=== PATIENT | female | born 1930 | race Caucasian/White ===

== ENCOUNTER 2016-04-27 14:47 | Inpatient (IN) | payer OTHER ==
--- NOTE | 2016-04-27 15:15 | PDOC ---
Rapid Medical Evaluation Time Seen by Provider: 04/27/16 15:07 Medical Evaluation: Allergies Allergy/AdvReac Type Severity Reaction Status Date / Time No Known Drug Allergies Allergy Verified 04/27/16 15:08 04/27/16 15:08 Pt comes with Left foot diabetic foot/open wound, with red cellulitis She has resection of the 1st toe 4 years ago. No fevers and no chills at home; no fever in the ER. She has a systolic heart murmur. We will send off pre-op labs and get an EKG and foot XR and CXR
--- NOTE | 2016-04-27 16:14 | PDOC ---
History of Present Illness - General History Source: Patient Exam Limitations: No Limitations - History of Present Illness Initial Comments: 04/27/16 16:54 The patient is a 85 year old female, with a significant past medical history of dementia, anemia, CVA (left hemiparesis), IDDM, gastritis, GERD, vertigo, and HTN who presents to the emergency department with left foot open wound with red cellulitis for about 2 days. The patient also has chief complaints of foul smelling. She denies recent fevers, chills, headache or dizziness. She denies recent nausea, vomit, diarrhea or constipation. Allergies: NKA Past surgical history: Resection of the 1st toe 4 years ago. Social history: Nonsmoker. Denies EtOH use and drug use. Has a home health aid 24 hours. PCP: <Soren Parra - Last Filed: 04/27/16 16:54> - General History Source: Patient Exam Limitations: No Limitations <June Marcum - Last Filed: 04/27/16 18:45> - General Chief Complaint: Wound Infection Stated Complaint: RT FOOT INFECTION Time Seen by Provider: 04/27/16 15:07 Past History <Soren Parra - Last Filed: 04/27/16 16:54> - Past Medical History Anemia: Yes Asthma: No Cancer: No Cardiac Disorders: No CVA: Yes (lt sided weakness) COPD: No CHF: No Dementia: Yes Diabetes: Yes (IDDM) Dialysis: No GI Disorders: Yes (gastritis, GERD) Disorders: No HTN: Yes Hypercholesterolemia: No Liver Disease: No Psychiatric Problems: Yes Seizures: No Thyroid Disease: Yes - Surgical History Abdominal Surgery: No Appendectomy: No Cardiac Surgery: (CAROTID) Cholecystectomy: No Lung Surgery: No Neurologic Surgery: No Orthopedic Surgery: No - Immunization History Immunization Up to Date: No - Psycho/Social/Smoking Cessation Hx Anxiety: No Suicidal Ideation: No Smoking Status: No Smoking History: Never smoked Have you smoked in the past 12 months: No Number of Cigarettes Smoked Daily: 0 Information on smoking cessation initiated: No Hx Alcohol Use: Yes (occaisional beer) Drug/Substance Use Hx: No Substance Use Type: None Hx Substance Use Treatment: No <June Marcum - Last Filed: 04/27/16 18:45> - Past Medical History Allergies/Adverse Reactions: Allergies Allergy/AdvReac Type Severity Reaction Status Date / Time No Known Drug Allergies Allergy Verified 04/27/16 15:08 Home Medications: Ambulatory Orders Amlodipine Besylate 10 mg PO DAILY 11/20/14 Aspirin [ASA -] 81 mg PO DAILY 11/20/14 Docusate Sodium 100 mg PO DAILY 11/20/14 Donepezil HCl 5 mg PO DAILY 11/20/14 Meclizine HCl 25 mg PO Q8H PRN 11/20/14 Memantine HCl [Namenda Xr] 7 mg PO DAILY 11/20/14 Pantoprazole Sodium [Protonix] 40 mg PO DAILY 11/20/14 Atorvastatin Ca [Lipitor] 10 mg PO HS 02/14/15 Hydralazine HCl [Apresoline -] 10 mg PO BID 02/14/15 Insulin (Levemir) [Levemir Flexpen -] 16 units SQ DAILY 02/14/15 Acetaminophen [Tylenol] 500 mg PO QID PRN 04/27/16 Insulin Lispro [Humalog] 0 unit SQ BID 04/27/16 Multivitamin [Poly-Vitamin] 1 each PO DAILY 04/27/16 Review of Systems - Review of Systems Able to Perform ROS?: Yes Comments:: 04/27/16 16:54 GENERAL/CONSTITUTIONAL: No: fever, chills, weakness, loss of appetite. HEAD, EYES, EARS, NOSE AND THROAT: No: change in vision, ear pain, discharge, sore throat, throat swelling. CARDIOVASCULAR: No: chest pain, lightheadedness, palpitations, syncope RESPIRATORY: No: cough, shortness of breath, wheezing, hemoptysis, stridor. GASTROINTESTINAL: No: nausea, vomiting, diarrhea, abdominal cramping, rectal bleeding, constipation. GENITOURINARY: No: dysuria, hematuria, frequency, urgency, flank pain. MUSCULOSKELETAL: Yes: foot wound. No: back pain, neck pain, joint pain, muscle swelling or pain SKIN : No: lesions, pallor, rash or easy bruising. NEUROLOGIC: No: headache, vertigo, paresthesias, weakness ENDOCRINE: No: unexplained weight gain or loss HEMATOLOGIC/LYMPHATIC: No: anemia, easy bleeding, swelling nodes. <Soren Parra - Last Filed: 04/27/16 16:54> *Physical Exam - Vital Signs Last Vital Signs Temp Pulse Resp BP Pulse Ox 97.3 F L 93 H 18 142/53 100 04/27/16 15:10 04/27/16 15:10 04/27/16 15:10 04/27/16 15:10 04/27/16 15:10 - Physical Exam Comments: 04/27/16 16:55 GENERAL: The patient is in no acute distress. HEAD: Normal with no signs of trauma. EYES: PERRLA, EOMI, sclera anicteric, conjunctiva clear. ENT: Ears normal, nares patent, oropharynx clear without exudates. Moist mucous membranes. NECK: Normal range of motion, supple without lymphadenopathy, JVD, or masses. LUNGS: Breath sounds equal, clear to auscultation bilaterally. No wheezes, and no crackles. HEART: Systolic ejection murmur 3/6 along the precordia. Regular rate and rhythm , normal S1 and S2 without murmur, rub or gallop. ABDOMEN: Soft, nontender, normoactive bowel sounds. No guarding, no rebound. No masses palpable. EXTREMITIES: LEFT foot: Surgical removal of the first toe. Swelling of 2nd and 3rd toes. NEUROLOGICAL: Cranial nerves II through XII grossly intact. Normal speech. No focal neurological deficits. MUSCULOSKELETAL: Back non-tender to palpation, no CVA tenderness SKIN: Warm, Dry, normal turgor, no rashes or lesions noted. <Soren Parra - Last Filed: 04/27/16 16:54> - Vital Signs Last Vital Signs Temp Pulse Resp BP Pulse Ox 97.3 F L 93 H 18 142/53 100 04/27/16 15:10 04/27/16 15:10 04/27/16 15:10 04/27/16 15:10 04/27/16 15:10 <June Marcum - Last Filed: 04/27/16 18:45> Heart Score/ECG Review #1 ECG reviewed & interpreted by me at: 18:44 04/27/16 18:44 Twelve-lead EKG was performed and reviewed by me. There is normal sinus rhythm with a normal rate of 94bpm. Left axis deviation. The intervals are abnormal - pr:216ms, QRS:88ms, QTc:445ms. There are no ST or T wave abnormalities. <June Marcum - Last Filed: 04/27/16 18:45> ED Treatment Course - LABORATORY CBC & Chemistry Diagram: 04/27/16 15:45 04/27/16 15:45 - ADDITIONAL ORDERS Additional order review: Laboratory Results 04/27/16 04/27/16 04/27/16 15:45 15:45 15:45 INR Cancelled PTT (Actin FS) Cancelled Blood Type A POSITIVE Antibody Screen Negative <Soren Parra - Last Filed: 04/27/16 16:54> - LABORATORY CBC & Chemistry Diagram: 04/27/16 15:45 04/27/16 15:45 - ADDITIONAL ORDERS Additional order review: Laboratory Results 04/27/16 04/27/16 15:45 15:45 INR Cancelled PTT (Actin FS) Cancelled <June Marcum - Last Filed: 04/27/16 18:45> Medical Decision Making - Medical Decision Making 04/27/16 16:14 A portion of this note was documented by scribe services under my direction. I have reviewed the details of the note, within reason, and agree with the documentation with the following case summary and management plan written by me. Nursing documentation reviewed and incorporated into medical decision making The patient is an 85 yo F h/o dementia, anemia (baseline Hgb 8-9), CVA (left hemiparesis), IDDM, gastritis, GERD, vertigo, HTN, peripheral vascular disease s /p great toe amputation who was brought to the ER by son due to change in the left toes. Second and third toes are swollen, denuded and have drainage Pt son very concerned because she is a diabetic Pt has no pain in her feet or of her toes He also notes that her urine is malodorous No fevers or chills No vomiting, no diarrhea ON examination: Foot does not feel warm Pulse not palpable Skin denuded 04/27/16 17:16 Laboratory Tests 09/24/15 12/04/15 12/05/15 05:35 13:55 05:35 WBC 8.0 6.5 Hgb 9.4 L 8.3 L D Hct 28.5 L 25.8 L Plt Count 236 162 D Potassium 5.2 H BUN 103 H Creatinine 4.7 H 04/27/16 04/27/16 15:45 15:45 WBC 6.5 Hgb 6.8 L* D Hct 20.8 L D Plt Count 211 D Potassium 4.8 BUN 111 H* Creatinine 6.3 H D Pt is more anemic than her baseline Worsening renal insufficiency Likely UTI 04/27/16 18:[address] Jacobs Will admit to Med surg Clinical impression: Anemia, Renal insufficiency, UTI <June Marcum - Last Filed: 04/27/16 18:45> *DC/Admit/Observation/Transfer - Attestations Scribe Attestion: 04/27/16 16:55 Documentation prepared by Soren Parra, acting as medical clinic manager for June Marcum MD. <Soren Parra - Last Filed: 04/27/16 16:54> - Discharge Dispostion Admit: Yes <June Marcum - Last Filed: 04/27/16 18:45> Diagnosis at time of Disposition: Acute renal failure superimposed on stage 4 chronic kidney disease UTI (urinary tract infection) Qualifiers: Urinary tract infection type: acute cystitis Hematuria presence: without hematuria Qualified Code(s): N30.00 - Acute cystitis without hematuria Anemia Qualifiers: Anemia type: unspecified type Qualified Code(s): D64.9 - Anemia, unspecified - Discharge Dispostion Condition at time of disposition: Stable
[2016-04-27 16:51] LABS: ALBUMIN 3.2 g/dl (3.4-5.0); BILIRUBIN,TOTAL 0.2 mg/dL (0.2-1.0); CALCIUM 8.9 mg/dL (8.5-10.1); CREATININE 6.3 mg/dL (0.55-1.02); TOT PROT 7.5 g/dl (6.4-8.2)
[2016-04-27 16:59] LABS: BASOPHIL 0.4 % (0-2.0); EOSINOPHIL 4.3 % (0-4.5); MCH 28.5 pg (25.7-33.7); MCHC 32.8 g/dl (32.0-36.0); MEAN PLT VOLUME 7.1 fl (7.5-11.1); NEUTROPHILS 61.8 % (42.8-82.8); PLATELET COUNT 211 K/MM3 (134-434); RDW 13.7 % (11.6-15.6); WHITE BLOOD COUNT 6.5 K/mm3 (4.0-10.0)
[2016-04-27 18:12] LABS: INR 1.08 (0.82-1.09); PROTHROMBIN TIME (PATIENT) 11.9 SEC (9.98-11.88)
[2016-04-27 18:14] LABS: ACTIVATED PTT 38.9 SECONDS (26.9-34.4)
[2016-04-27] MEDS ORDERED: MECLIZINE HCL 25 MG TABLET (FP) PO PRN (18:19)
[2016-04-27] MEDS ORDERED: ACETAMINOPHEN 325 MG TABLET (FP) PO PRN (18:23)
[2016-04-27] MEDS ORDERED: CEFTRIAXONE 1 GM in DEXTROSE 5%-WATER - 100 ML IVPB SCH (18:30)
[2016-04-27] MEDS ORDERED: CEFTRIAXONE 50 ML ONE (18:32)
[2016-04-27 22:18] LABS: URINE APPEARANCE TURBID; URINE BILIRUBIN NEGATIVE (NEGATIVE); URINE COLOR YELLOW; URINE GLUCOSE (UA) 2+ (NEGATIVE); URINE KETONE NEGATIVE (NEGATIVE); URINE NITRITE NEGATIVE (NEGATIVE); URINE UROBILINOGEN NEGATIVE E.U./dl (0.2-1.0)
[2016-04-27 22:21] LABS: URINE BLOOD 2+ (NEGATIVE); URINE LEUK ESTERASE 3+ (NEGATIVE); URINE PROTEIN 2+ (NEGATIVE)
[2016-04-27 22:23] LABS: URINE BACTERIA RARE /hpf (NONE SEEN); URINE RBC 5 /hpf (0-3); URINE WBC 228 /hpf (3-5); YEAST MODERATE
[2016-04-27] MEDS: ATORVASTATIN CA 10 MG TABLET (FP) PO SCH (23:58)
[2016-04-27] MEDS: hydrALAZINE HCL 10 MG TABLET PO SCH (23:58)
[2016-04-28] MEDS: INSULIN SLIDING SCALE (NOVOLOG) 1 VIAL SQ SCH ×5 (00:01→21:50)
[2016-04-28] MEDS: D5-1/2NS+20 MEQ KCL - 1,000 ML IV SCH (00:53)
[2016-04-28 01:26] VITALS: BMI 22.1
--- NOTE | 2016-04-28 08:14 | HP ---
Admitting History and Physical - Admission History of Present Illness: 85 yo F h/o dementia, anemia (baseline Hgb 8-9), CVA (left hemiparesis), IDDM, gastritis, GERD, vertigo, HTN, peripheral vascular disease s/p great toe amputation who was brought to the ER by son due to change in the left toes. 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 Cardiovascular: Yes: HTN, Hyperlipdemia Renal/: Yes: Renal Inusuff Heme/Onc: Yes: Anemia - Past Surgical History Past Surgical History: Yes: Amputation, Carotid Endarterectomy - Smoking History Smoking history: Never smoked Have you smoked in the past 12 months: No Aproximately how many cigarettes per day: 0 - Alcohol/Substance Use Hx Alcohol Use: Yes (occaisional beer) History of Substance Use: reports: None - Social History ADL: Family Assistance History of Recent Travel: No Home Medications - Allergies Allergies/Adverse Reactions: Allergies Allergy/AdvReac Type Severity Reaction Status Date / Time No Known Drug Allergies Allergy Verified 04/27/16 15:08 - Home Medications Home Medications: Ambulatory Orders Amlodipine Besylate 10 mg PO DAILY 11/20/14 Aspirin [ASA -] 81 mg PO DAILY 11/20/14 Docusate Sodium 100 mg PO DAILY 11/20/14 Donepezil HCl 5 mg PO DAILY 11/20/14 Meclizine HCl 25 mg PO Q8H PRN 11/20/14 Memantine HCl [Namenda Xr] 7 mg PO DAILY 11/20/14 Pantoprazole Sodium [Protonix] 40 mg PO DAILY 11/20/14 Atorvastatin Ca [Lipitor] 10 mg PO HS 02/14/15 Hydralazine HCl [Apresoline -] 10 mg PO BID 02/14/15 Insulin (Levemir) [Levemir Flexpen -] 16 units SQ DAILY 02/14/15 Acetaminophen [Tylenol] 500 mg PO QID PRN 04/27/16 Insulin Lispro [Humalog] 0 unit SQ BID 04/27/16 Multivitamin [Poly-Vitamin] 1 each PO DAILY 04/27/16 Review of Systems - Review of Systems Cardiovascular: denies: Chest Pain Gastrointestinal: reports: No Symptoms Genitourinary: reports: No Symptoms Neurological: reports: Confusion Physical Examination Vital Signs: Vital Signs Temperature 98.7 F 04/28/16 06:33 Pulse Rate 99 H 04/28/16 06:33 Respiratory Rate 20 04/28/16 06:33 Blood Pressure 158/76 04/28/16 06:33 O2 Sat by Pulse Oximetry (%) 98 04/27/16 21:00 Cardiovascular: Yes: S1, S2 Respiratory: Yes: Regular, CTA Bilaterally Gastrointestinal: Yes: Normal Bowel Sounds, Soft. No: Tenderness Edema: No Wound/Incision: Yes: Other (foot with ulcer) Neurological: Yes: Alert Problem List - Problems (1) Acute renal failure superimposed on stage 4 chronic kidney disease Assessment/Plan: IVF MONITOR RENAL FUNCTION RENAL CONSULT Code(s): N17.9 - ACUTE KIDNEY FAILURE, UNSPECIFIED N18.4 - CHRONIC KIDNEY DISEASE, STAGE 4 (SEVERE) (2) Anemia Assessment/Plan: MAYBE DUE TO CKD R/O GI LOSS S/P PRBC AWAIT CBC GI CONSULT Code(s): D64.9 - ANEMIA, UNSPECIFIED Qualifiers: Anemia type: unspecified type Qualified Code(s): D64.9 - Anemia, unspecified (3) UTI (urinary tract infection) Assessment/Plan: IV ABX AWAIT CULTURE Code(s): N39.0 - URINARY TRACT INFECTION, SITE NOT SPECIFIED Qualifiers: Urinary tract infection type: acute cystitis Hematuria presence: without hematuria Qualified Code(s): N30.00 - Acute cystitis without hematuria (4) Alzheimer's dementia Code(s): G30.9 - ALZHEIMER'S DISEASE, UNSPECIFIED (5) Amputated toe of left foot Code(s): Z89.422 - ACQUIRED ABSENCE OF OTHER LEFT TOE(S) (6) Amputated toe of right foot Code(s): Z89.421 - ACQUIRED ABSENCE OF OTHER RIGHT TOE(S)
[2016-04-28 08:15] LABS: BASOPHIL 0.3 % (0-2.0); EOSINOPHIL 2.9 % (0-4.5); MCH 27.9 pg (25.7-33.7); MCHC 33.6 g/dl (32.0-36.0); MEAN CELL VOLUME 83.1 fl (80-96); MEAN PLT VOLUME 7.2 fl (7.5-11.1); NEUTROPHILS 76.8 % (42.8-82.8); PLATELET COUNT 200 K/MM3 (134-434); RDW 15.8 % (11.6-15.6); WHITE BLOOD COUNT 9.1 K/mm3 (4.0-10.0)
[2016-04-28 09:32] LABS: ALBUMIN 3.2 g/dl (3.4-5.0); BILIRUBIN,TOTAL 0.2 mg/dL (0.2-1.0); CALCIUM 8.9 mg/dL (8.5-10.1); CREATININE 5.9 mg/dL (0.55-1.02); TOT PROT 7.4 g/dl (6.4-8.2)
[2016-04-28] MEDS ORDERED: INFLUENZA VACCINE 45 MCG/0.5 ML (MDV 16-17) IM ONE (10:00)
[2016-04-28] MEDS ORDERED: PNEUMOC 13-VAL CONJ-DIP CRM/PF 0.5 ML DISP.SYRIN IM ONE (10:00)
[2016-04-28] MEDS ORDERED: PANTOPRAZOLE SODIUM 40 MG in SODIUM CHLORIDE 100 ML IVPB SCH (10:00)
[2016-04-28] MEDS ORDERED: PT OWN MED DRAWER 7, Y5N ONE ×3 (10:03→21:25)
[2016-04-28] MEDS: DOCUSATE SODIUM 100 MG CAPSULE (FP) PO SCH (10:13)
[2016-04-28] MEDS: INSULIN DETEMIR 100 UNITS/ML MDV SQ SCH (10:13)
[2016-04-28] MEDS: amLODIPine BESYLATE 10 MG TABLET (FP) PO SCH (10:14)
[2016-04-28] MEDS: cefTRIAXone 1 GM/50 ML BAG (PRE-DOCKED) IVPB SCH (10:14)
[2016-04-28] MEDS: DONEPEZIL HCL 5 MG TABLET (FP) PO SCH (10:14)
[2016-04-28] MEDS: MULTIVITAMINS (DAILY MVI) TABLET (FP) PO SCH (10:14)
[2016-04-28] MEDS: hydrALAZINE HCL 10 MG TABLET PO SCH ×2 (10:14→21:49)
[2016-04-28] MEDS: PANTOPRAZOLE SODIUM 40 MG/100 ML PRE-DOCKED IVPB SCH (11:30)
[2016-04-28] MEDS: MEMANTINE HCL 7 MG PO SCH (11:30)
--- NOTE | 2016-04-28 14:12 | EKG ---
Test Reason : Blood Pressure : / mmHG Vent. Rate : 095 BPM Atrial Rate : 095 BPM P-R Int : 224 ms QRS Dur : 080 ms QT Int : 342 ms P-R-T Axes : 064 -45 069 degrees QTc Int : 429 ms SINUS RHYTHM WITH 1ST DEGREE A-V BLOCK LEFT ANTERIOR FASCICULAR BLOCK MINIMAL VOLTAGE CRITERIA FOR LVH, MAY BE NORMAL VARIANT ANTERIOR INFARCT , AGE UNDETERMINED ABNORMAL ECG WHEN COMPARED WITH ECG OF 04-DEC-2015 13:35, ANTERIOR INFARCT IS NOW PRESENT Confirmed by JORDI SALDIVAR, DANA ([id number]) on 04/28/2016 2:12:33 PM Referred By: Confirmed By:DANA ABCON MD
--- NOTE | 2016-04-28 17:24 | CON.GI ---
Consult Consult Specialty:: gastroenterology Referred by:: Dr Jara - History of Present Illness History of Present Illness: 85 y/o female, with PMH of diabetes, severe PVD , s/p left toe amputation was admitted because of swelling of left foot. On routine examination the patient was noted to be anemic. She denies any gi symptoms including dysphagia, epigastric pain, melena and rectal bleeding. 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 Cardio/Vascular: Yes: HTN, Hyperlipdemia Renal/: Yes: Renal Inusuff - Past Surgical History Past Surgical History: Yes: Amputation, Carotid Endarterectomy - Alcohol/Substance Use Hx Alcohol Use: Yes (occaisional beer) History of Substance Use: reports: None - Smoking History Smoking history: Never smoked Have you smoked in the past 12 months: No Aproximately how many cigarettes per day: 0 - Social History ADL: Family Assistance History of Recent Travel: No Home Medications - Allergies Allergies/Adverse Reactions: Allergies Allergy/AdvReac Type Severity Reaction Status Date / Time No Known Drug Allergies Allergy Verified 04/27/16 15:08 - Home Medications Home Medications: Ambulatory Orders Amlodipine Besylate 10 mg PO DAILY 11/20/14 Aspirin [ASA -] 81 mg PO DAILY 11/20/14 Docusate Sodium 100 mg PO DAILY 11/20/14 Donepezil HCl 5 mg PO DAILY 11/20/14 Meclizine HCl 25 mg PO Q8H PRN 11/20/14 Memantine HCl [Namenda Xr] 7 mg PO DAILY 11/20/14 Pantoprazole Sodium [Protonix] 40 mg PO DAILY 11/20/14 Atorvastatin Ca [Lipitor] 10 mg PO HS 02/14/15 Hydralazine HCl [Apresoline -] 10 mg PO BID 02/14/15 Insulin (Levemir) [Levemir Flexpen -] 16 units SQ DAILY 02/14/15 Acetaminophen [Tylenol] 500 mg PO QID PRN 04/27/16 Insulin Lispro [Humalog] 0 unit SQ BID 04/27/16 Multivitamin [Poly-Vitamin] 1 each PO DAILY 04/27/16 Review of Systems Unable to obtain ROS, reason: dementia Physical Exam-GI Vital Signs: Vital Signs Temperature 99.5 F 04/28/16 17:05 Pulse Rate 96 H 04/28/16 17:05 Respiratory Rate 20 04/28/16 17:05 Blood Pressure 170/79 04/28/16 17:05 O2 Sat by Pulse Oximetry (%) 100 04/28/16 09:00 Constitutional: Yes: Well Nourished Eyes: Yes: Conjunctiva Clear HENT: Yes: Normocephalic Neck: Yes: Trachea Midline Cardiovascular: Yes: Regular Rate and Rhythm Respiratory: Yes: CTA Bilaterally ...Palpate: Yes: Soft. No: Firm/Rigid, Guarding, Hepatomegaly, Mass, Pulsatile Mass, Splenomegaly, Tenderness Labs: CBC, BMP 04/28/16 06:00 04/28/16 06:00 INR, PTT INR 1.08 (0.82-1.09) 04/27/16 16:33 Problem List - Problems (1) Anemia Assessment/Plan: r/o occult GI bleeding R>for EGD in am if negative will need colonoscopy, patients son gave informed consent,case discussed with Dr jara Code(s): D64.9 - ANEMIA, UNSPECIFIED Qualifiers: Anemia type: unspecified type Qualified Code(s): D64.9 - Anemia, unspecified
[2016-04-28] MEDS ORDERED: ALPRAZolam 0.25 MG TABLET PO ONE (19:15)
--- NOTE | 2016-04-28 19:43 | CONSULT ---
Consult Consult Specialty:: Nephrology Reason for Consultation:: CKD - History of Present Illness Chief Complaint: left foot swelling and pain History of Present Illness: Pt is an 85 year old female with pmhx of PVD, CKD, HTN and chol who presents to the ER with left foot pain and swelling. She was found to have elevated creatinine and I was called to evaluate her. She has history of CKD and follows with Dr Toth. She does not want HD and has refused it in the past. She was also found to be anemic. She is not on any epogen as of yet as an outpt. She denies rectal bleeding. She denies shortness of breath. She denies hematuria or dysuria. 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 Cardio/Vascular: Yes: HTN, Hyperlipdemia Renal/: Yes: Renal Inusuff - Past Surgical History Past Surgical History: Yes: Amputation, Carotid Endarterectomy - Alcohol/Substance Use Hx Alcohol Use: Yes (occaisional beer) History of Substance Use: reports: None - Smoking History Smoking history: Never smoked Have you smoked in the past 12 months: No Aproximately how many cigarettes per day: 0 - Social History ADL: Family Assistance History of Recent Travel: No Home Medications - Allergies Allergies/Adverse Reactions: Allergies Allergy/AdvReac Type Severity Reaction Status Date / Time No Known Drug Allergies Allergy Verified 04/27/16 15:08 - Home Medications Home Medications: Ambulatory Orders Amlodipine Besylate 10 mg PO DAILY 11/20/14 Aspirin [ASA -] 81 mg PO DAILY 11/20/14 Docusate Sodium 100 mg PO DAILY 11/20/14 Donepezil HCl 5 mg PO DAILY 11/20/14 Meclizine HCl 25 mg PO Q8H PRN 11/20/14 Memantine HCl [Namenda Xr] 7 mg PO DAILY 11/20/14 Pantoprazole Sodium [Protonix] 40 mg PO DAILY 11/20/14 Atorvastatin Ca [Lipitor] 10 mg PO HS 02/14/15 Hydralazine HCl [Apresoline -] 10 mg PO BID 02/14/15 Insulin (Levemir) [Levemir Flexpen -] 16 units SQ DAILY 02/14/15 Acetaminophen [Tylenol] 500 mg PO QID PRN 04/27/16 Insulin Lispro [Humalog] 0 unit SQ BID 04/27/16 Multivitamin [Poly-Vitamin] 1 each PO DAILY 04/27/16 Family Disease History - Family Disease History Family History: Denies Review of Systems - Review of Systems Constitutional: reports: Weakness Eyes: reports: No Symptoms HENT: reports: No Symptoms Neck: reports: No Symptoms Cardiovascular: reports: No Symptoms Respiratory: reports: No Symptoms Gastrointestinal: reports: No Symptoms Genitourinary: reports: No Symptoms Musculoskeletal: reports: Other (left foot pain) Hematology/Lymphatic: reports: No Symptoms Psychiatric: reports: No Symptoms Physical Exam Vital Signs: Vital Signs Temperature 99.5 F 04/28/16 17:05 Pulse Rate 96 H 04/28/16 17:05 Respiratory Rate 20 04/28/16 17:05 Blood Pressure 170/79 04/28/16 17:05 O2 Sat by Pulse Oximetry (%) 100 04/28/16 09:00 Constitutional: Yes: Calm Eyes: Yes: Conjunctiva Clear HENT: Yes: Atraumatic Cardiovascular: Yes: S1, S2 Respiratory: Yes: CTA Bilaterally Gastrointestinal: Yes: Soft Renal/: Yes: WNL Musculoskeletal: Yes: Muscle Weakness Extremities: Yes: Other (left leg erythema) Integumentary: Yes: WNL Wound/Incision: Yes: Open to air Neurological: Yes: Oriented Labs: CBC, BMP 04/28/16 06:00 04/28/16 06:00 Laboratory Tests 09/25/15 04/27/16 04/27/16 05:35 15:45 15:45 WBC 6.5 RBC 2.39 L Hgb 6.8 L* D Plt Count 211 D INR PTT (Actin FS) Sodium 140 Potassium 4.8 Chloride 110 H Carbon Dioxide Anion Gap BUN 111 H* Creatinine 4.5 H 6.3 H D Creat Clearance w eGFR Random Glucose Urine Color Urine Appearance Urine pH Ur Specific [place] Urine Protein Urine Glucose (UA) Urine Ketones Urine Nitrite Urine Bilirubin Urine Urobilinogen 04/27/16 04/27/16 04/28/16 16:33 18:00 06:00 WBC 9.1 D RBC 3.24 L D Hgb 9.0 L D Plt Count 200 INR 1.08 PTT (Actin FS) 38.9 H Sodium Potassium Chloride Carbon Dioxide Anion Gap BUN Creatinine Creat Clearance w eGFR Random Glucose Urine Color Yellow Urine Appearance Turbid Urine pH 5.0 Ur Specific [place] 1.012 Urine Protein 2+ H Urine Glucose (UA) 2+ H Urine Ketones Negative Urine Nitrite Negative Urine Bilirubin Negative Urine Urobilinogen Negative 04/28/16 06:00 WBC RBC Hgb Plt Count INR PTT (Actin FS) Sodium 140 Potassium 5.0 Chloride 109 H Carbon Dioxide 16 L Anion Gap 15 BUN 107 H* Creatinine 5.9 H Creat Clearance w eGFR 6.83 Random Glucose 201 H Urine Color Urine Appearance Urine pH Ur Specific [place] Urine Protein Urine Glucose (UA) Urine Ketones Urine Nitrite Urine Bilirubin Urine Urobilinogen Imaging - Results Chest X-ray: Report Reviewed Problem List - Problems (1) Anemia Code(s): D64.9 - ANEMIA, UNSPECIFIED Qualifiers: Anemia type: unspecified type Qualified Code(s): D64.9 - Anemia, unspecified (2) Alzheimer's dementia Code(s): G30.9 - ALZHEIMER'S DISEASE, UNSPECIFIED (3) CKD (chronic kidney disease) stage 5, GFR less than 15 ml/min Code(s): N18.5 - CHRONIC KIDNEY DISEASE, STAGE 5 Assessment/Plan Current Medications Generic Name Dose Route Start Last Admin Trade Name Freq PRN Reason Stop Dose Admin Acetaminophen 650 mg 04/27/16 18:23 Tylenol - PO Q4H PRN FEVER OR PAIN Amlodipine Besylate 10 mg 04/28/16 10:00 04/28/16 10:14 Norvasc - PO 10 mg DAILY DIONICIO Administration Atorvastatin Calcium 10 mg 04/27/16 22:00 04/27/16 23:58 Lipitor - PO 10 mg HS DIONICIO Administration Ceftriaxone Sodium 1 gm 04/28/16 10:00 04/28/16 10:14 Rocephin 1gm Ivpb (Pre-Docked) IVPB 1 gm DAILY DIONICIO Administration Docusate Sodium 100 mg 04/28/16 10:00 04/28/16 10:13 Colace - PO 100 mg DAILY DIONICIO Administration Donepezil HCl 5 mg 04/28/16 10:00 04/28/16 10:14 Aricept - PO 5 mg DAILY DIONICIO Administration Hydralazine HCl 10 mg 04/27/16 22:00 04/28/16 10:14 Apresoline - PO 10 mg BID DIONICIO Administration Potassium Chloride/Dextrose/Sod Cl 1,000 mls @ 42 mls/hr 04/27/16 18:30 00:53 D5-1/2ns+20 Meq Kcl - IV 42 mls/hr ASDIR DIONICIO Administration Insulin Aspart 1 vial 04/27/16 22:00 04/28/16 18:17 Novolog Vial Sliding Scale - SQ Not Given ACHS DIONICIO Protocol Insulin Detemir 16 units 04/28/16 08:15 04/28/16 10:13 Levemir Vial SQ 16 units DAILY@0700 DIONICIO Administration Meclizine HCl 25 mg 04/27/16 18:19 Antivert - PO Q8H PRN VERTIGO Multivitamins/Minerals/Vitamin C 1 tab 04/28/16 10:00 04/28/16 10:14 Tab-A-Vit - PO 1 tab DAILY DIONICIO Administration Non-Formulary Medication 7 mg 04/28/16 10:00 04/28/16 11:30 Memantine Hcl [Namenda Xr] PO 7 mg DAILY DIONICIO Administration Pantoprazole Sodium 40 mg 04/28/16 10:00 04/28/16 11:30 Protonix 40mg Ivpb (Pre-Docked) IVPB 40 mg DAILY DIONICIO Administration Impression 1. CKD 2. anemia 3. HTN 4. PVD 5. hyperlipidemia 6. dementia 7. DM Plan - likely renal failure from progression of kidney disease - pt and family are refusing HD therapy - check iron levels - anemia could be from renal disease however will need to rule out GI causes as well - cont current meds - will remove kcl from fluids - will add PO bicarb to meds Dr Fox
[2016-04-28] MEDS ORDERED: DEXTROSE 5%-0.45% SALINE 1,000 ML IV SCH (20:00)
[2016-04-28] MEDS: ATORVASTATIN CA 10 MG TABLET (FP) PO SCH (21:49)
[2016-04-28] MEDS: SODIUM BICARBONATE 650 MG TABLET PO SCH (21:49)
[2016-04-29] MEDS: INSULIN SLIDING SCALE (NOVOLOG) 1 VIAL SQ SCH ×4 (06:25→21:56)
[2016-04-29] MEDS: INSULIN DETEMIR 100 UNITS/ML MDV SQ SCH (06:25)
[2016-04-29 07:57] LABS: BASOPHIL 0.3 % (0-2.0); MCH 27.8 pg (25.7-33.7); MCHC 33.3 g/dl (32.0-36.0); MEAN CELL VOLUME 83.7 fl (80-96); MEAN PLT VOLUME 6.6 fl (7.5-11.1); NEUTROPHILS 63.5 % (42.8-82.8); PLATELET COUNT 190 K/MM3 (134-434); RDW 15.7 % (11.6-15.6); WHITE BLOOD COUNT 7.1 K/mm3 (4.0-10.0)
[2016-04-29 08:36] LABS: ALBUMIN 2.8 g/dl (3.4-5.0); BILIRUBIN,TOTAL 0.2 mg/dL (0.2-1.0); CALCIUM 8.4 mg/dL (8.5-10.1); CREATININE 5.5 mg/dL (0.55-1.02); TOT PROT 6.8 g/dl (6.4-8.2)
[2016-04-29] MEDS ORDERED: PT OWN MED DRAWER 7, Y5N ONE (10:02)
[2016-04-29] MEDS: DONEPEZIL HCL 5 MG TABLET (FP) PO SCH (10:03)
[2016-04-29] MEDS: amLODIPine BESYLATE 10 MG TABLET (FP) PO SCH (10:03)
[2016-04-29] MEDS: PANTOPRAZOLE SODIUM 40 MG/100 ML PRE-DOCKED IVPB SCH (10:03)
[2016-04-29] MEDS: DOCUSATE SODIUM 100 MG CAPSULE (FP) PO SCH (10:03)
[2016-04-29] MEDS: MULTIVITAMINS (DAILY MVI) TABLET (FP) PO SCH (10:03)
[2016-04-29] MEDS: SODIUM BICARBONATE 650 MG TABLET PO SCH ×2 (10:03→21:40)
[2016-04-29] MEDS: hydrALAZINE HCL 10 MG TABLET PO SCH ×2 (10:04→21:39)
[2016-04-29] MEDS: cefTRIAXone 1 GM/50 ML BAG (PRE-DOCKED) IVPB SCH (10:04)
[2016-04-29] MEDS: D5-1/2NS+20 MEQ KCL - 1,000 ML IV SCH (10:05)
[2016-04-29] MEDS: MEMANTINE HCL 7 MG PO SCH (10:05)
--- NOTE | 2016-04-29 14:08 | PN ---
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, Physician Chief Complaint: patient got back EGD in bed nodd her her when i ask her name and how she is then closes her eyes - Current Medication List Current Medications: Active Medications Acetaminophen (Tylenol -) 650 mg PO Q4H PRN PRN Reason: FEVER OR PAIN Amlodipine Besylate (Norvasc -) 10 mg PO DAILY [facility] Last Admin: 04/29/16 10:03 Dose: 10 mg Atorvastatin Calcium (Lipitor -) 10 mg PO HS [facility] Last Admin: 04/28/16 21:49 Dose: 10 mg Ceftriaxone Sodium (Rocephin 1gm Ivpb (Pre-Docked)) 1 gm IVPB DAILY [facility] Last Admin: 04/29/16 10:04 Dose: 1 gm Docusate Sodium (Colace -) 100 mg PO DAILY [facility] Last Admin: 04/29/16 10:03 Dose: 100 mg Donepezil HCl (Aricept -) 5 mg PO DAILY [facility] Last Admin: 04/29/16 10:03 Dose: 5 mg Hydralazine HCl (Apresoline -) 10 mg PO BID [facility] Last Admin: 04/29/16 10:04 Dose: 10 mg Dextrose/Sodium Chloride (D5-1/2ns -) 1,000 mls @ 42 mls/hr IV ASDIR [facility] Last Admin: 04/28/16 21:49 Dose: 42 mls/hr Insulin Aspart (Novolog Vial Sliding Scale -) 1 vial SQ ACHS [facility] PRN Reason: Protocol Last Admin: 04/29/16 11:48 Dose: Not Given Insulin Detemir (Levemir Vial) 16 units SQ DAILY@0700 [facility] Last Admin: 04/29/16 06:25 Dose: Not Given Meclizine HCl (Antivert -) 25 mg PO Q8H PRN PRN Reason: [facility] Multivitamins/Minerals/Vitamin C (Tab-A-Vit -) 1 tab PO DAILY [facility] Last Admin: 04/29/16 10:03 Dose: 1 tab Non-Formulary Medication (Memantine Hcl [Namenda Xr]) 7 mg PO DAILY [facility] Last Admin: 04/29/16 10:05 Dose: 7 mg Pantoprazole Sodium (Protonix 40mg Ivpb (Pre-Docked)) 40 mg IVPB DAILY [facility] Last Admin: 04/29/16 10:03 Dose: 40 mg Sodium Bicarbonate (Sodium Bicarbonate -) 650 mg PO BID [facility] Last Admin: 04/29/16 10:03 Dose: 650 mg - Objective Vital Signs: Vital Signs Temperature 98.4 F 04/29/16 10:00 Pulse Rate 91 H 04/29/16 10:00 Respiratory Rate 18 04/29/16 10:00 Blood Pressure 153/68 04/29/16 10:00 O2 Sat by Pulse Oximetry (%) 100 04/29/16 09:03 Constitutional: Yes: Calm Cardiovascular: Yes: Regular Rate and Rhythm, Murmur, S1, S2 Respiratory: Yes: CTA Bilaterally Gastrointestinal: Yes: Normal Bowel Sounds, Soft Edema: No Labs: CBC, BMP 04/29/16 06:00 04/29/16 06:00 INR, PTT INR 1.08 (0.82-1.09) 04/27/16 16:33 Problem List - Problems (1) Acute renal failure superimposed on stage 4 chronic kidney disease Assessment/Plan: no HD per family palliative care consult to discuss advacne directives Code(s): N17.9 - ACUTE KIDNEY FAILURE, UNSPECIFIED N18.4 - CHRONIC KIDNEY DISEASE, STAGE 4 (SEVERE) (2) Anemia Assessment/Plan: s/p transfusion s/p EGD no further work up per GI back to floor waiting iron studes secondary to CKD Code(s): D64.9 - ANEMIA, UNSPECIFIED Qualifiers: Anemia type: unspecified type Qualified Code(s): D64.9 - Anemia, unspecified (3) CKD (chronic kidney disease) stage 5, GFR less than 15 ml/min Assessment/Plan: family doesn ot want HD will have palliatve care come to discuss advance directives regarding DNR Code(s): N18.5 - CHRONIC KIDNEY DISEASE, STAGE 5 (4) Hypertension Assessment/Plan: hydralazine Code(s): I10 - ESSENTIAL (PRIMARY) HYPERTENSION (5) Dementia Assessment/Plan: same meds Code(s): F03.90 - UNSPECIFIED DEMENTIA WITHOUT BEHAVIORAL DISTURBANCE Qualifiers: Dementia type: unspecified type Dementia behavioral disturbance: without behavioral disturbance Qualified Code(s): F03.90 - Unspecified dementia without behavioral disturbance (6) Wound, open, foot Assessment/Plan: Microbiology 04/28/16 07:55 Toe - Left Second Wound Culture - Preliminary Staphylococcus Coagulase Neg Pending Organism awiaitng final organism Code(s): S91.309A - UNSPECIFIED OPEN WOUND, UNSPECIFIED FOOT, INITIAL ENCOUNTER (7) UTI (urinary tract infection) Assessment/Plan: culture no growth Code(s): N39.0 - URINARY TRACT INFECTION, SITE NOT SPECIFIED Qualifiers: Urinary tract infection type: acute cystitis Hematuria presence: without hematuria Qualified Code(s): N30.00 - Acute cystitis without hematuria
--- NOTE | 2016-04-29 15:17 | PN ---
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, Physician History of Present Illness: Pt seen and examined at bedside. She is awake and appears comfortable. She is asking to go home. - Current Medication List Current Medications: Active Medications Acetaminophen (Tylenol -) 650 mg PO Q4H PRN PRN Reason: FEVER OR PAIN Amlodipine Besylate (Norvasc -) 10 mg PO DAILY [facility] Last Admin: 04/29/16 10:03 Dose: 10 mg Atorvastatin Calcium (Lipitor -) 10 mg PO HS [facility] Last Admin: 04/28/16 21:49 Dose: 10 mg Ceftriaxone Sodium (Rocephin 1gm Ivpb (Pre-Docked)) 1 gm IVPB DAILY [facility] Last Admin: 04/29/16 10:04 Dose: 1 gm Docusate Sodium (Colace -) 100 mg PO DAILY [facility] Last Admin: 04/29/16 10:03 Dose: 100 mg Donepezil HCl (Aricept -) 5 mg PO DAILY [facility] Last Admin: 04/29/16 10:03 Dose: 5 mg Hydralazine HCl (Apresoline -) 10 mg PO BID [facility] Last Admin: 04/29/16 10:04 Dose: 10 mg Dextrose/Sodium Chloride (D5-1/2ns -) 1,000 mls @ 42 mls/hr IV ASDIR [facility] Last Admin: 04/28/16 21:49 Dose: 42 mls/hr Insulin Aspart (Novolog Vial Sliding Scale -) 1 vial SQ ACHS [facility] PRN Reason: Protocol Last Admin: 04/29/16 11:48 Dose: Not Given Insulin Detemir (Levemir Vial) 16 units SQ DAILY@0700 [facility] Last Admin: 04/29/16 06:25 Dose: Not Given Meclizine HCl (Antivert -) 25 mg PO Q8H PRN PRN Reason: [facility] Multivitamins/Minerals/Vitamin C (Tab-A-Vit -) 1 tab PO DAILY [facility] Last Admin: 04/29/16 10:03 Dose: 1 tab Non-Formulary Medication (Memantine Hcl [Namenda Xr]) 7 mg PO DAILY [facility] Last Admin: 04/29/16 10:05 Dose: 7 mg Pantoprazole Sodium (Protonix 40mg Ivpb (Pre-Docked)) 40 mg IVPB DAILY [facility] Last Admin: 04/29/16 10:03 Dose: 40 mg Sodium Bicarbonate (Sodium Bicarbonate -) 650 mg PO BID [facility] Last Admin: 03/09/17 10:03 Dose: 650 mg - Objective Vital Signs: Vital Signs Temperature 98.4 F 04/29/16 10:00 Pulse Rate 91 H 04/29/16 10:00 Respiratory Rate 18 04/29/16 10:00 Blood Pressure 153/68 04/29/16 10:00 O2 Sat by Pulse Oximetry (%) 100 04/29/16 09:03 Constitutional: Yes: Calm Eyes: Yes: Conjunctiva Clear HENT: Yes: Atraumatic Neck: Yes: Supple Cardiovascular: Yes: S1, S2 Respiratory: Yes: CTA Bilaterally Gastrointestinal: Yes: Soft Genitourinary: Yes: WNL Musculoskeletal: Yes: Muscle Weakness Edema: No Neurological: Yes: Oriented Labs: CBC, BMP 04/29/16 06:00 04/29/16 06:00 INR, PTT INR 1.08 (0.82-1.09) 04/27/16 16:33 Problem List - Problems (1) Anemia Code(s): D64.9 - ANEMIA, UNSPECIFIED Qualifiers: Anemia type: unspecified type Qualified Code(s): D64.9 - Anemia, unspecified (2) Alzheimer's dementia Code(s): G30.9 - ALZHEIMER'S DISEASE, UNSPECIFIED (3) CKD (chronic kidney disease) stage 5, GFR less than 15 ml/min Code(s): N18.5 - CHRONIC KIDNEY DISEASE, STAGE 5 Assessment/Plan Current Medications Generic Name Dose Route Start Last Admin Trade Name Freq PRN Reason Stop Dose Admin Acetaminophen 650 mg 04/27/16 18:23 Tylenol - PO Q4H PRN FEVER OR PAIN Amlodipine Besylate 10 mg 04/28/16 10:00 04/29/16 10:03 Norvasc - PO 10 mg DAILY [facility] Administration Atorvastatin Calcium 10 mg 04/27/16 22:00 04/28/16 21:49 Lipitor - PO 10 mg HS [facility] Administration Ceftriaxone Sodium 1 gm 04/28/16 10:00 04/29/16 10:04 Rocephin 1gm Ivpb (Pre-Docked) IVPB 1 gm DAILY [facility] Administration Docusate Sodium 100 mg 04/28/16 10:00 04/29/16 10:03 Colace - PO 100 mg DAILY [facility] Administration Donepezil HCl 5 mg 04/28/16 10:00 04/29/16 10:03 Aricept - PO 5 mg DAILY [facility] Administration Hydralazine HCl 10 mg 04/27/16 22:00 04/29/16 10:04 Apresoline - PO 10 mg BID [facility] Administration Dextrose/Sodium Chloride 1,000 mls @ 42 mls/hr 04/28/16 20:00 04/28/16 21:49 D5-1/2ns - IV 42 mls/hr ASDIR [facility] Administration Insulin Aspart 1 vial 04/27/16 22:00 04/29/16 11:48 Novolog Vial Sliding Scale - SQ Not Given ACHS [facility] Protocol Insulin Detemir 16 units 04/28/16 08:15 04/29/16 06:25 Levemir Vial SQ Not Given DAILY@0700 [facility] Meclizine HCl 25 mg 04/27/16 18:19 Antivert - PO Q8H PRN [facility] Multivitamins/Minerals/Vitamin C 1 tab 04/28/16 10:00 04/29/16 10:03 Tab-A-Vit - PO 1 tab DAILY [facility] Administration Non-Formulary Medication 7 mg 04/28/16 10:00 04/29/16 10:05 Memantine Hcl [Namenda Xr] PO 7 mg DAILY [facility] Administration Pantoprazole Sodium 40 mg 04/28/16 10:00 04/29/16 10:03 Protonix 40mg Ivpb (Pre-Docked) IVPB 40 mg DAILY [facility] Administration Sodium Bicarbonate 650 mg 04/28/16 22:00 04/29/16 10:03 Sodium Bicarbonate - PO 650 mg BID [facility] Administration Laboratory Tests 04/29/16 04/29/16 06:00 06:00 Iron Pending Ferritin [id number] Impression 1. CKD 2. anemia 3. HTN 4. PVD 5. hyperlipidemia 6. dementia 7. DM Plan - renal function is stabilizing - cont renal diet - cont PO bicarb - change fluids to 1/2ns - pt does not want HD - follow up iron levels - cont current meds Dr Fox
[2016-04-29] MEDS ORDERED: SODIUM CHLORIDE 0.45% 1,000 ML IV SCH (15:30)
[2016-04-29] MEDS: ATORVASTATIN CA 10 MG TABLET (FP) PO SCH (21:39)
[2016-04-30] MEDS: INSULIN SLIDING SCALE (NOVOLOG) 1 VIAL SQ SCH ×2 (06:14→12:20)
[2016-04-30] MEDS: INSULIN DETEMIR 100 UNITS/ML MDV SQ SCH (06:31)
[2016-04-30] MEDS ORDERED: PT OWN MED DRAWER 7, Y5N ONE ×2 (06:57→09:55)
[2016-04-30 08:02] LABS: BASOPHIL 0.5 % (0-2.0); EOSINOPHIL 5.4 % (0-4.5); MCHC 33.5 g/dl (32.0-36.0); MEAN CELL VOLUME 83.8 fl (80-96); MEAN PLT VOLUME 7.3 fl (7.5-11.1); NEUTROPHILS 60.2 % (42.8-82.8); PLATELET COUNT 192 K/MM3 (134-434); RDW 15.7 % (11.6-15.6)
[2016-04-30] MEDS: amLODIPine BESYLATE 10 MG TABLET (FP) PO SCH (10:00)
[2016-04-30] MEDS: MEMANTINE HCL 7 MG PO SCH (10:00)
[2016-04-30] MEDS: MULTIVITAMINS (DAILY MVI) TABLET (FP) PO SCH (10:01)
[2016-04-30] MEDS: DOCUSATE SODIUM 100 MG CAPSULE (FP) PO SCH (10:01)
[2016-04-30] MEDS: SODIUM BICARBONATE 650 MG TABLET PO SCH (10:01)
[2016-04-30] MEDS: cefTRIAXone 1 GM/50 ML BAG (PRE-DOCKED) IVPB SCH (10:02)
[2016-04-30] MEDS: PANTOPRAZOLE SODIUM 40 MG/100 ML PRE-DOCKED IVPB SCH (10:02)
[2016-04-30] MEDS: hydrALAZINE HCL 10 MG TABLET PO SCH (10:06)
[2016-04-30] MEDS: DONEPEZIL HCL 5 MG TABLET (FP) PO SCH (10:08)
[2016-04-30 10:42] LABS: CALCIUM 8.5 mg/dL (8.5-10.1); CREATININE 5.4 mg/dL (0.55-1.02)
--- NOTE | 2016-04-30 12:16 | PN ---
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, Physician - Current Medication List Current Medications: Active Medications Acetaminophen (Tylenol -) 650 mg PO Q4H PRN PRN Reason: FEVER OR PAIN Amlodipine Besylate (Norvasc -) 10 mg PO DAILY [facility] Last Admin: 04/30/16 10:00 Dose: 10 mg Atorvastatin Calcium (Lipitor -) 10 mg PO HS [facility] Last Admin: 04/29/16 21:39 Dose: 10 mg Ceftriaxone Sodium (Rocephin 1gm Ivpb (Pre-Docked)) 1 gm IVPB DAILY [facility] Last Admin: 04/30/16 10:02 Dose: 1 gm Docusate Sodium (Colace -) 100 mg PO DAILY [facility] Last Admin: 04/30/16 10:01 Dose: 100 mg Donepezil HCl (Aricept -) 5 mg PO DAILY [facility] Last Admin: 04/30/16 10:08 Dose: 5 mg Hydralazine HCl (Apresoline -) 10 mg PO BID [facility] Last Admin: 04/30/16 10:06 Dose: 10 mg Sodium Chloride (1/2 Normal Saline) 1,000 mls @ 42 mls/hr IV ASDIR [facility] Last Admin: 04/29/16 17:39 Dose: 42 mls/hr Insulin Aspart (Novolog Vial Sliding Scale -) 1 vial SQ ACHS [facility] PRN Reason: Protocol Last Admin: 04/30/16 06:14 Dose: Not Given Insulin Detemir (Levemir Vial) 16 units SQ DAILY@0700 [facility] Last Admin: 04/30/16 06:31 Dose: 16 units Meclizine HCl (Antivert -) 25 mg PO Q8H PRN PRN Reason: [facility] Multivitamins/Minerals/Vitamin C (Tab-A-Vit -) 1 tab PO DAILY [facility] Last Admin: 04/30/16 10:01 Dose: 1 tab Non-Formulary Medication (Memantine Hcl [Namenda Xr]) 7 mg PO DAILY [facility] Last Admin: 04/30/16 10:00 Dose: 7 mg Pantoprazole Sodium (Protonix 40mg Ivpb (Pre-Docked)) 40 mg IVPB DAILY [facility] Last Admin: 04/30/16 10:02 Dose: 40 mg Sodium Bicarbonate (Sodium Bicarbonate -) 650 mg PO BID [facility] Last Admin: 04/30/16 10:01 Dose: 650 mg - Objective Vital Signs: Vital Signs Temperature 98.4 F 04/30/16 08:01 Pulse Rate 96 H 04/30/16 08:01 Respiratory Rate 20 04/30/16 08:01 Blood Pressure 189/76 04/30/16 08:01 O2 Sat by Pulse Oximetry (%) 100 04/29/16 09:03 Labs: CBC, BMP 04/30/16 06:00 04/30/16 10:14 INR, PTT INR 1.08 (0.82-1.09) 04/27/16 16:33 Problem List - Problems (1) Acute renal failure superimposed on stage 4 chronic kidney disease Code(s): N17.9 - ACUTE KIDNEY FAILURE, UNSPECIFIED N18.4 - CHRONIC KIDNEY DISEASE, STAGE 4 (SEVERE) (2) Anemia Code(s): D64.9 - ANEMIA, UNSPECIFIED Qualifiers: Anemia type: unspecified type Qualified Code(s): D64.9 - Anemia, unspecified (3) UTI (urinary tract infection) Code(s): N39.0 - URINARY TRACT INFECTION, SITE NOT SPECIFIED Qualifiers: Urinary tract infection type: acute cystitis Hematuria presence: without hematuria Qualified Code(s): N30.00 - Acute cystitis without hematuria (4) Alzheimer's dementia Code(s): G30.9 - ALZHEIMER'S DISEASE, UNSPECIFIED (5) Amputated toe of left foot Code(s): Z89.422 - ACQUIRED ABSENCE OF OTHER LEFT TOE(S) (6) Amputated toe of right foot Code(s): Z89.421 - ACQUIRED ABSENCE OF OTHER RIGHT TOE(S)
--- NOTE | 2016-04-30 14:01 | DS ---
Physical Examination Vital Signs: Vital Signs Temperature 98.4 F 04/30/16 08:01 Pulse Rate 96 H 04/30/16 08:01 Respiratory Rate 20 04/30/16 08:01 Blood Pressure 189/76 04/30/16 08:01 O2 Sat by Pulse Oximetry (%) 100 04/29/16 09:03 Findings/Remarks: no change awake alert eating Cardiovascular: Yes: S1, S2 Respiratory: Yes: Regular, CTA Bilaterally Gastrointestinal: Yes: Normal Bowel Sounds, Soft Labs: CBC, BMP 04/30/16 06:00 04/30/16 10:14 Discharge Summary Reason For Visit: UTI/ ANEMIA / ACUTE RENAL FAILURE Current Active Problems Acute renal failure superimposed on stage 4 chronic kidney disease (Acute) Amputated toe of left foot (Acute) Amputated toe of right foot (Acute) Anemia (Acute) CKD (chronic kidney disease) stage 5, GFR less than 15 ml/min (Acute) Chronic progressive renal failure (Acute) DVT prophylaxis (Acute) Diabetes mellitus with renal manifestation (Acute) Failure to thrive in adult (Acute) Fall (Acute) Hypertension (Acute) Malnutrition (Acute) Normocytic anemia (Acute) UTI (urinary tract infection) (Acute) Weakness (Acute) Wound, open, foot (Acute) Hospital Course: - 85 yo F h/o dementia, anemia (baseline Hgb 8-9), CVA (left hemiparesis), IDDM, gastritis, GERD, vertigo, HTN, peripheral vascular disease s/p great toe amputation who was brought to the ER by son due to change in the left toes. 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 Cardiovascular: Yes: HTN, Hyperlipdemia Renal/: Yes: Renal Inusuff Heme/Onc: Yes: Anemia - Past Surgical History Past Surgical History: Yes: Amputation, Carotid Endarterectomy Problems (1) Acute renal failure superimposed on stage 4 chronic kidney disease Assessment/Plan: no HD per family palliative care consult to discuss advance directives Code(s): N17.9 - ACUTE KIDNEY FAILURE, UNSPECIFIED N18.4 - CHRONIC KIDNEY DISEASE, STAGE 4 (SEVERE) (2) Anemia Assessment/Plan: s/p transfusion s/p EGD no further work up per GI iron studies secondary to CKD Code(s): D64.9 - ANEMIA, UNSPECIFIED Qualifiers: Anemia type: unspecified type Qualified Code(s): D64.9 - Anemia, unspecified (3) CKD (chronic kidney disease) stage 5, GFR less than 15 ml/min Assessment/Plan: family does not want HD will have palliative care come to discuss advance directives regarding DNR Code(s): N18.5 - CHRONIC KIDNEY DISEASE, STAGE 5 (4) Hypertension Assessment/Plan: hydralazine Code(s): I10 - ESSENTIAL (PRIMARY) HYPERTENSION (5) Dementia Assessment/Plan: same meds Code(s): F03.90 - UNSPECIFIED DEMENTIA WITHOUT BEHAVIORAL DISTURBANCE Qualifiers: Dementia type: unspecified type Dementia behavioral disturbance: without behavioral disturbance Qualified Code(s): F03.90 - Unspecified dementia without behavioral disturbance (6) Wound, open, foot Assessment/Plan: Microbiology 04/28/16 07:55 Toe - Left Second Wound Culture - Preliminary Staphylococcus Coagulase Neg Pending Organism aviating final organism Code(s): S91.309A - UNSPECIFIED OPEN WOUND, UNSPECIFIED FOOT, INITIAL ENCOUNTER (7) UTI (urinary tract infection) Assessment/Plan: culture no growth Code(s): N39.0 - URINARY TRACT INFECTION, SITE NOT SPECIFIED Qualifiers: Urinary tract infection type: acute cystitis Hematuria presence: without hematuria Qualified Code(s): N30.00 - Acute cystitis without hematuria Condition: Stable - Instructions Diet, Activity, Other Instructions: blood test one week Referrals: Jero Faustin MD [Staff Physician] - 1 Week Disposition: VNS/HOME HEALTH CARE - Home Medications Comprehensive Discharge Medication List: Ambulatory Orders Amlodipine Besylate 10 mg PO DAILY 11/20/14 Aspirin [ASA -] 81 mg PO DAILY 11/20/14 Docusate Sodium 100 mg PO DAILY 11/20/14 Donepezil HCl 5 mg PO DAILY 11/20/14 Meclizine HCl 25 mg PO Q8H PRN 11/20/14 Memantine HCl [Namenda Xr] 7 mg PO DAILY 11/20/14 Pantoprazole Sodium [Protonix] 40 mg PO DAILY 11/20/14 Atorvastatin Ca [Lipitor] 10 mg PO HS 02/14/15 Hydralazine HCl [Apresoline -] 10 mg PO BID 02/14/15 Insulin (Levemir) [Levemir Flexpen -] 16 units SQ DAILY 02/14/15 Acetaminophen [Tylenol] 500 mg PO QID PRN 04/27/16 Insulin Lispro [Humalog] 0 unit SQ BID 04/27/16 Multivitamin [Poly-Vitamin] 1 each PO DAILY 04/27/16 Acetaminophen [Tylenol .Regular Strength -] 650 mg PO Q4H PRN #0 tablet Sodium Bicarbonate - 650 mg PO BID #60 tablet 04/30/16
[2016-04-30 15:02] VITALS: BP 146/67
--- NOTE | 2016-04-30 15:25 | PN ---
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, Physician History of Present Illness: Pt seen and examined at bedside. She appears comfortable. - Current Medication List Current Medications: Active Medications Acetaminophen (Tylenol -) 650 mg PO Q4H PRN PRN Reason: FEVER OR PAIN Amlodipine Besylate (Norvasc -) 10 mg PO DAILY [facility] Last Admin: 04/30/16 10:00 Dose: 10 mg Atorvastatin Calcium (Lipitor -) 10 mg PO HS [facility] Last Admin: 04/29/16 21:39 Dose: 10 mg Docusate Sodium (Colace -) 100 mg PO DAILY [facility] Last Admin: 04/30/16 10:01 Dose: 100 mg Donepezil HCl (Aricept -) 5 mg PO DAILY [facility] Last Admin: 04/30/16 10:08 Dose: 5 mg Hydralazine HCl (Apresoline -) 10 mg PO BID [facility] Last Admin: 04/30/16 10:06 Dose: 10 mg Insulin Aspart (Novolog Vial Sliding Scale -) 1 vial SQ ACHS [facility] PRN Reason: Protocol Last Admin: 04/30/16 12:20 Dose: 2 units Insulin Detemir (Levemir Vial) 16 units SQ DAILY@0700 [facility] Last Admin: 04/30/16 06:31 Dose: 16 units Meclizine HCl (Antivert -) 25 mg PO Q8H PRN PRN Reason: [facility] Multivitamins/Minerals/Vitamin C (Tab-A-Vit -) 1 tab PO DAILY [facility] Last Admin: 04/30/16 10:01 Dose: 1 tab Non-Formulary Medication (Memantine Hcl [Namenda Xr]) 7 mg PO DAILY [facility] Last Admin: 04/30/16 10:00 Dose: 7 mg Pantoprazole Sodium (Protonix 40mg Ivpb (Pre-Docked)) 40 mg IVPB DAILY [facility] Last Admin: 04/30/16 10:02 Dose: 40 mg Sodium Bicarbonate (Sodium Bicarbonate -) 650 mg PO BID [facility] Last Admin: 04/30/16 10:01 Dose: 650 mg - Objective Vital Signs: Vital Signs Temperature 97.8 F 04/30/16 09:00 Pulse Rate 92 H 04/30/16 09:00 Respiratory Rate 20 04/30/16 09:00 Blood Pressure 146/67 04/30/16 09:00 O2 Sat by Pulse Oximetry (%) 100 04/29/16 09:03 Constitutional: Yes: Calm Eyes: Yes: Conjunctiva Clear HENT: Yes: Atraumatic Neck: Yes: Supple Cardiovascular: Yes: S1, S2 Respiratory: Yes: CTA Bilaterally Gastrointestinal: Yes: Soft Genitourinary: Yes: WNL Edema: No Neurological: Yes: Oriented Labs: CBC, BMP 04/30/16 06:00 04/30/16 10:14 INR, PTT INR 1.08 (0.82-1.09) 04/27/16 16:33 Problem List - Problems (1) Anemia Code(s): D64.9 - ANEMIA, UNSPECIFIED Qualifiers: Anemia type: unspecified type Qualified Code(s): D64.9 - Anemia, unspecified (2) Alzheimer's dementia Code(s): G30.9 - ALZHEIMER'S DISEASE, UNSPECIFIED (3) CKD (chronic kidney disease) stage 5, GFR less than 15 ml/min Code(s): N18.5 - CHRONIC KIDNEY DISEASE, STAGE 5 Assessment/Plan Current Medications Generic Name Dose Route Start Last Admin Trade Name Freq PRN Reason Stop Dose Admin Acetaminophen 650 mg 04/27/16 18:23 Tylenol - PO Q4H PRN FEVER OR PAIN Amlodipine Besylate 10 mg 04/28/16 10:00 04/30/16 10:00 Norvasc - PO 10 mg DAILY [facility] Administration Atorvastatin Calcium 10 mg 04/27/16 22:00 04/29/16 21:39 Lipitor - PO 10 mg HS [facility] Administration Docusate Sodium 100 mg 04/28/16 10:00 04/30/16 10:01 Colace - PO 100 mg DAILY [facility] Administration Donepezil HCl 5 mg 04/28/16 10:00 04/30/16 10:08 Aricept - PO 5 mg DAILY [facility] Administration Hydralazine HCl 10 mg 04/27/16 22:00 04/30/16 10:06 Apresoline - PO 10 mg BID [facility] Administration Insulin Aspart 1 vial 04/27/16 22:00 04/30/16 12:20 Novolog Vial Sliding Scale - SQ 2 units ACHS [facility] Administration Protocol Insulin Detemir 16 units 04/28/16 08:15 04/30/16 06:31 Levemir Vial SQ 16 units DAILY@0700 [facility] Administration Meclizine HCl 25 mg 04/27/16 18:19 Antivert - PO Q8H PRN [facility] Multivitamins/Minerals/Vitamin C 1 tab 04/28/16 10:00 04/30/16 10:01 Tab-A-Vit - PO 1 tab DAILY [facility] Administration Non-Formulary Medication 7 mg 04/28/16 10:00 04/30/16 10:00 Memantine Hcl [Namenda Xr] PO 7 mg DAILY [facility] Administration Pantoprazole Sodium 40 mg 04/28/16 10:00 04/30/16 10:02 Protonix 40mg Ivpb (Pre-Docked) IVPB 40 mg DAILY [facility] Administration Sodium Bicarbonate 650 mg 04/28/16 22:00 04/30/16 10:01 Sodium Bicarbonate - PO 650 mg BID [facility] Administration Laboratory Tests 04/29/16 04/29/16 06:00 06:00 Iron 31 Ferritin 245.404 Impression 1. CKD 2. anemia 3. HTN 4. PVD 5. hyperlipidemia 6. dementia 7. DM Plan - cont with PO bicarb - renal function is improving - will start iron supplements - pt will follow in office with Dr Toth - cont renal diet - pt and family have refused HD - cont current meds Dr Fox
[2016-04-30 15:36] VITALS: PULSE 100; TEMP 98.1
[2016-04-30] MEDS ORDERED: FERROUS SO4 325 MG TABLET (FP) PO SCH (22:00)
== END 2016-04-30 16:22 | disposition home health service (06) | DRG 638 ==
LOC: JER 14:47 → JERBED 18:17 → J8W 21:23
PROVIDERS: ADMIT Family Medicine; ATTEND Family Medicine
PROC: 30233N1 Transfusion of Nonautologous Red Blood Cells into Peripheral Vein, Percutaneous Approach (ICD-10-PCS; 2016-04-27)
PROC: 0DJ08ZZ Inspection of Upper Intestinal Tract, Via Natural or Artificial Opening Endoscopic (ICD-10-PCS; principal; 2016-04-29 08:00)
DX: E11.628 Type 2 diabetes mellitus with other skin complications (principal); I69.354 Hemiplegia and hemiparesis following cerebral infarction affecting left non-dominant side; I12.0 Hypertensive chronic kidney disease with stage 5 chronic kidney disease or end stage renal disease; N39.0 Urinary tract infection, site not specified; S91.109A Unspecified open wound of unspecified toe(s) without damage to nail, initial encounter; G30.9 Alzheimer's disease, unspecified; I73.89 Other specified peripheral vascular diseases; F02.80 Dementia in other diseases classified elsewhere, unspecified severity, without behavioral disturbance, psychotic disturbance, mood disturbance, and anxiety; E78.5 Hyperlipidemia, unspecified; D64.9 Anemia, unspecified; K21.9 Gastro-esophageal reflux disease without esophagitis; N18.5 Chronic kidney disease, stage 5; N17.9 Acute kidney failure, unspecified; L03.032 Cellulitis of left toe; Z79.4 Long term (current) use of insulin; X58.XXXA Exposure to other specified factors, initial encounter; Z89.422 Acquired absence of other left toe(s); Z89.421 Acquired absence of other right toe(s)
CPT/HCPCS: 36415; 36430; 71010-TC; 73630-TC-LT; 80048; 80053; 81003; 81015; 82728; 83540; 85025; 85610; 85730; 86850; 86900; 86901; 86922; 87040; 87070; 87086; 87186; 87205; 90670; 93005; 93010; 97116-GP; 97161-GP; 99285-25; G0008; G0009; P9038; P9058; Q2037

== ENCOUNTER 2016-07-01 16:17 | Inpatient (IN) | payer OTHER ==
[2016-07-01 16:22] VITALS: BMI 17.2
--- NOTE | 2016-07-01 17:10 | PDOC ---
History of Present Illness - History of Present Illness Initial Comments: 07/01/16 17:46 The patient is a 85 year old female, with a significant past medical history of hypertension, anemia, dementia, CVA (left hemiparesis), IDDM, gastritis, vertigo , and frequent UTIs, who presents to the emergency department BIB family for generalized weakness and foul smelling urine for 2 days. As per the patients son, the patient has been having difficulty waking up from naps throughout her day. The patients son states his mother does not ambulate at baseline. He also reports constipation, which he states is normal for her. The patient's son reports a decrease in her hearing that started about 2 weeks ago. The patient also had a doppler US of her lower extremities with Dr. Sommers and the son reports a plan for amputation of the left 1st toe. The patient's son states his mother did not receive her insulin this morning. The patients son denies his mother complaining of any recent chest pain, shortness of breath, headache and dizziness. He also denies fever, chills, nausea, vomit, diarrhea, dysuria, frequency, urgency and hematuria. Allergies: NKDA Past surgical history: multiple toe amputations Social history: denies toxic habits. Has a home health aid 24 hours. PCP - Dr. Jero Faustin <Milka Joel - Last Filed: 07/01/16 18:52> <Collette Polk - Last Filed: 07/15/16 12:29> - General Chief Complaint: Weakness Stated Complaint: WEAKNESS Time Seen by Provider: 07/01/16 17:09 Past History <Milka Joel - Last Filed: 07/01/16 18:52> - Past Medical History Anemia: Yes Asthma: No Cancer: No Cardiac Disorders: No CVA: Yes (lt sided weakness) COPD: No CHF: No Dementia: Yes Diabetes: Yes (IDDM) Dialysis: No GI Disorders: Yes (gastritis, GERD) Disorders: No HTN: Yes Hypercholesterolemia: No Liver Disease: No Psychiatric Problems: Yes Seizures: No Thyroid Disease: Yes - Surgical History Abdominal Surgery: No Appendectomy: No Cardiac Surgery: (CAROTID) Cholecystectomy: No Lung Surgery: No Neurologic Surgery: No Orthopedic Surgery: No - Immunization History Immunization Up to Date: No - Psycho/Social/Smoking Cessation Hx Anxiety: No Suicidal Ideation: No Smoking Status: No Smoking History: Never smoked Have you smoked in the past 12 months: No Number of Cigarettes Smoked Daily: 0 Hx Alcohol Use: No Drug/Substance Use Hx: No Substance Use Type: None Hx Substance Use Treatment: No <JamCollette - Last Filed: 07/15/16 12:29> - Past Medical History Allergies/Adverse Reactions: Allergies Allergy/AdvReac Type Severity Reaction Status Date / Time No Known Drug Allergies Allergy Verified 07/01/16 16:22 Home Medications: Ambulatory Orders Amlodipine Besylate 10 mg PO DAILY 11/20/14 Aspirin [ASA -] 81 mg PO DAILY 11/20/14 Docusate Sodium 100 mg PO DAILY 11/20/14 Donepezil HCl 5 mg PO DAILY 11/20/14 Meclizine HCl 25 mg PO Q8H PRN 11/20/14 Memantine HCl [Namenda Xr] 7 mg PO DAILY 11/20/14 Pantoprazole Sodium [Protonix] 40 mg PO DAILY 11/20/14 Atorvastatin Ca [Lipitor] 10 mg PO HS 02/14/15 Insulin (Levemir) [Levemir Flexpen -] 16 units SQ DAILY 02/14/15 Insulin Lispro [Humalog] 0 unit SQ BID 04/27/16 Sodium Bicarbonate - 650 mg PO BID #60 tablet 04/30/16 Hydralazine HCl [Apresoline -] 25 mg PO BID #0 tab MDD 2 07/05/16 Acetaminophen [Tylenol .Regular Strength -] 650 mg PO Q4H PRN #0 tablet Amlodipine Besylate [Norvasc -] 10 mg PO DAILY tablet 07/09/16 Aspirin [ASA -] 81 mg PO DAILY tab.chew 07/09/16 Atorvastatin Ca [Lipitor] 10 mg PO HS tablet 07/09/16 Clopidogrel Bisulfate [Plavix -] 75 mg PO DAILY #30 tablet 07/09/16 Donepezil HCl [Aricept -] 5 mg PO DAILY tablet 07/09/16 Insulin Sliding Scale [Novolog Vial Sliding Scale -] 1 vial SQ ACHS units 07/09 Meclizine HCl [Antivert -] 25 mg PO Q8H PRN #0 tablet MDD 3 07/09/16 Multivitamins [Multivit ([facility] Formul[facility])] 1 tab PO DAILY tab 07/09/16 Review of Systems - Review of Systems Able to Perform ROS?: No (confused/dementia) <Milka Joel - Last Filed: 07/01/16 18:52> *Physical Exam - Vital Signs Last Vital Signs Temp Pulse Resp BP Pulse Ox 97.8 F 91 H 16 153/90 100 07/01/16 16:19 07/01/16 16:19 07/01/16 16:19 07/01/16 16:19 07/01/16 16:19 <Milka Joel - Last Filed: 07/01/16 18:52> - Vital Signs Last Vital Signs Temp Pulse Resp BP Pulse Ox 97.8 F 91 H 16 153/90 100 07/01/16 16:19 07/01/16 16:19 07/01/16 16:19 07/01/16 16:19 07/01/16 16:19 - Physical Exam Comments: GENERAL: Awake, alert, in no acute distress HEAD: No signs of trauma EYES: PERRLA, EOMI, sclera anicteric, conjunctiva clear ENT: Auricles normal inspection, hearing grossly normal, nares patent, oropharynx clear without exudates. Moist mucosa NECK: Normal ROM, supple, no lymphadenopathy, JVD, or masses LUNGS: Breath sounds equal, clear to auscultation bilaterally. No wheezes, and no crackles HEART: Regular rate and rhythm, normal S1 and S2, no murmurs, rubs or gallops ABDOMEN: Soft, nontender, normoactive bowel sounds. No guarding, no rebound. No masses EXTREMITIES: Normal range of motion, no edema. No clubbing or cyanosis. No cords, erythema, or tenderness NEUROLOGICAL: Cranial nerves II through XII grossly intact. Normal speech. Moving all extremities. SKIN: Warm, Dry, normal turgor, no rashes or lesions noted. <Collette Polk - Last Filed: 07/15/16 12:29> ED Treatment Course - LABORATORY CBC & Chemistry Diagram: 07/01/16 17:50 07/01/16 17:50 - RADIOLOGY Radiograph Interpretation: 07/01/16 18:48 CXR was read by Dr. Taylor at 18:04 Impression: No acute lung disease. <Milka Joel - Last Filed: 07/01/16 18:52> - LABORATORY CBC & Chemistry Diagram: 07/13/16 09:20 07/13/16 09:20 <Collette Polk - Last Filed: 07/15/16 12:29> *DC/Admit/Observation/Transfer - Attestations Scribe Attestion: 07/01/16 17:47 Documentation prepared by Milka Joel, acting as medical office worker for Collette Polk MD, <Milka Joel - Last Filed: 07/01/16 18:52> <Collette Polk - Last Filed: 07/15/16 12:29> Diagnosis at time of Disposition: Acute renal failure Qualifiers: Acute renal failure type: unspecified Qualified Code(s): N17.9 - Acute kidney failure, unspecified - Discharge Dispostion Disposition: VNS/HOME HEALTH CARE Condition at time of disposition: Guarded - Prescriptions - Referrals
[2016-07-01 17:56] LABS: URINE APPEARANCE CLEAR; URINE BILIRUBIN NEGATIVE (NEGATIVE); URINE COLOR LTYELLOW; URINE GLUCOSE (UA) 2+ (NEGATIVE); URINE KETONE NEGATIVE (NEGATIVE); URINE LEUK ESTERASE NEGATIVE (NEGATIVE); URINE NITRITE NEGATIVE (NEGATIVE); URINE UROBILINOGEN NEGATIVE E.U./dl (0.2-1.0)
[2016-07-01 18:13] LABS: URINE BLOOD 1+ (NEGATIVE); URINE PROTEIN 2+ (NEGATIVE)
[2016-07-01 18:34] LABS: BASOPHIL 0.4 % (0-2.0); EOSINOPHIL 3.9 % (0-4.5); MCH 27.9 pg (25.7-33.7); MCHC 32.5 g/dl (32.0-36.0); MEAN PLT VOLUME 8.9 fl (7.5-11.1); NEUTROPHILS 63.9 % (42.8-82.8); PLATELET COUNT 276 K/MM3 (134-434); WHITE BLOOD COUNT 4.9 K/mm3 (4.0-10.0)
[2016-07-01 18:45] LABS: INR 1.06 (0.82-1.09); PROTHROMBIN TIME (PATIENT) 11.7 SEC (9.98-11.88)
[2016-07-01 20:06] LABS: ALBUMIN 3.7 g/dl (3.4-5.0); ANION GAP 12 (8-16); BILIRUBIN,TOTAL 0.3 mg/dL (0.2-1.0); CALCIUM 9.1 mg/dL (8.5-10.1); CO2 19 mmol/L (21-32); CREATININE 5.6 mg/dL (0.55-1.02); GLUCOSE,RANDOM 167 mg/dL (74-106); SGPT/ALT 24 U/L (12-78)
[2016-07-01 20:14] LABS: ALK PHOS 78 U/L (45-117); THYROID STIMULATING HORMONE 2.74 uIU/ml (0.358-3.74); TROPONIN I < 0.02 ng/ml (0.00-0.05)
[2016-07-01 20:18] LABS: SGOT/AST 23 U/L (15-37)
--- NOTE | 2016-07-01 21:26 | PDOC ---
*Physical Exam - Vital Signs Last Vital Signs Temp Pulse Resp BP Pulse Ox 97.7 F 93 H 18 168/83 99 07/01/16 20:00 07/01/16 20:00 07/01/16 20:00 07/01/16 20:00 07/01/16 20:00 ED Treatment Course - LABORATORY CBC & Chemistry Diagram: 07/01/16 17:50 07/01/16 19:30 - ADDITIONAL ORDERS Additional order review: Laboratory Results 07/01/16 07/01/16 07/01/16 19:30 17:50 17:50 WBC RBC Hgb Hct MCV MCHC RDW Plt Count MPV Neutrophils % Lymphocytes % Monocytes % Eosinophils % Basophils % INR Sodium 141 Cancelled Potassium 5.1 Cancelled Chloride 110 H Cancelled Carbon Dioxide 19 L Cancelled Anion Gap 12 Cancelled BUN 106 H* D Cancelled Creatinine 5.6 H Cancelled Creat Clearance w eGFR 7.25 Cancelled Random Glucose 167 H Cancelled Lactic Acid 0.726 Calcium 9.1 Cancelled Total Bilirubin 0.3 D Cancelled AST 23 Cancelled ALT 24 Cancelled Alkaline Phosphatase 78 Cancelled Creatine Kinase 79 Cancelled Troponin I < 0.02 Cancelled Total Protein 8.0 Cancelled Albumin 3.7 D Cancelled TSH 2.74 D Urine Color Urine Appearance Urine pH Ur Specific [place] Urine Protein Urine Glucose (UA) Urine Ketones Urine Blood Urine Nitrite Urine Bilirubin Urine Urobilinogen Ur Leukocyte Esterase 07/01/16 07/01/16 07/01/16 17:50 17:50 17:37 WBC 4.9 RBC 3.35 L Hgb 9.4 L Hct 28.8 L MCV 86.0 MCHC 32.5 RDW 16.0 H Plt Count 276 D MPV 8.9 D Neutrophils % 63.9 Lymphocytes % 25.1 Monocytes % 6.7 Eosinophils % 3.9 Basophils % 0.4 INR 1.06 Sodium Potassium Chloride Carbon Dioxide Anion Gap BUN Creatinine Creat Clearance w eGFR Random Glucose Lactic Acid Calcium Total Bilirubin AST ALT Alkaline Phosphatase Creatine Kinase Troponin I Total Protein Albumin TSH Urine Color Ltyellow Urine Appearance Clear Urine pH 5.0 Ur Specific [place] 1.010 Urine Protein 2+ H Urine Glucose (UA) 2+ H Urine Ketones Negative Urine Blood 1+ H Urine Nitrite Negative Urine Bilirubin Negative Urine Urobilinogen Negative Ur Leukocyte Esterase Negative 07/01/16 17:50 RBC 3.35 L MCV 86.0 MCHC 32.5 RDW 16.0 H MPV 8.9 D Neutrophils % 63.9 Lymphocytes % 25.1 Monocytes % 6.7 Eosinophils % 3.9 Basophils % 0.4 *DC/Admit/Observation/Transfer Diagnosis at time of Disposition: Acute renal failure Qualifiers: Acute renal failure type: unspecified Qualified Code(s): N17.9 - Acute kidney failure, unspecified - Discharge Dispostion Condition at time of disposition: Stable Admit: Yes - Referrals Referrals: Jero Faustin MD [Primary Care Provider] - - Patient Instructions - Post Discharge Activity
[2016-07-01 22:46] LABS: URINE BACTERIA RARE /hpf (NEGATIVE); URINE MUCUS RARE; URINE RBC 17 /hpf (0-3); URINE WBC 6 (3-5)
[2016-07-02] MEDS ORDERED: MECLIZINE HCL 25 MG TABLET (FP) PO PRN (01:01)
[2016-07-02] MEDS: hydrALAZINE HCL 25 MG TABLET (FP) PO SCH ×3 (01:15→21:48)
[2016-07-02] MEDS: ATORVASTATIN CA 10 MG TABLET (FP) PO SCH ×2 (01:15→21:36)
[2016-07-02] MEDS ORDERED: hydrALAZINE HCL 25 MG TABLET (FP) ONE (02:01)
[2016-07-02] MEDS: INSULIN DETEMIR 100 UNITS/ML MDV SQ SCH (07:05)
[2016-07-02 09:52] LABS: MCH 27.4 pg (25.7-33.7); MCHC 32.1 g/dl (32.0-36.0); MEAN CELL VOLUME 85.4 fl (80-96); MEAN PLT VOLUME 7.3 fl (7.5-11.1); PLATELET COUNT 185 K/MM3 (134-434); RDW 15.6 % (11.6-15.6); WHITE BLOOD COUNT 7.1 K/mm3 (4.0-10.0)
[2016-07-02] MEDS ORDERED: SODIUM BICARBONATE 650 MG TABLET PO SCH (10:00)
[2016-07-02] MEDS: DONEPEZIL HCL 5 MG TABLET (FP) PO SCH (10:06)
[2016-07-02] MEDS: ASPIRIN 81 MG CHEWABLE TABLETS PO SCH (10:06)
[2016-07-02] MEDS: PANTOPRAZOLE 40 MG TABLET (FP) PO SCH (10:07)
[2016-07-02] MEDS: MULTIVITAMINS (DAILY MVI) TABLET (FP) PO SCH (10:07)
[2016-07-02] MEDS: DOCUSATE SODIUM 100 MG CAPSULE (FP) PO SCH (10:07)
[2016-07-02] MEDS: amLODIPine BESYLATE 10 MG TABLET (FP) PO SCH (10:07)
[2016-07-02 10:42] LABS: ALBUMIN 3.6 g/dl (3.4-5.0); BILIRUBIN,TOTAL 0.3 mg/dL (0.2-1.0); CALCIUM 9.3 mg/dL (8.5-10.1); CREATININE 5.4 mg/dL (0.55-1.02); TOT PROT 7.7 g/dl (6.4-8.2)
--- NOTE | 2016-07-02 11:05 | EKG ---
Test Reason : Blood Pressure : / mmHG Vent. Rate : 095 BPM Atrial Rate : 095 BPM P-R Int : 200 ms QRS Dur : 086 ms QT Int : 356 ms P-R-T Axes : 061 -30 260 degrees QTc Int : 447 ms NORMAL SINUS RHYTHM LEFT AXIS DEVIATION MINIMAL VOLTAGE CRITERIA FOR LVH, MAY BE NORMAL VARIANT SEPTAL INFARCT (CITED ON OR BEFORE 27-APR-2016) T WAVE ABNORMALITY, CONSIDER INFEROLATERAL ISCHEMIA ABNORMAL ECG Confirmed by RUBIN CONTRERAS MD ([id number]) on 07/02/2016 11:05:33 AM Referred By: Confirmed By:RUBIN CONTRERAS MD
[2016-07-02] MEDS: SODIUM CHLORIDE 0.45% 1,000 ML IV SCH (12:11)
--- NOTE | 2016-07-02 12:42 | HP ---
Admitting History and Physical - Primary Care Physician PCP: Jero Faustin I - Admission Chief Complaint: sent for weakness and eye infection History of Present Illness: The patient is a 85 year old female, with a significant past medical history of hypertension, anemia, dementia, CVA (left hemiparesis), IDDM, gastritis, vertigo , and frequent UTIs, who presents to the emergency department BIB family for generalized weakness and foul smelling urine for 2 days. As per the patients son, the patient has been having difficulty waking up from naps throughout her day. The patients son states his mother does not ambulate at baseline. He also reports constipation, which he states is normal for her. The patient's son reports a decrease in her hearing that started about 2 weeks ago. The patient also had a doppler US of her lower extremities with Dr. Sommers and the son reports a plan for amputation of the left 1st toe. The patient's son states his mother did not receive her insulin this morning. The patients son denies his mother complaining of any recent chest pain, shortness of breath, headache and dizziness. He also denies fever, chills, nausea, vomit, diarrhea, dysuria, frequency, urgency and hematuria. Allergies: NKDA Past surgical history: multiple toe amputations Social history: denies toxic habits. Has a home health aid 24 hours. PCP - Dr. Jero Faustin per son patient very weak and lethargic for last two days, no drinking much water at home, also not sleepign well at night PMD rstared seroquel 50 and restoril 15mg but no help still awake at night also son noticed that her left eye tearing sticky discharge not able to open it and red so her brought her to ER he says that he needs to follow up with dr bernal regarding amputation of left toe. 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 Cardiovascular: Yes: HTN, Hyperlipdemia Renal/: Yes: Renal Inusuff Heme/Onc: Yes: Anemia - Past Surgical History Past Surgical History: Yes: Amputation, Carotid Endarterectomy - Smoking History Smoking history: Never smoked Have you smoked in the past 12 months: No Aproximately how many cigarettes per day: 0 - Alcohol/Substance Use Hx Alcohol Use: No History of Substance Use: reports: None - Social History ADL: Family Assistance History of Recent Travel: No Home Medications - Allergies Allergies/Adverse Reactions: Allergies Allergy/AdvReac Type Severity Reaction Status Date / Time No Known Drug Allergies Allergy Verified 07/01/16 16:22 - Home Medications Home Medications: Ambulatory Orders Amlodipine Besylate 10 mg PO DAILY 11/20/14 Aspirin [ASA -] 81 mg PO DAILY 11/20/14 Docusate Sodium 100 mg PO DAILY 11/20/14 Donepezil HCl 5 mg PO DAILY 11/20/14 Meclizine HCl 25 mg PO Q8H PRN 11/20/14 Memantine HCl [Namenda Xr] 7 mg PO DAILY 11/20/14 Pantoprazole Sodium [Protonix] 40 mg PO DAILY 11/20/14 Atorvastatin Ca [Lipitor] 10 mg PO HS 02/14/15 Hydralazine HCl [Apresoline -] 10 mg PO BID 02/14/15 Insulin (Levemir) [Levemir Flexpen -] 16 units SQ DAILY 02/14/15 Acetaminophen [Tylenol] 500 mg PO QID PRN 04/27/16 Insulin Lispro [Humalog] 0 unit SQ BID 04/27/16 Multivitamin [Poly-Vitamin] 1 each PO DAILY 04/27/16 Acetaminophen [Tylenol .Regular Strength -] 650 mg PO Q4H PRN #0 tablet Cephalexin Monohydrate [Keflex -] 500 mg PO BID #10 capsule 04/30/16 Sodium Bicarbonate - 650 mg PO BID #60 tablet 04/30/16 Review of Systems - Review of Systems Constitutional: reports: Weakness Eyes: reports: Other (left eye closed) Physical Examination Vital Signs: Vital Signs Temperature 98 F 07/02/16 10:07 Pulse Rate 86 07/02/16 10:07 Respiratory Rate 16 07/02/16 10:07 Blood Pressure 165/81 07/02/16 10:07 O2 Sat by Pulse Oximetry (%) 100 07/02/16 10:07 Constitutional: Yes: Calm, Thin Eyes: Yes: Other (left conjuctival erythema with sticky discharge) Cardiovascular: Yes: Regular Rate and Rhythm, S1, S2 Respiratory: Yes: CTA Bilaterally Gastrointestinal: Yes: Normal Bowel Sounds, Soft Musculoskeletal: Yes: Other (left toe discoloration) Edema: No Neurological: Yes: Pre-Existing Deficit (left kylie) Labs: CBC, BMP 07/02/16 09:35 07/02/16 09:35 Imaging - Results Cat Scan: Report Reviewed Problem List - Problems (1) Chronic progressive renal failure Assessment/Plan: renal eval no HD per patient ivf Code(s): N18.9 - CHRONIC KIDNEY DISEASE, UNSPECIFIED Qualifiers: Chronic kidney disease stage: stage 5 Qualified Code(s): N18.5 - Chronic kidney disease, stage 5 (2) Weakness Assessment/Plan: r/o infectious cause ivf fluids blood and urine culture Code(s): R53.1 - WEAKNESS (3) Amputated toe of left foot Assessment/Plan: dr bernal Code(s): Z89.422 - ACQUIRED ABSENCE OF OTHER LEFT TOE(S) (4) Anemia due to chronic kidney disease Assessment/Plan: 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
[2016-07-02] MEDS ORDERED: SULFACETAMIDE SODIUM 10% OPHTHALMIC DROPS 15 ML BOTTLE OS SCH (13:00)
--- NOTE | 2016-07-02 15:08 | CON.GI ---
Consult Consult Specialty:: GI Referred by:: Dr Jacobs Reason for Consultation:: Anemia - History of Present Illness Chief Complaint: Fatigue and weakness History of Present Illness: 85 year old female, SP/SP known to our practice, with h/o chronic anemia s/p EGD 2 months ago which was normal, HTN, dementia, CVA, IDDM, vertigo, admitted for generalized weakness and fatigue. She has PVD and was to undergo L great toe amputation in the near future. Called for anemia. 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 Cardio/Vascular: Yes: HTN, Hyperlipdemia Renal/: Yes: Renal Inusuff - Past Surgical History Past Surgical History: Yes: Amputation, Carotid Endarterectomy - Alcohol/Substance Use Hx Alcohol Use: No History of Substance Use: reports: None - Smoking History Smoking history: Never smoked Have you smoked in the past 12 months: No Aproximately how many cigarettes per day: 0 - Social History ADL: Family Assistance History of Recent Travel: No Home Medications - Allergies Allergies/Adverse Reactions: Allergies Allergy/AdvReac Type Severity Reaction Status Date / Time No Known Drug Allergies Allergy Verified 07/01/16 16:22 - Home Medications Home Medications: Ambulatory Orders Amlodipine Besylate 10 mg PO DAILY 11/20/14 Aspirin [ASA -] 81 mg PO DAILY 11/20/14 Docusate Sodium 100 mg PO DAILY 11/20/14 Donepezil HCl 5 mg PO DAILY 11/20/14 Meclizine HCl 25 mg PO Q8H PRN 11/20/14 Memantine HCl [Namenda Xr] 7 mg PO DAILY 11/20/14 Pantoprazole Sodium [Protonix] 40 mg PO DAILY 11/20/14 Atorvastatin Ca [Lipitor] 10 mg PO HS 02/14/15 Hydralazine HCl [Apresoline -] 10 mg PO BID 02/14/15 Insulin (Levemir) [Levemir Flexpen -] 16 units SQ DAILY 02/14/15 Acetaminophen [Tylenol] 500 mg PO QID PRN 04/27/16 Insulin Lispro [Humalog] 0 unit SQ BID 04/27/16 Multivitamin [Poly-Vitamin] 1 each PO DAILY 04/27/16 Acetaminophen [Tylenol .Regular Strength -] 650 mg PO Q4H PRN #0 tablet 03/10/ 17 Cephalexin Monohydrate [Keflex -] 500 mg PO BID #10 capsule 04/30/16 Sodium Bicarbonate - 650 mg PO BID #60 tablet 04/30/16 Physical Exam-GI Vital Signs: Vital Signs Temperature 98.3 F 07/02/16 13:35 Pulse Rate 76 07/02/16 13:35 Respiratory Rate 16 07/02/16 13:35 Blood Pressure 149/74 07/02/16 13:35 O2 Sat by Pulse Oximetry (%) 100 07/02/16 13:35 Constitutional: Yes: Well Nourished HENT: Yes: Normocephalic Neck: Yes: Supple Cardiovascular: Yes: Regular Rate and Rhythm Respiratory: Yes: CTA Bilaterally Gastrointestinal Inspection: Yes: WNL ...Auscultate: Yes: Normoactive Bowel Sounds ...Palpate: Yes: Soft Labs: CBC, BMP 07/02/16 09:35 07/02/16 09:35 INR, PTT INR 1.06 (0.82-1.09) 07/01/16 17:50 Assessment/Plan 85 F with above history admitted with weakness and fatigue. Hgb is at baseline and she had EGD 2 months ago which was normal. Age and co-morbids preclude the possibility of colonoscopy. Anemia likely due to underlying renal disease.
--- NOTE | 2016-07-02 15:51 | CONSULT ---
Consult - History of Present Illness History of Present Illness: 85 year old female known to me . She was in my office earlier this week for gangrene of her left 2nd toe. I discussed with patient's son the need for revascularization of leg in order to get toe amputation to heal. She also has end stage renal disease and will need preparation for dialysis after receiving contrast. While the son was against dialysis in the past he is now agreeable. 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 Cardio/Vascular: Yes: HTN, Hyperlipdemia Renal/: Yes: Renal Failure, Renal Inusuff Endocrine: Yes: Diabetes Mellitus - Past Surgical History Past Surgical History: Yes: Amputation, Carotid Endarterectomy - Alcohol/Substance Use Hx Alcohol Use: No History of Substance Use: reports: None - Smoking History Smoking history: Never smoked Have you smoked in the past 12 months: No Aproximately how many cigarettes per day: 0 - Social History ADL: Family Assistance History of Recent Travel: No Home Medications - Allergies Allergies/Adverse Reactions: Allergies Allergy/AdvReac Type Severity Reaction Status Date / Time No Known Drug Allergies Allergy Verified 07/01/16 16:22 - Home Medications Home Medications: Ambulatory Orders Amlodipine Besylate 10 mg PO DAILY 11/20/14 Aspirin [ASA -] 81 mg PO DAILY 11/20/14 Docusate Sodium 100 mg PO DAILY 11/20/14 Donepezil HCl 5 mg PO DAILY 11/20/14 Meclizine HCl 25 mg PO Q8H PRN 11/20/14 Memantine HCl [Namenda Xr] 7 mg PO DAILY 11/20/14 Pantoprazole Sodium [Protonix] 40 mg PO DAILY 11/20/14 Atorvastatin Ca [Lipitor] 10 mg PO HS 02/14/15 Hydralazine HCl [Apresoline -] 10 mg PO BID 02/14/15 Insulin (Levemir) [Levemir Flexpen -] 16 units SQ DAILY 02/14/15 Acetaminophen [Tylenol] 500 mg PO QID PRN 04/27/16 Insulin Lispro [Humalog] 0 unit SQ BID 04/27/16 Multivitamin [Poly-Vitamin] 1 each PO DAILY 04/27/16 Acetaminophen [Tylenol .Regular Strength -] 650 mg PO Q4H PRN #0 tablet Cephalexin Monohydrate [Keflex -] 500 mg PO BID #10 capsule 04/30/16 Sodium Bicarbonate - 650 mg PO BID #60 tablet 04/30/16 Physical Exam Vital Signs: Vital Signs Temperature 98.3 F 07/02/16 13:35 Pulse Rate 76 07/02/16 13:35 Respiratory Rate 16 07/02/16 13:35 Blood Pressure 149/74 07/02/16 13:35 O2 Sat by Pulse Oximetry (%) 100 07/02/16 13:35 Neck: Yes: Supple Cardiovascular: Yes: WNL Respiratory: Yes: Regular Gastrointestinal: Yes: Soft Extremities: Yes: Amputation (Left 1st toe), Other (Gangrene left 2nd toe) Labs: CBC, BMP 07/02/16 09:35 07/02/16 09:35 Problem List - Problems (1) Gangrene of toe of left foot Assessment/Plan: Dry gangrene left 2nd toe. Arterial insufficiency Plan: Angiogram left leg for revascularization and toe amputation. Patient will need Permacath for dialysis. Code(s): I96 - GANGRENE, NOT ELSEWHERE CLASSIFIED
[2016-07-02] MEDS: INSULIN SLIDING SCALE (NOVOLOG) 1 VIAL SQ SCH ×2 (17:45→21:41)
[2016-07-02] MEDS: CIPROFLOXACIN 0.3% EYE DROPS 5 ML BOTTLE OS SCH ×2 (17:46→21:35)
--- NOTE | 2016-07-02 20:29 | CONSULT ---
Consult Consult Specialty:: Nephrology Reason for Consultation:: CKD with acute component - History of Present Illness Chief Complaint: generalized weakness History of Present Illness: Pt is an 85 year old female with pmhx of CKD stage 5, HTN, anemia, dementia, CVA , DM, vertigo, gastritis, and recurrent UTI. She was brought in to the hospital for weakness and foul smelling urine. I was called to evaluate her for CKD. She has CKD stage 5 and has been refusing HD. She is awake but is a poor historian. She is accompanied by her son who helped with the history. She also has PVD and is followed by vascular for PVD. She needs revascularization of her left as she had a left 2nd toe amputation that is not healing. She does have discomfort from her leg. 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: Yes: CVA, Dementia Cardio/Vascular: Yes: HTN, Hyperlipdemia, Other (PVD) Renal/: Yes: Renal Inusuff Endocrine: Yes: Diabetes Mellitus - Past Surgical History Past Surgical History: Yes: Amputation, Carotid Endarterectomy - Alcohol/Substance Use Hx Alcohol Use: No History of Substance Use: reports: None - Smoking History Smoking history: Never smoked Have you smoked in the past 12 months: No Aproximately how many cigarettes per day: 0 - Social History ADL: Family Assistance History of Recent Travel: No Home Medications - Allergies Allergies/Adverse Reactions: Allergies Allergy/AdvReac Type Severity Reaction Status Date / Time No Known Drug Allergies Allergy Verified 07/01/16 16:22 - Home Medications Home Medications: Ambulatory Orders Amlodipine Besylate 10 mg PO DAILY 11/20/14 Aspirin [ASA -] 81 mg PO DAILY 11/20/14 Docusate Sodium 100 mg PO DAILY 11/20/14 Donepezil HCl 5 mg PO DAILY 11/20/14 Meclizine HCl 25 mg PO Q8H PRN 11/20/14 Memantine HCl [Namenda Xr] 7 mg PO DAILY 11/20/14 Pantoprazole Sodium [Protonix] 40 mg PO DAILY 11/20/14 Atorvastatin Ca [Lipitor] 10 mg PO HS 02/14/15 Hydralazine HCl [Apresoline -] 10 mg PO BID 02/14/15 Insulin (Levemir) [Levemir Flexpen -] 16 units SQ DAILY 02/14/15 Acetaminophen [Tylenol] 500 mg PO QID PRN 04/27/16 Insulin Lispro [Humalog] 0 unit SQ BID 04/27/16 Multivitamin [Poly-Vitamin] 1 each PO DAILY 04/27/16 Acetaminophen [Tylenol .Regular Strength -] 650 mg PO Q4H PRN #0 tablet Cephalexin Monohydrate [Keflex -] 500 mg PO BID #10 capsule 04/30/16 Sodium Bicarbonate - 650 mg PO BID #60 tablet 04/30/16 Family Disease History - Family Disease History Family History: Denies Review of Systems - Review of Systems Constitutional: reports: Malaise. denies: Chills, Fever Eyes: reports: No Symptoms HENT: reports: No Symptoms Neck: reports: No Symptoms Cardiovascular: denies: Edema Respiratory: denies: SOB Genitourinary: reports: No Symptoms Musculoskeletal: reports: Extremity Pain, Muscle Weakness Integumentary: reports: Erythema Neurological: reports: Pre-Existing Deficit Endocrine: reports: No Symptoms Hematology/Lymphatic: reports: No Symptoms Physical Exam Vital Signs: Vital Signs Temperature 98.3 F 07/02/16 13:35 Pulse Rate 76 07/02/16 13:35 Respiratory Rate 16 07/02/16 13:35 Blood Pressure 149/74 07/02/16 13:35 O2 Sat by Pulse Oximetry (%) 100 07/02/16 15:53 Constitutional: Yes: Calm Eyes: Yes: Conjunctiva Clear HENT: Yes: Atraumatic Cardiovascular: Yes: S1, S2 Respiratory: Yes: CTA Bilaterally Gastrointestinal: Yes: Soft Renal/: Yes: WNL Musculoskeletal: Yes: Other (left foot erythema) Edema: No Neurological: Yes: Confusion Labs: CBC, BMP 07/02/16 09:35 07/02/16 09:35 Laboratory Tests 07/01/16 07/01/16 07/01/16 17:37 17:50 19:30 Hgb 9.4 L Sodium 141 Potassium 5.1 Chloride Carbon Dioxide 19 L Anion Gap 12 BUN Creatinine Creat Clearance w eGFR Random Glucose Urine Color Ltyellow Urine Appearance Clear Urine pH 5.0 Ur Specific [place] 1.010 Urine Protein 2+ H Urine Glucose (UA) 2+ H Urine Ketones Negative Urine Blood 1+ H Urine Nitrite Negative Urine Bilirubin Negative Urine Urobilinogen Negative Ur Leukocyte Esterase Negative 07/02/16 07/02/16 09:35 09:35 Hgb 8.3 L D Sodium 139 Potassium 5.0 Chloride 107 Carbon Dioxide 18 L Anion Gap 14 BUN 102 H Creatinine 5.4 H Creat Clearance w eGFR 7.56 Random Glucose 198 H Urine Color Urine Appearance Urine pH Ur Specific [place] Urine Protein Urine Glucose (UA) Urine Ketones Urine Blood Urine Nitrite Urine Bilirubin Urine Urobilinogen Ur Leukocyte Esterase Imaging - Results Chest X-ray: Report Reviewed Cat Scan: Report Reviewed Problem List - Problems (1) Acute renal failure Code(s): N17.9 - ACUTE KIDNEY FAILURE, UNSPECIFIED Qualifiers: Acute renal failure type: unspecified Qualified Code(s): N17.9 - Acute kidney failure, unspecified (2) Chronic progressive renal failure Code(s): N18.9 - CHRONIC KIDNEY DISEASE, UNSPECIFIED Qualifiers: Chronic kidney disease stage: stage 5 Qualified Code(s): N18.5 - Chronic kidney disease, stage 5 (3) Diabetes mellitus with renal manifestation Code(s): E11.29 - TYPE 2 DIABETES MELLITUS W OTH DIABETIC KIDNEY COMPLICATION Qualifiers: Diabetes mellitus type: type 2 (4) Gangrene of toe of left foot Code(s): I96 - GANGRENE, NOT ELSEWHERE CLASSIFIED (5) Hypertension Code(s): I10 - ESSENTIAL (PRIMARY) HYPERTENSION (6) Alzheimer's dementia Code(s): G30.9 - ALZHEIMER'S DISEASE, UNSPECIFIED (7) CKD (chronic kidney disease) stage 5, GFR less than 15 ml/min Code(s): N18.5 - CHRONIC KIDNEY DISEASE, STAGE 5 Assessment/Plan Current Medications Generic Name Dose Route Start Last Admin Trade Name Freq PRN Reason Stop Dose Admin Acetaminophen 650 mg 07/02/16 01:03 Tylenol - PO Q4H PRN FEVER OR PAIN Amlodipine Besylate 10 mg 07/02/16 10:00 07/02/16 10:07 Norvasc - PO 10 mg DAILY [facility] Administration Aspirin 81 mg 07/02/16 10:00 07/02/16 10:06 Asa - PO 81 mg DAILY [facility] Administration Atorvastatin Calcium 10 mg 07/02/16 01:15 07/02/16 01:15 Lipitor - PO 10 mg HS [facility] Administration Ciprofloxacin 2 drop 07/02/16 18:00 07/02/16 17:46 Ciloxan 0.3% Eye Drops - OS 2 drop Q4HPO [facility] Administration Docusate Sodium 100 mg 07/02/16 10:00 07/02/16 10:07 Colace - PO 100 mg DAILY [facility] Administration Donepezil HCl 5 mg 07/02/16 10:00 07/02/16 10:06 Aricept - PO 5 mg DAILY [facility] Administration Hydralazine HCl 25 mg 07/02/16 01:15 07/02/16 10:06 Apresoline - PO 25 mg BID [facility] Administration Sodium Chloride 1,000 mls @ 75 mls/hr 07/02/16 09:15 07/02/16 12:11 1/2 Normal Saline IV 75 mls/hr ASDIR [facility] Administration Insulin Aspart 1 vial 07/02/16 16:30 07/02/16 17:45 Novolog Vial Sliding Scale - SQ Not Given ACHS [facility] Protocol Insulin Detemir 16 units 07/02/16 07:00 07/02/16 07:05 Levemir Vial SQ 16 units AM [facility] Administration Meclizine HCl 25 mg 07/02/16 01:01 Antivert - PO Q8H PRN Multivitamins/Minerals/Vitamin C 1 tab 07/02/16 10:00 07/02/16 10:07 Tab-A-Vit - PO 1 tab DAILY [facility] Administration Pantoprazole Sodium 40 mg 07/02/16 10:00 07/02/16 10:07 Protonix - PO 40 mg DAILY [facility] Administration Sodium Bicarbonate 650 mg 07/02/16 10:00 07/02/16 10:07 Sodium Bicarbonate - PO 650 mg BID [facility] Administration Impression 1. CKD stage 5 with ELIER 2. anemia 3. HTN 4. PVD 5. hyperlipidemia 6. dementia 7. DM 8. PVD Plan - discussed HD with family and with vascular surgery. Family are now agreeable - pt will go for angio on Tuesday, she will likely need HD by that time - cont with fluids - follow up blood cultures - increase dose of bicarb to TID - will discuss permacath with family tomorrow - will follow Dr Fox
[2016-07-02] MEDS ORDERED: INSULIN (NOVOLOG) ASPART 100 UNITS/ML 10ML VIAL ONE (21:05)
[2016-07-02] MEDS: SODIUM BICARBONATE 650 MG TABLET PO SCH (21:36)
--- NOTE | 2016-07-03 00:33 | PN ---
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 (short form) - Note 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: Called to see patient who is soundly sleeping in her bed watched by staff. unable to perform MSE. consult called for dementia/ possible Alzheimer type of 85 yo female. Stage 5 renal failure, CVA, vertigo and HTN also. Currently on Donezipil 5 mg and namenda 7mg. Per report may have been taking restaril 15?? at home and seroquel. Recommend contine aricept/namenda Do not restart restaril or seroquel at this time untill further evaluation.
[2016-07-03] MEDS: CIPROFLOXACIN 0.3% EYE DROPS 5 ML BOTTLE OS SCH ×6 (02:10→21:59)
[2016-07-03] MEDS: SODIUM BICARBONATE 650 MG TABLET PO SCH ×3 (06:34→21:58)
[2016-07-03] MEDS: INSULIN DETEMIR 100 UNITS/ML MDV SQ SCH (06:34)
[2016-07-03] MEDS: INSULIN SLIDING SCALE (NOVOLOG) 1 VIAL SQ SCH ×4 (06:35→23:06)
[2016-07-03 07:46] LABS: BASOPHIL 0.4 % (0-2.0); EOSINOPHIL 2.4 % (0-4.5); MCHC 33.4 g/dl (32.0-36.0); MEAN CELL VOLUME 83.8 fl (80-96); MEAN PLT VOLUME 7.6 fl (7.5-11.1); NEUTROPHILS 72.8 % (42.8-82.8); PLATELET COUNT 167 K/MM3 (134-434); RDW 15.9 % (11.6-15.6); WHITE BLOOD COUNT 7.6 K/mm3 (4.0-10.0)
[2016-07-03 08:31] LABS: ALBUMIN 3.3 g/dl (3.4-5.0); BILIRUBIN,TOTAL 0.5 mg/dL (0.2-1.0); COCKROFT - GAULT 6.154; CREATININE 5.3 mg/dL (0.55-1.02); FERRITIN 259.749 ng/ml (6.9-282.5)
[2016-07-03] MEDS: SODIUM CHLORIDE 0.45% 1,000 ML IV SCH ×2 (10:10→23:06)
[2016-07-03] MEDS: DOCUSATE SODIUM 100 MG CAPSULE (FP) PO SCH (10:16)
[2016-07-03] MEDS: amLODIPine BESYLATE 10 MG TABLET (FP) PO SCH (10:16)
[2016-07-03] MEDS: DONEPEZIL HCL 5 MG TABLET (FP) PO SCH (10:16)
[2016-07-03] MEDS: PANTOPRAZOLE 40 MG TABLET (FP) PO SCH (10:16)
[2016-07-03] MEDS: hydrALAZINE HCL 25 MG TABLET (FP) PO SCH ×2 (10:16→21:58)
[2016-07-03] MEDS: ASPIRIN 81 MG CHEWABLE TABLETS PO SCH (10:16)
[2016-07-03] MEDS: MULTIVITAMINS (DAILY MVI) TABLET (FP) PO SCH (10:16)
--- NOTE | 2016-07-03 12:57 | PN ---
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, Physician History of Present Illness: Pt seen and examined at bedside. She is not talkative today. - Current Medication List Current Medications: Active Medications Acetaminophen (Tylenol -) 650 mg PO Q4H PRN PRN Reason: FEVER OR PAIN Amlodipine Besylate (Norvasc -) 10 mg PO DAILY [facility] Last Admin: 07/03/16 10:16 Dose: 10 mg Aspirin (Asa -) 81 mg PO DAILY [facility] Last Admin: 07/03/16 10:16 Dose: 81 mg Atorvastatin Calcium (Lipitor -) 10 mg PO HS [facility] Last Admin: 07/02/16 21:36 Dose: 10 mg Ciprofloxacin (Ciloxan 0.3% Eye Drops -) 2 drop OS Q4HPO [facility] Last Admin: 07/03/16 10:16 Dose: 2 drop Docusate Sodium (Colace -) 100 mg PO DAILY [facility] Last Admin: 07/03/16 10:16 Dose: 100 mg Donepezil HCl (Aricept -) 5 mg PO DAILY [facility] Last Admin: 07/03/16 10:16 Dose: 5 mg Hydralazine HCl (Apresoline -) 25 mg PO BID [facility] Last Admin: 07/03/16 10:16 Dose: 25 mg Sodium Chloride (1/2 Normal Saline) 1,000 mls @ 75 mls/hr IV ASDIR [facility] Last Admin: 07/03/16 10:10 Dose: 75 mls/hr Insulin Aspart (Novolog Vial Sliding Scale -) 1 vial SQ ACHS [facility] PRN Reason: Protocol Last Admin: 07/03/16 12:32 Dose: Not Given Insulin Detemir (Levemir Vial) 16 units SQ AM [facility] Last Admin: 07/03/16 06:34 Dose: 16 units Meclizine HCl (Antivert -) 25 mg PO Q8H PRN Multivitamins/Minerals/Vitamin C (Tab-A-Vit -) 1 tab PO DAILY [facility] Last Admin: 07/03/16 10:16 Dose: 1 tab Pantoprazole Sodium (Protonix -) 40 mg PO DAILY [facility] Last Admin: 07/03/16 10:16 Dose: 40 mg Sodium Bicarbonate (Sodium Bicarbonate -) 650 mg PO TID [facility] Last Admin: 07/03/16 06:34 Dose: 650 mg - Objective Vital Signs: Vital Signs Temperature 99 F 07/03/16 06:00 Pulse Rate 98 H 07/03/16 06:00 Respiratory Rate 18 07/03/16 06:00 Blood Pressure 152/81 07/03/16 06:00 O2 Sat by Pulse Oximetry (%) 98 07/02/16 21:00 Constitutional: Yes: Calm Eyes: Yes: Conjunctiva Clear HENT: Yes: Atraumatic Cardiovascular: Yes: S1, S2 Respiratory: Yes: CTA Bilaterally Gastrointestinal: Yes: Soft Genitourinary: Yes: WNL Musculoskeletal: Yes: Muscle Weakness Edema: No Neurological: Yes: Confusion Labs: CBC, BMP 07/03/16 06:00 07/03/16 06:00 INR, PTT INR 1.06 (0.82-1.09) 07/01/16 17:50 Problem List - Problems (1) Acute renal failure Code(s): N17.9 - ACUTE KIDNEY FAILURE, UNSPECIFIED Qualifiers: Acute renal failure type: unspecified Qualified Code(s): N17.9 - Acute kidney failure, unspecified (2) Chronic progressive renal failure Code(s): N18.9 - CHRONIC KIDNEY DISEASE, UNSPECIFIED Qualifiers: Chronic kidney disease stage: stage 5 Qualified Code(s): N18.5 - Chronic kidney disease, stage 5 (3) Diabetes mellitus with renal manifestation Code(s): E11.29 - TYPE 2 DIABETES MELLITUS W OTH DIABETIC KIDNEY COMPLICATION Qualifiers: Diabetes mellitus type: type 2 (4) Gangrene of toe of left foot Code(s): I96 - GANGRENE, NOT ELSEWHERE CLASSIFIED (5) Hypertension Code(s): I10 - ESSENTIAL (PRIMARY) HYPERTENSION (6) Alzheimer's dementia Code(s): G30.9 - ALZHEIMER'S DISEASE, UNSPECIFIED (7) CKD (chronic kidney disease) stage 5, GFR less than 15 ml/min Code(s): N18.5 - CHRONIC KIDNEY DISEASE, STAGE 5 Assessment/Plan Current Medications Generic Name Dose Route Start Last Admin Trade Name Freq PRN Reason Stop Dose Admin Acetaminophen 650 mg 07/02/16 01:03 Tylenol - PO Q4H PRN FEVER OR PAIN Amlodipine Besylate 10 mg 07/02/16 10:00 07/03/16 10:16 Norvasc - PO 10 mg DAILY [facility] Administration Aspirin 81 mg 07/02/16 10:00 07/03/16 10:16 Asa - PO 81 mg DAILY [facility] Administration Atorvastatin Calcium 10 mg 07/02/16 01:15 07/02/16 21:36 Lipitor - PO 10 mg HS [facility] Administration Ciprofloxacin 2 drop 07/02/16 18:00 07/03/16 10:16 Ciloxan 0.3% Eye Drops - OS 2 drop Q4HPO [facility] Administration Docusate Sodium 100 mg 07/02/16 10:00 07/03/16 10:16 Colace - PO 100 mg DAILY [facility] Administration Donepezil HCl 5 mg 07/02/16 10:00 07/03/16 10:16 Aricept - PO 5 mg DAILY [facility] Administration Hydralazine HCl 25 mg 07/02/16 01:15 07/03/16 10:16 Apresoline - PO 25 mg BID [facility] Administration Sodium Chloride 1,000 mls @ 75 mls/hr 07/02/16 09:15 07/03/16 10:10 1/2 Normal Saline IV 75 mls/hr ASDIR [facility] Administration Insulin Aspart 1 vial 07/02/16 16:30 07/03/16 12:32 Novolog Vial Sliding Scale - SQ Not Given ACHS [facility] Protocol Insulin Detemir 16 units 07/02/16 07:00 07/03/16 06:34 Levemir Vial SQ 16 units AM [facility] Administration Meclizine HCl 25 mg 07/02/16 01:01 Antivert - PO Q8H PRN Multivitamins/Minerals/Vitamin C 1 tab 07/02/16 10:00 07/03/16 10:16 Tab-A-Vit - PO 1 tab DAILY [facility] Administration Pantoprazole Sodium 40 mg 07/02/16 10:00 07/03/16 10:16 Protonix - PO 40 mg DAILY [facility] Administration Sodium Bicarbonate 650 mg 07/02/16 22:00 07/03/16 06:34 Sodium Bicarbonate - PO 650 mg TID [facility] Administration Impression 1. CKD stage 5 with ELIER 2. anemia 3. HTN 4. PVD 5. hyperlipidemia 6. dementia 7. DM 8. PVD Plan - renal function is improving - cont with fluids - angiogram on Tuesday - will katherin need to start HD after angio - cont PO bicarb - daily labs Dr Fox
--- NOTE | 2016-07-03 13:07 | PN ---
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, Physician Chief Complaint: THIS IS MY FIRST ENCOUNTER WITH THIS PATIENT EVENTS AND CHART REVIEWED ASLEEP, COMFORTABLE POOR APPETITE - Current Medication List Current Medications: Active Medications Acetaminophen (Tylenol -) 650 mg PO Q4H PRN PRN Reason: FEVER OR PAIN Amlodipine Besylate (Norvasc -) 10 mg PO DAILY [facility] Last Admin: 07/03/16 10:16 Dose: 10 mg Aspirin (Asa -) 81 mg PO DAILY [facility] Last Admin: 07/03/16 10:16 Dose: 81 mg Atorvastatin Calcium (Lipitor -) 10 mg PO HS [facility] Last Admin: 07/02/16 21:36 Dose: 10 mg Ciprofloxacin (Ciloxan 0.3% Eye Drops -) 2 drop OS Q4HPO [facility] Last Admin: 07/03/16 10:16 Dose: 2 drop Docusate Sodium (Colace -) 100 mg PO DAILY [facility] Last Admin: 07/03/16 10:16 Dose: 100 mg Donepezil HCl (Aricept -) 5 mg PO DAILY [facility] Last Admin: 07/03/16 10:16 Dose: 5 mg Hydralazine HCl (Apresoline -) 25 mg PO BID [facility] Last Admin: 07/03/16 10:16 Dose: 25 mg Sodium Chloride (1/2 Normal Saline) 1,000 mls @ 75 mls/hr IV ASDIR [facility] Last Admin: 07/03/16 10:10 Dose: 75 mls/hr Insulin Aspart (Novolog Vial Sliding Scale -) 1 vial SQ ACHS [facility] PRN Reason: Protocol Last Admin: 07/03/16 12:32 Dose: Not Given Insulin Detemir (Levemir Vial) 16 units SQ AM [facility] Last Admin: 07/03/16 06:34 Dose: 16 units Meclizine HCl (Antivert -) 25 mg PO Q8H PRN Multivitamins/Minerals/Vitamin C (Tab-A-Vit -) 1 tab PO DAILY [facility] Last Admin: 07/03/16 10:16 Dose: 1 tab Pantoprazole Sodium (Protonix -) 40 mg PO DAILY [facility] Last Admin: 07/03/16 10:16 Dose: 40 mg Sodium Bicarbonate (Sodium Bicarbonate -) 650 mg PO TID [facility] Last Admin: 07/03/16 06:34 Dose: 650 mg - Objective Vital Signs: Vital Signs Temperature 99 F 07/03/16 06:00 Pulse Rate 98 H 07/03/16 06:00 Respiratory Rate 18 07/03/16 06:00 Blood Pressure 152/81 07/03/16 06:00 O2 Sat by Pulse Oximetry (%) 98 07/02/16 21:00 Constitutional: Yes: No Distress Eyes: Yes: WNL HENT: Yes: WNL Neck: Yes: WNL Cardiovascular: Yes: WNL Respiratory: Yes: WNL Gastrointestinal: Yes: WNL Genitourinary: Yes: Incontinence Musculoskeletal: Yes: Muscle Weakness Extremities: Yes: WNL Edema: No Peripheral Pulses WNL: Yes Integumentary: Yes: WNL Wound/Incision: Yes: Clean/Dry Neurological: Yes: Pre-Existing Deficit ...Motor Strength: LLE, RLE Psychiatric: Yes: Other Labs: CBC, BMP 07/03/16 06:00 07/03/16 06:00 INR, PTT INR 1.06 (0.82-1.09) 07/01/16 17:50 Problem List - Problems (1) Acute renal failure Code(s): N17.9 - ACUTE KIDNEY FAILURE, UNSPECIFIED Qualifiers: Acute renal failure type: unspecified Qualified Code(s): N17.9 - Acute kidney failure, unspecified (2) Chronic progressive renal failure Code(s): N18.9 - CHRONIC KIDNEY DISEASE, UNSPECIFIED Qualifiers: Chronic kidney disease stage: stage 5 Qualified Code(s): N18.5 - Chronic kidney disease, stage 5 (3) DVT prophylaxis Code(s): [id number] - (4) Diabetes mellitus with renal manifestation Code(s): E11.29 - TYPE 2 DIABETES MELLITUS W H DIABETIC KIDNEY COMPLICATION Qualifiers: Diabetes mellitus type: type 2 (5) Failure to thrive in adult Code(s): R62.7 - ADULT FAILURE TO THRIVE (6) Hypertension Code(s): I10 - ESSENTIAL (PRIMARY) HYPERTENSION (7) Weakness Code(s): R53.1 - WEAKNESS Assessment/Plan ACUTE ON CHRONIC RENAL FAILURE ANGIOGRAM TUESDAY WILL START HD ONCE VASCULAR ESTABLISHES ACCESS DISCUSSED WITH NURSING STAFF TO AID IN FEEDING
[2016-07-03] MEDS: ACETAMINOPHEN 325 MG TABLET (FP) PO PRN (17:14)
[2016-07-03] MEDS: ATORVASTATIN CA 10 MG TABLET (FP) PO SCH (21:58)
[2016-07-04] MEDS: CIPROFLOXACIN 0.3% EYE DROPS 5 ML BOTTLE OS SCH ×6 (03:01→22:44)
[2016-07-04] MEDS: SODIUM BICARBONATE 650 MG TABLET PO SCH ×3 (06:13→22:40)
[2016-07-04] MEDS: INSULIN SLIDING SCALE (NOVOLOG) 1 VIAL SQ SCH ×4 (06:19→22:44)
[2016-07-04] MEDS: INSULIN DETEMIR 100 UNITS/ML MDV SQ SCH (07:41)
[2016-07-04 08:06] LABS: SERUM IRON 122 ug/dL (27-139); TOTAL IRON BINDING CAPACITY 171 ug/dL (250-450); UIBC 49 ug/dL (118-369)
[2016-07-04] MEDS: PANTOPRAZOLE 40 MG TABLET (FP) PO SCH (11:13)
[2016-07-04] MEDS: DONEPEZIL HCL 5 MG TABLET (FP) PO SCH (11:13)
[2016-07-04] MEDS: ASPIRIN 81 MG CHEWABLE TABLETS PO SCH (11:13)
[2016-07-04] MEDS: DOCUSATE SODIUM 100 MG CAPSULE (FP) PO SCH (11:13)
[2016-07-04] MEDS: MULTIVITAMINS (DAILY MVI) TABLET (FP) PO SCH (11:13)
[2016-07-04] MEDS: hydrALAZINE HCL 25 MG TABLET (FP) PO SCH ×2 (11:15→22:41)
[2016-07-04] MEDS: SODIUM CHLORIDE 0.45% 1,000 ML IV SCH (11:16)
[2016-07-04] MEDS: amLODIPine BESYLATE 10 MG TABLET (FP) PO SCH (11:19)
--- NOTE | 2016-07-04 13:03 | PN ---
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, Physician History of Present Illness: Renal f/u Pt in no distress IVF in progress - Current Medication List Current Medications: Active Medications Acetaminophen (Tylenol -) 650 mg PO Q4H PRN PRN Reason: FEVER OR PAIN Last Admin: 07/03/16 17:14 Dose: 650 mg Amlodipine Besylate (Norvasc -) 10 mg PO DAILY [facility] Last Admin: 07/04/16 11:19 Dose: 10 mg Aspirin (Asa -) 81 mg PO DAILY [facility] Last Admin: 07/04/16 11:13 Dose: 81 mg Atorvastatin Calcium (Lipitor -) 10 mg PO HS [facility] Last Admin: 07/03/16 21:58 Dose: 10 mg Ciprofloxacin (Ciloxan 0.3% Eye Drops -) 2 drop OS Q4HPO [facility] Last Admin: 07/04/16 11:17 Dose: 2 drop Cyanocobalamin (Vitamin B12 Injection -) 1,000 mcg IM DAILY [facility] Docusate Sodium (Colace -) 100 mg PO DAILY [facility] Last Admin: 07/04/16 11:13 Dose: 100 mg Donepezil HCl (Aricept -) 5 mg PO DAILY [facility] Last Admin: 07/04/16 11:13 Dose: 5 mg Hydralazine HCl (Apresoline -) 25 mg PO BID [facility] Last Admin: 07/04/16 11:15 Dose: 25 mg Sodium Chloride (1/2 Normal Saline) 1,000 mls @ 75 mls/hr IV ASDIR [facility] Last Admin: 07/04/16 11:16 Dose: 75 mls/hr Insulin Aspart (Novolog Vial Sliding Scale -) 1 vial SQ ACHS [facility] PRN Reason: Protocol Last Admin: 07/04/16 11:19 Dose: Not Given Insulin Detemir (Levemir Vial) 16 units SQ AM [facility] Last Admin: 07/04/16 07:41 Dose: Not Given Meclizine HCl (Antivert -) 25 mg PO Q8H PRN Multivitamins/Minerals/Vitamin C (Tab-A-Vit -) 1 tab PO DAILY [facility] Last Admin: 07/04/16 11:13 Dose: 1 tab Pantoprazole Sodium (Protonix -) 40 mg PO DAILY [facility] Last Admin: 07/04/16 11:13 Dose: 40 mg Sodium Bicarbonate (Sodium Bicarbonate -) 650 mg PO TID [facility] Last Admin: 05/14/17 06:13 Dose: 650 mg - Objective Vital Signs: Vital Signs Temperature 98.0 F 07/04/16 11:21 Pulse Rate 85 07/04/16 11:21 Respiratory Rate 18 07/04/16 11:21 Blood Pressure 156/66 07/04/16 11:21 O2 Sat by Pulse Oximetry (%) 99 07/03/16 21:00 Cardiovascular: Yes: Murmur, S1, S2 Respiratory: Yes: CTA Bilaterally Gastrointestinal: Yes: Soft. No: Tenderness, Rebound Edema: No Labs: CBC, BMP 07/03/16 06:00 07/03/16 06:00 INR, PTT INR 1.06 (0.82-1.09) 07/01/16 17:50 Assessment/Plan Impression 1. CKD stage 5 with ELIER 2. anemia 3. HTN 4. PVD 5. hyperlipidemia 6. dementia 7. DM 8. PVD Plan For angiogram and Perm Cath Rpt labs in am Dr Hutson
[2016-07-04] MEDS: CYANOCOBALAMIN (VITAMIN B-12) 1000 MCG/1 ML VIAL IM SCH (14:19)
--- NOTE | 2016-07-04 21:35 | PN ---
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, Physician Chief Complaint: DISCUSSED WITH SON BEDSIDE PATIENT SEEN AND EXAMINED NO DISTRESS - Current Medication List Current Medications: Active Medications Acetaminophen (Tylenol -) 650 mg PO Q4H PRN PRN Reason: FEVER OR PAIN Last Admin: 07/03/16 17:14 Dose: 650 mg Amlodipine Besylate (Norvasc -) 10 mg PO DAILY [facility] Last Admin: 07/04/16 11:19 Dose: 10 mg Aspirin (Asa -) 81 mg PO DAILY [facility] Last Admin: 07/04/16 11:13 Dose: 81 mg Atorvastatin Calcium (Lipitor -) 10 mg PO HS [facility] Last Admin: 07/03/16 21:58 Dose: 10 mg Ciprofloxacin (Ciloxan 0.3% Eye Drops -) 2 drop OS Q4HPO [facility] Last Admin: 07/04/16 19:11 Dose: 2 drop Cyanocobalamin (Vitamin B12 Injection -) 1,000 mcg IM DAILY [facility] Last Admin: 07/04/16 14:19 Dose: 1,000 mcg Docusate Sodium (Colace -) 100 mg PO DAILY [facility] Last Admin: 07/04/16 11:13 Dose: 100 mg Donepezil HCl (Aricept -) 5 mg PO DAILY [facility] Last Admin: 07/04/16 11:13 Dose: 5 mg Hydralazine HCl (Apresoline -) 25 mg PO BID [facility] Last Admin: 07/04/16 11:15 Dose: 25 mg Sodium Chloride (1/2 Normal Saline) 1,000 mls @ 75 mls/hr IV ASDIR [facility] Last Admin: 07/04/16 11:16 Dose: 75 mls/hr Insulin Aspart (Novolog Vial Sliding Scale -) 1 vial SQ ACHS [facility] PRN Reason: Protocol Last Admin: 07/04/16 19:10 Dose: Not Given Insulin Detemir (Levemir Vial) 16 units SQ AM [facility] Last Admin: 07/04/16 07:41 Dose: Not Given Meclizine HCl (Antivert -) 25 mg PO Q8H PRN Multivitamins/Minerals/Vitamin C (Tab-A-Vit -) 1 tab PO DAILY [facility] Last Admin: 07/04/16 11:13 Dose: 1 tab Pantoprazole Sodium (Protonix -) 40 mg PO DAILY [facility] Last Admin: 07/04/16 11:13 Dose: 40 mg Sodium Bicarbonate (Sodium Bicarbonate -) 650 mg PO TID [facility] Last Admin: 07/04/16 14:19 Dose: 650 mg - Objective Vital Signs: Vital Signs Temperature 98.0 F 07/04/16 11:21 Pulse Rate 85 07/04/16 11:21 Respiratory Rate 18 07/04/16 11:21 Blood Pressure 156/66 07/04/16 11:21 O2 Sat by Pulse Oximetry (%) 99 07/04/16 09:00 Constitutional: Yes: No Distress Eyes: Yes: WNL HENT: Yes: WNL Neck: Yes: WNL Cardiovascular: Yes: WNL Respiratory: Yes: WNL Gastrointestinal: Yes: WNL Genitourinary: Yes: Other Musculoskeletal: Yes: Muscle Weakness Extremities: Yes: WNL Edema: No Peripheral Pulses WNL: Yes Integumentary: Yes: WNL Wound/Incision: Yes: Clean/Dry Neurological: Yes: WNL, Weakness ...Motor Strength: WNL Psychiatric: Yes: WNL Labs: CBC, BMP 07/03/16 06:00 07/03/16 06:00 INR, PTT INR 1.06 (0.82-1.09) 07/01/16 17:50 Problem List - Problems (1) Acute renal failure Code(s): N17.9 - ACUTE KIDNEY FAILURE, UNSPECIFIED Qualifiers: Acute renal failure type: unspecified Qualified Code(s): N17.9 - Acute kidney failure, unspecified (2) Chronic progressive renal failure Code(s): N18.9 - CHRONIC KIDNEY DISEASE, UNSPECIFIED Qualifiers: Chronic kidney disease stage: stage 5 Qualified Code(s): N18.5 - Chronic kidney disease, stage 5 (3) DVT prophylaxis Code(s): [id number] - (4) Diabetes mellitus with renal manifestation Code(s): E11.29 - TYPE 2 DIABETES MELLITUS W OTH DIABETIC KIDNEY COMPLICATION Qualifiers: Diabetes mellitus type: type 2 (5) Failure to thrive in adult Code(s): R62.7 - ADULT FAILURE TO THRIVE (6) Hypertension Code(s): I10 - ESSENTIAL (PRIMARY) HYPERTENSION (7) Weakness Code(s): R53.1 - WEAKNESS Assessment/Plan DISCUSSED WITH PATIENT'S SON, HE DOES NOT WANT HEMODIALYSIS FOR HIS MOM I WILL DISCUSS WITH DR GARCIA TOMORROW WILL NOTIFY NEPHROLOGY
[2016-07-04] MEDS: ATORVASTATIN CA 10 MG TABLET (FP) PO SCH (22:38)
[2016-07-05] MEDS: CIPROFLOXACIN 0.3% EYE DROPS 5 ML BOTTLE OS SCH ×4 (02:20→23:43)
[2016-07-05] MEDS: SODIUM CHLORIDE 0.45% 1,000 ML IV SCH (04:20)
[2016-07-05] MEDS: SODIUM BICARBONATE 650 MG TABLET PO SCH ×3 (06:08→23:45)
[2016-07-05] MEDS: INSULIN DETEMIR 100 UNITS/ML MDV SQ SCH (06:16)
[2016-07-05] MEDS: INSULIN SLIDING SCALE (NOVOLOG) 1 VIAL SQ SCH ×3 (06:17→23:45)
[2016-07-05 07:28] LABS: BASOPHIL 0.4 % (0-2.0); EOSINOPHIL 4.7 % (0-4.5); MCHC 33.3 g/dl (32.0-36.0); MEAN CELL VOLUME 84.1 fl (80-96); MEAN PLT VOLUME 7.7 fl (7.5-11.1); NEUTROPHILS 69.2 % (42.8-82.8); PLATELET COUNT 159 K/MM3 (134-434); RDW 15.5 % (11.6-15.6); WHITE BLOOD COUNT 7.7 K/mm3 (4.0-10.0)
[2016-07-05 07:54] LABS: CALCIUM 8.2 mg/dL (8.5-10.1); COCKROFT - GAULT 6.4005; CREATININE 5.1 mg/dL (0.55-1.02)
[2016-07-05] MEDS ORDERED: PT OWN MED DRAWER 7, Y5N ONE (10:41)
[2016-07-05] MEDS: ASPIRIN 81 MG CHEWABLE TABLETS PO SCH ×2 (10:43→10:46)
[2016-07-05] MEDS: amLODIPine BESYLATE 10 MG TABLET (FP) PO SCH (10:43)
[2016-07-05] MEDS: ACETAMINOPHEN 325 MG TABLET (FP) PO PRN (10:43)
[2016-07-05] MEDS: CYANOCOBALAMIN (VITAMIN B-12) 1000 MCG/1 ML VIAL IM SCH (10:43)
[2016-07-05] MEDS: MULTIVITAMINS (DAILY MVI) TABLET (FP) PO SCH (10:43)
[2016-07-05] MEDS: DOCUSATE SODIUM 100 MG CAPSULE (FP) PO SCH (10:43)
[2016-07-05] MEDS: DONEPEZIL HCL 5 MG TABLET (FP) PO SCH (10:44)
[2016-07-05] MEDS: PANTOPRAZOLE 40 MG TABLET (FP) PO SCH (10:44)
[2016-07-05] MEDS: hydrALAZINE HCL 25 MG TABLET (FP) PO SCH ×2 (10:44→23:44)
--- NOTE | 2016-07-05 11:09 | PN ---
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 (short form) - Note 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: spoke to patient son aida byrd right now and he says he doesnot want Hemodialysis i explaned that if she get angiogram for her leg and toe she will need HD after that he is refusing HD and wants mom to be sent home spoke to psychiatric social worker about discharge and the need for vitamin B12 injection shots which she needs for another 5 days Problem List - Problems (1) Chronic progressive renal failure Code(s): N18.9 - CHRONIC KIDNEY DISEASE, UNSPECIFIED Qualifiers: Chronic kidney disease stage: stage 5 Qualified Code(s): N18.5 - Chronic kidney disease, stage 5 (2) Weakness Code(s): R53.1 - WEAKNESS (3) Amputated toe of left foot Code(s): Z89.422 - ACQUIRED ABSENCE OF OTHER LEFT TOE(S) (4) Anemia due to chronic kidney disease Code(s): N18.9 - CHRONIC KIDNEY DISEASE, UNSPECIFIED D63.1 - ANEMIA IN CHRONIC KIDNEY DISEASE (5) CVA, old, hemiparesis Code(s): I69.359 - HEMIPLGA FOLLOWING CEREBRAL INFARCTION AFFECTING UNSP SIDE (6) Red eye Code(s): H57.8 - OTHER SPECIFIED DISORDERS OF EYE AND ADNEXA (7) Diabetes mellitus with renal manifestation Code(s): E11.29 - TYPE 2 DIABETES MELLITUS [facility] DIABETIC KIDNEY COMPLICATION Qualifiers: Diabetes mellitus type: type 2
--- NOTE | 2016-07-05 11:13 | DS ---
Physical Examination Vital Signs: Vital Signs Temperature 98.5 F 07/05/16 06:02 Pulse Rate 98 H 07/05/16 06:02 Respiratory Rate 120 H 07/05/16 06:02 Blood Pressure 145/73 07/05/16 06:02 O2 Sat by Pulse Oximetry (%) 100 07/04/16 21:00 Constitutional: Yes: Calm Neck: Yes: Trachea Midline Cardiovascular: Yes: Regular Rate and Rhythm, S1, S2 Respiratory: Yes: CTA Bilaterally Gastrointestinal: Yes: Soft Extremities: Yes: Other (left toe discoloration) Edema: No Labs: CBC, BMP 07/05/16 06:00 07/05/16 06:00 Discharge Summary Reason For Visit: ARF Current Active Problems Acute renal failure (Acute) Chronic progressive renal failure (Acute) DVT prophylaxis (Acute) Diabetes mellitus with renal manifestation (Acute) Failure to thrive in adult (Acute) Fall (Acute) Gangrene of toe of left foot (Acute) Hypertension (Acute) Malnutrition (Acute) Normocytic anemia (Acute) Red eye (Acute) Weakness (Acute) Hospital Course: - Primary Care Physician PCP: Jero Faustin I - Admission Chief Complaint: sent for weakness and eye infection History of Present Illness: The patient is a 85 year old female, with a significant past medical history of hypertension, anemia, dementia, CVA (left hemiparesis), IDDM, gastritis, vertigo , and frequent UTIs, who presents to the emergency department BIB family for generalized weakness and foul smelling urine for 2 days. As per the patients son, the patient has been having difficulty waking up from naps throughout her day. The patients son states his mother does not ambulate at baseline. He also reports constipation, which he states is normal for her. The patient's son reports a decrease in her hearing that started about 2 weeks ago. The patient also had a doppler US of her lower extremities with Dr. Sommers and the son reports a plan for amputation of the left 1st toe. The patient's son states his mother did not receive her insulin this morning. The patients son denies his mother complaining of any recent chest pain, shortness of breath, headache and dizziness. He also denies fever, chills, nausea, vomit, diarrhea, dysuria, frequency, urgency and hematuria. Allergies: NKDA Past surgical history: multiple toe amputations Social history: denies toxic habits. Has a home health aid 24 hours. PCP - Dr. Jero Faustin per son patient very weak and lethargic for last two days, no drinking much water at home, also not sleepign well at night PMD rstared seroquel 50 and restoril 15mg but no help still awake at night also son noticed that her left eye tearing sticky discharge not able to open it and red so her brought her to ER he says that he needs to follow up with dr bernal regarding amputation of left toe. he doesnt want HD aware of kidney condition History Source: Family Member Limitations to Obtaining History: Dementia, Language Barrier in hospital got iv hydration seen by -psych stop sreoquel and restoril anemia on b12 injections GI saw patient as well cojuntivitis improved with eye drops left toe_ dr bernal wants angiogram but patient son refusing HD and i explained to him that angiogram will require HD but he is refusing that Condition: Guarded - Instructions Referrals: Jero Faustin MD [Primary Care Provider] - Disposition: HOME - Home Medications Comprehensive Discharge Medication List: Ambulatory Orders Amlodipine Besylate 10 mg PO DAILY 11/20/14 Aspirin [ASA -] 81 mg PO DAILY 11/20/14 Docusate Sodium 100 mg PO DAILY 11/20/14 Donepezil HCl 5 mg PO DAILY 11/20/14 Meclizine HCl 25 mg PO Q8H PRN 11/20/14 Memantine HCl [Namenda Xr] 7 mg PO DAILY 11/20/14 Pantoprazole Sodium [Protonix] 40 mg PO DAILY 11/20/14 Atorvastatin Ca [Lipitor] 10 mg PO HS 02/14/15 Hydralazine HCl [Apresoline -] 10 mg PO BID 02/14/15 Insulin (Levemir) [Levemir Flexpen -] 16 units SQ DAILY 02/14/15 Acetaminophen [Tylenol] 500 mg PO QID PRN 04/27/16 Insulin Lispro [Humalog] 0 unit SQ BID 04/27/16 Multivitamin [Poly-Vitamin] 1 each PO DAILY 04/27/16 Acetaminophen [Tylenol .Regular Strength -] 650 mg PO Q4H PRN #0 tablet Cephalexin Monohydrate [Keflex -] 500 mg PO BID #10 capsule 04/30/16 Sodium Bicarbonate - 650 mg PO BID #60 tablet 04/30/16
--- NOTE | 2016-07-05 12:36 | PN ---
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, Physician History of Present Illness: Pt seen and examined at bedside. She is awake but confused. Spoke to pts son and they do not want dialysis. - Current Medication List Current Medications: Active Medications Acetaminophen (Tylenol -) 650 mg PO Q4H PRN PRN Reason: FEVER OR PAIN Last Admin: 07/05/16 10:43 Dose: 650 mg Amlodipine Besylate (Norvasc -) 10 mg PO DAILY [facility] Last Admin: 07/05/16 10:43 Dose: 10 mg Aspirin (Asa -) 81 mg PO DAILY [facility] Last Admin: 07/05/16 10:46 Dose: Not Given Atorvastatin Calcium (Lipitor -) 10 mg PO HS [facility] Last Admin: 07/04/16 22:38 Dose: 10 mg Ciprofloxacin (Ciloxan 0.3% Eye Drops -) 2 drop OS Q4HPO [facility] Last Admin: 07/05/16 10:44 Dose: 2 drop Cyanocobalamin (Vitamin B12 Injection -) 1,000 mcg IM DAILY [facility] Last Admin: 07/05/16 10:43 Dose: 1,000 mcg Docusate Sodium (Colace -) 100 mg PO DAILY [facility] Last Admin: 07/05/16 10:43 Dose: 100 mg Donepezil HCl (Aricept -) 5 mg PO DAILY [facility] Last Admin: 07/05/16 10:44 Dose: 5 mg Hydralazine HCl (Apresoline -) 25 mg PO BID [facility] Last Admin: 07/05/16 10:44 Dose: 25 mg Sodium Chloride (1/2 Normal Saline) 1,000 mls @ 75 mls/hr IV ASDIR [facility] Last Admin: 07/05/16 04:20 Dose: 75 mls/hr Insulin Aspart (Novolog Vial Sliding Scale -) 1 vial SQ ACHS [facility] PRN Reason: Protocol Last Admin: 07/05/16 06:17 Dose: Not Given Insulin Detemir (Levemir Vial) 16 units SQ AM [facility] Last Admin: 07/05/16 06:16 Dose: Not Given Meclizine HCl (Antivert -) 25 mg PO Q8H PRN Multivitamins/Minerals/Vitamin C (Tab-A-Vit -) 1 tab PO DAILY [facility] Last Admin: 07/05/16 10:43 Dose: 1 tab Pantoprazole Sodium (Protonix -) 40 mg PO DAILY [facility] Last Admin: 07/05/16 10:44 Dose: 40 mg Sodium Bicarbonate (Sodium Bicarbonate -) 650 mg PO TID [facility] Last Admin: 07/05/16 06:08 Dose: 650 mg - Objective Vital Signs: Vital Signs Temperature 98.5 F 07/05/16 06:02 Pulse Rate 98 H 07/05/16 06:02 Respiratory Rate 120 H 07/05/16 06:02 Blood Pressure 145/73 07/05/16 06:02 O2 Sat by Pulse Oximetry (%) 100 07/04/16 21:00 Constitutional: Yes: Calm Eyes: Yes: Conjunctiva Clear HENT: Yes: Atraumatic Neck: Yes: Supple Cardiovascular: Yes: S1, S2 Respiratory: Yes: CTA Bilaterally Gastrointestinal: Yes: Soft Genitourinary: Yes: Incontinence Edema: No Integumentary: Yes: Erythema Wound/Incision: Yes: Dressing Dry and Intact Neurological: Yes: Confusion Labs: CBC, BMP 07/05/16 06:00 07/05/16 06:00 INR, PTT INR 1.06 (0.82-1.09) 07/01/16 17:50 Problem List - Problems (1) Acute renal failure Code(s): N17.9 - ACUTE KIDNEY FAILURE, UNSPECIFIED Qualifiers: Acute renal failure type: unspecified Qualified Code(s): N17.9 - Acute kidney failure, unspecified (2) Chronic progressive renal failure Code(s): N18.9 - CHRONIC KIDNEY DISEASE, UNSPECIFIED Qualifiers: Chronic kidney disease stage: stage 5 Qualified Code(s): N18.5 - Chronic kidney disease, stage 5 (3) Diabetes mellitus with renal manifestation Code(s): E11.29 - TYPE 2 DIABETES [facility] DIABETIC KIDNEY COMPLICATION Qualifiers: Diabetes mellitus type: type 2 (4) Gangrene of toe of left foot Code(s): I96 - GANGRENE, NOT ELSEWHERE CLASSIFIED (5) Hypertension Code(s): I10 - ESSENTIAL (PRIMARY) HYPERTENSION (6) Alzheimer's dementia Code(s): G30.9 - ALZHEIMER'S DISEASE, UNSPECIFIED (7) CKD (chronic kidney disease) stage 5, GFR less than 15 ml/min Code(s): N18.5 - CHRONIC KIDNEY DISEASE, STAGE 5 Assessment/Plan Current Medications Generic Name Dose Route Start Last Admin Trade Name Freq PRN Reason Stop Dose Admin Acetaminophen 650 mg 07/02/16 01:03 07/05/16 10:43 Tylenol - PO 650 mg Q4H PRN Administration FEVER OR PAIN Amlodipine Besylate 10 mg 07/02/16 10:00 07/05/16 10:43 Norvasc - PO 10 mg DAILY [facility] Administration Aspirin 81 mg 07/02/16 10:00 07/05/16 10:46 Asa - PO Not Given DAILY [facility] Atorvastatin Calcium 10 mg 07/02/16 01:15 07/04/16 22:38 Lipitor - PO 10 mg HS [facility] Administration Ciprofloxacin 2 drop 07/02/16 18:00 07/05/16 10:44 Ciloxan 0.3% Eye Drops - OS 2 drop Q4HPO [facility] Administration Cyanocobalamin 1,000 mcg 07/04/16 13:00 07/05/16 10:43 Vitamin B12 Injection - IM 1,000 mcg DAILY [facility] Administration Docusate Sodium 100 mg 07/02/16 10:00 07/05/16 10:43 Colace - PO 100 mg DAILY [facility] Administration Donepezil HCl 5 mg 07/02/16 10:00 07/05/16 10:44 Aricept - PO 5 mg DAILY [facility] Administration Hydralazine HCl 25 mg 07/02/16 01:15 07/05/16 10:44 Apresoline - PO 25 mg BID [facility] Administration Sodium Chloride 1,000 mls @ 75 mls/hr 07/02/16 09:15 07/05/16 04:20 1/2 Normal Saline IV 75 mls/hr ASDIR [facility] Administration Insulin Aspart 1 vial 07/02/16 16:30 07/05/16 06:17 Novolog Vial Sliding Scale - SQ Not Given ACHS [facility] Protocol Insulin Detemir 16 units 07/02/16 07:00 07/05/16 06:16 Levemir Vial SQ Not Given AM [facility] Meclizine HCl 25 mg 07/02/16 01:01 Antivert - PO Q8H PRN Multivitamins/Minerals/Vitamin C 1 tab 07/02/16 10:00 07/05/16 10:43 Tab-A-Vit - PO 1 tab DAILY [facility] Administration Pantoprazole Sodium 40 mg 07/02/16 10:00 07/05/16 10:44 Protonix - PO 40 mg DAILY [facility] Administration Sodium Bicarbonate 650 mg 07/02/16 22:00 07/05/16 06:08 Sodium Bicarbonate - PO 650 mg TID [facility] Administration Impression 1. CKD stage 5 with ELIER 2. anemia 3. HTN 4. PVD 5. hyperlipidemia 6. dementia 7. DM 8. PVD Plan - spoke to pts son Yomi Suarez, who is present at bedside. He does not want HD for his mother - cont with fluids - renal function is improving - pt is at risk for IRAIDA, family understand this - recall vascular - cont PO bicarb - daily labs Dr Fox
--- NOTE | 2016-07-05 13:07 | PN ---
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 (short form) - Note 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: Family discussed plan with vascular surgery. They now changed their mind and agree to angiogram and dialysis. Pt will go for permacath and for angiogram. Problem List - Problems (1) Acute renal failure Code(s): N17.9 - ACUTE KIDNEY FAILURE, UNSPECIFIED Qualifiers: Acute renal failure type: unspecified Qualified Code(s): N17.9 - Acute kidney failure, unspecified (2) Chronic progressive renal failure Code(s): N18.9 - CHRONIC KIDNEY DISEASE, UNSPECIFIED Qualifiers: Chronic kidney disease stage: stage 5 Qualified Code(s): N18.5 - Chronic kidney disease, stage 5 (3) Diabetes mellitus with renal manifestation Code(s): E11.29 - TYPE 2 DIABETES MELLITUS [facility] DIABETIC KIDNEY COMPLICATION Qualifiers: Diabetes mellitus type: type 2 (4) Gangrene of toe of left foot Code(s): I96 - GANGRENE, NOT ELSEWHERE CLASSIFIED (5) Hypertension Code(s): I10 - ESSENTIAL (PRIMARY) HYPERTENSION (6) Alzheimer's dementia Code(s): G30.9 - ALZHEIMER'S DISEASE, UNSPECIFIED (7) CKD (chronic kidney disease) stage 5, GFR less than 15 ml/min Code(s): N18.5 - CHRONIC KIDNEY DISEASE, STAGE 5
--- NOTE | 2016-07-05 14:13 | PN ---
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 (short form) - Note 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: renal note seen so son is now ready for angiogram and permacath luis stop discharge and keep patient NPO Problem List - Problems (1) Chronic progressive renal failure Code(s): N18.9 - CHRONIC KIDNEY DISEASE, UNSPECIFIED Qualifiers: Chronic kidney disease stage: stage 5 Qualified Code(s): N18.5 - Chronic kidney disease, stage 5 (2) Weakness Code(s): R53.1 - WEAKNESS (3) Amputated toe of left foot Code(s): Z89.422 - ACQUIRED ABSENCE OF OTHER LEFT TOE(S) (4) Anemia due to chronic kidney disease Code(s): N18.9 - CHRONIC KIDNEY DISEASE, UNSPECIFIED D63.1 - ANEMIA IN CHRONIC KIDNEY DISEASE (5) CVA, old, hemiparesis Code(s): I69.359 - HEMIPLGA FOLLOWING CEREBRAL INFARCTION AFFECTING UNSP SIDE (6) Red eye Code(s): H57.8 - OTHER SPECIFIED DISORDERS OF EYE AND ADNEXA (7) Diabetes mellitus with renal manifestation Code(s): E11.29 - TYPE 2 DIABETES MELLITUS [facility] DIABETIC KIDNEY COMPLICATION Qualifiers: Diabetes mellitus type: type 2
[2016-07-05] MEDS ORDERED: ONDANSETRON 4 MG/2 ML VIAL ONE (15:09)
[2016-07-05] MEDS ORDERED: ONDANSETRON 4 MG/2 ML VIAL IVPB PRN ×2 (16:01→20:28)
[2016-07-05] MEDS ORDERED: LIDOCAINE HCL 1%, 10 MG/ML (20ML VIAL) ONE (16:27)
[2016-07-05] MEDS ORDERED: LABETALOL HCL 5 MG/1 ML (100MG/20 ML VIAL) IVPUSH ONE ×2 (16:38→20:28)
[2016-07-05] MEDS ORDERED: LIDOCAINE HCL 1%, 10 MG/ML (20ML VIAL) IJ ONE (16:48)
--- NOTE | 2016-07-05 19:47 | OP ---
Operative Note - Note: Operative Date: 07/05/16 Pre-Operative Diagnosis: ESRD. Gangrene left 2nd toe Operation: 1. Placement Permacath. 2. Revascularization left popliteal with angioplasty. 3. 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 Implants: 23 cm Permacath right IJ Post-Operative Diagnosis: Same as Pre-op Surgeon: Sage Sommers Anesthesiologist/BOOTH MANAGER: Winnie Tellez Anesthesia: Fractional Specimens Removed: Left 2nd toe Estimated Blood Loss (mls): 50
[2016-07-05] MEDS ORDERED: MECLIZINE HCL 25 MG TABLET (FP) PO PRN (20:28)
[2016-07-05] MEDS ORDERED: ACETAMINOPHEN 325 MG TABLET (FP) PO PRN (20:28)
[2016-07-05] MEDS: HYDROmorphone HCL CARPU-JECT 1 MG/1 ML DISP.SYRIN IVPB PRN (22:29)
[2016-07-05] MEDS: ATORVASTATIN CA 10 MG TABLET (FP) PO SCH (23:44)
[2016-07-06] MEDS: CIPROFLOXACIN 0.3% EYE DROPS 5 ML BOTTLE OS SCH ×6 (02:00→22:08)
[2016-07-06] MEDS: HYDROmorphone HCL CARPU-JECT 1 MG/1 ML DISP.SYRIN IVPB PRN (06:00)
[2016-07-06] MEDS: SODIUM BICARBONATE 650 MG TABLET PO SCH ×3 (06:00→22:09)
[2016-07-06] MEDS ORDERED: SODIUM CHLORIDE 0.45% 1,000 ML IV SCH ×3 (06:45→14:00)
[2016-07-06] MEDS ORDERED: INSULIN DETEMIR 100 UNITS/ML MDV SQ SCH (07:00)
[2016-07-06] MEDS: INSULIN SLIDING SCALE (NOVOLOG) 1 VIAL SQ SCH ×4 (07:26→22:06)
[2016-07-06 08:15] LABS: CALCIUM 7.9 mg/dL (8.5-10.1); COCKROFT - GAULT 5.933; CREATININE 5.5 mg/dL (0.55-1.02)
--- NOTE | 2016-07-06 08:51 | PN ---
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 (short form) - Note 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: POD #1 Resting comfortably without complaint. AVSS. Afebrile Right chest wall: permacath in place. No hematoma. LLE: warm. dressing c/d/i Problem List - Problems (1) Gangrene of toe of left foot Assessment/Plan: POD #1 s/p 1.) Permacath, 2.) LLE Angio revascularization left popliteal with angioplasty and 3.) Amputation left 2nd toe HD PRN via permacatheter Left foot dressing to be changed in AM Cont medical management Code(s): I96 - GANGRENE, NOT ELSEWHERE CLASSIFIED
--- NOTE | 2016-07-06 10:07 | PN ---
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, Physician Chief Complaint: s/p left toe amputation and RIJ permacath placment and left leg angiogram revascularization in bed no distress - Current Medication List Current Medications: Active Medications Acetaminophen (Tylenol -) 650 mg PO Q4H PRN PRN Reason: FEVER OR PAIN Amlodipine Besylate (Norvasc -) 10 mg PO DAILY [facility] Aspirin (Asa -) 81 mg PO DAILY [facility] Atorvastatin Calcium (Lipitor -) 10 mg PO HS [facility] Last Admin: 07/05/16 23:44 Dose: 10 mg Ciprofloxacin (Ciloxan 0.3% Eye Drops -) 2 drop OS Q4HPO [facility] Last Admin: 07/06/16 07:25 Dose: 2 drop Clopidogrel Bisulfate (Plavix -) 75 mg PO DAILY [facility] Cyanocobalamin (Vitamin B12 Injection -) 1,000 mcg IM DAILY [facility] Docusate Sodium (Colace -) 100 mg PO DAILY [facility] Donepezil HCl (Aricept -) 5 mg PO DAILY [facility] Hydralazine HCl (Apresoline -) 25 mg PO BID [facility] Last Admin: 07/05/16 23:44 Dose: 25 mg Hydromorphone HCl (Dilaudid Injection -) 0.5 mg IVPB Q3H PRN PRN Reason: PAIN LEVEL 1-5 Last Admin: 07/06/16 06:00 Dose: 0.5 mg Sodium Chloride (1/2 Normal Saline) 1,000 mls @ 75 mls/hr IV ASDIR [facility] Stop: 07/06/16 20:04 Last Admin: 07/06/16 07:25 Dose: 75 mls/hr Insulin Aspart (Novolog Vial Sliding Scale -) 1 vial SQ ACHS [facility] PRN Reason: Protocol Last Admin: 07/06/16 07:26 Dose: Not Given Insulin Detemir (Levemir Vial) 16 units SQ AM [facility] Last Admin: 07/06/16 07:26 Dose: 16 units Meclizine HCl (Antivert -) 25 mg PO Q8H PRN Multivitamins/Minerals/Vitamin C (Tab-A-Vit -) 1 tab PO DAILY [facility] Ondansetron HCl (Zofran Injection) 8 mg IVPB Q8H PRN PRN Reason: NAUSEA AND/OR VOMITING Last Admin: 07/06/16 03:39 Dose: 8 mg Pantoprazole Sodium (Protonix -) 40 mg PO DAILY [facility] Sodium Bicarbonate (Sodium Bicarbonate -) 650 mg PO TID [facility] Last Admin: 07/06/16 06:00 Dose: 650 mg - Objective Vital Signs: Vital Signs Temperature 98.1 F 07/06/16 05:56 Pulse Rate 99 H 07/06/16 05:56 Respiratory Rate 20 07/06/16 05:56 Blood Pressure 107/59 07/06/16 05:56 O2 Sat by Pulse Oximetry (%) 98 07/05/16 21:00 Constitutional: Yes: Calm, Thin Neck: Yes: Trachea Midline, Other (right IJ permacath) Cardiovascular: Yes: Regular Rate and Rhythm, S1, S2 Respiratory: Yes: CTA Bilaterally Gastrointestinal: Yes: Soft Extremities: Yes: Other (left foot wrapped) Edema: No Labs: CBC, BMP 07/05/16 06:00 07/06/16 06:00 INR, PTT INR 1.06 (0.82-1.09) 07/01/16 17:50 Problem List - Problems (1) Chronic progressive renal failure Assessment/Plan: s/p permacath placement HD per renal Code(s): N18.9 - CHRONIC KIDNEY DISEASE, UNSPECIFIED Qualifiers: Chronic kidney disease stage: stage 5 Qualified Code(s): N18.5 - Chronic kidney disease, stage 5 (2) Weakness Assessment/Plan: ivf fluids blood and urine culture negative Code(s): R53.1 - WEAKNESS (3) Amputated toe of left foot Assessment/Plan: s/p left leg angio and left toe amputation Code(s): Z89.422 - ACQUIRED ABSENCE OF OTHER LEFT TOE(S) (4) Anemia due to chronic kidney disease Assessment/Plan: ?? epogen Code(s): N18.9 - CHRONIC KIDNEY DISEASE, UNSPECIFIED D63.1 - ANEMIA IN CHRONIC KIDNEY DISEASE (5) CVA, old, hemiparesis Assessment/Plan: dvt ppx Code(s): I69.359 - HEMIPLGA FOLLOWING CEREBRAL INFARCTION AFFECTING UNSP SIDE (6) Red eye Assessment/Plan: eye drops- improved Code(s): H57.8 - OTHER SPECIFIED DISORDERS OF EYE AND ADNEXA (7) Diabetes mellitus with renal manifestation Assessment/Plan: insulin dose adjusted bgm sldidng scale hga1c 6.1 Code(s): E11.29 - TYPE 2 DIABETES MELLITUS W [facility] DIABETIC KIDNEY COMPLICATION Qualifiers: Diabetes mellitus type: type 2
[2016-07-06] MEDS: MULTIVITAMINS (DAILY MVI) TABLET (FP) PO SCH (12:15)
[2016-07-06] MEDS: ASPIRIN 81 MG CHEWABLE TABLETS PO SCH (12:16)
[2016-07-06] MEDS: PANTOPRAZOLE 40 MG TABLET (FP) PO SCH (12:16)
[2016-07-06] MEDS: CLOPIDOGREL BISULFATE 75 MG TABLET (FP) PO SCH (12:16)
[2016-07-06] MEDS: DONEPEZIL HCL 5 MG TABLET (FP) PO SCH (12:17)
[2016-07-06] MEDS: CYANOCOBALAMIN (VITAMIN B-12) 1000 MCG/1 ML VIAL IM SCH (12:17)
--- NOTE | 2016-07-06 13:26 | PN ---
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, Physician History of Present Illness: Pt seen and examined at bedside. She is awake and appears comfortable. She had the angiogram yesterday. - Current Medication List Current Medications: Active Medications Acetaminophen (Tylenol -) 650 mg PO Q4H PRN PRN Reason: FEVER OR PAIN Amlodipine Besylate (Norvasc -) 10 mg PO DAILY [facility] Aspirin (Asa -) 81 mg PO DAILY [facility] Last Admin: 07/06/16 12:16 Dose: 81 mg Atorvastatin Calcium (Lipitor -) 10 mg PO HS [facility] Last Admin: 07/05/16 23:44 Dose: 10 mg Ciprofloxacin (Ciloxan 0.3% Eye Drops -) 2 drop OS Q4HPO [facility] Last Admin: 07/06/16 07:25 Dose: 2 drop Clopidogrel Bisulfate (Plavix -) 75 mg PO DAILY [facility] Last Admin: 07/06/16 12:16 Dose: 75 mg Cyanocobalamin (Vitamin B12 Injection -) 1,000 mcg IM DAILY [facility] Last Admin: 07/06/16 12:17 Dose: 1,000 mcg Docusate Sodium (Colace -) 100 mg PO DAILY [facility] Donepezil HCl (Aricept -) 5 mg PO DAILY [facility] Last Admin: 07/06/16 12:17 Dose: 5 mg Hydralazine HCl (Apresoline -) 25 mg PO BID [facility] Last Admin: 07/05/16 23:44 Dose: 25 mg Hydromorphone HCl (Dilaudid Injection -) 0.5 mg IVPB Q3H PRN PRN Reason: PAIN LEVEL 1-5 Last Admin: 07/06/16 06:00 Dose: 0.5 mg Sodium Chloride (1/2 Normal Saline) 1,000 mls @ 35 mls/hr IV ASDIR [facility] Stop: 07/07/16 06:44 Insulin Aspart (Novolog Vial Sliding Scale -) 1 vial SQ ACHS [facility] PRN Reason: Protocol Last Admin: 07/06/16 07:26 Dose: Not Given Insulin Detemir (Levemir Vial) 10 units SQ AM [facility] Meclizine HCl (Antivert -) 25 mg PO Q8H PRN Multivitamins/Minerals/Vitamin C (Tab-A-Vit -) 1 tab PO DAILY [facility] Last Admin: 07/06/16 12:15 Dose: 1 tab Ondansetron HCl (Zofran Injection) 8 mg IVPB Q8H PRN PRN Reason: NAUSEA AND/OR VOMITING Last Admin: 07/06/16 03:39 Dose: 8 mg Pantoprazole Sodium (Protonix -) 40 mg PO DAILY [facility] Last Admin: 07/06/16 12:16 Dose: 40 mg Sodium Bicarbonate (Sodium Bicarbonate -) 650 mg PO TID [facility] Last Admin: 07/06/16 06:00 Dose: 650 mg - Objective Vital Signs: Vital Signs Temperature 98.1 F 07/06/16 05:56 Pulse Rate 99 H 07/06/16 05:56 Respiratory Rate 20 07/06/16 05:56 Blood Pressure 107/59 07/06/16 05:56 O2 Sat by Pulse Oximetry (%) 98 07/05/16 21:00 Eyes: Yes: Conjunctiva Clear HENT: Yes: Atraumatic Neck: Yes: Supple Cardiovascular: Yes: S1, S2 Respiratory: Yes: CTA Bilaterally Gastrointestinal: Yes: Soft Genitourinary: Yes: Incontinence Musculoskeletal: Yes: Muscle Weakness Edema: No Wound/Incision: Yes: Dressing Dry and Intact Neurological: Yes: Confusion Labs: CBC, BMP 07/05/16 06:00 07/06/16 06:00 INR, PTT INR 1.06 (0.82-1.09) 07/01/16 17:50 Problem List - Problems (1) Acute renal failure Code(s): N17.9 - ACUTE KIDNEY FAILURE, UNSPECIFIED Qualifiers: Acute renal failure type: unspecified Qualified Code(s): N17.9 - Acute kidney failure, unspecified (2) Chronic progressive renal failure Code(s): N18.9 - CHRONIC KIDNEY DISEASE, UNSPECIFIED Qualifiers: Chronic kidney disease stage: stage 5 Qualified Code(s): N18.5 - Chronic kidney disease, stage 5 (3) Diabetes mellitus with renal manifestation Code(s): E11.29 - TYPE 2 DIABETES MELLITUS W OTH DIABETIC KIDNEY COMPLICATION Qualifiers: Diabetes mellitus type: type 2 (4) Gangrene of toe of left foot Code(s): I96 - GANGRENE, NOT ELSEWHERE CLASSIFIED (5) Hypertension Code(s): I10 - ESSENTIAL (PRIMARY) HYPERTENSION (6) Alzheimer's dementia Code(s): G30.9 - ALZHEIMER'S DISEASE, UNSPECIFIED (7) CKD (chronic kidney disease) stage 5, GFR less than 15 ml/min Code(s): N18.5 - CHRONIC KIDNEY DISEASE, STAGE 5 Assessment/Plan Current Medications Generic Name Dose Route Start Last Admin Trade Name Freq PRN Reason Stop Dose Admin Acetaminophen 650 mg 07/05/16 20:28 Tylenol - PO Q4H PRN FEVER OR PAIN Amlodipine Besylate 10 mg 07/06/16 10:00 Norvasc - PO DAILY [facility] Aspirin 81 mg 07/06/16 10:00 07/06/16 12:16 Asa - PO 81 mg DAILY [facility] Administration Atorvastatin Calcium 10 mg 07/05/16 22:00 07/05/16 23:44 Lipitor - PO 10 mg HS [facility] Administration Ciprofloxacin 2 drop 07/05/16 22:00 07/06/16 07:25 Ciloxan 0.3% Eye Drops - OS 2 drop Q4HPO [facility] Administration Clopidogrel Bisulfate 75 mg 07/06/16 10:00 07/06/16 12:16 Plavix - PO 75 mg DAILY [facility] Administration Cyanocobalamin 1,000 mcg 07/06/16 10:00 07/06/16 12:17 Vitamin B12 Injection - IM 1,000 mcg DAILY [facility] Administration Docusate Sodium 100 mg 07/06/16 10:00 Colace - PO DAILY [facility] Donepezil HCl 5 mg 07/06/16 10:00 07/06/16 12:17 Aricept - PO 5 mg DAILY [facility] Administration Hydralazine HCl 25 mg 07/05/16 22:00 07/05/16 23:44 Apresoline - PO 25 mg BID [facility] Administration Hydromorphone HCl 0.5 mg 07/05/16 19:50 07/06/16 06:00 Dilaudid Injection - IVPB 0.5 mg Q3H PRN Administration PAIN LEVEL 1-5 Sodium Chloride 1,000 mls @ 35 mls/hr 07/06/16 13:22 1/2 Normal Saline IV 07/07/16 06:44 ASDIR [facility] Insulin Aspart 1 vial 07/05/16 22:00 07/06/16 07:26 Novolog Vial Sliding Scale - SQ Not Given ACHS [facility] Protocol Insulin Detemir 10 units 07/06/16 11:00 Levemir Vial SQ AM [facility] Meclizine HCl 25 mg 07/05/16 20:28 Antivert - PO Q8H PRN Multivitamins/Minerals/Vitamin C 1 tab 07/06/16 10:00 07/06/16 12:15 Tab-A-Vit - PO 1 tab DAILY [facility] Administration Ondansetron HCl 8 mg 07/05/16 20:28 07/06/16 03:39 Zofran Injection IVPB 8 mg Q8H PRN Administration NAUSEA AND/OR VOMITING Pantoprazole Sodium 40 mg 07/06/16 10:00 07/06/16 12:16 Protonix - PO 40 mg DAILY [facility] Administration Sodium Bicarbonate 650 mg 07/05/16 22:00 07/06/16 06:00 Sodium Bicarbonate - PO 650 mg TID [facility] Administration Impression 1. CKD stage 5 with ELIER 2. anemia 3. HTN 4. PVD 5. hyperlipidemia 6. dementia 7. DM 8. PVD Plan - pt had permacath placed yesterday - will arrange for HD tomorrow, will be on MW schedule - encourage PO intake - will stop PO bicarb once she starts HD - repeat labs in am - will follow Dr Fox
[2016-07-06] MEDS: amLODIPine BESYLATE 10 MG TABLET (FP) PO SCH (14:10)
[2016-07-06] MEDS: hydrALAZINE HCL 25 MG TABLET (FP) PO SCH ×2 (14:10→22:17)
[2016-07-06] MEDS: DOCUSATE SODIUM 100 MG CAPSULE (FP) PO SCH (14:10)
[2016-07-06] MEDS ORDERED: INSULIN DETEMIR 100 UNITS/ML MDV SQ ONE (17:51)
[2016-07-06] MEDS: INSULIN DETEMIR 100 UNITS/ML MDV SQ SCH (18:32)
[2016-07-06] MEDS: ATORVASTATIN CA 10 MG TABLET (FP) PO SCH (22:09)
[2016-07-07 00:11] LABS: HEP B SURFACE AB Non Reactive (.)
[2016-07-07] MEDS: CIPROFLOXACIN 0.3% EYE DROPS 5 ML BOTTLE OS SCH ×5 (02:40→21:25)
[2016-07-07] MEDS: SODIUM BICARBONATE 650 MG TABLET PO SCH (06:43)
[2016-07-07] MEDS: INSULIN DETEMIR 100 UNITS/ML MDV SQ SCH (06:46)
[2016-07-07] MEDS: INSULIN SLIDING SCALE (NOVOLOG) 1 VIAL SQ SCH ×4 (06:47→21:27)
[2016-07-07] MEDS ORDERED: INSULIN DETEMIR 100 UNITS/ML MDV SQ ONE (07:06)
[2016-07-07] MEDS ORDERED: INSULIN (NOVOLOG) ASPART 100 UNITS/ML 10ML VIAL ONE (07:07)
--- NOTE | 2016-07-07 08:05 | PN ---
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 (short form) - Note 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: POD #2 Currently in HD (via permacath). Resting comfortably without complaint. Afebrile. Avss. Left Chest wall: PC functioning. No hematoma around tunneled cath. LLE: warm. Dressing taken down and surgical site examined --> clean. Wound edges approximated well via interrupted sutures. Flaps are viable. Problem List - Problems (1) Gangrene of toe of left foot Assessment/Plan: POD #2 s/p 1.) Permacath, 2.) LLE Angio revascularization left popliteal with angioplasty and 3.) Amputation left 2nd toe HD PRN Left foot dressing on rounds and daily dressings ordered Cont medical management Code(s): I96 - GANGRENE, NOT ELSEWHERE CLASSIFIED
--- NOTE | 2016-07-07 08:21 | PN ---
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, Physician History of Present Illness: in bed - Current Medication List Current Medications: Active Medications Acetaminophen (Tylenol -) 650 mg PO Q4H PRN PRN Reason: FEVER OR PAIN Amlodipine Besylate (Norvasc -) 10 mg PO DAILY [facility] Last Admin: 07/06/16 14:10 Dose: Not Given Aspirin (Asa -) 81 mg PO DAILY [facility] Last Admin: 07/06/16 12:16 Dose: 81 mg Atorvastatin Calcium (Lipitor -) 10 mg PO HS [facility] Last Admin: 07/06/16 22:09 Dose: 10 mg Ciprofloxacin (Ciloxan 0.3% Eye Drops -) 2 drop OS Q4HPO [facility] Last Admin: 07/07/16 06:43 Dose: 2 drop Clopidogrel Bisulfate (Plavix -) 75 mg PO DAILY [facility] Last Admin: 07/06/16 12:16 Dose: 75 mg Cyanocobalamin (Vitamin B12 Injection -) 1,000 mcg IM DAILY [facility] Last Admin: 07/06/16 12:17 Dose: 1,000 mcg Docusate Sodium (Colace -) 100 mg PO DAILY [facility] Last Admin: 07/06/16 14:10 Dose: Not Given Donepezil HCl (Aricept -) 5 mg PO DAILY [facility] Last Admin: 07/06/16 12:17 Dose: 5 mg Hydralazine HCl (Apresoline -) 25 mg PO BID [facility] Last Admin: 07/06/16 22:17 Dose: 25 mg Hydromorphone HCl (Dilaudid Injection -) 0.5 mg IVPB Q3H PRN PRN Reason: PAIN LEVEL 1-5 Last Admin: 07/06/16 06:00 Dose: 0.5 mg Insulin Aspart (Novolog Vial Sliding Scale -) 1 vial SQ ACHS [facility] PRN Reason: Protocol Last Admin: 07/07/16 06:47 Dose: Not Given Insulin Detemir (Levemir Vial) 10 units SQ AM [facility] Last Admin: 07/07/16 06:46 Dose: 10 units Meclizine HCl (Antivert -) 25 mg PO Q8H PRN Multivitamins/Minerals/Vitamin C (Tab-A-Vit -) 1 tab PO DAILY [facility] Last Admin: 07/06/16 12:15 Dose: 1 tab Ondansetron HCl (Zofran Injection) 8 mg IVPB Q8H PRN PRN Reason: NAUSEA AND/OR VOMITING Last Admin: 07/06/16 03:39 Dose: 8 mg Pantoprazole Sodium (Protonix -) 40 mg PO DAILY [facility] Last Admin: 07/06/16 12:16 Dose: 40 mg Sodium Bicarbonate (Sodium Bicarbonate -) 650 mg PO TID [facility] Last Admin: 07/07/16 06:43 Dose: 650 mg - Objective Vital Signs: Vital Signs Temperature 98.4 F 07/07/16 05:42 Pulse Rate 97 H 07/07/16 05:42 Respiratory Rate 20 07/07/16 05:42 Blood Pressure 105/56 07/07/16 05:42 O2 Sat by Pulse Oximetry (%) 98 07/06/16 21:00 Cardiovascular: Yes: S1, S2 Respiratory: Yes: Regular, CTA Bilaterally Gastrointestinal: Yes: Normal Bowel Sounds, Soft Labs: CBC, BMP 07/05/16 06:00 07/06/16 06:00 INR, PTT INR 1.06 (0.82-1.09) 07/01/16 17:50 Assessment/Plan - Problems (1) Chronic progressive renal failure Assessment/Plan: s/p permacath placement HD per renal Code(s): N18.9 - CHRONIC KIDNEY DISEASE, UNSPECIFIED Qualifiers: Chronic kidney disease stage: stage 5 Qualified Code(s): N18.5 - Chronic kidney disease, stage 5 (2) Weakness Assessment/Plan: blood and urine culture negative Code(s): R53.1 - WEAKNESS (3) Amputated toe of left foot Assessment/Plan: s/p left leg angio and left toe amputation Code(s): Z89.422 - ACQUIRED ABSENCE OF OTHER LEFT TOE(S) (4) Anemia due to chronic kidney disease Assessment/Plan: ?? epogen per renal Code(s): N18.9 - CHRONIC KIDNEY DISEASE, UNSPECIFIED D63.1 - ANEMIA IN CHRONIC KIDNEY DISEASE (5) CVA, old, hemiparesis Assessment/Plan: dvt ppx Code(s): I69.359 - HEMIPLGA FOLLOWING CEREBRAL INFARCTION AFFECTING UNSP SIDE (6) Red eye Assessment/Plan: eye drops- improved Code(s): H57.8 - OTHER SPECIFIED DISORDERS OF EYE AND ADNEXA (7) Diabetes mellitus with renal manifestation Assessment/Plan: insulin dose adjusted bgm sldidng scale hga1c 6.1 Code(s): E11.29 - TYPE 2 DIABETES MELLITUS W OTH DIABETIC KIDNEY COMPLICATION Qualifiers: Diabetes mellitus type: type 2
[2016-07-07 10:27] LABS: BASOPHIL 0.3 % (0-2.0); MCH 28.1 pg (25.7-33.7); MCHC 32.9 g/dl (32.0-36.0); MEAN CELL VOLUME 85.3 fl (80-96); NEUTROPHILS 80.3 % (42.8-82.8); PLATELET COUNT 118 K/MM3 (134-434); RDW 15.8 % (11.6-15.6); WHITE BLOOD COUNT 9.4 K/mm3 (4.0-10.0)
[2016-07-07 10:48] LABS: CALCIUM 8.9 mg/dL (8.5-10.1); COCKROFT - GAULT 5.3465; CREATININE 6.1 mg/dL (0.55-1.02)
--- NOTE | 2016-07-07 12:05 | PN ---
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, Physician History of Present Illness: Pt seen and examined at bedside. She is currently getting HD and tolerating. - Current Medication List Current Medications: Active Medications Acetaminophen (Tylenol -) 650 mg PO Q4H PRN PRN Reason: FEVER OR PAIN Amlodipine Besylate (Norvasc -) 10 mg PO DAILY [facility] Last Admin: 07/06/16 14:10 Dose: Not Given Aspirin (Asa -) 81 mg PO DAILY [facility] Last Admin: 07/06/16 12:16 Dose: 81 mg Atorvastatin Calcium (Lipitor -) 10 mg PO HS [facility] Last Admin: 07/06/16 22:09 Dose: 10 mg Ciprofloxacin (Ciloxan 0.3% Eye Drops -) 2 drop OS Q4HPO [facility] Last Admin: 07/07/16 06:43 Dose: 2 drop Clopidogrel Bisulfate (Plavix -) 75 mg PO DAILY [facility] Last Admin: 07/06/16 12:16 Dose: 75 mg Cyanocobalamin (Vitamin B12 Injection -) 1,000 mcg IM DAILY [facility] Last Admin: 07/06/16 12:17 Dose: 1,000 mcg Docusate Sodium (Colace -) 100 mg PO DAILY [facility] Last Admin: 07/06/16 14:10 Dose: Not Given Donepezil HCl (Aricept -) 5 mg PO DAILY [facility] Last Admin: 07/06/16 12:17 Dose: 5 mg Hydralazine HCl (Apresoline -) 25 mg PO BID [facility] Last Admin: 07/06/16 22:17 Dose: 25 mg Hydromorphone HCl (Dilaudid Injection -) 0.5 mg IVPB Q3H PRN PRN Reason: PAIN LEVEL 1-5 Last Admin: 07/06/16 06:00 Dose: 0.5 mg Insulin Aspart (Novolog Vial Sliding Scale -) 1 vial SQ ACHS [facility] PRN Reason: Protocol Last Admin: 07/07/16 06:47 Dose: Not Given Insulin Detemir (Levemir Vial) 10 units SQ AM [facility] Last Admin: 07/07/16 06:46 Dose: 10 units Meclizine HCl (Antivert -) 25 mg PO Q8H PRN Multivitamins/Minerals/Vitamin C (Tab-A-Vit -) 1 tab PO DAILY [facility] Last Admin: 07/06/16 12:15 Dose: 1 tab Ondansetron HCl (Zofran Injection) 8 mg IVPB Q8H PRN PRN Reason: NAUSEA AND/OR VOMITING Last Admin: 07/06/16 03:39 Dose: 8 mg Pantoprazole Sodium (Protonix -) 40 mg PO DAILY [facility] Last Admin: 07/06/16 12:16 Dose: 40 mg Sodium Bicarbonate (Sodium Bicarbonate -) 650 mg PO TID [facility] Last Admin: 07/07/16 06:43 Dose: 650 mg - Objective Vital Signs: Vital Signs Temperature 98.8 F 07/07/16 09:55 Pulse Rate 62 07/07/16 11:28 Respiratory Rate 18 07/07/16 11:28 Blood Pressure 141/87 07/07/16 11:28 O2 Sat by Pulse Oximetry (%) 98 07/06/16 21:00 Constitutional: Yes: Calm Eyes: Yes: Conjunctiva Clear HENT: Yes: Atraumatic Neck: Yes: Supple Cardiovascular: Yes: S1, S2 Respiratory: Yes: CTA Bilaterally Gastrointestinal: Yes: Soft Musculoskeletal: Yes: Muscle Weakness Edema: No Neurological: Yes: Confusion Labs: CBC, BMP 07/07/16 10:00 07/07/16 10:00 INR, PTT INR 1.06 (0.82-1.09) 07/01/16 17:50 Problem List - Problems (1) Acute renal failure Code(s): N17.9 - ACUTE KIDNEY FAILURE, UNSPECIFIED Qualifiers: Acute renal failure type: unspecified Qualified Code(s): N17.9 - Acute kidney failure, unspecified (2) Chronic progressive renal failure Code(s): N18.9 - CHRONIC KIDNEY DISEASE, UNSPECIFIED Qualifiers: Chronic kidney disease stage: stage 5 Qualified Code(s): N18.5 - Chronic kidney disease, stage 5 (3) Diabetes mellitus with renal manifestation Code(s): E11.29 - TYPE 2 DIABETES MELLITUS W OTH DIABETIC KIDNEY COMPLICATION Qualifiers: Diabetes mellitus type: type 2 (4) Gangrene of toe of left foot Code(s): I96 - GANGRENE, NOT ELSEWHERE CLASSIFIED (5) Hypertension Code(s): I10 - ESSENTIAL (PRIMARY) HYPERTENSION (6) Alzheimer's dementia Code(s): G30.9 - ALZHEIMER'S DISEASE, UNSPECIFIED (7) CKD (chronic kidney disease) stage 5, GFR less than 15 ml/min Code(s): N18.5 - CHRONIC KIDNEY DISEASE, STAGE 5 Assessment/Plan Current Medications Generic Name Dose Route Start Last Admin Trade Name Freq PRN Reason Stop Dose Admin Acetaminophen 650 mg 07/05/16 20:28 Tylenol - PO Q4H PRN FEVER OR PAIN Amlodipine Besylate 10 mg 07/06/16 10:00 07/06/16 14:10 Norvasc - PO Not Given DAILY [facility] Aspirin 81 mg 07/06/16 10:00 07/06/16 12:16 Asa - PO 81 mg DAILY [facility] Administration Atorvastatin Calcium 10 mg 07/05/16 22:00 07/06/16 22:09 Lipitor - PO 10 mg HS [facility] Administration Ciprofloxacin 2 drop 07/05/16 22:00 07/07/16 06:43 Ciloxan 0.3% Eye Drops - OS 2 drop Q4HPO [facility] Administration Clopidogrel Bisulfate 75 mg 07/06/16 10:00 07/06/16 12:16 Plavix - PO 75 mg DAILY [facility] Administration Cyanocobalamin 1,000 mcg 07/06/16 10:00 07/06/16 12:17 Vitamin B12 Injection - IM 1,000 mcg DAILY [facility] Administration Docusate Sodium 100 mg 07/06/16 10:00 07/06/16 14:10 Colace - PO Not Given DAILY [facility] Donepezil HCl 5 mg 07/06/16 10:00 07/06/16 12:17 Aricept - PO 5 mg DAILY [facility] Administration Hydralazine HCl 25 mg 07/05/16 22:00 07/06/16 22:17 Apresoline - PO 25 mg BID [facility] Administration Hydromorphone HCl 0.5 mg 07/05/16 19:50 07/06/16 06:00 Dilaudid Injection - IVPB 0.5 mg Q3H PRN Administration PAIN LEVEL 1-5 Insulin Aspart 1 vial 07/05/16 22:00 07/07/16 06:47 Novolog Vial Sliding Scale - SQ Not Given ACHS [facility] Protocol Insulin Detemir 10 units 07/06/16 11:00 07/07/16 06:46 Levemir Vial SQ 10 units AM [facility] Administration Meclizine HCl 25 mg 07/05/16 20:28 Antivert - PO Q8H PRN Multivitamins/Minerals/Vitamin C 1 tab 07/06/16 10:00 07/06/16 12:15 Tab-A-Vit - PO 1 tab DAILY [facility] Administration Ondansetron HCl 8 mg 07/05/16 20:28 07/06/16 03:39 Zofran Injection IVPB 8 mg Q8H PRN Administration NAUSEA AND/OR VOMITING Pantoprazole Sodium 40 mg 07/06/16 10:00 07/06/16 12:16 Protonix - PO 40 mg DAILY [facility] Administration Sodium Bicarbonate 650 mg 07/05/16 22:00 07/07/16 06:43 Sodium Bicarbonate - PO 650 mg TID [facility] Administration Impression 1. CKD stage 5 with ELIER 2. anemia 3. HTN 4. PVD 5. hyperlipidemia 6. dementia 7. DM 8. PVD Plan - HD today - pt can get a blood transfusion after HD, will not transfuse on first dialysis treatment - called and spoke to her son, he prefers for her to go to HD at [facility] in [facility] - can stop PO bicarb - cont would care to foot Dr Fox
[2016-07-07] MEDS: CLOPIDOGREL BISULFATE 75 MG TABLET (FP) PO SCH (13:27)
[2016-07-07] MEDS: PANTOPRAZOLE 40 MG TABLET (FP) PO SCH (13:27)
[2016-07-07] MEDS: ASPIRIN 81 MG CHEWABLE TABLETS PO SCH (13:27)
[2016-07-07] MEDS: DONEPEZIL HCL 5 MG TABLET (FP) PO SCH (13:27)
[2016-07-07] MEDS: MULTIVITAMINS (DAILY MVI) TABLET (FP) PO SCH (13:27)
[2016-07-07] MEDS: CYANOCOBALAMIN (VITAMIN B-12) 1000 MCG/1 ML VIAL IM SCH (13:28)
[2016-07-07] MEDS: DOCUSATE SODIUM 100 MG CAPSULE (FP) PO SCH (13:41)
--- NOTE | 2016-07-07 14:54 | PATH ---
Surgical Pathology Report Patient Name: JOSEP NASH Med. Rec. #: [id number] /Age/Gender: 1930 (Age: 85) / F Account: [id number] Location: [facility] MED/SURG Taken: 07/05/2016 Received: 07/06/2016 Reported: 07/07/2016 Physicians: Sage Sommers M.D. Specimen(s) Received AMPUTATION LEFT 2ND TOE Clinical History ARF, gangrene second toe left foot Final Diagnosis SECOND TOE, LEFT FOOT, AMPUTATION: NECROTIC SKIN AND UNDERLYING SOFT TISSUE WITH ACUTE NECROTIZING INFLAMMATION AND GANGRENOUS NECROSIS. UNDERLYING BONE WITH FOCAL NECROSIS AND SURROUNDING REACTIVE CHANGES. SKIN AND SOFT TISSUE AT RESECTION MARGIN APPEAR VIABLE WITH CHRONIC ISCHEMIC CHANGES. BONE AT RESECTION MARGIN APPEARS VIABLE. Electronically Signed Italo Beltrán M.D. Gross Description Received in formalin labeled "left second toe" is a 3.4 x 1.8 x 1.8 cm toe amputation specimen. The epidermal surface displays a 2.8 x 1.5 cm black-grace, gangrenous lesion extending to 0.5 cm from the closest skin and soft tissue margin. The lesion extends to and possibly involves the underlying bone. Help Desk Supervisor sections are submitted in 3 cassettes as follows: 1-lesion with underlying bone, following decalcification; 2-bone margin, following decalcification; 3-skin and soft tissue margin. /07/06/2016 saudi07/06/2016
[2016-07-07] MEDS ORDERED: ACETAMINOPHEN 325 MG TABLET (FP) PO ONE (15:45)
[2016-07-07] MEDS: ATORVASTATIN CA 10 MG TABLET (FP) PO SCH (21:25)
[2016-07-07] MEDS: hydrALAZINE HCL 25 MG TABLET (FP) PO SCH (23:00)
[2016-07-08] MEDS: CIPROFLOXACIN 0.3% EYE DROPS 5 ML BOTTLE OS SCH ×6 (02:37→21:16)
[2016-07-08] MEDS: INSULIN SLIDING SCALE (NOVOLOG) 1 VIAL SQ SCH ×4 (06:28→21:16)
[2016-07-08] MEDS: INSULIN DETEMIR 100 UNITS/ML MDV SQ SCH (06:29)
--- NOTE | 2016-07-08 07:33 | PN ---
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, Physician History of Present Illness: in bed s/p prbc - Current Medication List Current Medications: Active Medications Acetaminophen (Tylenol -) 650 mg PO Q4H PRN PRN Reason: FEVER OR PAIN Amlodipine Besylate (Norvasc -) 10 mg PO DAILY [facility] Last Admin: 07/06/16 14:10 Dose: Not Given Aspirin (Asa -) 81 mg PO DAILY [facility] Last Admin: 07/07/16 13:27 Dose: 81 mg Atorvastatin Calcium (Lipitor -) 10 mg PO HS [facility] Last Admin: 07/07/16 21:25 Dose: 10 mg Ciprofloxacin (Ciloxan 0.3% Eye Drops -) 2 drop OS Q4HPO [facility] Last Admin: 07/08/16 06:27 Dose: 2 drop Clopidogrel Bisulfate (Plavix -) 75 mg PO DAILY [facility] Last Admin: 07/07/16 13:27 Dose: 75 mg Cyanocobalamin (Vitamin B12 Injection -) 1,000 mcg IM DAILY [facility] Last Admin: 07/07/16 13:28 Dose: 1,000 mcg Docusate Sodium (Colace -) 100 mg PO DAILY [facility] Last Admin: 07/07/16 13:41 Dose: Not Given Donepezil HCl (Aricept -) 5 mg PO DAILY [facility] Last Admin: 07/07/16 13:27 Dose: 5 mg Hydralazine HCl (Apresoline -) 25 mg PO BID [facility] Last Admin: 07/07/16 23:00 Dose: 25 mg Hydromorphone HCl (Dilaudid Injection -) 0.5 mg IVPB Q3H PRN PRN Reason: PAIN LEVEL 1-5 Last Admin: 07/06/16 06:00 Dose: 0.5 mg Insulin Aspart (Novolog Vial Sliding Scale -) 1 vial SQ ACHS [facility] PRN Reason: Protocol Last Admin: 07/08/16 06:28 Dose: Not Given Insulin Detemir (Levemir Vial) 10 units SQ AM [facility] Last Admin: 07/08/16 06:29 Dose: 10 units Meclizine HCl (Antivert -) 25 mg PO Q8H PRN Multivitamins/Minerals/Vitamin C (Tab-A-Vit -) 1 tab PO DAILY [facility] Last Admin: 07/07/16 13:27 Dose: 1 tab Ondansetron HCl (Zofran Injection) 8 mg IVPB Q8H PRN PRN Reason: NAUSEA AND/OR VOMITING Last Admin: 07/06/16 03:39 Dose: 8 mg Pantoprazole Sodium (Protonix -) 40 mg PO DAILY [facility] Last Admin: 07/07/16 13:27 Dose: 40 mg - Objective Vital Signs: Vital Signs Temperature 98.4 F 07/08/16 06:48 Pulse Rate 94 H 07/08/16 06:48 Respiratory Rate 20 07/08/16 06:48 Blood Pressure 124/60 07/08/16 06:48 O2 Sat by Pulse Oximetry (%) 100 07/07/16 21:00 Cardiovascular: Yes: Regular Rate and Rhythm Respiratory: Yes: Regular, CTA Bilaterally Gastrointestinal: Yes: Normal Bowel Sounds, Soft. No: Tenderness Edema: No Neurological: Yes: Alert, Oriented Labs: INR, PTT INR 1.06 (0.82-1.09) 07/01/16 17:50 Assessment/Plan - Problems (1) Chronic progressive renal failure Assessment/Plan: s/p permacath placement HD per renal Code(s): N18.9 - CHRONIC KIDNEY DISEASE, UNSPECIFIED Qualifiers: Chronic kidney disease stage: stage 5 Qualified Code(s): N18.5 - Chronic kidney disease, stage 5 (2) Weakness Assessment/Plan: blood and urine culture negative Code(s): R53.1 - WEAKNESS (3) Amputated toe of left foot Assessment/Plan: s/p left leg angio and left toe amputation Code(s): Z89.422 - ACQUIRED ABSENCE OF OTHER LEFT TOE(S) (4) Anemia due to chronic kidney disease Assessment/Plan: ?? epogen per renal Code(s): N18.9 - CHRONIC KIDNEY DISEASE, UNSPECIFIED D63.1 - ANEMIA IN CHRONIC KIDNEY DISEASE (5) CVA, old, hemiparesis Assessment/Plan: dvt ppx Code(s): I69.359 - HEMIPLGA FOLLOWING CEREBRAL INFARCTION AFFECTING UNSP SIDE (6) Anemia Assessment/Plan: s/p prbc monitor (7) Diabetes mellitus with renal manifestation Assessment/Plan: insulin dose adjusted bgm sldidng scale hga1c 6.1 Code(s): E11.29 - TYPE 2 DIABETES MELLITUS W OTH DIABETIC KIDNEY COMPLICATION Qualifiers: Diabetes mellitus type: type 2 dc planning---snf?
[2016-07-08 07:58] LABS: CALCIUM 8.4 mg/dL (8.5-10.1); COCKROFT - GAULT 7.9645; CREATININE 4.1 mg/dL (0.55-1.02)
[2016-07-08 11:37] LABS: BASOPHIL 0.5 % (0-2.0); EOSINOPHIL 4.5 % (0-4.5); MCH 28.4 pg (25.7-33.7); MCHC 33.3 g/dl (32.0-36.0); MEAN CELL VOLUME 85.3 fl (80-96); MEAN PLT VOLUME 8.2 fl (7.5-11.1); NEUTROPHILS 73.6 % (42.8-82.8); PLATELET COUNT 126 K/MM3 (134-434); RDW 15.6 % (11.6-15.6); WHITE BLOOD COUNT 8.6 K/mm3 (4.0-10.0)
[2016-07-08] MEDS: DOCUSATE SODIUM 100 MG CAPSULE (FP) PO SCH (11:58)
[2016-07-08] MEDS: DONEPEZIL HCL 5 MG TABLET (FP) PO SCH (11:58)
[2016-07-08] MEDS: CLOPIDOGREL BISULFATE 75 MG TABLET (FP) PO SCH (11:59)
[2016-07-08] MEDS: hydrALAZINE HCL 25 MG TABLET (FP) PO SCH ×2 (11:59→21:16)
[2016-07-08] MEDS: PANTOPRAZOLE 40 MG TABLET (FP) PO SCH (11:59)
[2016-07-08] MEDS: MULTIVITAMINS (DAILY MVI) TABLET (FP) PO SCH (12:00)
[2016-07-08] MEDS: amLODIPine BESYLATE 10 MG TABLET (FP) PO SCH (12:00)
[2016-07-08] MEDS: ASPIRIN 81 MG CHEWABLE TABLETS PO SCH (12:00)
[2016-07-08] MEDS: CYANOCOBALAMIN (VITAMIN B-12) 1000 MCG/1 ML VIAL IM SCH (12:00)
--- NOTE | 2016-07-08 16:53 | PN ---
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, Physician History of Present Illness: Pt seen and examined at bedside. She remains confused. - Current Medication List Current Medications: Active Medications Acetaminophen (Tylenol -) 650 mg PO Q4H PRN PRN Reason: FEVER OR PAIN Amlodipine Besylate (Norvasc -) 10 mg PO DAILY [facility] Last Admin: 07/08/16 12:00 Dose: 10 mg Aspirin (Asa -) 81 mg PO DAILY [facility] Last Admin: 07/08/16 12:00 Dose: 81 mg Atorvastatin Calcium (Lipitor -) 10 mg PO HS [facility] Last Admin: 07/07/16 21:25 Dose: 10 mg Ciprofloxacin (Ciloxan 0.3% Eye Drops -) 2 drop OS Q4HPO [facility] Last Admin: 07/08/16 15:13 Dose: 2 drop Clopidogrel Bisulfate (Plavix -) 75 mg PO DAILY [facility] Last Admin: 07/08/16 11:59 Dose: 75 mg Cyanocobalamin (Vitamin B12 Injection -) 1,000 mcg IM DAILY [facility] Last Admin: 07/08/16 12:00 Dose: 1,000 mcg Docusate Sodium (Colace -) 100 mg PO DAILY [facility] Last Admin: 07/08/16 11:58 Dose: 100 mg Donepezil HCl (Aricept -) 5 mg PO DAILY [facility] Last Admin: 07/08/16 11:58 Dose: 5 mg Hydralazine HCl (Apresoline -) 25 mg PO BID [facility] Last Admin: 07/08/16 11:59 Dose: 25 mg Insulin Aspart (Novolog Vial Sliding Scale -) 1 vial SQ ACHS [facility] PRN Reason: Protocol Last Admin: 07/08/16 15:14 Dose: Not Given Insulin Detemir (Levemir Vial) 10 units SQ AM [facility] Last Admin: 07/08/16 06:29 Dose: 10 units Meclizine HCl (Antivert -) 25 mg PO Q8H PRN Multivitamins/Minerals/Vitamin C (Tab-A-Vit -) 1 tab PO DAILY [facility] Last Admin: 07/08/16 12:00 Dose: 1 tab Ondansetron HCl (Zofran Injection) 8 mg IVPB Q8H PRN PRN Reason: NAUSEA AND/OR VOMITING Last Admin: 07/06/16 03:39 Dose: 8 mg Pantoprazole Sodium (Protonix -) 40 mg PO DAILY [facility] Last Admin: 07/08/16 11:59 Dose: 40 mg - Objective Vital Signs: Vital Signs Temperature 98.2 F 07/08/16 13:47 Pulse Rate 88 07/08/16 13:47 Respiratory Rate 20 07/08/16 13:47 Blood Pressure 128/54 07/08/16 13:47 O2 Sat by Pulse Oximetry (%) 100 07/07/16 21:00 Constitutional: Yes: Calm Eyes: Yes: Conjunctiva Clear Neck: Yes: Supple Cardiovascular: Yes: S1, S2 Respiratory: Yes: CTA Bilaterally, On Nasal O2 Gastrointestinal: Yes: Soft Genitourinary: Yes: Incontinence Musculoskeletal: Yes: Muscle Weakness Edema: No Neurological: Yes: Confusion Labs: CBC, BMP 07/08/16 06:00 07/08/16 06:00 INR, PTT INR 1.06 (0.82-1.09) 07/01/16 17:50 Problem List - Problems (1) Acute renal failure Code(s): N17.9 - ACUTE KIDNEY FAILURE, UNSPECIFIED Qualifiers: Acute renal failure type: unspecified Qualified Code(s): N17.9 - Acute kidney failure, unspecified (2) Chronic progressive renal failure Code(s): N18.9 - CHRONIC KIDNEY DISEASE, UNSPECIFIED Qualifiers: Chronic kidney disease stage: stage 5 Qualified Code(s): N18.5 - Chronic kidney disease, stage 5 (3) Diabetes mellitus with renal manifestation Code(s): E11.29 - TYPE 2 DIABETES MELLITUS W OTH DIABETIC KIDNEY COMPLICATION Qualifiers: Diabetes mellitus type: type 2 (4) Gangrene of toe of left foot Code(s): I96 - GANGRENE, NOT ELSEWHERE CLASSIFIED (5) Hypertension Code(s): I10 - ESSENTIAL (PRIMARY) HYPERTENSION (6) Alzheimer's dementia Code(s): G30.9 - ALZHEIMER'S DISEASE, UNSPECIFIED (7) CKD (chronic kidney disease) stage 5, GFR less than 15 ml/min Code(s): N18.5 - CHRONIC KIDNEY DISEASE, STAGE 5 Assessment/Plan Current Medications Generic Name Dose Route Start Last Admin Trade Name Freq PRN Reason Stop Dose Admin Acetaminophen 650 mg 07/05/16 20:28 Tylenol - PO Q4H PRN FEVER OR PAIN Amlodipine Besylate 10 mg 07/06/16 10:00 07/08/16 12:00 Norvasc - PO 10 mg DAILY [facility] Administration Aspirin 81 mg 07/06/16 10:00 07/08/16 12:00 Asa - PO 81 mg DAILY [facility] Administration Atorvastatin Calcium 10 mg 07/05/16 22:00 07/07/16 21:25 Lipitor - PO 10 mg HS [facility] Administration Ciprofloxacin 2 drop 07/05/16 22:00 07/08/16 15:13 Ciloxan 0.3% Eye Drops - OS 2 drop Q4HPO [facility] Administration Clopidogrel Bisulfate 75 mg 07/06/16 10:00 07/08/16 11:59 Plavix - PO 75 mg DAILY [facility] Administration Cyanocobalamin 1,000 mcg 07/06/16 10:00 07/08/16 12:00 Vitamin B12 Injection - IM 1,000 mcg DAILY [facility] Administration Docusate Sodium 100 mg 07/06/16 10:00 07/08/16 11:58 Colace - PO 100 mg DAILY [facility] Administration Donepezil HCl 5 mg 07/06/16 10:00 07/08/16 11:58 Aricept - PO 5 mg DAILY [facility] Administration Hydralazine HCl 25 mg 07/07/16 22:15 07/08/16 11:59 Apresoline - PO 25 mg BID [facility] Administration Insulin Aspart 1 vial 07/05/16 22:00 07/08/16 15:14 Novolog Vial Sliding Scale - SQ Not Given [facility] Protocol Insulin Detemir 10 units 07/06/16 11:00 07/08/16 06:29 Levemir Vial SQ 10 units AM [facility] Administration Meclizine HCl 25 mg 07/05/16 20:28 Antivert - PO Q8H PRN Multivitamins/Minerals/Vitamin C 1 tab 07/06/16 10:00 07/08/16 12:00 Tab-A-Vit - PO 1 tab DAILY [facility] Administration Ondansetron HCl 8 mg 07/05/16 20:28 07/06/16 03:39 Zofran Injection IVPB 8 mg Q8H PRN Administration NAUSEA AND/OR VOMITING Pantoprazole Sodium 40 mg 07/06/16 10:00 07/08/16 11:59 Protonix - PO 40 mg DAILY [facility] Administration Impression 1. CKD stage 5 with ELIER 2. anemia 3. HTN 4. PVD 5. hyperlipidemia 6. dementia 7. DM 8. PVD Plan - pt tolerated HD yesterday - plan discussed again with her son today at bedside - will arrange for HD in am - they are not sure they want snf dialysis - cont would care to foot Dr Fox
[2016-07-08 19:12] LABS: ARTERIAL BLD GAS O2 SATURATION 95.9 % (90-98.9); ARTERIAL BLOOD GAS BASE EXCESS 1.7 meq/l (-2-2); ARTERIAL BLOOD GAS HCO3 24.7 meq/L (22-26); ARTERIAL BLOOD GAS PO2 69.7 mmHg (68-100); ARTERIAL BLOOD GAS pH 7.47 (7.35-7.45)
[2016-07-08 19:14] LABS: ALLENS TEST POSITIVE; ART PUNCT SITE RIGHT RADIAL; LPM/O2% 2LPM; PT. ON O2? YES
[2016-07-08 19:15] LABS: TYPE OF O2 NASAL
[2016-07-08 20:34] LABS: ALBUMIN 2.7 g/dl (3.4-5.0); BILIRUBIN,TOTAL 0.4 mg/dL (0.2-1.0); CALCIUM 8.5 mg/dL (8.5-10.1); COCKROFT - GAULT 7.4205; CREATININE 4.4 mg/dL (0.55-1.02); TOT PROT 6.2 g/dl (6.4-8.2)
[2016-07-08] MEDS: ATORVASTATIN CA 10 MG TABLET (FP) PO SCH (21:16)
[2016-07-09] MEDS: CIPROFLOXACIN 0.3% EYE DROPS 5 ML BOTTLE OS SCH ×6 (01:13→22:10)
[2016-07-09] MEDS: INSULIN DETEMIR 100 UNITS/ML MDV SQ SCH (06:42)
[2016-07-09] MEDS: INSULIN SLIDING SCALE (NOVOLOG) 1 VIAL SQ SCH ×4 (06:44→22:11)
[2016-07-09] MEDS ORDERED: PT OWN MED DRAWER 7, Y5N ONE ×2 (07:00→09:23)
[2016-07-09] MEDS: CLOPIDOGREL BISULFATE 75 MG TABLET (FP) PO SCH (09:25)
[2016-07-09] MEDS: hydrALAZINE HCL 25 MG TABLET (FP) PO SCH ×2 (09:25→22:09)
[2016-07-09] MEDS: MULTIVITAMINS (DAILY MVI) TABLET (FP) PO SCH (09:25)
[2016-07-09] MEDS: PANTOPRAZOLE 40 MG TABLET (FP) PO SCH (09:25)
[2016-07-09] MEDS: DOCUSATE SODIUM 100 MG CAPSULE (FP) PO SCH (09:25)
[2016-07-09] MEDS: ASPIRIN 81 MG CHEWABLE TABLETS PO SCH (09:25)
[2016-07-09] MEDS: amLODIPine BESYLATE 10 MG TABLET (FP) PO SCH (09:25)
[2016-07-09] MEDS: DONEPEZIL HCL 5 MG TABLET (FP) PO SCH (09:25)
[2016-07-09] MEDS: CYANOCOBALAMIN (VITAMIN B-12) 1000 MCG/1 ML VIAL IM SCH (09:26)
--- NOTE | 2016-07-09 09:37 | DS ---
Physical Examination Vital Signs: Vital Signs Temperature 98.8 F 07/09/16 09:09 Pulse Rate 91 H 07/09/16 09:09 Respiratory Rate 20 07/09/16 09:09 Blood Pressure 134/76 07/09/16 09:09 O2 Sat by Pulse Oximetry (%) 97 07/08/16 21:00 Constitutional: Yes: No Distress Eyes: Yes: WNL HENT: Yes: WNL Neck: Yes: WNL Cardiovascular: Yes: WNL Respiratory: Yes: WNL Gastrointestinal: Yes: WNL Renal/: Yes: Other Musculoskeletal: Yes: Muscle Weakness Extremities: Yes: Other Edema: No Peripheral Pulses WNL: Yes Integumentary: Yes: Pressure Ulcer, Other Wound/Incision: Yes: Dressing Dry and Intact, Unapproximated Neurological: Yes: Pre-Existing Deficit, Weakness ...Motor Strength: LLE, RLE Psychiatric: Yes: WNL Labs: CBC, BMP 07/08/16 06:00 07/08/16 19:00 Discharge Summary Reason For Visit: ARF Current Active Problems Acute renal failure (Acute) Chronic progressive renal failure (Acute) DVT prophylaxis (Acute) Diabetes mellitus with renal manifestation (Acute) Failure to thrive in adult (Acute) Fall (Acute) Gangrene of toe of left foot (Acute) Hypertension (Acute) Malnutrition (Acute) Normocytic anemia (Acute) Red eye (Acute) Weakness (Acute) Procedures: Principal: permacath placed Other Procedures: mapping vascular study/hemodialysis Hospital Course: admitted for acute on chronic renal failure with foot wound, treeated with HD permacath placed, wound care and HD as outpatient, home nursing care Condition: Guarded - Instructions Diet, Activity, Other Instructions: renal diabetic diet see dr jara as outpatient home nursing service vitamin B12 injection daily for 5 doses Referrals: Jero Faustin MD [Primary Care Provider] - 1 Week Disposition: VNS/HOME HEALTH CARE - Home Medications Comprehensive Discharge Medication List: Ambulatory Orders Amlodipine Besylate 10 mg PO DAILY 11/20/14 Aspirin [ASA -] 81 mg PO DAILY 11/20/14 Docusate Sodium 100 mg PO DAILY 11/20/14 Donepezil HCl 5 mg PO DAILY 11/20/14 Meclizine HCl 25 mg PO Q8H PRN 11/20/14 Memantine HCl [Namenda Xr] 7 mg PO DAILY 11/20/14 Pantoprazole Sodium [Protonix] 40 mg PO DAILY 11/20/14 Atorvastatin Ca [Lipitor] 10 mg PO HS 02/14/15 Insulin (Levemir) [Levemir Flexpen -] 16 units SQ DAILY 02/14/15 Acetaminophen [Tylenol] 500 mg PO QID PRN 04/27/16 Insulin Lispro [Humalog] 0 unit SQ BID 04/27/16 Multivitamin [Poly-Vitamin] 1 each PO DAILY 04/27/16 Acetaminophen [Tylenol .Regular Strength -] 650 mg PO Q4H PRN #0 tablet Sodium Bicarbonate - 650 mg PO BID #60 tablet 04/30/16 Cyanocobalamin Vit B-12 Inj. [Vitamin B12 Injection -] 1,000 mcg IM DAILY #7 vial MDD 1 07/05/16 Hydralazine HCl [Apresoline -] 25 mg PO BID #0 tab MDD 2 07/05/16 Acetaminophen [Tylenol .Regular Strength -] 650 mg PO Q4H PRN #0 tablet Amlodipine Besylate [Norvasc -] 10 mg PO DAILY tablet 07/09/16 Aspirin [ASA -] 81 mg PO DAILY tab.chew 07/09/16 Atorvastatin Ca [Lipitor] 10 mg PO HS tablet 07/09/16 Clopidogrel Bisulfate [Plavix -] 75 mg PO DAILY #30 tablet 07/09/16 Donepezil HCl [Aricept -] 5 mg PO DAILY tablet 07/09/16 Insulin Sliding Scale [Novolog Vial Sliding Scale -] 1 vial SQ ACHS units 07/09 Meclizine HCl [Antivert -] 25 mg PO Q8H PRN #0 tablet MDD 3 07/09/16 Multivitamins [Multivit ([facility] Formul[facility])] 1 tab PO DAILY tab 07/09/16
[2016-07-09] MEDS ORDERED: EPOETIN ALFA 3,000 UNIT/1 ML ML IVPUSH ONE ×3 (10:00→12:45)
--- NOTE | 2016-07-09 14:06 | PN ---
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, Physician History of Present Illness: Pt seen and examined at bedside. She remains confused. She tolerated HD today. - Current Medication List Current Medications: Active Medications Acetaminophen (Tylenol -) 650 mg PO Q4H PRN PRN Reason: FEVER OR PAIN Amlodipine Besylate (Norvasc -) 10 mg PO DAILY [facility] Last Admin: 07/09/16 09:25 Dose: 10 mg Aspirin (Asa -) 81 mg PO DAILY [facility] Last Admin: 07/09/16 09:25 Dose: 81 mg Atorvastatin Calcium (Lipitor -) 10 mg PO HS [facility] Last Admin: 07/08/16 21:16 Dose: 10 mg Ciprofloxacin (Ciloxan 0.3% Eye Drops -) 2 drop OS Q4HPO [facility] Last Admin: 07/09/16 09:26 Dose: 2 drop Clopidogrel Bisulfate (Plavix -) 75 mg PO DAILY [facility] Last Admin: 07/09/16 09:25 Dose: 75 mg Cyanocobalamin (Vitamin B12 Injection -) 1,000 mcg IM DAILY [facility] Last Admin: 07/09/16 09:26 Dose: 1,000 mcg Docusate Sodium (Colace -) 100 mg PO DAILY [facility] Last Admin: 07/09/16 09:25 Dose: 100 mg Donepezil HCl (Aricept -) 5 mg PO DAILY [facility] Last Admin: 07/09/16 09:25 Dose: 5 mg Hydralazine HCl (Apresoline -) 25 mg PO BID [facility] Last Admin: 07/09/16 09:25 Dose: 25 mg Insulin Aspart (Novolog Vial Sliding Scale -) 1 vial SQ ACHS [facility] PRN Reason: Protocol Last Admin: 07/09/16 12:15 Dose: Not Given Insulin Detemir (Levemir Vial) 10 units SQ AM [facility] Last Admin: 07/09/16 06:42 Dose: 10 units Meclizine HCl (Antivert -) 25 mg PO Q8H PRN Multivitamins/Minerals/Vitamin C (Tab-A-Vit -) 1 tab PO DAILY [facility] Last Admin: 07/09/16 09:25 Dose: 1 tab Ondansetron HCl (Zofran Injection) 8 mg IVPB Q8H PRN PRN Reason: NAUSEA AND/OR VOMITING Last Admin: 07/06/16 03:39 Dose: 8 mg Pantoprazole Sodium (Protonix -) 40 mg PO DAILY [facility] Last Admin: 07/09/16 09:25 Dose: 40 mg - Objective Vital Signs: Vital Signs Temperature 97.8 F 07/09/16 10:35 Pulse Rate 90 07/09/16 13:30 Respiratory Rate 18 07/09/16 13:30 Blood Pressure 130/66 07/09/16 13:30 O2 Sat by Pulse Oximetry (%) 97 07/08/16 21:00 Constitutional: Yes: Calm Eyes: Yes: Conjunctiva Clear HENT: Yes: Atraumatic Neck: Yes: Supple Cardiovascular: Yes: S1, S2 Respiratory: Yes: CTA Bilaterally Gastrointestinal: Yes: Soft Genitourinary: Yes: Incontinence Musculoskeletal: Yes: Muscle Weakness Edema: No Neurological: Yes: Confusion Labs: CBC, BMP 07/08/16 06:00 07/08/16 19:00 INR, PTT INR 1.06 (0.82-1.09) 07/01/16 17:50 Problem List - Problems (1) Acute renal failure Code(s): N17.9 - ACUTE KIDNEY FAILURE, UNSPECIFIED Qualifiers: Acute renal failure type: unspecified Qualified Code(s): N17.9 - Acute kidney failure, unspecified (2) Chronic progressive renal failure Code(s): N18.9 - CHRONIC KIDNEY DISEASE, UNSPECIFIED Qualifiers: Chronic kidney disease stage: stage 5 Qualified Code(s): N18.5 - Chronic kidney disease, stage 5 (3) Diabetes mellitus with renal manifestation Code(s): E11.29 - TYPE 2 DIABETES MELLITUS W OTH DIABETIC KIDNEY COMPLICATION Qualifiers: Diabetes mellitus type: type 2 (4) Gangrene of toe of left foot Code(s): I96 - GANGRENE, NOT ELSEWHERE CLASSIFIED (5) Hypertension Code(s): I10 - ESSENTIAL (PRIMARY) HYPERTENSION (6) Alzheimer's dementia Code(s): G30.9 - ALZHEIMER'S DISEASE, UNSPECIFIED (7) CKD (chronic kidney disease) stage 5, GFR less than 15 ml/min Code(s): N18.5 - CHRONIC KIDNEY DISEASE, STAGE 5 Assessment/Plan Current Medications Generic Name Dose Route Start Last Admin Trade Name Freq PRN Reason Stop Dose Admin Acetaminophen 650 mg 07/05/16 20:28 Tylenol - PO Q4H PRN FEVER OR PAIN Amlodipine Besylate 10 mg 07/06/16 10:00 07/09/16 09:25 Norvasc - PO 10 mg DAILY [facility] Administration Aspirin 81 mg 07/06/16 10:00 07/09/16 09:25 Asa - PO 81 mg DAILY [facility] Administration Atorvastatin Calcium 10 mg 07/05/16 22:00 07/08/16 21:16 Lipitor - PO 10 mg HS [facility] Administration Ciprofloxacin 2 drop 07/05/16 22:00 07/09/16 09:26 Ciloxan 0.3% Eye Drops - OS 2 drop Q4HPO [facility] Administration Clopidogrel Bisulfate 75 mg 07/06/16 10:00 07/09/16 09:25 Plavix - PO 75 mg DAILY [facility] Administration Cyanocobalamin 1,000 mcg 07/06/16 10:00 07/09/16 09:26 Vitamin B12 Injection - IM 1,000 mcg DAILY [facility] Administration Docusate Sodium 100 mg 07/06/16 10:00 07/09/16 09:25 Colace - PO 100 mg DAILY [facility] Administration Donepezil HCl 5 mg 07/06/16 10:00 07/09/16 09:25 Aricept - PO 5 mg DAILY [facility] Administration Hydralazine HCl 25 mg 07/07/16 22:15 07/09/16 09:25 Apresoline - PO 25 mg BID [facility] Administration Insulin Aspart 1 vial 07/05/16 22:00 07/09/16 12:15 Novolog Vial Sliding Scale - SQ Not Given [facility] Protocol Insulin Detemir 10 units 07/06/16 11:00 07/09/16 06:42 Levemir Vial SQ 10 units AM [facility] Administration Meclizine HCl 25 mg 07/05/16 20:28 Antivert - PO Q8H PRN Multivitamins/Minerals/Vitamin C 1 tab 07/06/16 10:00 07/09/16 09:25 Tab-A-Vit - PO 1 tab DAILY [facility] Administration Ondansetron HCl 8 mg 07/05/16 20:28 07/06/16 03:39 Zofran Injection IVPB 8 mg Q8H PRN Administration NAUSEA AND/OR VOMITING Pantoprazole Sodium 40 mg 07/06/16 10:00 07/09/16 09:25 Protonix - PO 40 mg DAILY [facility] Administration Impression 1. CKD stage 5 with ELIER 2. anemia 3. HTN 4. PVD 5. hyperlipidemia 6. dementia 7. DM Plan - pt tolerated HD - outpt dialysis is not yet set up, pending approval - pts son is also not sure if he wants to continue HD - cont current meds - cont would care to foot Dr Fox
[2016-07-09] MEDS: ATORVASTATIN CA 10 MG TABLET (FP) PO SCH (22:09)
[2016-07-10] MEDS: CIPROFLOXACIN 0.3% EYE DROPS 5 ML BOTTLE OS SCH ×7 (02:06→22:12)
[2016-07-10] MEDS: INSULIN SLIDING SCALE (NOVOLOG) 1 VIAL SQ SCH ×4 (06:10→22:11)
[2016-07-10] MEDS: INSULIN DETEMIR 100 UNITS/ML MDV SQ SCH (06:36)
[2016-07-10] MEDS ORDERED: INSULIN (NOVOLOG) ASPART 100 UNITS/ML 10ML VIAL ONE (07:00)
[2016-07-10] MEDS: CLOPIDOGREL BISULFATE 75 MG TABLET (FP) PO SCH (09:57)
[2016-07-10] MEDS: amLODIPine BESYLATE 10 MG TABLET (FP) PO SCH (09:57)
[2016-07-10] MEDS: hydrALAZINE HCL 25 MG TABLET (FP) PO SCH ×2 (09:57→22:11)
[2016-07-10] MEDS: PANTOPRAZOLE 40 MG TABLET (FP) PO SCH (09:57)
[2016-07-10] MEDS: DOCUSATE SODIUM 100 MG CAPSULE (FP) PO SCH (09:57)
[2016-07-10] MEDS: DONEPEZIL HCL 5 MG TABLET (FP) PO SCH (09:57)
[2016-07-10] MEDS: ASPIRIN 81 MG CHEWABLE TABLETS PO SCH (09:57)
[2016-07-10] MEDS: MULTIVITAMINS (DAILY MVI) TABLET (FP) PO SCH (09:57)
[2016-07-10] MEDS: CYANOCOBALAMIN (VITAMIN B-12) 1000 MCG/1 ML VIAL IM SCH (09:58)
--- NOTE | 2016-07-10 12:27 | PN ---
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 (short form) - Note 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: VSS Toe amp site clean and dry, sutures intact. Stable. Problem List - Problems (1) Gangrene of toe of left foot Code(s): I96 - GANGRENE, NOT ELSEWHERE CLASSIFIED
--- NOTE | 2016-07-10 16:43 | PN ---
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, Physician Chief Complaint: DISCHARGED YESTERDAY AWAITING PLACEMENT FOR HD CENTER AND DC TO HOME WITH [facility] - Current Medication List Current Medications: Active Medications Acetaminophen (Tylenol -) 650 mg PO Q4H PRN PRN Reason: FEVER OR PAIN Amlodipine Besylate (Norvasc -) 10 mg PO DAILY [facility] Last Admin: 07/10/16 09:57 Dose: 10 mg Aspirin (Asa -) 81 mg PO DAILY [facility] Last Admin: 07/10/16 09:57 Dose: 81 mg Atorvastatin Calcium (Lipitor -) 10 mg PO HS [facility] Last Admin: 07/09/16 22:09 Dose: 10 mg Ciprofloxacin (Ciloxan 0.3% Eye Drops -) 2 drop OS Q4HPO [facility] Last Admin: 07/10/16 10:00 Dose: 2 drop Clopidogrel Bisulfate (Plavix -) 75 mg PO DAILY [facility] Last Admin: 07/10/16 09:57 Dose: 75 mg Cyanocobalamin (Vitamin B12 Injection -) 1,000 mcg IM DAILY [facility] Last Admin: 07/10/16 09:58 Dose: 1,000 mcg Docusate Sodium (Colace -) 100 mg PO DAILY [facility] Last Admin: 07/10/16 09:57 Dose: 100 mg Donepezil HCl (Aricept -) 5 mg PO DAILY [facility] Last Admin: 07/10/16 09:57 Dose: 5 mg Hydralazine HCl (Apresoline -) 25 mg PO BID [facility] Last Admin: 07/10/16 09:57 Dose: 25 mg Insulin Aspart (Novolog Vial Sliding Scale -) 1 vial SQ ACHS [facility] PRN Reason: Protocol Last Admin: 07/10/16 13:41 Dose: Not Given Insulin Detemir (Levemir Vial) 10 units SQ AM [facility] Last Admin: 07/10/16 06:36 Dose: 10 units Meclizine HCl (Antivert -) 25 mg PO Q8H PRN Multivitamins/Minerals/Vitamin C (Tab-A-Vit -) 1 tab PO DAILY [facility] Last Admin: 07/10/16 09:57 Dose: 1 tab Ondansetron HCl (Zofran Injection) 8 mg IVPB Q8H PRN PRN Reason: NAUSEA AND/OR VOMITING Last Admin: 07/06/16 03:39 Dose: 8 mg Pantoprazole Sodium (Protonix -) 40 mg PO DAILY [facility] Last Admin: 07/10/16 09:57 Dose: 40 mg - Objective Vital Signs: Vital Signs Temperature 98.5 F 07/10/16 13:57 Pulse Rate 93 H 07/10/16 13:57 Respiratory Rate 20 07/10/16 13:57 Blood Pressure 130/58 07/10/16 13:57 O2 Sat by Pulse Oximetry (%) 98 07/09/16 21:00 Constitutional: Yes: No Distress Eyes: Yes: WNL HENT: Yes: WNL Neck: Yes: WNL Cardiovascular: Yes: WNL Respiratory: Yes: WNL Gastrointestinal: Yes: WNL Genitourinary: Yes: Other Musculoskeletal: Yes: Muscle Weakness Extremities: Yes: Other Edema: No Peripheral Pulses WNL: Yes Integumentary: Yes: WNL Wound/Incision: Yes: Clean/Dry Neurological: Yes: Unsteady Gait, Weakness, Other ...Motor Strength: LLE, RLE Psychiatric: Yes: Other Labs: CBC, BMP 07/08/16 06:00 07/08/16 19:00 INR, PTT INR 1.06 (0.82-1.09) 07/01/16 17:50 Problem List - Problems (1) Acute renal failure Code(s): N17.9 - ACUTE KIDNEY FAILURE, UNSPECIFIED Qualifiers: Acute renal failure type: unspecified Qualified Code(s): N17.9 - Acute kidney failure, unspecified (2) Chronic progressive renal failure Code(s): N18.9 - CHRONIC KIDNEY DISEASE, UNSPECIFIED Qualifiers: Chronic kidney disease stage: stage 5 Qualified Code(s): N18.5 - Chronic kidney disease, stage 5 (3) DVT prophylaxis Code(s): [id number] - (4) Diabetes mellitus with renal manifestation Code(s): E11.29 - TYPE 2 DIABETES MELLITUS W OTH DIABETIC KIDNEY COMPLICATION Qualifiers: Diabetes mellitus type: type 2 (5) Failure to thrive in adult Code(s): R62.7 - ADULT FAILURE TO THRIVE (6) Hypertension Code(s): I10 - ESSENTIAL (PRIMARY) HYPERTENSION (7) Weakness Code(s): R53.1 - WEAKNESS Assessment/Plan HD PER RENAL HOME DISCHARGE WITH ASSISTED SERVICE PO DIET IMPROVING
--- NOTE | 2016-07-10 17:04 | PN ---
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, Physician History of Present Illness: Pt seen and examined at bedside. No new events. - Current Medication List Current Medications: Active Medications Acetaminophen (Tylenol -) 650 mg PO Q4H PRN PRN Reason: FEVER OR PAIN Amlodipine Besylate (Norvasc -) 10 mg PO DAILY [facility] Last Admin: 07/10/16 09:57 Dose: 10 mg Aspirin (Asa -) 81 mg PO DAILY [facility] Last Admin: 07/10/16 09:57 Dose: 81 mg Atorvastatin Calcium (Lipitor -) 10 mg PO HS [facility] Last Admin: 07/09/16 22:09 Dose: 10 mg Ciprofloxacin (Ciloxan 0.3% Eye Drops -) 2 drop OS Q4HPO [facility] Last Admin: 07/10/16 10:00 Dose: 2 drop Clopidogrel Bisulfate (Plavix -) 75 mg PO DAILY [facility] Last Admin: 07/10/16 09:57 Dose: 75 mg Cyanocobalamin (Vitamin B12 Injection -) 1,000 mcg IM DAILY [facility] Last Admin: 07/10/16 09:58 Dose: 1,000 mcg Docusate Sodium (Colace -) 100 mg PO DAILY [facility] Last Admin: 07/10/16 09:57 Dose: 100 mg Donepezil HCl (Aricept -) 5 mg PO DAILY [facility] Last Admin: 07/10/16 09:57 Dose: 5 mg Hydralazine HCl (Apresoline -) 25 mg PO BID [facility] Last Admin: 07/10/16 09:57 Dose: 25 mg Insulin Aspart (Novolog Vial Sliding Scale -) 1 vial SQ ACHS [facility] PRN Reason: Protocol Last Admin: 07/10/16 13:41 Dose: Not Given Insulin Detemir (Levemir Vial) 10 units SQ AM [facility] Last Admin: 07/10/16 06:36 Dose: 10 units Meclizine HCl (Antivert -) 25 mg PO Q8H PRN Multivitamins/Minerals/Vitamin C (Tab-A-Vit -) 1 tab PO DAILY [facility] Last Admin: 07/10/16 09:57 Dose: 1 tab Ondansetron HCl (Zofran Injection) 8 mg IVPB Q8H PRN PRN Reason: NAUSEA AND/OR VOMITING Last Admin: 07/06/16 03:39 Dose: 8 mg Pantoprazole Sodium (Protonix -) 40 mg PO DAILY [facility] Last Admin: 07/10/16 09:57 Dose: 40 mg - Objective Vital Signs: Vital Signs Temperature 98.5 F 07/10/16 13:57 Pulse Rate 93 H 07/10/16 13:57 Respiratory Rate 20 07/10/16 13:57 Blood Pressure 130/58 07/10/16 13:57 O2 Sat by Pulse Oximetry (%) 98 07/09/16 21:00 Constitutional: Yes: Calm Eyes: Yes: Conjunctiva Clear HENT: Yes: Atraumatic Neck: Yes: Supple Cardiovascular: Yes: S1, S2 Respiratory: Yes: CTA Bilaterally Gastrointestinal: Yes: Soft Genitourinary: Yes: Incontinence Musculoskeletal: Yes: Muscle Weakness Edema: No Wound/Incision: Yes: Dressing Dry and Intact Neurological: Yes: Confusion Labs: CBC, BMP 07/08/16 06:00 07/08/16 19:00 INR, PTT INR 1.06 (0.82-1.09) 07/01/16 17:50 Problem List - Problems (1) Acute renal failure Code(s): N17.9 - ACUTE KIDNEY FAILURE, UNSPECIFIED Qualifiers: Acute renal failure type: unspecified Qualified Code(s): N17.9 - Acute kidney failure, unspecified (2) Chronic progressive renal failure Code(s): N18.9 - CHRONIC KIDNEY DISEASE, UNSPECIFIED Qualifiers: Chronic kidney disease stage: stage 5 Qualified Code(s): N18.5 - Chronic kidney disease, stage 5 (3) Diabetes mellitus with renal manifestation Code(s): E11.29 - TYPE 2 DIABETES MELLITUS W OTH DIABETIC KIDNEY COMPLICATION Qualifiers: Diabetes mellitus type: type 2 (4) Gangrene of toe of left foot Code(s): I96 - GANGRENE, NOT ELSEWHERE CLASSIFIED (5) Hypertension Code(s): I10 - ESSENTIAL (PRIMARY) HYPERTENSION (6) Alzheimer's dementia Code(s): G30.9 - ALZHEIMER'S DISEASE, UNSPECIFIED (7) CKD (chronic kidney disease) stage 5, GFR less than 15 ml/min Code(s): N18.5 - CHRONIC KIDNEY DISEASE, STAGE 5 Assessment/Plan Current Medications Generic Name Dose Route Start Last Admin Trade Name Freq PRN Reason Stop Dose Admin Acetaminophen 650 mg 07/05/16 20:28 Tylenol - PO Q4H PRN FEVER OR PAIN Amlodipine Besylate 10 mg 07/06/16 10:00 07/10/16 09:57 Norvasc - PO 10 mg DAILY [facility] Administration Aspirin 81 mg 07/06/16 10:00 07/10/16 09:57 Asa - PO 81 mg DAILY [facility] Administration Atorvastatin Calcium 10 mg 07/05/16 22:00 07/09/16 22:09 Lipitor - PO 10 mg HS [facility] Administration Ciprofloxacin 2 drop 07/05/16 22:00 07/10/16 10:00 Ciloxan 0.3% Eye Drops - OS 2 drop Q4HPO [facility] Administration Clopidogrel Bisulfate 75 mg 07/06/16 10:00 07/10/16 09:57 Plavix - PO 75 mg DAILY [facility] Administration Cyanocobalamin 1,000 mcg 07/06/16 10:00 07/10/16 09:58 Vitamin B12 Injection - IM 1,000 mcg DAILY [facility] Administration Docusate Sodium 100 mg 07/06/16 10:00 07/10/16 09:57 Colace - PO 100 mg DAILY [facility] Administration Donepezil HCl 5 mg 07/06/16 10:00 07/10/16 09:57 Aricept - PO 5 mg DAILY [facility] Administration Hydralazine HCl 25 mg 07/07/16 22:15 07/10/16 09:57 Apresoline - PO 25 mg BID [facility] Administration Insulin Aspart 1 vial 07/05/16 22:00 07/10/16 13:41 Novolog Vial Sliding Scale - SQ Not [facility] Insulin Detemir 10 units 07/06/16 11:00 07/10/16 06:36 Levemir Vial SQ 10 units AM [facility] Administration Meclizine HCl 25 mg 07/05/16 20:28 Antivert - PO Q8H PRN Multivitamins/Minerals/Vitamin C 1 tab 07/06/16 10:00 07/10/16 09:57 Tab-A-Vit - PO 1 tab DAILY [facility] Administration Ondansetron HCl 8 mg 07/05/16 20:28 07/06/16 03:39 Zofran Injection IVPB 8 mg Q8H PRN Administration NAUSEA AND/OR VOMITING Pantoprazole Sodium 40 mg 07/06/16 10:00 07/10/16 09:57 Protonix - PO 40 mg DAILY [facility] Administration Impression 1. CKD stage 5 with ELIER 2. anemia 3. HTN 4. PVD 5. hyperlipidemia 6. dementia 7. DM Plan - next HD on Tuesday - will need placement - no acute change in management - vascular input appreciated - monitor blood pressure - encourage PO intake - cont would care to foot Dr Fox
[2016-07-10] MEDS: ATORVASTATIN CA 10 MG TABLET (FP) PO SCH (22:11)
[2016-07-11] MEDS: CIPROFLOXACIN 0.3% EYE DROPS 5 ML BOTTLE OS SCH ×6 (02:21→21:32)
[2016-07-11] MEDS: INSULIN SLIDING SCALE (NOVOLOG) 1 VIAL SQ SCH ×4 (06:22→21:33)
[2016-07-11] MEDS: INSULIN DETEMIR 100 UNITS/ML MDV SQ SCH (06:23)
[2016-07-11] MEDS ORDERED: INSULIN (NOVOLOG) ASPART 100 UNITS/ML 10ML VIAL ONE (06:56)
[2016-07-11 08:38] LABS: CALCIUM 8.1 mg/dL (8.5-10.1); COCKROFT - GAULT 7.5905; CREATININE 4.3 mg/dL (0.55-1.02)
[2016-07-11] MEDS: CYANOCOBALAMIN (VITAMIN B-12) 1000 MCG/1 ML VIAL IM SCH (12:47)
[2016-07-11] MEDS: ASPIRIN 81 MG CHEWABLE TABLETS PO SCH (12:47)
[2016-07-11] MEDS: DOCUSATE SODIUM 100 MG CAPSULE (FP) PO SCH (12:48)
[2016-07-11] MEDS: amLODIPine BESYLATE 10 MG TABLET (FP) PO SCH (12:48)
[2016-07-11] MEDS: PANTOPRAZOLE 40 MG TABLET (FP) PO SCH (12:48)
[2016-07-11] MEDS: CLOPIDOGREL BISULFATE 75 MG TABLET (FP) PO SCH (12:48)
[2016-07-11] MEDS: DONEPEZIL HCL 5 MG TABLET (FP) PO SCH (12:48)
[2016-07-11] MEDS: hydrALAZINE HCL 25 MG TABLET (FP) PO SCH ×2 (12:48→21:31)
[2016-07-11] MEDS: MULTIVITAMINS (DAILY MVI) TABLET (FP) PO SCH (12:49)
--- NOTE | 2016-07-11 15:47 | PN ---
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, Physician History of Present Illness: Pt seen and examined at bedside. She is more awake and alert today. - Current Medication List Current Medications: Active Medications Acetaminophen (Tylenol -) 650 mg PO Q4H PRN PRN Reason: FEVER OR PAIN Amlodipine Besylate (Norvasc -) 10 mg PO DAILY [facility] Last Admin: 07/11/16 12:48 Dose: 10 mg Aspirin (Asa -) 81 mg PO DAILY [facility] Last Admin: 07/11/16 12:47 Dose: 81 mg Atorvastatin Calcium (Lipitor -) 10 mg PO HS [facility] Last Admin: 07/10/16 22:11 Dose: 10 mg Ciprofloxacin (Ciloxan 0.3% Eye Drops -) 2 drop OS Q4HPO [facility] Last Admin: 07/11/16 10:00 Dose: 2 drop Clopidogrel Bisulfate (Plavix -) 75 mg PO DAILY [facility] Last Admin: 07/11/16 12:48 Dose: 75 mg Cyanocobalamin (Vitamin B12 Injection -) 1,000 mcg IM DAILY [facility] Last Admin: 07/11/16 12:47 Dose: 1,000 mcg Docusate Sodium (Colace -) 100 mg PO DAILY [facility] Last Admin: 07/11/16 12:48 Dose: 100 mg Donepezil HCl (Aricept -) 5 mg PO DAILY [facility] Last Admin: 07/11/16 12:48 Dose: 5 mg Hydralazine HCl (Apresoline -) 25 mg PO BID [facility] Last Admin: 07/11/16 12:48 Dose: 25 mg Insulin Aspart (Novolog Vial Sliding Scale -) 1 vial SQ ACHS [facility] PRN Reason: Protocol Last Admin: 07/11/16 12:49 Dose: Not Given Insulin Detemir (Levemir Vial) 10 units SQ AM [facility] Last Admin: 07/11/16 06:23 Dose: 10 units Meclizine HCl (Antivert -) 25 mg PO Q8H PRN Multivitamins/Minerals/Vitamin C (Tab-A-Vit -) 1 tab PO DAILY [facility] Last Admin: 07/11/16 12:49 Dose: 1 tab Ondansetron HCl (Zofran Injection) 8 mg IVPB Q8H PRN PRN Reason: NAUSEA AND/OR VOMITING Last Admin: 07/06/16 03:39 Dose: 8 mg Pantoprazole Sodium (Protonix -) 40 mg PO DAILY [facility] Last Admin: 07/11/16 12:48 Dose: 40 mg - Objective Vital Signs: Vital Signs Temperature 98.5 F 07/11/16 05:53 Pulse Rate 86 07/11/16 05:53 Respiratory Rate 20 07/11/16 05:53 Blood Pressure 136/62 07/11/16 05:53 O2 Sat by Pulse Oximetry (%) 99 07/10/16 21:00 Constitutional: Yes: Calm Eyes: Yes: Conjunctiva Clear HENT: Yes: Atraumatic Neck: Yes: Supple Cardiovascular: Yes: S1, S2 Respiratory: Yes: CTA Bilaterally Gastrointestinal: Yes: Normal Bowel Sounds, Soft Genitourinary: Yes: Incontinence Musculoskeletal: Yes: Muscle Weakness Edema: No Wound/Incision: Yes: Dressing Dry and Intact Neurological: Yes: Confusion Labs: CBC, BMP 07/08/16 06:00 07/11/16 06:00 INR, PTT INR 1.06 (0.82-1.09) 07/01/16 17:50 Problem List - Problems (1) Acute renal failure Code(s): N17.9 - ACUTE KIDNEY FAILURE, UNSPECIFIED Qualifiers: Acute renal failure type: unspecified Qualified Code(s): N17.9 - Acute kidney failure, unspecified (2) Chronic progressive renal failure Code(s): N18.9 - CHRONIC KIDNEY DISEASE, UNSPECIFIED Qualifiers: Chronic kidney disease stage: stage 5 Qualified Code(s): N18.5 - Chronic kidney disease, stage 5 (3) Diabetes mellitus with renal manifestation Code(s): E11.29 - TYPE 2 DIABETES MELLITUS W OTH DIABETIC KIDNEY COMPLICATION Qualifiers: Diabetes mellitus type: type 2 (4) Gangrene of toe of left foot Code(s): I96 - GANGRENE, NOT ELSEWHERE CLASSIFIED (5) Hypertension Code(s): I10 - ESSENTIAL (PRIMARY) HYPERTENSION (6) Alzheimer's dementia Code(s): G30.9 - ALZHEIMER'S DISEASE, UNSPECIFIED (7) CKD (chronic kidney disease) stage 5, GFR less than 15 ml/min Code(s): N18.5 - CHRONIC KIDNEY DISEASE, STAGE 5 Assessment/Plan Current Medications Generic Name Dose Route Start Last Admin Trade Name Freq PRN Reason Stop Dose Admin Acetaminophen 650 mg 07/05/16 20:28 Tylenol - PO Q4H PRN FEVER OR PAIN Amlodipine Besylate 10 mg 07/06/16 10:00 07/11/16 12:48 Norvasc - PO 10 mg DAILY [facility] Administration Aspirin 81 mg 07/06/16 10:00 07/11/16 12:47 Asa - PO 81 mg DAILY [facility] Administration Atorvastatin Calcium 10 mg 07/05/16 22:00 07/10/16 22:11 Lipitor - PO 10 mg HS [facility] Administration Ciprofloxacin 2 drop 07/05/16 22:00 07/11/16 10:00 Ciloxan 0.3% Eye Drops - OS 2 drop Q4HPO [facility] Administration Clopidogrel Bisulfate 75 mg 07/06/16 10:00 07/11/16 12:48 Plavix - PO 75 mg DAILY [facility] Administration Cyanocobalamin 1,000 mcg 07/06/16 10:00 07/11/16 12:47 Vitamin B12 Injection - IM 1,000 mcg DAILY [facility] Administration Docusate Sodium 100 mg 07/06/16 10:00 07/11/16 12:48 Colace - PO 100 mg DAILY [facility] Administration Donepezil HCl 5 mg 07/06/16 10:00 07/11/16 12:48 Aricept - PO 5 mg DAILY [facility] Administration Hydralazine HCl 25 mg 07/07/16 22:15 07/11/16 12:48 Apresoline - PO 25 mg BID [facility] Administration Insulin Aspart 1 vial 07/05/16 22:00 07/11/16 12:49 Novolog Vial Sliding Scale - SQ Not Given [facility] Protocol Insulin Detemir 10 units 07/06/16 11:00 07/11/16 06:23 Levemir Vial SQ 10 units AM [facility] Administration Meclizine HCl 25 mg 07/05/16 20:28 Antivert - PO Q8H PRN Multivitamins/Minerals/Vitamin C 1 tab 07/06/16 10:00 07/11/16 12:49 Tab-A-Vit - PO 1 tab DAILY [facility] Administration Ondansetron HCl 8 mg 07/05/16 20:28 07/06/16 03:39 Zofran Injection IVPB 8 mg Q8H PRN Administration NAUSEA AND/OR VOMITING Pantoprazole Sodium 40 mg 07/06/16 10:00 07/11/16 12:48 Protonix - PO 40 mg DAILY [facility] Administration Impression 1. CKD stage 5 with ELIER 2. anemia 3. HTN 4. PVD 5. hyperlipidemia 6. dementia 7. DM Plan - will arrange for HD in am - repeat labs in am - cont current meds - mental status is mildly improved - will need placement - encourage PO intake - cont would care to foot Dr Fox
--- NOTE | 2016-07-11 18:43 | PN ---
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 (short form) - Note 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: PATIENT SEEN AND EXAMINED BEDSIDE NAD RELAXED HD TOMORROW DC PLANNING Problem List - Problems (1) Acute renal failure Code(s): N17.9 - ACUTE KIDNEY FAILURE, UNSPECIFIED Qualifiers: Acute renal failure type: unspecified Qualified Code(s): N17.9 - Acute kidney failure, unspecified (2) Chronic progressive renal failure Code(s): N18.9 - CHRONIC KIDNEY DISEASE, UNSPECIFIED Qualifiers: Chronic kidney disease stage: stage 5 Qualified Code(s): N18.5 - Chronic kidney disease, stage 5 (3) DVT prophylaxis Code(s): [id number] - (4) Diabetes mellitus with renal manifestation Code(s): E11.29 - TYPE 2 DIABETES MELLITUS W OTH DIABETIC KIDNEY COMPLICATION Qualifiers: Diabetes mellitus type: type 2 (5) Failure to thrive in adult Code(s): R62.7 - ADULT FAILURE TO THRIVE (6) Hypertension Code(s): I10 - ESSENTIAL (PRIMARY) HYPERTENSION (7) Weakness Code(s): R53.1 - WEAKNESS
[2016-07-11] MEDS: ATORVASTATIN CA 10 MG TABLET (FP) PO SCH (21:31)
[2016-07-12] MEDS: CIPROFLOXACIN 0.3% EYE DROPS 5 ML BOTTLE OS SCH ×6 (02:14→22:06)
[2016-07-12] MEDS: INSULIN SLIDING SCALE (NOVOLOG) 1 VIAL SQ SCH ×4 (06:15→22:11)
[2016-07-12] MEDS: INSULIN DETEMIR 100 UNITS/ML MDV SQ SCH (06:16)
[2016-07-12] MEDS ORDERED: INSULIN (NOVOLOG) ASPART 100 UNITS/ML 10ML VIAL ONE (06:25)
--- NOTE | 2016-07-12 08:45 | PN ---
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, Physician History of Present Illness: in bed s/p prbc - Current Medication List Current Medications: Active Medications Acetaminophen (Tylenol -) 650 mg PO Q4H PRN PRN Reason: FEVER OR PAIN Amlodipine Besylate (Norvasc -) 10 mg PO DAILY [facility] Last Admin: 07/11/16 12:48 Dose: 10 mg Aspirin (Asa -) 81 mg PO DAILY [facility] Last Admin: 07/11/16 12:47 Dose: 81 mg Atorvastatin Calcium (Lipitor -) 10 mg PO HS [facility] Last Admin: 07/11/16 21:31 Dose: 10 mg Ciprofloxacin (Ciloxan 0.3% Eye Drops -) 2 drop OS Q4HPO [facility] Last Admin: 07/12/16 06:14 Dose: 2 drop Clopidogrel Bisulfate (Plavix -) 75 mg PO DAILY [facility] Last Admin: 07/11/16 12:48 Dose: 75 mg Cyanocobalamin (Vitamin B12 Injection -) 1,000 mcg IM DAILY [facility] Last Admin: 07/11/16 12:47 Dose: 1,000 mcg Docusate Sodium (Colace -) 100 mg PO DAILY [facility] Last Admin: 07/11/16 12:48 Dose: 100 mg Donepezil HCl (Aricept -) 5 mg PO DAILY [facility] Last Admin: 07/11/16 12:48 Dose: 5 mg Epoetin Efren (Epogen -) 3,000 units IVPUSH ONCE ONE Stop: 07/12/16 15:48 Hydralazine HCl (Apresoline -) 25 mg PO BID [facility] Last Admin: 07/11/16 21:31 Dose: 25 mg Insulin Aspart (Novolog Vial Sliding Scale -) 1 vial SQ ACHS [facility] PRN Reason: Protocol Last Admin: 07/12/16 06:15 Dose: Not Given Insulin Detemir (Levemir Vial) 10 units SQ AM [facility] Last Admin: 07/12/16 06:16 Dose: 10 units Meclizine HCl (Antivert -) 25 mg PO Q8H PRN Multivitamins/Minerals/Vitamin C (Tab-A-Vit -) 1 tab PO DAILY [facility] Last Admin: 07/11/16 12:49 Dose: 1 tab Ondansetron HCl (Zofran Injection) 8 mg IVPB Q8H PRN PRN Reason: NAUSEA AND/OR VOMITING Last Admin: 07/06/16 03:39 Dose: 8 mg Pantoprazole Sodium (Protonix -) 40 mg PO DAILY [facility] Last Admin: 07/11/16 12:48 Dose: 40 mg - Objective Vital Signs: Vital Signs Temperature 98.6 F 07/12/16 05:56 Pulse Rate 92 H 07/12/16 05:56 Respiratory Rate 18 07/12/16 05:56 Blood Pressure 151/72 07/12/16 05:56 O2 Sat by Pulse Oximetry (%) 97 07/11/16 21:00 Cardiovascular: Yes: Regular Rate and Rhythm Respiratory: Yes: Regular, CTA Bilaterally Gastrointestinal: Yes: Normal Bowel Sounds, Soft Neurological: Yes: Alert, Confusion Labs: CBC, BMP 07/08/16 06:00 07/11/16 06:00 INR, PTT INR 1.06 (0.82-1.09) 07/01/16 17:50 Assessment/Plan - Problems (1) Chronic progressive renal failure Assessment/Plan: s/p permacath placement HD per renal Code(s): N18.9 - CHRONIC KIDNEY DISEASE, UNSPECIFIED Qualifiers: Chronic kidney disease stage: stage 5 Qualified Code(s): N18.5 - Chronic kidney disease, stage 5 (2) Weakness Assessment/Plan: blood and urine culture negative Code(s): R53.1 - WEAKNESS (3) Amputated toe of left foot Assessment/Plan: s/p left leg angio and left toe amputation Code(s): Z89.422 - ACQUIRED ABSENCE OF OTHER LEFT TOE(S) (4) Anemia due to chronic kidney disease Assessment/Plan: ?? epogen per renal Code(s): N18.9 - CHRONIC KIDNEY DISEASE, UNSPECIFIED D63.1 - ANEMIA IN CHRONIC KIDNEY DISEASE (5) CVA, old, hemiparesis Assessment/Plan: dvt ppx Code(s): I69.359 - HEMIPLGA FOLLOWING CEREBRAL INFARCTION AFFECTING UNSP SIDE (6) Anemia Assessment/Plan: s/p prbc monitor (7) Diabetes mellitus with renal manifestation Assessment/Plan: insulin dose adjusted bgm sldidng scale hga1c 6.1 Code(s): E11.29 - TYPE 2 DIABETES MELLITUS W OTH DIABETIC KIDNEY COMPLICATION Qualifiers: Diabetes mellitus type: type 2 dc planning---snf?
[2016-07-12] MEDS: ASPIRIN 81 MG CHEWABLE TABLETS PO SCH (11:55)
[2016-07-12] MEDS: hydrALAZINE HCL 25 MG TABLET (FP) PO SCH ×2 (11:55→22:05)
[2016-07-12] MEDS: DONEPEZIL HCL 5 MG TABLET (FP) PO SCH (11:55)
[2016-07-12] MEDS: DOCUSATE SODIUM 100 MG CAPSULE (FP) PO SCH (11:56)
[2016-07-12] MEDS: PANTOPRAZOLE 40 MG TABLET (FP) PO SCH (11:56)
[2016-07-12] MEDS: amLODIPine BESYLATE 10 MG TABLET (FP) PO SCH (11:56)
[2016-07-12] MEDS: CLOPIDOGREL BISULFATE 75 MG TABLET (FP) PO SCH (11:56)
[2016-07-12] MEDS: CYANOCOBALAMIN (VITAMIN B-12) 1000 MCG/1 ML VIAL IM SCH (11:57)
[2016-07-12] MEDS: MULTIVITAMINS (DAILY MVI) TABLET (FP) PO SCH (11:57)
--- NOTE | 2016-07-12 14:46 | PN ---
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, Physician History of Present Illness: Pt seen and examined at bedside. She is more awake and alert today. She is having lunch at the moment. She does however need one to one feeds. - Current Medication List Current Medications: Active Medications Acetaminophen (Tylenol -) 650 mg PO Q4H PRN PRN Reason: FEVER OR PAIN Amlodipine Besylate (Norvasc -) 10 mg PO DAILY [facility] Last Admin: 07/12/16 11:56 Dose: 10 mg Aspirin (Asa -) 81 mg PO DAILY [facility] Last Admin: 07/12/16 11:55 Dose: 81 mg Atorvastatin Calcium (Lipitor -) 10 mg PO HS [facility] Last Admin: 07/11/16 21:31 Dose: 10 mg Ciprofloxacin (Ciloxan 0.3% Eye Drops -) 2 drop OS Q4HPO [facility] Last Admin: 07/12/16 11:55 Dose: 2 drop Clopidogrel Bisulfate (Plavix -) 75 mg PO DAILY [facility] Last Admin: 07/12/16 11:56 Dose: 75 mg Cyanocobalamin (Vitamin B12 Injection -) 1,000 mcg IM DAILY [facility] Last Admin: 07/12/16 11:57 Dose: 1,000 mcg Docusate Sodium (Colace -) 100 mg PO DAILY [facility] Last Admin: 07/12/16 11:56 Dose: 100 mg Donepezil HCl (Aricept -) 5 mg PO DAILY [facility] Last Admin: 07/12/16 11:55 Dose: 5 mg Epoetin Efren (Procrit -) 3,000 unit IVPUSH ONCE ONE Stop: 07/12/16 15:01 Hydralazine HCl (Apresoline -) 25 mg PO BID [facility] Last Admin: 07/12/16 11:55 Dose: 25 mg Insulin Aspart (Novolog Vial Sliding Scale -) 1 vial SQ ACHS [facility] PRN Reason: Protocol Last Admin: 07/12/16 12:21 Dose: Not Given Insulin Detemir (Levemir Vial) 10 units SQ AM [facility] Last Admin: 07/12/16 06:16 Dose: 10 units Meclizine HCl (Antivert -) 25 mg PO Q8H PRN Multivitamins/Minerals/Vitamin C (Tab-A-Vit -) 1 tab PO DAILY [facility] Last Admin: 07/12/16 11:57 Dose: 1 tab Ondansetron HCl (Zofran Injection) 8 mg IVPB Q8H PRN PRN Reason: NAUSEA AND/OR VOMITING Last Admin: 07/06/16 03:39 Dose: 8 mg Pantoprazole Sodium (Protonix -) 40 mg PO DAILY [facility] Last Admin: 07/12/16 11:56 Dose: 40 mg - Objective Vital Signs: Vital Signs Temperature 98.6 F 07/12/16 05:56 Pulse Rate 92 H 07/12/16 05:56 Respiratory Rate 18 07/12/16 09:00 Blood Pressure 151/72 07/12/16 05:56 O2 Sat by Pulse Oximetry (%) 98 07/12/16 09:00 Constitutional: Yes: Calm Eyes: Yes: Conjunctiva Clear HENT: Yes: Atraumatic Neck: Yes: Supple Cardiovascular: Yes: S1, S2 Respiratory: Yes: CTA Bilaterally Gastrointestinal: Yes: Soft Genitourinary: Yes: WNL Musculoskeletal: Yes: Muscle Weakness Edema: No Neurological: Yes: Confusion Labs: CBC, BMP 07/08/16 06:00 07/11/16 06:00 INR, PTT INR 1.06 (0.82-1.09) 07/01/16 17:50 Problem List - Problems (1) Acute renal failure Code(s): N17.9 - ACUTE KIDNEY FAILURE, UNSPECIFIED Qualifiers: Acute renal failure type: unspecified Qualified Code(s): N17.9 - Acute kidney failure, unspecified (2) Chronic progressive renal failure Code(s): N18.9 - CHRONIC KIDNEY DISEASE, UNSPECIFIED Qualifiers: Chronic kidney disease stage: stage 5 Qualified Code(s): N18.5 - Chronic kidney disease, stage 5 (3) Diabetes mellitus with renal manifestation Code(s): E11.29 - TYPE 2 DIABETES MELLITUS W OTH DIABETIC KIDNEY COMPLICATION Qualifiers: Diabetes mellitus type: type 2 (4) Gangrene of toe of left foot Code(s): I96 - GANGRENE, NOT ELSEWHERE CLASSIFIED (5) Hypertension Code(s): I10 - ESSENTIAL (PRIMARY) HYPERTENSION (6) Alzheimer's dementia Code(s): G30.9 - ALZHEIMER'S DISEASE, UNSPECIFIED (7) CKD (chronic kidney disease) stage 5, GFR less than 15 ml/min Code(s): N18.5 - CHRONIC KIDNEY DISEASE, STAGE 5 Assessment/Plan Current Medications Generic Name Dose Route Start Last Admin Trade Name Freq PRN Reason Stop Dose Admin Acetaminophen 650 mg 07/05/16 20:28 Tylenol - PO Q4H PRN FEVER OR PAIN Amlodipine Besylate 10 mg 07/06/16 10:00 07/12/16 11:56 Norvasc - PO 10 mg DAILY [facility] Administration Aspirin 81 mg 07/06/16 10:00 07/12/16 11:55 Asa - PO 81 mg DAILY [facility] Administration Atorvastatin Calcium 10 mg 07/05/16 22:00 07/11/16 21:31 Lipitor - PO 10 mg HS [facility] Administration Ciprofloxacin 2 drop 07/05/16 22:00 07/12/16 11:55 Ciloxan 0.3% Eye Drops - OS 2 drop Q4HPO [facility] Administration Clopidogrel Bisulfate 75 mg 07/06/16 10:00 07/12/16 11:56 Plavix - PO 75 mg DAILY [facility] Administration Cyanocobalamin 1,000 mcg 07/06/16 10:00 07/12/16 11:57 Vitamin B12 Injection - IM 1,000 mcg DAILY [facility] Administration Docusate Sodium 100 mg 07/06/16 10:00 07/12/16 11:56 Colace - PO 100 mg DAILY [facility] Administration Donepezil HCl 5 mg 07/06/16 10:00 07/12/16 11:55 Aricept - PO 5 mg DAILY [facility] Administration Epoetin Efren 3,000 unit 07/12/16 15:00 Procrit - IVPUSH 07/12/16 15:01 ONCE ONE Hydralazine HCl 25 mg 07/07/16 22:15 07/12/16 11:55 Apresoline - PO 25 mg BID [facility] Administration Insulin Aspart 1 vial 07/05/16 22:00 07/12/16 12:21 Novolog Vial Sliding Scale - SQ Not Given [facility] Protocol Insulin Detemir 10 units 07/06/16 11:00 07/12/16 06:16 Levemir Vial SQ 10 units AM [facility] Administration Meclizine HCl 25 mg 07/05/16 20:28 Antivert - PO Q8H PRN Multivitamins/Minerals/Vitamin C 1 tab 07/06/16 10:00 07/12/16 11:57 Tab-A-Vit - PO 1 tab DAILY [facility] Administration Ondansetron HCl 8 mg 07/05/16 20:28 07/06/16 03:39 Zofran Injection IVPB 8 mg Q8H PRN Administration NAUSEA AND/OR VOMITING Pantoprazole Sodium 40 mg 07/06/16 10:00 07/12/16 11:56 Protonix - PO 40 mg DAILY [facility] Administration Impression 1. CKD stage 5 with ELIER 2. anemia 3. HTN 4. PVD 5. hyperlipidemia 6. dementia 7. DM Plan - HD today - pending HD placement - case discussed with pts son and he does understand - mental status is markedly improved - will need placement - encourage PO intake - cont would care to foot Dr Fox
[2016-07-12] MEDS ORDERED: EPOETIN ALFA 3,000 UNIT/1 ML ML IVPUSH ONE (15:00)
[2016-07-12] MEDS: ATORVASTATIN CA 10 MG TABLET (FP) PO SCH (22:04)
[2016-07-13] MEDS: CIPROFLOXACIN 0.3% EYE DROPS 5 ML BOTTLE OS SCH ×4 (01:45→15:00)
[2016-07-13] MEDS: INSULIN SLIDING SCALE (NOVOLOG) 1 VIAL SQ SCH ×2 (06:34→12:00)
[2016-07-13] MEDS: INSULIN DETEMIR 100 UNITS/ML MDV SQ SCH (06:34)
[2016-07-13] MEDS ORDERED: INSULIN (NOVOLOG) ASPART 100 UNITS/ML 10ML VIAL ONE (06:48)
--- NOTE | 2016-07-13 08:33 | DS ---
Physical Examination Vital Signs: Vital Signs Temperature 99.2 F 07/13/16 07:44 Pulse Rate 85 07/13/16 07:44 Respiratory Rate 20 07/13/16 07:44 Blood Pressure 132/64 07/13/16 07:44 O2 Sat by Pulse Oximetry (%) 98 07/12/16 21:00 Cardiovascular: Yes: Regular Rate and Rhythm Respiratory: Yes: Regular, CTA Bilaterally Gastrointestinal: Yes: Normal Bowel Sounds, Soft Neurological: Yes: Confusion Labs: CBC, BMP 07/08/16 06:00 07/11/16 06:00 Discharge Summary Reason For Visit: ARF Current Active Problems Acute renal failure (Acute) Chronic progressive renal failure (Acute) DVT prophylaxis (Acute) Diabetes mellitus with renal manifestation (Acute) Failure to thrive in adult (Acute) Fall (Acute) Gangrene of toe of left foot (Acute) Hypertension (Acute) Malnutrition (Acute) Normocytic anemia (Acute) Red eye (Acute) Weakness (Acute) Hospital Course: - Problems (1) Chronic progressive renal failure Assessment/Plan: s/p permacath placement HD per renal Code(s): N18.9 - CHRONIC KIDNEY DISEASE, UNSPECIFIED Qualifiers: Chronic kidney disease stage: stage 5 Qualified Code(s): N18.5 - Chronic kidney disease, stage 5 (2) Weakness Assessment/Plan: blood and urine culture negative Code(s): R53.1 - WEAKNESS (3) Amputated toe of left foot Assessment/Plan: s/p left leg angio and left toe amputation Code(s): Z89.422 - ACQUIRED ABSENCE OF OTHER LEFT TOE(S) (4) Anemia due to chronic kidney disease Assessment/Plan: ?? epogen per renal Code(s): N18.9 - CHRONIC KIDNEY DISEASE, UNSPECIFIED D63.1 - ANEMIA IN CHRONIC KIDNEY DISEASE (5) CVA, old, hemiparesis Assessment/Plan: dvt ppx Code(s): I69.359 - HEMIPLGA FOLLOWING CEREBRAL INFARCTION AFFECTING UNSP SIDE (6) Anemia Assessment/Plan: s/p prbc monitor (7) Diabetes mellitus with renal manifestation Assessment/Plan: insulin dose adjusted bgm sldidng scale hga1c 6.1 Code(s): E11.29 - TYPE 2 DIABETES MELLITUS W OTH DIABETIC KIDNEY COMPLICATION Qualifiers: Diabetes mellitus type: type 2 dc planning---snf? Condition: Guarded - Instructions Diet, Activity, Other Instructions: renal diabetic diet see dr jara as outpatient home nursing service vitamin B12 injection daily for 5 doses Referrals: Jero Faustin MD [Primary Care Provider] - 1 Week Shaw Fox MD [Staff Physician] - Disposition: [facility]/HOME HEALTH CARE - Home Medications Comprehensive Discharge Medication List: Ambulatory Orders Amlodipine Besylate 10 mg PO DAILY 11/20/14 Aspirin [ASA -] 81 mg PO DAILY 11/20/14 Docusate Sodium 100 mg PO DAILY 11/20/14 Donepezil HCl 5 mg PO DAILY 11/20/14 Meclizine HCl 25 mg PO Q8H PRN 11/20/14 Memantine HCl [Namenda Xr] 7 mg PO DAILY 11/20/14 Pantoprazole Sodium [Protonix] 40 mg PO DAILY 11/20/14 Atorvastatin Ca [Lipitor] 10 mg PO HS 02/14/15 Insulin (Levemir) [Levemir Flexpen -] 16 units SQ DAILY 02/14/15 Acetaminophen [Tylenol] 500 mg PO QID PRN 04/27/16 Insulin Lispro [Humalog] 0 unit SQ BID 04/27/16 Multivitamin [Poly-Vitamin] 1 each PO DAILY 04/27/16 Acetaminophen [Tylenol .Regular Strength -] 650 mg PO Q4H PRN #0 tablet Sodium Bicarbonate - 650 mg PO BID #60 tablet 04/30/16 Cyanocobalamin Vit B-12 Inj. [Vitamin B12 Injection -] 1,000 mcg IM DAILY #7 vial MDD 1 07/05/16 Hydralazine HCl [Apresoline -] 25 mg PO BID #0 tab MDD 2 07/05/16 Acetaminophen [Tylenol .Regular Strength -] 650 mg PO Q4H PRN #0 tablet Amlodipine Besylate [Norvasc -] 10 mg PO DAILY tablet 07/09/16 Aspirin [ASA -] 81 mg PO DAILY tab.chew 07/09/16 Atorvastatin Ca [Lipitor] 10 mg PO HS tablet 07/09/16 Clopidogrel Bisulfate [Plavix -] 75 mg PO DAILY #30 tablet 07/09/16 Donepezil HCl [Aricept -] 5 mg PO DAILY tablet 07/09/16 Insulin Sliding Scale [Novolog Vial Sliding Scale -] 1 vial SQ ACHS units 07/09 Meclizine HCl [Antivert -] 25 mg PO Q8H PRN #0 tablet MDD 3 07/09/16 Multivitamins [Multivit ([facility] Formulary)] 1 tab PO DAILY tab 07/09/16
[2016-07-13 09:43] LABS: BASOPHIL 0.7 % (0-2.0); EOSINOPHIL 5.2 % (0-4.5); MCH 28.4 pg (25.7-33.7); MCHC 32.8 g/dl (32.0-36.0); MEAN CELL VOLUME 86.6 fl (80-96); MEAN PLT VOLUME 7.3 fl (7.5-11.1); NEUTROPHILS 63.6 % (42.8-82.8); PLATELET COUNT 163 K/MM3 (134-434); RDW 15.4 % (11.6-15.6); WHITE BLOOD COUNT 7.1 K/mm3 (4.0-10.0)
[2016-07-13 10:18] LABS: ALBUMIN 2.4 g/dl (3.4-5.0); BILIRUBIN,TOTAL 0.4 mg/dL (0.2-1.0); CALCIUM 8.3 mg/dL (8.5-10.1); COCKROFT - GAULT 9.894; CREATININE 3.3 mg/dL (0.55-1.02); TOT PROT 5.7 g/dl (6.4-8.2)
[2016-07-13] MEDS: ASPIRIN 81 MG CHEWABLE TABLETS PO SCH (11:21)
[2016-07-13] MEDS: DONEPEZIL HCL 5 MG TABLET (FP) PO SCH (11:23)
[2016-07-13] MEDS: hydrALAZINE HCL 25 MG TABLET (FP) PO SCH (11:23)
[2016-07-13] MEDS: amLODIPine BESYLATE 10 MG TABLET (FP) PO SCH (11:24)
[2016-07-13] MEDS: CLOPIDOGREL BISULFATE 75 MG TABLET (FP) PO SCH (11:24)
[2016-07-13] MEDS: DOCUSATE SODIUM 100 MG CAPSULE (FP) PO SCH (11:24)
[2016-07-13] MEDS: PANTOPRAZOLE 40 MG TABLET (FP) PO SCH (11:24)
[2016-07-13] MEDS: CYANOCOBALAMIN (VITAMIN B-12) 1000 MCG/1 ML VIAL IM SCH (11:25)
[2016-07-13] MEDS: MULTIVITAMINS (DAILY MVI) TABLET (FP) PO SCH (11:25)
--- NOTE | 2016-07-13 15:02 | PN ---
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, Physician History of Present Illness: Pt seen and examined at bedside. She is awake and appears comfortable. - Current Medication List Current Medications: Active Medications Acetaminophen (Tylenol -) 650 mg PO Q4H PRN PRN Reason: FEVER OR PAIN Amlodipine Besylate (Norvasc -) 10 mg PO DAILY [facility] Last Admin: 07/13/16 11:24 Dose: 10 mg Aspirin (Asa -) 81 mg PO DAILY [facility] Last Admin: 07/13/16 11:21 Dose: 81 mg Atorvastatin Calcium (Lipitor -) 10 mg PO HS [facility] Last Admin: 07/12/16 22:04 Dose: 10 mg Ciprofloxacin (Ciloxan 0.3% Eye Drops -) 2 drop OS Q4HPO [facility] Last Admin: 07/13/16 11:21 Dose: 2 drop Clopidogrel Bisulfate (Plavix -) 75 mg PO DAILY [facility] Last Admin: 07/13/16 11:24 Dose: 75 mg Cyanocobalamin (Vitamin B12 Injection -) 1,000 mcg IM DAILY [facility] Last Admin: 07/13/16 11:25 Dose: 1,000 mcg Docusate Sodium (Colace -) 100 mg PO DAILY [facility] Last Admin: 07/13/16 11:24 Dose: 100 mg Donepezil HCl (Aricept -) 5 mg PO DAILY [facility] Last Admin: 07/13/16 11:23 Dose: 5 mg Hydralazine HCl (Apresoline -) 25 mg PO BID [facility] Last Admin: 07/13/16 11:23 Dose: 25 mg Insulin Aspart (Novolog Vial Sliding Scale -) 1 vial SQ ACHS [facility] PRN Reason: Protocol Last Admin: 07/13/16 12:00 Dose: Not Given Insulin Detemir (Levemir Vial) 10 units SQ AM [facility] Last Admin: 07/13/16 06:34 Dose: 10 units Meclizine HCl (Antivert -) 25 mg PO Q8H PRN Multivitamins/Minerals/Vitamin C (Tab-A-Vit -) 1 tab PO DAILY [facility] Last Admin: 07/13/16 11:25 Dose: 1 tab Ondansetron HCl (Zofran Injection) 8 mg IVPB Q8H PRN PRN Reason: NAUSEA AND/OR VOMITING Last Admin: 07/06/16 03:39 Dose: 8 mg Pantoprazole Sodium (Protonix -) 40 mg PO DAILY [facility] Last Admin: 07/13/16 11:24 Dose: 40 mg - Objective Vital Signs: Vital Signs Temperature 97.3 F L 07/13/16 11:00 Pulse Rate 82 07/13/16 11:00 Respiratory Rate 20 07/13/16 11:00 Blood Pressure 115/58 07/13/16 11:00 O2 Sat by Pulse Oximetry (%) 100 07/13/16 09:00 Constitutional: Yes: Calm Eyes: Yes: Conjunctiva Clear HENT: Yes: Atraumatic Neck: Yes: Supple Cardiovascular: Yes: S1, S2 Respiratory: Yes: CTA Bilaterally Gastrointestinal: Yes: WNL Genitourinary: Yes: Incontinence Musculoskeletal: Yes: Muscle Weakness Edema: No Wound/Incision: Yes: Clean/Dry Neurological: Yes: Confusion Labs: CBC, BMP 07/13/16 09:20 07/13/16 09:20 INR, PTT INR 1.06 (0.82-1.09) 07/01/16 17:50 Problem List - Problems (1) Acute renal failure Code(s): N17.9 - ACUTE KIDNEY FAILURE, UNSPECIFIED Qualifiers: Acute renal failure type: unspecified Qualified Code(s): N17.9 - Acute kidney failure, unspecified (2) Chronic progressive renal failure Code(s): N18.9 - CHRONIC KIDNEY DISEASE, UNSPECIFIED Qualifiers: Chronic kidney disease stage: stage 5 Qualified Code(s): N18.5 - Chronic kidney disease, stage 5 (3) Diabetes mellitus with renal manifestation Code(s): E11.29 - TYPE 2 DIABETES MELLITUS W OTH DIABETIC KIDNEY COMPLICATION Qualifiers: Diabetes mellitus type: type 2 (4) Gangrene of toe of left foot Code(s): I96 - GANGRENE, NOT ELSEWHERE CLASSIFIED (5) Hypertension Code(s): I10 - ESSENTIAL (PRIMARY) HYPERTENSION (6) Alzheimer's dementia Code(s): G30.9 - ALZHEIMER'S DISEASE, UNSPECIFIED (7) CKD (chronic kidney disease) stage 5, GFR less than 15 ml/min Code(s): N18.5 - CHRONIC KIDNEY DISEASE, STAGE 5 Assessment/Plan Current Medications Generic Name Dose Route Start Last Admin Trade Name Freq PRN Reason Stop Dose Admin Acetaminophen 650 mg 07/05/16 20:28 Tylenol - PO Q4H PRN FEVER OR PAIN Amlodipine Besylate 10 mg 07/06/16 10:00 07/13/16 11:24 Norvasc - PO 10 mg DAILY [facility] Administration Aspirin 81 mg 07/06/16 10:00 07/13/16 11:21 Asa - PO 81 mg DAILY [facility] Administration Atorvastatin Calcium 10 mg 07/05/16 22:00 07/12/16 22:04 Lipitor - PO 10 mg HS [facility] Administration Ciprofloxacin 2 drop 07/05/16 22:00 07/13/16 11:21 Ciloxan 0.3% Eye Drops - OS 2 drop Q4HPO [facility] Administration Clopidogrel Bisulfate 75 mg 07/06/16 10:00 07/13/16 11:24 Plavix - PO 75 mg DAILY [facility] Administration Cyanocobalamin 1,000 mcg 07/06/16 10:00 07/13/16 11:25 Vitamin B12 Injection - IM 1,000 mcg DAILY [facility] Administration Docusate Sodium 100 mg 07/06/16 10:00 07/13/16 11:24 Colace - PO 100 mg DAILY [facility] Administration Donepezil HCl 5 mg 07/06/16 10:00 07/13/16 11:23 Aricept - PO 5 mg DAILY [facility] Administration Hydralazine HCl 25 mg 07/07/16 22:15 07/13/16 11:23 Apresoline - PO 25 mg BID [facility] Administration Insulin Aspart 1 vial 07/05/16 22:00 07/13/16 12:00 Novolog Vial Sliding Scale - SQ Not Given [facility] Protocol Insulin Detemir 10 units 07/06/16 11:00 07/13/16 06:34 Levemir Vial SQ 10 units AM [facility] Administration Meclizine HCl 25 mg 07/05/16 20:28 Antivert - PO Q8H PRN Multivitamins/Minerals/Vitamin C 1 tab 07/06/16 10:00 07/13/16 11:25 Tab-A-Vit - PO 1 tab DAILY [facility] Administration Ondansetron HCl 8 mg 07/05/16 20:28 07/06/16 03:39 Zofran Injection IVPB 8 mg Q8H PRN Administration NAUSEA AND/OR VOMITING Pantoprazole Sodium 40 mg 07/06/16 10:00 07/13/16 11:24 Protonix - PO 40 mg DAILY [facility] Administration Impression 1. CKD stage 5 with ELIER 2. anemia 3. HTN 4. PVD 5. hyperlipidemia 6. dementia 7. DM Plan - pt tolerated HD yesterday - pt will fo to [facility] for HD - cont to monitor renal function and mental status - encourage PO intake - cont would care to foot Dr Fox
[2016-07-13 15:10] VITALS: BP 132/57; PULSE 80; TEMP 97.9
--- NOTE | 2016-07-17 13:29 | OP ---
DATE OF OPERATION: 07/05/2016 SURGEON: Sage Sommers MD PROCEDURE: 1. Placement of Perma-Cath. 2. Revascularization of left popliteal artery with angioplasty. 3. Amputation left 2nd toe. . PREOPERATIVE DIAGNOSIS: End-stage renal disease with gangrene of left 2nd toe. POSTOPERATIVE DIAGNOSIS: End-stage renal disease with gangrene of left 2nd toe. ANESTHESIA: Fractional. ANESTHESIOLOGIST: Winnie Tellez DO OPERATIVE FINDINGS: There was stenosis of the proximal left superifical femoral artery between 50% and 70%. There was occlusion of the distal superficial femoral and popliteal arteries with reconstitution of the popliteal above the knee. There was peroneal artery runoff to the foot via collaterals. OPERATIVE PROCEDURE: Patient was brought to the operating room and intravenous sedation was established. The right neck and chest were prepped with ChloraPrep. Time-out was performed. Using real-time duplex imaging, the right internal jugular vein was identified and found to be patent. Lidocaine 1% was infiltrated in the skin lateral to the vein. The vein was then cannulated under direct ultrasound guidance using a micropuncture needle. A wire was passed proximally into the superior vena cava, and the needle was exchanged for a 5-Estonian catheter. The wire was then exchanged for a J-tip guidewire, which was advanced through the right atrium into the inferior vena cava. Additional Xylocaine was infiltrated in the chest wall, and a small incision made. A 23-cm Perma-Cath was then passed with a tunneler from chest to neck to position the cuff in the subcutaneous tissues. The tract around the wire was then dilated, and the introducer was placed over the wire into the superior vena cava. The wire and the dilator were removed, and the tip of the Perma-Cath was advanced through the introducer and positioned in the right atrium. The introducer was peeled away leaving the catheter in place. Each lumen of the catheter was aspirated for blood freely and then flushed with saline and then Heparin solution. The neck wound was closed with a subcuticular suture of 3-0 Vicryl, and the catheter was sutured to the skin at the exit site with 3-0 Nylon. Sterile dressings were applied. Attention was then turned to the ischemic lower extremity. The right groin was prepped with ChloraPrep. Using real-time duplex imaging, the right common femoral artery was identified and was found to be patent. Lidocaine 1% was infiltrated in the skin over the artery, and it was cannulated with a micropuncture needle. A fine wire was then passed proximally into iliac artery. The needle was exchanged for a 5-Estonian catheter, and the wire was exchanged for a Glidewire, which was advanced into the abdominal aorta. A 5-Estonian sheath was then placed over the wire. An Omni Flush catheter was advanced over the wire into the abdominal aorta and angiography was performed. The wire was then advanced into the left iliac artery and distally to a level of the femoral artery. The catheter was advanced over the wire, and the wire was removed. Angiography of the left lower extremity was then obtained in subsequent runs as noted above. A stiff wire was passed through the catheter, and the 5-Estonian sheath was removed, and a 6-Estonian x 40 cm sheath advanced over the aortic bifurcation and into the left common femoral artery. Using roadmapping technique, an angled wire and catheter were advanced down the superficial femoral artery to the point of occlusion. Wire and catheter were then advanced through the occluded segment and reentered in the distal popliteal artery. An Outback Catheter was used to facilitate the reentry. A 0.014-inch wire was then placed into the distal popliteal artery. Angioplasty of the occluded segment of popliteal artery was then performed with 3-mm, 4-mm, and 5-mm balloons to restore patency and outflow to the peroneal artery. Stenosis in the superficial femoral artery was treated with 5-mm balloon angioplasty. Completion imaging revealed patent femoral and popliteal arteries with runoff to the foot as noted above via the peroneal artery. The wire and sheath were then pulled back over the aortic bifurcation. The sheath was removed, and the puncture site closed with a Perclose device. Sterile dressing was applied, and the patient was taken to the recovery area in stable condition. Alex [id number]
== END 2016-07-13 17:35 | disposition home health service (06) | DRG 252 ==
LOC: JER 16:17 → JERBED 21:26 → UNDOADMIN 23:14 → JERBED 23:14 → J7W 07-02 14:03
PROVIDERS: ADMIT Family Medicine; ATTEND Family Medicine
PROC: 30233N1 Transfusion of Nonautologous Red Blood Cells into Peripheral Vein, Percutaneous Approach (ICD-10-PCS; 2016-07-02)
PROC: 02H633Z Insertion of Infusion Device into Right Atrium, Percutaneous Approach (ICD-10-PCS; 2016-07-05)
PROC: B244ZZZ Ultrasonography of Right Heart (ICD-10-PCS; 2016-07-05)
PROC: 0Y6S0Z0 Detachment at Left 2nd Toe, Complete, Open Approach (ICD-10-PCS; principal; 2016-07-05 16:00)
PROC: 047L3ZZ Dilation of Left Femoral Artery, Percutaneous Approach (ICD-10-PCS; 2016-07-05 16:00)
PROC: 047N3ZZ Dilation of Left Popliteal Artery, Percutaneous Approach (ICD-10-PCS; 2016-07-05 16:00)
PROC: 5A1D60Z (ICD-10-PCS; 2016-07-07)
DX: E11.52 Type 2 diabetes mellitus with diabetic peripheral angiopathy with gangrene (principal); N18.6 End stage renal disease; I69.354 Hemiplegia and hemiparesis following cerebral infarction affecting left non-dominant side; I12.0 Hypertensive chronic kidney disease with stage 5 chronic kidney disease or end stage renal disease; N17.9 Acute kidney failure, unspecified; E78.5 Hyperlipidemia, unspecified; E11.22 Type 2 diabetes mellitus with diabetic chronic kidney disease; Z79.4 Long term (current) use of insulin; H57.8 Other specified disorders of eye and adnexa; D63.1 Anemia in chronic kidney disease; I77.1 Stricture of artery; R42 Dizziness and giddiness; G30.9 Alzheimer's disease, unspecified; R62.7 Adult failure to thrive
CPT/HCPCS: 36415; 36430; 36600; 70450-TC; 71010-TC; 76000-TC; 80048; 80053; 81003; 81015; 82140; 82272; 82550; 82728; 82803; 83036; 83540; 83550; 83605; 84100; 84443; 84484; 85025; 85027; 85610; 86704; 86705; 86706; 86708; 86803; 86850; 86900; 86901; 86922; 87040; 87081; 87086; 87340; 88305-TC; 88311-TC; 93005; 93010; 94760; 97162-PG; 99285-25; J0885; J1644; P9038; P9058

== ENCOUNTER 2016-07-18 05:06 | Inpatient (IN) | payer OTHER ==
--- NOTE | 2016-07-18 05:16 | PDOC ---
History of Present Illness - General History Source: Care Provider Exam Limitations: No Limitations - History of Present Illness Presenting Symptoms: Chest Pain <Leslye Costello - Last Filed: 07/18/16 07:03> <Kaylynn Santiago - Last Filed: 07/18/16 10:21> - General Chief Complaint: Chest Pain Stated Complaint: CHEST PAIN Time Seen by Provider: 07/18/16 05:15 - History of Present Illness Initial Comments: 07/18/16 06:12 Pt's son/Jose Yen [phone] Pmhx: CKD stage 4 Anemia, GERD IDDM Dementia/Alzheimer's Hypertension PVD Vertigo CVA/left hemiparesis Gastritis 85-year-old female damien presents to the emergency with her home health aide who reports the patient is AMS and was complaining of chest pain 3 hours ago. As per aid, patient was screaming that her chest was hurting her and appears lethargic to her today. She says Felicitas usually does not sleep through the night except this morning. Patient is demented and is a poor historian. Patient denies any headache, chest pain, shortness of breath or abdominal discomfort at this time. (Leslye Costello) Past History - Past Medical History Anemia: Yes Asthma: No Cancer: No Cardiac Disorders: No CVA: Yes (lt sided weakness) COPD: No CHF: No Dementia: Yes Diabetes: Yes (IDDM) Dialysis: No GI Disorders: Yes (gastritis, GERD) Disorders: No HTN: Yes Hypercholesterolemia: No Liver Disease: No Psychiatric Problems: Yes Seizures: No Thyroid Disease: Yes - Surgical History Abdominal Surgery: No Appendectomy: No Cardiac Surgery: (CAROTID) Cholecystectomy: No Lung Surgery: No Neurologic Surgery: No Orthopedic Surgery: No - Immunization History Immunization Up to Date: No - Psycho/Social/Smoking Cessation Hx Anxiety: No Suicidal Ideation: No Smoking Status: No Smoking History: Never smoked Have you smoked in the past 12 months: No Number of Cigarettes Smoked Daily: 0 Hx Alcohol Use: No Drug/Substance Use Hx: No Substance Use Type: None Hx Substance Use Treatment: No <Leslye Costello - Last Filed: 07/18/16 07:03> <Kaylynn Santiago - Last Filed: 07/18/16 10:21> - Past Medical History Allergies/Adverse Reactions: Allergies Allergy/AdvReac Type Severity Reaction Status Date / Time No Known Drug Allergies Allergy Verified 07/18/16 05:12 Home Medications: Ambulatory Orders Docusate Sodium 100 mg PO DAILY 11/20/14 Donepezil HCl 5 mg PO DAILY 11/20/14 Meclizine HCl 25 mg PO Q8H PRN 11/20/14 Memantine HCl [Namenda Xr] 7 mg PO DAILY 11/20/14 Pantoprazole Sodium [Protonix] 40 mg PO DAILY 11/20/14 Atorvastatin Ca [Lipitor] 10 mg PO HS 02/14/15 Insulin (Levemir) [Levemir Flexpen -] 16 units SQ DAILY 02/14/15 Insulin Lispro [Humalog] 0 unit SQ BID 04/27/16 Sodium Bicarbonate - 650 mg PO BID #60 tablet 04/30/16 Hydralazine HCl [Apresoline -] 25 mg PO BID #0 tab MDD 2 07/05/16 Acetaminophen [Tylenol .Regular Strength -] 650 mg PO Q4H PRN #0 tablet Amlodipine Besylate [Norvasc -] 10 mg PO DAILY tablet 07/09/16 Aspirin [ASA -] 81 mg PO DAILY tab.chew 07/09/16 Clopidogrel Bisulfate [Plavix -] 75 mg PO DAILY #30 tablet 07/09/16 Insulin Sliding Scale [Novolog Vial Sliding Scale -] 1 vial SQ ACHS units 07/09 Multivitamins [Multivit ([facility] Form[facility])] 1 tab PO DAILY tab 07/09/16 Cardiac Specific PMH - Complaint Specific PMHX Angina: No Cardiac Arrhythmia: No GERD: No Pacemaker: No Peripheral Vascular Disease: Yes <Leslye Costello - Last Filed: 07/18/16 07:03> Review of Systems - Review of Systems Able to Perform ROS?: Yes Is the patient limited Nigerien proficient: No <Leslye Costello - Last Filed: 07/18/16 07:03> <Kaylynn Santiago - Last Filed: 07/18/16 10:21> - Review of Systems Comments:: 07/18/16 06:28 The patient is arousable to answer questions. CONSTITUTIONAL: Absent: fever, chills, diaphoresis, generalized weakness, malaise, loss of appetite HEENT: Absent: rhinorrhea, nasal congestion, throat pain, throat swelling, difficulty swallowing, mouth swelling, ear pain, eye pain, visual Changes CARDIOVASCULAR: Absent: chest pain, loss of consciousness, palpitations, irregular heart rate, peripheral edema RESPIRATORY: Absent: cough, shortness of breath, dyspnea with exertion, orthopnea, wheezing, stridor, hemoptysis GASTROINTESTINAL: Absent: abdominal pain, abdominal distension, nausea, vomiting, diarrhea, constipation, melena, hematochezia GENITOURINARY: Absent: dysuria, frequency, urgency, hesitancy, hematuria, flank pain, genital pain MUSCULOSKELETAL: Absent: myalgia, arthralgia, joint swelling SKIN: Absent: rash, itching, pallor HEMATOLOGIC/IMMUNOLOGIC: Absent: easy bleeding, easy bruising, lymphadenopathy, frequent infections ENDOCRINE: Absent: unexplained weight gain, unexplained weight loss, heat intolerance, cold intolerance NEUROLOGIC: Absent: headache, focal weakness or paresthesias, dizziness (Leslye Costello) *Physical Exam <Leslye Costello - Last Filed: 07/18/16 07:03> <Kaylynn Santiago - Last Filed: 07/18/16 10:21> - Vital Signs Last Vital Signs Temp Pulse Resp BP Pulse Ox 97.1 F L 98 H 21 118/74 99 07/18/16 06:34 07/18/16 06:53 07/18/16 06:53 07/18/16 06:53 07/18/16 06:53 - Physical Exam Comments: 07/18/16 06:30 HEENT: Normocephalic, atraumatic. PERRLA, EOMI. No conjunctival pallor. Sclera are non- icteric. Moist mucous membranes. Oropharynx is clear. NECK: Supple. Full ROM. No JVD. Carotid pulses 2+ and symmetric, without bruits. No thyromegaly. No lymphadenopathy. CARDIOVASCULAR: Regular rate and rhythm. No murmurs, rubs, or gallops. Distal pulses are 2+ and symmetric. PULMONARY: No evidence of respiratory distress. Lungs clear to auscultation bilaterally. No wheezing, rales or rhonchi. ABDOMINAL: Soft. Non-tender. Non-distended. No rebound or guarding. No organomegaly. Normoactive bowel sounds. MUSCULOSKELETAL Normal range of motion at all joints. No bony deformities or tenderness. No CVA tenderness. EXTREMITIES: No cyanosis. No clubbing. No edema. No calf tenderness. SKIN: Warm and dry. Normal capillary refill. No rashes. No jaundice. (Leslye Costello) Heart Score/ECG Review <Leslye Costello - Last Filed: 07/18/16 07:03> - Age Age: >/= 65 - Risk Factors Risk Factors Heart Score: Yes Hx Hypertension, Yes Hx Diabetes - Troponin Troponin: 1-3x normal limit - ECG Intrepretation Rhythm: Regular Rhythm - ECG Impressions Normal ECG: No Ischemic Changes: Yes Heart Block: 1st Degree Block(>20mils) Tachycardia: Sinus <Kaylynn Santiago - Last Filed: 07/18/16 10:21> - ECG Impressions Comment:: 07/18/16 10:19 unchanged 12-lead from one done this am @5:30 (Kaylynn Santiago) ED Treatment Course - LABORATORY CBC & Chemistry Diagram: 07/18/16 05:19 07/18/16 05:19 <Leslye Costello - Last Filed: 07/18/16 07:03> - LABORATORY CBC & Chemistry Diagram: 07/18/16 05:19 07/18/16 05:19 <Kaylynn Santiago - Last Filed: 07/18/16 10:21> - ADDITIONAL ORDERS Additional order review: Laboratory Results 07/18/16 07/18/16 07/18/16 06:15 05:19 05:19 INR 1.07 Sodium 138 Potassium 4.3 Chloride 98 Carbon Dioxide 28 Anion Gap 12 BUN 33 H Creatinine 3.2 H Creat Clearance w eGFR 13.83 Random Glucose 121 H Lactic Acid 1.2 Calcium 8.5 Magnesium Total Bilirubin 0.3 AST 25 ALT 21 Alkaline Phosphatase 67 Creatine Kinase 61 Troponin I 0.07 H Total Protein 6.6 Albumin 2.9 L 07/18/16 05:19 INR Sodium 137 Potassium 4.3 Chloride 97 L Carbon Dioxide 28 Anion Gap 12 BUN 34 H D Creatinine 3.1 H Creat Clearance w eGFR 14.35 Random Glucose 121 H Lactic Acid Calcium 8.3 L Magnesium 1.7 L D Total Bilirubin 0.3 D AST 26 D ALT 21 D Alkaline Phosphatase 67 Creatine Kinase Troponin I Total Protein 6.4 Albumin 2.8 L 07/18/16 05:19 RBC 3.13 L MCV 87.4 MCHC 32.2 RDW 16.0 H MPV 7.2 L Neutrophils % 87.5 H D Lymphocytes % 5.5 L D Monocytes % 5.4 Eosinophils % 1.2 Basophils % 0.4 - RADIOLOGY Radiograph Interpretation: 07/18/16 06:43 CXR 1V portable RML infiltrate LLL infiltrate 07/18/16 07:03 (Leslye Costello) - Medications Given in the ED: ED Medications Discontinued Medications Generic Name Dose Route Start Last Admin Trade Name Freq PRN Reason Stop Dose Admin Piperacillin Sod/Tazobactam 50 mls @ 100 mls/hr 07/18/16 06:44 07/18/16 06:52 Sod 3.375 gm/ Dextrose IVPB 07/18/16 07:13 100 mls/hr ONCE ONE Administration Protocol 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 <Leslye Costello - Last Filed: 07/18/16 07:03> <Kaylynn Santiago - Last Filed: 07/18/16 10:21> - 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: 0701hrs; Signed out to QUINTON Santiago (Leslye Costello) *DC/Admit/Observation/Transfer <Leslye Costello - Last Filed: 07/18/16 07:03> <Kaylynn Santiago - Last Filed: 07/18/16 10:21> Diagnosis at time of Disposition: Anemia due to chronic kidney disease Pneumonia Qualifiers: Pneumonia type: due to unspecified organism Laterality: bilateral Lung location : lower lobe of lung Qualified Code(s): J18.9 - Pneumonia, unspecified organism - Referrals Referrals: Jero Faustin MD [Primary Care Provider] -
[2016-07-18 05:36] LABS: BASOPHIL 0.4 % (0-2.0); EOSINOPHIL 1.2 % (0-4.5); MCH 28.1 pg (25.7-33.7); MCHC 32.2 g/dl (32.0-36.0); MEAN CELL VOLUME 87.4 fl (80-96); MEAN PLT VOLUME 7.2 fl (7.5-11.1); NEUTROPHILS 87.5 % (42.8-82.8); PLATELET COUNT 185 K/MM3 (134-434); WHITE BLOOD COUNT 11.2 K/mm3 (4.0-10.0)
[2016-07-18 05:48] LABS: INR 1.07 (0.82-1.09); PROTHROMBIN TIME (PATIENT) 11.8 SEC (9.98-11.88)
[2016-07-18 06:03] LABS: ALBUMIN 2.8 g/dl (3.4-5.0); ALBUMIN 2.9 g/dl (3.4-5.0); BILIRUBIN,TOTAL 0.3 mg/dL (0.2-1.0); CALCIUM 8.3 mg/dL (8.5-10.1); CALCIUM 8.5 mg/dL (8.5-10.1); COCKROFT - GAULT 14.3055; COCKROFT - GAULT 14.7645; CREATININE 3.1 mg/dL (0.55-1.02); CREATININE 3.2 mg/dL (0.55-1.02); MAGNESIUM 1.7 mg/dL (1.8-2.4); TOT PROT 6.6 g/dl (6.4-8.2)
[2016-07-18 06:05] LABS: BILIRUBIN,TOTAL 0.3 mg/dL (0.2-1.0); TOT PROT 6.4 g/dl (6.4-8.2); TROPONIN I 0.07 ng/ml (0.00-0.05)
[2016-07-18] MEDS ORDERED: PIPERACILLIN/TAZOB 3.375 GM 3.375 GM in DEXTROSE 5%-WATER - 50 ML IVPB ONE (06:44)
[2016-07-18] MEDS ORDERED: PIPERACILLIN/TAZOB 3.375 GM 50 ML IVPB ONE (06:47)
--- NOTE | 2016-07-18 09:26 | PDOC ---
*Physical Exam - Vital Signs Last Vital Signs Temp Pulse Resp BP Pulse Ox 97.1 F L 98 H 21 118/74 99 07/18/16 06:34 07/18/16 06:53 07/18/16 06:53 07/18/16 06:53 07/18/16 06:53 - Physical Exam General Appearance: Yes: Nourished, Appropriately Dressed, Apparent Distress, Mild Distress HEENT: positive: Normal ENT Inspection, TMs Normal, Pharynx Normal, Pharyngeal Erythema, Rhinorrhea Neck: positive: Supple. negative: Tender Respiratory/Chest: positive: Lungs Clear (course) Integumentary: positive: Normal Color, Dry, Warm, Pale Neurologic: positive: Alert, Normal Mood/Affect ED Treatment Course - LABORATORY CBC & Chemistry Diagram: 07/18/16 05:19 07/18/16 10:20 - ADDITIONAL ORDERS Additional order review: Laboratory Results 07/18/16 07/18/16 07/18/16 06:15 05:19 05:19 INR 1.07 Sodium 138 Potassium 4.3 Chloride 98 Carbon Dioxide 28 Anion Gap 12 BUN 33 H Creatinine 3.2 H Creat Clearance w eGFR 13.83 Random Glucose 121 H Lactic Acid 1.2 Calcium 8.5 Magnesium Total Bilirubin 0.3 AST 25 ALT 21 Alkaline Phosphatase 67 Creatine Kinase 61 Troponin I 0.07 H Total Protein 6.6 Albumin 2.9 L 07/18/16 05:19 INR Sodium 137 Potassium 4.3 Chloride 97 L Carbon Dioxide 28 Anion Gap 12 BUN 34 H D Creatinine 3.1 H Creat Clearance w eGFR 14.35 Random Glucose 121 H Lactic Acid Calcium 8.3 L Magnesium 1.7 L D Total Bilirubin 0.3 D AST 26 D ALT 21 D Alkaline Phosphatase 67 Creatine Kinase Troponin I Total Protein 6.4 Albumin 2.8 L 07/18/16 05:19 RBC 3.13 L MCV 87.4 MCHC 32.2 RDW 16.0 H MPV 7.2 L Neutrophils % 87.5 H D Lymphocytes % 5.5 L D Monocytes % 5.4 Eosinophils % 1.2 Basophils % 0.4 - Medications Given in the ED: ED Medications Discontinued Medications Generic Name Dose Route Start Last Admin Trade Name Freq PRN Reason Stop Dose Admin Piperacillin Sod/Tazobactam 50 mls @ 100 mls/hr 07/18/16 06:44 07/18/16 06:52 Sod 3.375 gm/ Dextrose IVPB 07/18/16 07:13 100 mls/hr ONCE ONE Administration Protocol 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 - 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: Labs revealed mildly elevated troponin, with no EKG changes. Discussed all of labs and infiltrate findings with Dr. Jacobs who will admit patient after second enzymes to either telemetry versus regular bed. Aid and patient updated plan, is resting quietly without complaints *DC/Admit/Observation/Transfer Diagnosis at time of Disposition: Anemia due to chronic kidney disease Pneumonia Qualifiers: Pneumonia type: due to unspecified organism Laterality: bilateral Lung location : lower lobe of lung Qualified Code(s): J18.9 - Pneumonia, unspecified organism - Discharge Dispostion Condition at time of disposition: Stable Admit: Yes - Referrals Referrals: Jero Faustin MD [Primary Care Provider] - - Patient Instructions - Post Discharge Activity
[2016-07-18 10:57] LABS: ALBUMIN 2.8 g/dl (3.4-5.0); BILIRUBIN,TOTAL 0.3 mg/dL (0.2-1.0); CALCIUM 8.6 mg/dL (8.5-10.1); COCKROFT - GAULT 14.3055; CREATININE 3.2 mg/dL (0.55-1.02); TOT PROT 6.2 g/dl (6.4-8.2)
[2016-07-18] MEDS ORDERED: MECLIZINE HCL 25 MG TABLET (FP) PO PRN (10:58)
[2016-07-18 11:00] LABS: TROPONIN I 0.13 ng/ml (0.00-0.05)
--- NOTE | 2016-07-18 11:12 | HP ---
Admitting History and Physical - Admission History of Present Illness: 85-year-old female damien presents to the emergency with her home health aide who reports the patient is AMS and was complaining of chest pain yesterday. As per aid, patient was screaming that her chest was hurting her and appears lethargic to her t. She says Felicitas usually does not sleep through the night except this morning. Patient is demented and is a poor historian. Patient denies any headache, chest pain, shortness of breath or abdominal discomfort at this time. 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 Cardiovascular: Yes: HTN, Hyperlipdemia, Other (PVD) Renal/: Yes: Renal Inusuff Heme/Onc: Yes: Anemia Endocrine: Yes: Diabetes Mellitus - Past Surgical History Past Surgical History: Yes: Amputation, Carotid Endarterectomy - Smoking History Smoking history: Never smoked Have you smoked in the past 12 months: No Aproximately how many cigarettes per day: 0 - Alcohol/Substance Use Hx Alcohol Use: No History of Substance Use: reports: None - Social History ADL: Family Assistance History of Recent Travel: No Home Medications - Allergies Allergies/Adverse Reactions: Allergies Allergy/AdvReac Type Severity Reaction Status Date / Time No Known Drug Allergies Allergy Verified 07/18/16 05:12 - Home Medications Home Medications: Ambulatory Orders Docusate Sodium 100 mg PO DAILY 11/20/14 Donepezil HCl 5 mg PO DAILY 11/20/14 Meclizine HCl 25 mg PO Q8H PRN 11/20/14 Memantine HCl [Namenda Xr] 7 mg PO DAILY 11/20/14 Pantoprazole Sodium [Protonix] 40 mg PO DAILY 11/20/14 Atorvastatin Ca [Lipitor] 10 mg PO HS 02/14/15 Insulin (Levemir) [Levemir Flexpen -] 16 units SQ DAILY 02/14/15 Insulin Lispro [Humalog] 0 unit SQ BID 04/27/16 Sodium Bicarbonate - 650 mg PO BID #60 tablet 04/30/16 Hydralazine HCl [Apresoline -] 25 mg PO BID #0 tab MDD 2 07/05/16 Acetaminophen [Tylenol .Regular Strength -] 650 mg PO Q4H PRN #0 tablet Amlodipine Besylate [Norvasc -] 10 mg PO DAILY tablet 07/09/16 Aspirin [ASA -] 81 mg PO DAILY tab.chew 07/09/16 Clopidogrel Bisulfate [Plavix -] 75 mg PO DAILY #30 tablet 07/09/16 Insulin Sliding Scale [Novolog Vial Sliding Scale -] 1 vial SQ ACHS units 07/09 Multivitamins [Multivit ([facility] Formulary)] 1 tab PO DAILY tab 07/09/16 Review of Systems - Review of Systems Cardiovascular: reports: Chest Pain Respiratory: denies: Cough Gastrointestinal: denies: Abdominal Pain Physical Examination Vital Signs: Vital Signs Temperature 97.1 F L 07/18/16 06:34 Pulse Rate 98 H 07/18/16 06:53 Respiratory Rate 21 07/18/16 06:53 Blood Pressure 118/74 07/18/16 06:53 O2 Sat by Pulse Oximetry (%) 99 07/18/16 06:53 Cardiovascular: Yes: Murmur, S1, S2 Respiratory: Yes: Rales (at the bases) Gastrointestinal: Yes: Normal Bowel Sounds, Soft. No: Tenderness Edema: No Neurological: Yes: Alert, Confusion Labs: CBC, BMP 07/18/16 05:19 07/18/16 10:20 Imaging - Results X-ray: Report Reviewed Problem List - Problems (1) Chest pain Assessment/Plan: FOLLOW CE NITROPASTE ON ASA CARDIO Code(s): R07.9 - CHEST PAIN, UNSPECIFIED (2) Pneumonia Assessment/Plan: IV ABX ID CONSULT Code(s): J18.9 - PNEUMONIA, UNSPECIFIED ORGANISM Qualifiers: Pneumonia type: due to unspecified organism Laterality: bilateral Lung location: lower lobe of lung Qualified Code(s): J18.9 - Pneumonia, unspecified organism (3) Diabetes mellitus with renal manifestation Assessment/Plan: ON DIALYSIS Code(s): E11.29 - TYPE 2 DIABETES MELLITUS W OTH DIABETIC KIDNEY COMPLICATION (4) ESRD (end stage renal disease) Assessment/Plan: RENAL CONSULT Code(s): N18.6 - END STAGE RENAL DISEASE (5) Elevated troponin Assessment/Plan: IN A RENAL PT--HISTORY LIMITED-- FOLLOW CE CARDIO CONSULT TELE Code(s): R74.8 - ABNORMAL LEVELS OF OTHER SERUM ENZYMES
[2016-07-18] MEDS ORDERED: CEFTRIAXONE 50 ML ONE (12:12)
[2016-07-18] MEDS: CEFTRIAXONE 50 ML IVPB SCH (12:15)
--- NOTE | 2016-07-18 15:39 | CON.CARD ---
Consult Consult Specialty:: Cardiology Referred by:: Dr Jacobs Reason for Consultation:: elevated troponin - History of Present Illness Chief Complaint: sob cp History of Present Illness: 85F htn, CKD5, chol, PVD, Dementia, CVA, vertigo, anemia admitted from home with agitation and chest pain. The patient cannot give a history of the pain and at this point denies any symptoms. Noted with elevated troponin. 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 Cardio/Vascular: Yes: HTN, Hyperlipdemia, Other (PVD) Renal/: Yes: Renal Inusuff Endocrine: Yes: Diabetes Mellitus - Past Surgical History Past Surgical History: Yes: Amputation, Carotid Endarterectomy - Alcohol/Substance Use Hx Alcohol Use: No History of Substance Use: reports: None - Smoking History Smoking history: Never smoked Have you smoked in the past 12 months: No Aproximately how many cigarettes per day: 0 - Social History ADL: Family Assistance History of Recent Travel: No Home Medications - Allergies Allergies/Adverse Reactions: Allergies Allergy/AdvReac Type Severity Reaction Status Date / Time No Known Drug Allergies Allergy Verified 07/18/16 05:12 - Home Medications Home Medications: Ambulatory Orders Docusate Sodium 100 mg PO DAILY 11/20/14 Donepezil HCl 5 mg PO DAILY 11/20/14 Meclizine HCl 25 mg PO Q8H PRN 11/20/14 Memantine HCl [Namenda Xr] 7 mg PO DAILY 11/20/14 Pantoprazole Sodium [Protonix] 40 mg PO DAILY 11/20/14 Atorvastatin Ca [Lipitor] 10 mg PO HS 02/14/15 Insulin (Levemir) [Levemir Flexpen -] 16 units SQ DAILY 02/14/15 Insulin Lispro [Humalog] 0 unit SQ BID 04/27/16 Sodium Bicarbonate - 650 mg PO BID #60 tablet 04/30/16 Hydralazine HCl [Apresoline -] 25 mg PO BID #0 tab MDD 2 07/05/16 Acetaminophen [Tylenol .Regular Strength -] 650 mg PO Q4H PRN #0 tablet Amlodipine Besylate [Norvasc -] 10 mg PO DAILY tablet 07/09/16 Aspirin [ASA -] 81 mg PO DAILY tab.chew 07/09/16 Clopidogrel Bisulfate [Plavix -] 75 mg PO DAILY #30 tablet 07/09/16 Insulin Sliding Scale [Novolog Vial Sliding Scale -] 1 vial SQ ACHS units 07/09 Multivitamins [Multivit ([facility] Formulary)] 1 tab PO DAILY tab 07/09/16 Vital Signs: Vital Signs Temperature 97.1 F L 07/18/16 06:34 Pulse Rate 88 07/18/16 10:53 Respiratory Rate 21 07/18/16 06:53 Blood Pressure 120/58 07/18/16 10:53 O2 Sat by Pulse Oximetry (%) 95 07/18/16 10:53 Constitutional: Yes: No Distress, Calm HENT: Yes: Atraumatic, Normocephalic Neck: Yes: Supple, Trachea Midline Respiratory: Yes: CTA Bilaterally Gastrointestinal: Yes: Normal Bowel Sounds, Soft Cardiovascular: Yes: Regular Rate and Rhythm JVD: No Carotid Bruit: No PMI: Non-Displaced Heart Sounds: Yes: S1, S2 Extremities: Yes: WNL Edema: No Peripheral Pulses WNL: Yes Neurological: Yes: Confusion - Other Data Labs, Other Data: INR, PTT INR 1.07 (0.82-1.09) 07/18/16 05:19 Echo: Pending Ejection Fraction %: LVEF > or = 40 % Imaging - Results Chest X-ray: Report Reviewed (bilat effusion.) EKG: Report Reviewed (nsr lvh lad nssttw changes. no change prior ecg.) Problem List - Problems (1) Elevated troponin Assessment/Plan: May represent a nonischemic pattern due to renal disease. Would not pursue ischemia workup. Echo ordered. conservative care. Continue asa. she has effusions on cxr. may be due to renal disease and hypoalbuminemia. defer diuresis until renal evaluation. Code(s): R74.8 - ABNORMAL LEVELS OF OTHER SERUM ENZYMES
[2016-07-18] MEDS: INSULIN (NOVOLOG) ASPART 100 UNITS/ML 10ML VIAL SQ SCH ×2 (17:24→21:34)
[2016-07-18 18:57] LABS: URINE APPEARANCE CLOUDY; URINE BILIRUBIN NEGATIVE (NEGATIVE); URINE BLOOD 2+ (NEGATIVE); URINE COLOR YELLOW; URINE GLUCOSE (UA) NEGATIVE (NEGATIVE); URINE KETONE NEGATIVE (NEGATIVE); URINE LEUK ESTERASE 3+ (NEGATIVE); URINE NITRITE NEGATIVE (NEGATIVE); URINE PROTEIN 2+ (NEGATIVE); URINE UROBILINOGEN NEGATIVE E.U./dl (0.2-1.0)
[2016-07-18 19:25] LABS: URINE BACTERIA MODERATE /hpf (NONE SEEN); URINE RBC 33 /hpf (0-3); URINE WBC 570 /hpf (3-5)
[2016-07-18] MEDS: hydrALAZINE HCL 25 MG TABLET (FP) PO SCH (21:31)
[2016-07-18] MEDS: ATORVASTATIN CA 10 MG TABLET (FP) PO SCH (21:31)
[2016-07-18] MEDS: SODIUM BICARBONATE 650 MG TABLET PO SCH (21:31)
[2016-07-18] MEDS: HEPARIN NA (PORCINE) 5,000 UNITS/ML 1ML VIAL SQ SCH (21:40)
[2016-07-19] MEDS: INSULIN DETEMIR 100 UNITS/ML MDV SQ SCH (06:21)
[2016-07-19] MEDS: INSULIN (NOVOLOG) ASPART 100 UNITS/ML 10ML VIAL SQ SCH ×4 (06:21→21:51)
[2016-07-19 07:33] LABS: ALBUMIN 2.9 g/dl (3.4-5.0); CALCIUM 8.8 mg/dL (8.5-10.1)
[2016-07-19 07:38] LABS: BILIRUBIN,TOTAL 0.6 mg/dL (0.2-1.0); COCKROFT - GAULT 10.4805; CREATININE 3.8 mg/dL (0.55-1.02); TOT PROT 6.7 g/dl (6.4-8.2); TROPONIN I 0.07 ng/ml (0.00-0.05)
[2016-07-19 08:42] LABS: BASOPHIL 0.6 % (0-2.0); EOSINOPHIL 4.1 % (0-4.5); MCH 28.4 pg (25.7-33.7); MCHC 32.5 g/dl (32.0-36.0); MEAN CELL VOLUME 87.3 fl (80-96); MEAN PLT VOLUME 6.8 fl (7.5-11.1); NEUTROPHILS 74.9 % (42.8-82.8); PLATELET COUNT 215 K/MM3 (134-434); RDW 15.6 % (11.6-15.6)
--- NOTE | 2016-07-19 08:53 | EKG ---
Test Reason : Blood Pressure : / mmHG Vent. Rate : 101 BPM Atrial Rate : 101 BPM P-R Int : 236 ms QRS Dur : 080 ms QT Int : 362 ms P-R-T Axes : 043 -09 256 degrees QTc Int : 469 ms SINUS TACHYCARDIA WITH 1ST DEGREE A-V BLOCK MINIMAL VOLTAGE CRITERIA FOR LVH, MAY BE NORMAL VARIANT NONSPECIFIC T WAVE ABNORMALITY ABNORMAL ECG WHEN COMPARED WITH ECG OF 01-JUL-2016 18:27, [place] INTERVAL HAS INCREASED CRITERIA FOR SEPTAL INFARCT ARE NO LONGER PRESENT Confirmed by SHELLIE MARTINO MD ([id number]) on 07/19/2016 8:53:36 AM Referred By: Confirmed By:SHELLIE MARTINO MD
--- NOTE | 2016-07-19 09:01 | EKG ---
Test Reason : Blood Pressure : / mmHG Vent. Rate : 088 BPM Atrial Rate : 088 BPM P-R Int : 206 ms QRS Dur : 078 ms QT Int : 386 ms P-R-T Axes : 039 -26 268 degrees QTc Int : 467 ms NORMAL SINUS RHYTHM LEFTWARD AXIS SEPTAL INFARCT , AGE UNDETERMINED T WAVE ABNORMALITY, CONSIDER ANTEROLATERAL ISCHEMIA ABNORMAL ECG WHEN COMPARED WITH ECG OF 18-JUL-2016 05:36, [place] INTERVAL HAS DECREASED SEPTAL INFARCT IS NOW PRESENT Confirmed by SHELLIE MARTINO MD ([id number]) on 07/19/2016 9:00:51 AM Referred By: Confirmed By:SHELLIE MARTINO MD
[2016-07-19] MEDS: HEPARIN NA (PORCINE) 5,000 UNITS/ML 1ML VIAL SQ SCH ×2 (09:23→21:47)
[2016-07-19] MEDS: CLOPIDOGREL BISULFATE 75 MG TABLET (FP) PO SCH (09:23)
[2016-07-19] MEDS: DOCUSATE SODIUM 100 MG CAPSULE (FP) PO SCH (09:23)
[2016-07-19] MEDS: SODIUM BICARBONATE 650 MG TABLET PO SCH ×2 (09:23→21:47)
[2016-07-19] MEDS: CEFTRIAXONE 50 ML IVPB SCH (09:23)
[2016-07-19] MEDS: ASPIRIN 81 MG CHEWABLE TABLETS PO SCH (09:23)
[2016-07-19] MEDS: MULTIVITAMINS (DAILY MVI) TABLET (FP) PO SCH (09:23)
[2016-07-19] MEDS: PANTOPRAZOLE 40 MG TABLET (FP) PO SCH (09:23)
[2016-07-19] MEDS: amLODIPine BESYLATE 10 MG TABLET (FP) PO SCH (09:23)
[2016-07-19] MEDS: hydrALAZINE HCL 25 MG TABLET (FP) PO SCH ×2 (09:23→21:47)
--- NOTE | 2016-07-19 11:29 | PN ---
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, Physician History of Present Illness: IN BED LOOKS COMFORTABLE NO COMPLAINTS - Current Medication List Current Medications: Active Medications Acetaminophen (Tylenol -) 650 mg PO Q4H PRN PRN Reason: FEVER OR PAIN Amlodipine Besylate (Norvasc -) 10 mg PO DAILY [facility] Last Admin: 07/19/16 09:23 Dose: 10 mg Aspirin (Asa -) 81 mg PO DAILY [facility] Last Admin: 07/19/16 09:23 Dose: 81 mg Atorvastatin Calcium (Lipitor -) 10 mg PO HS [facility] Last Admin: 07/18/16 21:31 Dose: 10 mg Clopidogrel Bisulfate (Plavix -) 75 mg PO DAILY [facility] Last Admin: 07/19/16 09:23 Dose: 75 mg Docusate Sodium (Colace -) 100 mg PO DAILY [facility] Last Admin: 07/19/16 09:23 Dose: 100 mg Donepezil HCl (Aricept -) 5 mg PO [facility] Heparin Sodium (Porcine) (Heparin -) 5,000 unit SQ BID [facility] Last Admin: 07/19/16 09:23 Dose: 5,000 unit Hydralazine HCl (Apresoline -) 25 mg PO BID [facility] Last Admin: 07/19/16 09:23 Dose: 25 mg Ceftriaxone Sodium (Rocephin 1gm Ivpb (Pre-Docked)) 50 mls @ 100 mls/hr IVPB DAILY [facility] Last Admin: 07/19/16 09:23 Dose: 100 mls/hr Insulin Aspart (Novolog Vial) 1 units SQ ACHS [facility] PRN Reason: Protocol Last Admin: 07/19/16 06:21 Dose: Not Given Insulin Detemir (Levemir Vial) 16 units SQ ACBK [facility] Last Admin: 07/19/16 06:21 Dose: 16 unit Meclizine HCl (Antivert -) 25 mg PO Q8H PRN PRN Reason: VERTIGO Multivitamins/Minerals/Vitamin C (Tab-A-Vit -) 1 tab PO DAILY [facility] Last Admin: 07/19/16 09:23 Dose: 1 tab Non-Formulary Medication (Memantine Hcl [Namenda Xr]) 7 mg PO DAILY [facility] Pantoprazole Sodium (Protonix -) 40 mg PO DAILY [facility] Last Admin: 07/19/16 09:23 Dose: 40 mg Sodium Bicarbonate (Sodium Bicarbonate -) 650 mg PO BID [facility] Last Admin: 07/19/16 09:23 Dose: 650 mg - Objective Vital Signs: Vital Signs Temperature 98 F 07/19/16 09:31 Pulse Rate 100 H 07/19/16 09:31 Respiratory Rate 16 07/19/16 09:31 Blood Pressure 136/85 07/19/16 09:31 O2 Sat by Pulse Oximetry (%) 95 07/19/16 00:03 Cardiovascular: Yes: Regular Rate and Rhythm Respiratory: Yes: Regular, CTA Bilaterally Gastrointestinal: Yes: Normal Bowel Sounds, Soft Labs: CBC, BMP 07/19/16 06:00 07/19/16 06:00 INR, PTT INR 1.07 (0.82-1.09) 07/18/16 05:19 Problem List - Problems (1) Chest pain Assessment/Plan: FOLLOW CE NITROPASTE AND ASA CARDIO ON BOARD Code(s): R07.9 - CHEST PAIN, UNSPECIFIED (2) Pneumonia Assessment/Plan: IV ABX ID CONSULT F/U CXR Code(s): J18.9 - PNEUMONIA, UNSPECIFIED ORGANISM Qualifiers: Pneumonia type: due to unspecified organism Laterality: bilateral Lung location: lower lobe of lung Qualified Code(s): J18.9 - Pneumonia, unspecified organism (3) Diabetes mellitus with renal manifestation Assessment/Plan: ON DIALYSIS Code(s): E11.29 - TYPE 2 DIABETES MELLITUS W OTH DIABETIC KIDNEY COMPLICATION (4) ESRD (end stage renal disease) Assessment/Plan: RENAL CONSULT Code(s): N18.6 - END STAGE RENAL DISEASE (5) Elevated troponin Code(s): R74.8 - ABNORMAL LEVELS OF OTHER SERUM ENZYMES
[2016-07-19 12:19] VITALS: BMI 25.4
--- NOTE | 2016-07-19 12:19 | CON.NEP ---
Consult Consult Specialty:: nephrology Reason for Consultation:: esrd - History of Present Illness Chief Complaint: chest pain History of Present Illness: 85-year-old female damien presents to the emergency with her home health aide who reports the patient is AMS and was complaining of chest pain yesterday. As per aid, patient was screaming that her chest was hurting her and appears lethargic to her t. She says Felicitas usually does not sleep through the night except this morning. Patient is demented and is a poor historian. Patient denies any headache, chest pain, shortness of breath or abdominal discomfort at this time. She is known to me from office visits and dialysis at [facility] . Today she has no complaints and says her sugar was elevated and that why she is here. 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: CVA, Dementia Cardio/Vascular: Yes: HTN, Hyperlipdemia, Other (PVD) Renal/: Yes: Renal Inusuff ...: No Endocrine: Yes: Diabetes Mellitus - Past Surgical History Past Surgical History: Yes: Amputation, Carotid Endarterectomy - Alcohol/Substance Use Hx Alcohol Use: No History of Substance Use: reports: None - Smoking History Smoking history: Never smoked Have you smoked in the past 12 months: No Aproximately how many cigarettes per day: 0 - Social History ADL: Family Assistance History of Recent Travel: No Home Medications - Allergies Allergies/Adverse Reactions: Allergies Allergy/AdvReac Type Severity Reaction Status Date / Time No Known Drug Allergies Allergy Verified 07/18/16 05:12 - Home Medications Home Medications: Ambulatory Orders Docusate Sodium 100 mg PO DAILY 11/20/14 Donepezil HCl 5 mg PO DAILY 11/20/14 Meclizine HCl 25 mg PO Q8H PRN 11/20/14 Memantine HCl [Namenda Xr] 7 mg PO DAILY 11/20/14 Pantoprazole Sodium [Protonix] 40 mg PO DAILY 11/20/14 Atorvastatin Ca [Lipitor] 10 mg PO HS 02/14/15 Insulin (Levemir) [Levemir Flexpen -] 16 units SQ DAILY 02/14/15 Insulin Lispro [Humalog] 0 unit SQ BID 04/27/16 Sodium Bicarbonate - 650 mg PO BID #60 tablet 04/30/16 Hydralazine HCl [Apresoline -] 25 mg PO BID #0 tab MDD 2 07/05/16 Acetaminophen [Tylenol .Regular Strength -] 650 mg PO Q4H PRN #0 tablet Amlodipine Besylate [Norvasc -] 10 mg PO DAILY tablet 07/09/16 Aspirin [ASA -] 81 mg PO DAILY tab.chew 07/09/16 Clopidogrel Bisulfate [Plavix -] 75 mg PO DAILY #30 tablet 07/09/16 Insulin Sliding Scale [Novolog Vial Sliding Scale -] 1 vial SQ ACHS units 07/09 Multivitamins [Multivit ([facility] Formulary)] 1 tab PO DAILY tab 07/09/16 Review of Systems - Review of Systems Constitutional: reports: No Symptoms Eyes: reports: No Symptoms HENT: reports: No Symptoms Neck: reports: No Symptoms Cardiovascular: reports: No Symptoms Respiratory: reports: No Symptoms Gastrointestinal: reports: No Symptoms Genitourinary: reports: No Symptoms Breasts: reports: No Symptoms Reported Musculoskeletal: reports: No Symptoms Integumentary: reports: No Symptoms Neurological: reports: No Symptoms Endocrine: reports: No Symptoms Hematology/Lymphatic: reports: No Symptoms Psychiatric: reports: No Symptoms Nephrology Consult - Height Height: 5 ft - Weight Weight: 130 lb 8 oz - BMI Body Mass Index (BMI): 25.4 - Lab Results CBC,BMP: CBC, BMP 07/19/16 06:00 07/19/16 06:00 Anion Gap: Anion Gap Anion Gap 9 (8-16) 07/19/16 06:00 - Imaging Chest X-ray: Report Reviewed (progressive bilateral changes) - Physical Examination Vital Signs: Vital Signs Temperature 98 F 07/19/16 09:31 Pulse Rate 100 H 07/19/16 09:31 Respiratory Rate 16 07/19/16 09:31 Blood Pressure 136/85 07/19/16 09:31 O2 Sat by Pulse Oximetry (%) 95 07/19/16 09:31 Constitutional: Yes: No Distress, Thin Eyes: Yes: Conjunctiva Clear HENT: Yes: Atraumatic, Normocephalic Neck: Yes: Supple, Trachea Midline Cardiovascular: Yes: Regular Rate and Rhythm Respiratory: Yes: CTA Bilaterally Gastrointestinal: Yes: Normal Bowel Sounds Renal/: No: Bladder Distention Access for Hemodialysis: Permacath Musculoskeletal: Yes: WNL Extremities: Yes: Amputation (had a digit amputated from left foot) Edema: No Integumentary: Yes: Other (has some sutures in her foot) Wound/Incision: Yes: Clean/Dry Neurological: Yes: Alert. No: Oriented Assessment/Plan IMPRESSION diabetic nephropathy likely anemia is chronic esrd on hd- no emergent HD necessary chest pain with mildly elevated Trop which may be due to renal disease PLAN would observe for now will aim for HD tomorrow phos level monitor troponin MV
--- NOTE | 2016-07-19 12:24 | PN ---
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 (short form) - Note 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: ID Consult dictated Possible HCAP Pleural effusions ESRD UTI OBS Pending sepsis workup empiric zithromax/ zosyn
[2016-07-19] MEDS: AZITHROMYCIN IVPB 250 ML IVPB SCH (13:25)
--- NOTE | 2016-07-19 14:22 | PN ---
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, Physician Chief Complaint: appears comfortable History of Present Illness: 85F htn, ESRD-HD, chol, PVD, Dementia, CVA, vertigo, anemia admitted from home with agitation and chest pain. The patient cannot give a history of the pain and at this point denies any symptoms. Noted with elevated troponin. - Current Medication List Current Medications: Active Medications Acetaminophen (Tylenol -) 650 mg PO Q4H PRN PRN Reason: FEVER OR PAIN Amlodipine Besylate (Norvasc -) 10 mg PO DAILY [facility] Last Admin: 07/19/16 09:23 Dose: 10 mg Aspirin (Asa -) 81 mg PO DAILY [facility] Last Admin: 07/19/16 09:23 Dose: 81 mg Atorvastatin Calcium (Lipitor -) 10 mg PO HS [facility] Last Admin: 07/18/16 21:31 Dose: 10 mg Clopidogrel Bisulfate (Plavix -) 75 mg PO DAILY [facility] Last Admin: 07/19/16 09:23 Dose: 75 mg Docusate Sodium (Colace -) 100 mg PO DAILY [facility] Last Admin: 07/19/16 09:23 Dose: 100 mg Donepezil HCl (Aricept -) 5 mg PO HS [facility] Heparin Sodium (Porcine) (Heparin -) 5,000 unit SQ BID [facility] Last Admin: 07/19/16 09:23 Dose: 5,000 unit Hydralazine HCl (Apresoline -) 25 mg PO BID [facility] Last Admin: 07/19/16 09:23 Dose: 25 mg Azithromycin (Zithromax 500mg Ivpb (Pre-Docked)) 250 mls @ 250 mls/hr IVPB DAILY [facility] Last Admin: 07/19/16 13:25 Dose: 250 mls/hr Piperacillin Sod/Tazobactam Sod (Zosyn 2.25gm Ivpb (Pre-Docked)) 50 mls @ 100 mls/hr IVPB Q8H-IV [facility] PRN Reason: Protocol Insulin Aspart (Novolog Vial) 1 units SQ ACHS [facility] PRN Reason: Protocol Last Admin: 07/19/16 12:31 Dose: Not Given Insulin Detemir (Levemir Vial) 16 units SQ ACBK [facility] Last Admin: 07/19/16 06:21 Dose: 16 unit Meclizine HCl (Antivert -) 25 mg PO Q8H PRN PRN Reason: VERTIGO Multivitamins/Minerals/Vitamin C (Tab-A-Vit -) 1 tab PO DAILY [facility] Last Admin: 07/19/16 09:23 Dose: 1 tab Non-Formulary Medication (Memantine Hcl [Namenda Xr]) 7 mg PO DAILY [facility] Pantoprazole Sodium (Protonix -) 40 mg PO DAILY [facility] Last Admin: 07/19/16 09:23 Dose: 40 mg Sodium Bicarbonate (Sodium Bicarbonate -) 650 mg PO BID [facility] Last Admin: 07/19/16 09:23 Dose: 650 mg - Objective Vital Signs: Vital Signs Temperature 98.5 F 07/19/16 13:38 Pulse Rate 101 H 07/19/16 13:38 Respiratory Rate 20 07/19/16 13:38 Blood Pressure 130/70 07/19/16 13:38 O2 Sat by Pulse Oximetry (%) 95 07/19/16 09:31 Constitutional: Yes: No Distress, Calm Eyes: Yes: Conjunctiva Clear HENT: Yes: Atraumatic, Normocephalic Neck: Yes: Supple, Trachea Midline Cardiovascular: Yes: Regular Rate and Rhythm Respiratory: Yes: Regular, CTA Bilaterally Gastrointestinal: Yes: Normal Bowel Sounds, Soft Musculoskeletal: Yes: WNL Extremities: Yes: WNL Edema: No Peripheral Pulses WNL: Yes Labs: CBC, BMP 07/19/16 06:00 07/19/16 06:00 INR, PTT INR 1.07 (0.82-1.09) 07/18/16 05:19 Problem List - Problems (1) Elevated troponin Assessment/Plan: I believe that this troponin represents a nonischemic pattern due to renal disease. Would not pursue ischemia workup. Echo pending. conservative care. Continue asa. she has effusions on cxr. may be due to renal disease and hypoalbuminemia. No evidence of CHF on examination. HD per renal. Code(s): R74.8 - ABNORMAL LEVELS OF OTHER SERUM ENZYMES
--- NOTE | 2016-07-19 14:42 | CONS ---
INFECTIOUS DISEASE CONSULTATION: DATE OF CONSULTATION: DATE OF DICTATION: 07/19/2016 INDICATION: Patient evaluated for pneumonia. HISTORY OF PRESENT ILLNESS: The patient is an 85-year-old female with a history of dementia who was brought to the hospital by her home health aide because of complaints of chest pain and increased lethargy. The patient is demented and cannot give a history. She was evaluated in the emergency room where a chest x-ray shows increased markings bilaterally, left greater than right with what appears to be a large infiltrate and/or effusion involving the left hemithorax. She is awake; however, she is confused. She is unable to offer any history. She does not appear to be shortness of breath at rest, and no cough was noted. According to the records here at [place], her last hospitalization was earlier this month for renal failure. PAST MEDICAL HISTORY: Positive for dementia, stroke, chronic kidney disease, chronic anemia, gastroesophageal reflux, insulin-dependent diabetes mellitus, hypertension, hyperlipidemia, peripheral vascular disease and a surgical history status post carotid endarterectomy. ALLERGIES: No known allergies. MEDICATIONS: Meclizine, Namenda, Toprol, Lipitor, Levemir, Humalog, Apresoline, Norvasc, aspirin. SOCIAL HISTORY: She lives at home. She has a home health aide. She is a non-smoker. SYSTEMS REVIEW: Neurologic: Positive for dementia and stroke. Cardiac: Negative chest pain or palpitations. Respiratory: As per history of present illness. Gastrointestinal: Negative vomiting or diarrhea. Genitourinary: Positive for end-stage renal disease. LABORATORY DATA: White count 9. Hematocrit 29.3. Platelet count 215. BUN 44, creatinine 3.8. Urinalysis 570 white cells. Blood cultures preliminarily negative. Chest x-ray shows a large left-sided infiltrate and/or effusion. PHYSICAL EXAMINATION: General: She is awake. She is not acutely dyspneic, not acutely toxic-appearing. Vital signs: Temperature 98, blood pressure 136/87, pulse 100/regular, respirations 16 per minute. HEENT: Sclerae anicteric. Heart sounds: S1, S2 Lungs: Diminished breath sounds bilaterally. Abdomen: Soft, no tenderness elicited. No mass, rebound or rigidity. Extremities: Negative for edema. A dialysis catheter is present in the right chest. IMPRESSION: 1. Possible health care-acquired pneumonia. 2. Pleural effusion, rule out infected parapneumonic effusion. 3. Chronic kidney disease/end-stage renal disease. 4. Dementia. 5. Possible urinary tract infection. PLAN 1. Await culture results. 2. Obtain sputum culture. 3. Empiric antibiotic coverage for possible health-care acquired pneumonia with Zosyn. Will add Zithromax for atypical coverage, pending workup. 4. Further recommendations pending cultures. Will follow. Thank you for the kind referral. RUBIN MANZANARES M.D. [id number]
[2016-07-19] MEDS: MEMANTINE HCL 7 MG PO SCH (17:19)
[2016-07-19] MEDS: PIPERACILLIN/TAZOB 2.25 GM 50 ML IVPB SCH (17:19)
[2016-07-19] MEDS: DONEPEZIL HCL 5 MG TABLET (FP) PO SCH (21:47)
[2016-07-19] MEDS: ATORVASTATIN CA 10 MG TABLET (FP) PO SCH (21:47)
[2016-07-19] MEDS ORDERED: PT OWN MED DRAWER 7, Y5N ONE (22:05)
[2016-07-20] MEDS: PIPERACILLIN/TAZOB 2.25 GM 50 ML IVPB SCH ×3 (01:06→18:28)
[2016-07-20] MEDS: INSULIN (NOVOLOG) ASPART 100 UNITS/ML 10ML VIAL SQ SCH ×4 (06:03→21:50)
[2016-07-20] MEDS: INSULIN DETEMIR 100 UNITS/ML MDV SQ SCH (06:03)
[2016-07-20] MEDS ORDERED: INSULIN (NOVOLOG) ASPART 100 UNITS/ML 10ML VIAL ONE (06:42)
[2016-07-20] MEDS: AZITHROMYCIN IVPB 250 ML IVPB SCH (10:39)
--- NOTE | 2016-07-20 11:13 | PN ---
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, Physician Chief Complaint: Chest pain History of Present Illness: Patient originally came in with cc of Chest pain as per her [employer]. Patient is non verbal at this time, NAD, comfortable in bed. - Current Medication List Current Medications: Active Medications Acetaminophen (Tylenol -) 650 mg PO Q4H PRN PRN Reason: FEVER OR PAIN Amlodipine Besylate (Norvasc -) 10 mg PO DAILY [facility] Last Admin: 07/19/16 09:23 Dose: 10 mg Aspirin (Asa -) 81 mg PO DAILY [facility] Last Admin: 07/19/16 09:23 Dose: 81 mg Atorvastatin Calcium (Lipitor -) 10 mg PO HS [facility] Last Admin: 07/19/16 21:47 Dose: 10 mg Clopidogrel Bisulfate (Plavix -) 75 mg PO DAILY [facility] Last Admin: 07/19/16 09:23 Dose: 75 mg Docusate Sodium (Colace -) 100 mg PO DAILY [facility] Last Admin: 07/19/16 09:23 Dose: 100 mg Donepezil HCl (Aricept -) 5 mg PO HS [facility] Last Admin: 07/19/16 21:47 Dose: 5 mg Heparin Sodium (Porcine) (Heparin -) 5,000 unit SQ BID [facility] Last Admin: 07/19/16 21:47 Dose: 5,000 unit Hydralazine HCl (Apresoline -) 25 mg PO BID [facility] Last Admin: 07/19/16 21:47 Dose: 25 mg Azithromycin (Zithromax 500mg Ivpb (Pre-Docked)) 250 mls @ 250 mls/hr IVPB DAILY [facility] Last Admin: 07/20/16 10:39 Dose: 250 mls/hr Piperacillin Sod/Tazobactam Sod (Zosyn 2.25gm Ivpb (Pre-Docked)) 50 mls @ 100 mls/hr IVPB Q8H-IV [facility] PRN Reason: Protocol Last Admin: 07/20/16 10:39 Dose: 100 mls/hr Insulin Aspart (Novolog Vial) 1 units SQ ACHS [facility] PRN Reason: Protocol Last Admin: 07/20/16 06:03 Dose: Not Given Insulin Detemir (Levemir Vial) 16 units SQ ACBK [facility] Last Admin: 07/20/16 06:03 Dose: 16 unit Meclizine HCl (Antivert -) 25 mg PO Q8H PRN PRN Reason: [facility] Multivitamins/Minerals/Vitamin C (Tab-A-Vit -) 1 tab PO DAILY [facility] Last Admin: 07/19/16 09:23 Dose: 1 tab Non-Formulary Medication (Memantine Hcl [Namenda Xr]) 7 mg PO DAILY [facility] Last Admin: 07/19/16 17:19 Dose: 7 mg Pantoprazole Sodium (Protonix -) 40 mg PO DAILY [facility] Last Admin: 07/19/16 09:23 Dose: 40 mg Sodium Bicarbonate (Sodium Bicarbonate -) 650 mg PO BID [facility] Last Admin: 07/19/16 21:47 Dose: 650 mg - Objective Vital Signs: Vital Signs Temperature 98.0 F 07/20/16 07:14 Pulse Rate 91 H 07/20/16 07:14 Respiratory Rate 20 07/20/16 07:14 Blood Pressure 129/62 07/20/16 07:14 O2 Sat by Pulse Oximetry (%) 96 07/19/16 21:00 Constitutional: Yes: No Distress, Calm Cardiovascular: Yes: WNL, Regular Rate and Rhythm Respiratory: Yes: WNL, Regular Gastrointestinal: Yes: Normal Bowel Sounds Genitourinary: Yes: Incontinence Musculoskeletal: Yes: Joint Stiffness Extremities: Yes: WNL Edema: No Neurological: Yes: Alert (opens eyes to her name and nods), Aphasia, Weakness Labs: CBC, BMP 07/19/16 06:00 07/19/16 06:00 INR, PTT INR 1.07 (0.82-1.09) 07/18/16 05:19 - ....Imaging Other: Pending (Echocardiogram) Problem List - Problems (1) Anemia due to chronic kidney disease Assessment/Plan: Stable, H/H better today Code(s): N18.9 - CHRONIC KIDNEY DISEASE, UNSPECIFIED D63.1 - ANEMIA IN CHRONIC KIDNEY DISEASE (2) Chest pain Assessment/Plan: Troponins improving- likely secondary to renal disease, on central vasodilator, dual antiplatelet tx, awaiting Echo. Code(s): R07.9 - CHEST PAIN, UNSPECIFIED (3) Diabetes mellitus with renal manifestation Assessment/Plan: Controlled at this time. Code(s): E11.29 - TYPE 2 DIABETES MELLITUS W OTH DIABETIC KIDNEY COMPLICATION (4) Elevated troponin Code(s): R74.8 - ABNORMAL LEVELS OF OTHER SERUM ENZYMES (5) Failure to thrive in adult Assessment/Plan: Poor oral intake. Nepro ordered. encourage PO intake as tolerated. Code(s): R62.7 - ADULT FAILURE TO THRIVE
[2016-07-20] MEDS: MULTIVITAMINS (DAILY MVI) TABLET (FP) PO SCH (11:25)
[2016-07-20] MEDS: ASPIRIN 81 MG CHEWABLE TABLETS PO SCH (11:25)
[2016-07-20] MEDS: HEPARIN NA (PORCINE) 5,000 UNITS/ML 1ML VIAL SQ SCH ×2 (11:25→22:10)
[2016-07-20] MEDS: PANTOPRAZOLE 40 MG TABLET (FP) PO SCH (11:26)
[2016-07-20] MEDS: SODIUM BICARBONATE 650 MG TABLET PO SCH ×2 (11:26→22:09)
[2016-07-20] MEDS: amLODIPine BESYLATE 10 MG TABLET (FP) PO SCH (11:26)
[2016-07-20] MEDS: DOCUSATE SODIUM 100 MG CAPSULE (FP) PO SCH (11:26)
[2016-07-20] MEDS: MEMANTINE HCL 7 MG PO SCH (11:26)
[2016-07-20] MEDS: hydrALAZINE HCL 25 MG TABLET (FP) PO SCH ×2 (11:26→22:09)
[2016-07-20] MEDS: CLOPIDOGREL BISULFATE 75 MG TABLET (FP) PO SCH (11:26)
--- NOTE | 2016-07-20 12:40 | PN ---
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, Physician History of Present Illness: Awake, not verbally responsive Afebrile WBC improved Breathing non-labored - Current Medication List Current Medications: Active Medications Acetaminophen (Tylenol -) 650 mg PO Q4H PRN PRN Reason: FEVER OR PAIN Amlodipine Besylate (Norvasc -) 10 mg PO DAILY [facility] Last Admin: 07/20/16 11:26 Dose: 10 mg Aspirin (Asa -) 81 mg PO DAILY [facility] Last Admin: 07/20/16 11:25 Dose: 81 mg Atorvastatin Calcium (Lipitor -) 10 mg PO HS [facility] Last Admin: 07/19/16 21:47 Dose: 10 mg Clopidogrel Bisulfate (Plavix -) 75 mg PO DAILY [facility] Last Admin: 07/20/16 11:26 Dose: 75 mg Docusate Sodium (Colace -) 100 mg PO DAILY [facility] Last Admin: 07/20/16 11:26 Dose: 100 mg Donepezil HCl (Aricept -) 5 mg PO HS [facility] Last Admin: 07/19/16 21:47 Dose: 5 mg Heparin Sodium (Porcine) (Heparin -) 5,000 unit SQ BID [facility] Last Admin: 07/20/16 11:25 Dose: 5,000 unit Hydralazine HCl (Apresoline -) 25 mg PO BID [facility] Last Admin: 07/20/16 11:26 Dose: 25 mg Azithromycin (Zithromax 500mg Ivpb (Pre-Docked)) 250 mls @ 250 mls/hr IVPB DAILY [facility] Last Admin: 07/20/16 10:39 Dose: 250 mls/hr Piperacillin Sod/Tazobactam Sod (Zosyn 2.25gm Ivpb (Pre-Docked)) 50 mls @ 100 mls/hr IVPB Q8H-IV [facility] PRN Reason: Protocol Last Admin: 07/20/16 10:39 Dose: 100 mls/hr Insulin Aspart (Novolog Vial) 1 units SQ ACHS [facility] PRN Reason: Protocol Last Admin: 07/20/16 12:22 Dose: Not Given Insulin Detemir (Levemir Vial) 16 units SQ ACBK [facility] Last Admin: 07/20/16 06:03 Dose: 16 unit Meclizine HCl (Antivert -) 25 mg PO Q8H PRN PRN Reason: [facility] Multivitamins/Minerals/Vitamin C (Tab-A-Vit -) 1 tab PO DAILY [facility] Last Admin: 07/20/16 11:25 Dose: 1 tab Non-Formulary Medication (Memantine Hcl [Namenda Xr]) 7 mg PO DAILY [facility] Last Admin: 07/20/16 11:26 Dose: 7 mg Pantoprazole Sodium (Protonix -) 40 mg PO DAILY [facility] Last Admin: 07/20/16 11:26 Dose: 40 mg Sodium Bicarbonate (Sodium Bicarbonate -) 650 mg PO BID [facility] Last Admin: 07/20/16 11:26 Dose: 650 mg - Objective Vital Signs: Vital Signs Temperature 98.7 F 07/20/16 11:22 Pulse Rate 91 H 07/20/16 11:22 Respiratory Rate 20 07/20/16 11:22 Blood Pressure 139/80 07/20/16 11:22 O2 Sat by Pulse Oximetry (%) 96 07/19/16 21:00 Constitutional: Yes: No Distress Cardiovascular: Yes: Regular Rate and Rhythm, S1, S2 Respiratory: Yes: Diminished Gastrointestinal: Yes: Normal Bowel Sounds, Soft. No: Tenderness Extremities: Yes: Other (S/P amputation of toes, both feet +sutures in place L great toe stump site) Edema: No Labs: CBC, BMP 07/19/16 06:00 07/19/16 06:00 INR, PTT INR 1.07 (0.82-1.09) 07/18/16 05:19 Assessment/Plan HCAP UTI CKD OBS Continue zithrtomax/ zosyn, adjusted for renal failure Await cultures
[2016-07-20] MEDS ORDERED: EPOETIN ALFA 3,000 UNIT/1 ML ML IVPUSH ONE (13:21)
--- NOTE | 2016-07-20 13:21 | PN ---
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, Physician History of Present Illness: Pt seen and examined at bedside. She appears comfortable. - Current Medication List Current Medications: Active Medications Acetaminophen (Tylenol -) 650 mg PO Q4H PRN PRN Reason: FEVER OR PAIN Amlodipine Besylate (Norvasc -) 10 mg PO DAILY [facility] Last Admin: 07/20/16 11:26 Dose: 10 mg Aspirin (Asa -) 81 mg PO DAILY [facility] Last Admin: 07/20/16 11:25 Dose: 81 mg Atorvastatin Calcium (Lipitor -) 10 mg PO HS [facility] Last Admin: 07/19/16 21:47 Dose: 10 mg Clopidogrel Bisulfate (Plavix -) 75 mg PO DAILY [facility] Last Admin: 07/20/16 11:26 Dose: 75 mg Docusate Sodium (Colace -) 100 mg PO DAILY [facility] Last Admin: 07/20/16 11:26 Dose: 100 mg Donepezil HCl (Aricept -) 5 mg PO HS [facility] Last Admin: 07/19/16 21:47 Dose: 5 mg Heparin Sodium (Porcine) (Heparin -) 5,000 unit SQ BID [facility] Last Admin: 07/20/16 11:25 Dose: 5,000 unit Hydralazine HCl (Apresoline -) 25 mg PO BID [facility] Last Admin: 07/20/16 11:26 Dose: 25 mg Azithromycin (Zithromax 500mg Ivpb (Pre-Docked)) 250 mls @ 250 mls/hr IVPB DAILY [facility] Last Admin: 07/20/16 10:39 Dose: 250 mls/hr Piperacillin Sod/Tazobactam Sod (Zosyn 2.25gm Ivpb (Pre-Docked)) 50 mls @ 100 mls/hr IVPB Q8H-IV [facility] PRN Reason: Protocol Last Admin: 07/20/16 10:39 Dose: 100 mls/hr Insulin Aspart (Novolog Vial) 1 units SQ ACHS [facility] PRN Reason: Protocol Last Admin: 07/20/16 12:22 Dose: Not Given Insulin Detemir (Levemir Vial) 16 units SQ ACBK [facility] Last Admin: 07/20/16 06:03 Dose: 16 unit Meclizine HCl (Antivert -) 25 mg PO Q8H PRN PRN Reason: [facility] Multivitamins/Minerals/Vitamin C (Tab-A-Vit -) 1 tab PO DAILY [facility] Last Admin: 07/20/16 11:25 Dose: 1 tab Non-Formulary Medication (Memantine Hcl [Namenda Xr]) 7 mg PO DAILY [facility] Last Admin: 07/20/16 11:26 Dose: 7 mg Pantoprazole Sodium (Protonix -) 40 mg PO DAILY [facility] Last Admin: 07/20/16 11:26 Dose: 40 mg Sodium Bicarbonate (Sodium Bicarbonate -) 650 mg PO BID [facility] Last Admin: 07/20/16 11:26 Dose: 650 mg - Objective Vital Signs: Vital Signs Temperature 98.7 F 07/20/16 11:22 Pulse Rate 91 H 07/20/16 11:22 Respiratory Rate 20 07/20/16 11:22 Blood Pressure 139/80 07/20/16 11:22 O2 Sat by Pulse Oximetry (%) 96 07/19/16 21:00 Constitutional: Yes: Calm Eyes: Yes: Conjunctiva Clear HENT: Yes: Atraumatic Neck: Yes: Supple Cardiovascular: Yes: S1, S2 Gastrointestinal: Yes: Soft Genitourinary: Yes: Incontinence Musculoskeletal: Yes: WNL Edema: Yes Wound/Incision: Yes: Dressing Removed Neurological: Yes: Confusion Labs: CBC, BMP 07/19/16 06:00 07/19/16 06:00 INR, PTT INR 1.07 (0.82-1.09) 07/18/16 05:19 - ....Imaging Chest X-ray: Report Reviewed Assessment/Plan Current Medications Generic Name Dose Route Start Last Admin Trade Name Jcq PRN Reason Stop Dose Admin Acetaminophen 650 mg 07/18/16 10:58 Tylenol - PO Q4H PRN FEVER OR PAIN Amlodipine Besylate 10 mg 07/19/16 10:00 07/20/16 11:26 Norvasc - PO 10 mg DAILY [facility] Administration Aspirin 81 mg 07/19/16 10:00 07/20/16 11:25 Asa - PO 81 mg DAILY [facility] Administration Atorvastatin Calcium 10 mg 07/18/16 22:00 07/19/16 21:47 Lipitor - PO 10 mg HS [facility] Administration Clopidogrel Bisulfate 75 mg 07/19/16 10:00 07/20/16 11:26 Plavix - PO 75 mg DAILY [facility] Administration Docusate Sodium 100 mg 07/19/16 10:00 07/20/16 11:26 Colace - PO 100 mg DAILY [facility] Administration Donepezil HCl 5 mg 07/19/16 22:00 07/19/16 21:47 Aricept - PO 5 mg HS [facility] Administration Heparin Sodium (Porcine) 5,000 unit 07/18/16 22:00 07/20/16 11:25 Heparin - SQ 5,000 unit BID [facility] Administration Hydralazine HCl 25 mg 07/18/16 22:00 07/20/16 11:26 Apresoline - PO 25 mg BID [facility] Administration Azithromycin 250 mls @ 250 mls/hr 07/19/16 12:45 07/20/16 10:39 Zithromax 500mg Ivpb (Pre-Docked) IVPB 250 mls/hr DAILY [facility] Administration Piperacillin Sod/Tazobactam Sod 50 mls @ 100 mls/hr 07/19/16 18:00 07/20/16 10: 39 Zosyn 2.25gm Ivpb (Pre-Docked) IVPB 100 mls/hr Q8H-IV [facility] Administration Protocol Insulin Aspart 1 units 07/18/16 16:30 07/20/16 12:22 Novolog Vial SQ Not Given ACHS [facility] Protocol Insulin Detemir 16 units 07/19/16 07:00 07/20/16 06:03 Levemir Vial SQ 16 unit ACBK [facility] Administration Meclizine HCl 25 mg 07/18/16 10:58 Antivert - PO Q8H PRN [facility] Multivitamins/Minerals/Vitamin C 1 tab 07/19/16 10:00 07/20/16 11:25 Tab-A-Vit - PO 1 tab DAILY [facility] Administration Non-Formulary Medication 7 mg 07/19/16 14:45 07/20/16 11:26 Memantine Hcl [Namenda Xr] PO 7 mg DAILY [facility] Administration Pantoprazole Sodium 40 mg 07/19/16 10:00 07/20/16 11:26 Protonix - PO 40 mg DAILY [facility] Administration Sodium Bicarbonate 650 mg 07/18/16 22:00 07/20/16 11:26 Sodium Bicarbonate - PO 650 mg BID [facility] Administration Impression 1. ESRD 2. anemia 3. HTN 4. PVD 5. hyperlipidemia 6. dementia 7. DM 8. PNA Plan - will arrange for HD today - pt missed dialysis yesterday - can stop PO bicarb - abx per ID
--- NOTE | 2016-07-20 14:18 | EKG ---
Test Reason : Blood Pressure : / mmHG Vent. Rate : 101 BPM Atrial Rate : 101 BPM P-R Int : 206 ms QRS Dur : 080 ms QT Int : 350 ms P-R-T Axes : 050 -17 -81 degrees QTc Int : 453 ms SINUS TACHYCARDIA CANNOT RULE OUT ANTEROSEPTAL INFARCT (CITED ON OR BEFORE 27-APR-2016) T WAVE ABNORMALITY, CONSIDER LATERAL ISCHEMIA ABNORMAL ECG WHEN COMPARED WITH ECG OF 18-JUL-2016 10:07, NO SIGNIFICANT CHANGE WAS FOUND Confirmed by GILDARDO PINEDO MD ([id number]) on 07/20/2016 2:17:56 PM Referred By: Nimesh LINDSAY Confirmed By:GILDARDO PINEDO MD
--- NOTE | 2016-07-20 14:48 | PN ---
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, Physician Chief Complaint: No events Telem NSR History of Present Illness: 85F htn, ESRD-HD, chol, PVD, Dementia, CVA, vertigo, anemia admitted from home with agitation and chest pain. The patient cannot give a history of the pain and at this point denies any symptoms. Noted with elevated troponin. - Current Medication List Current Medications: Active Medications Acetaminophen (Tylenol -) 650 mg PO Q4H PRN PRN Reason: FEVER OR PAIN Amlodipine Besylate (Norvasc -) 10 mg PO DAILY [facility] Last Admin: 07/20/16 11:26 Dose: 10 mg Aspirin (Asa -) 81 mg PO DAILY [facility] Last Admin: 07/20/16 11:25 Dose: 81 mg Atorvastatin Calcium (Lipitor -) 10 mg PO HS [facility] Last Admin: 07/19/16 21:47 Dose: 10 mg Clopidogrel Bisulfate (Plavix -) 75 mg PO DAILY [facility] Last Admin: 07/20/16 11:26 Dose: 75 mg Docusate Sodium (Colace -) 100 mg PO DAILY [facility] Last Admin: 07/20/16 11:26 Dose: 100 mg Donepezil HCl (Aricept -) 5 mg PO HS [facility] Last Admin: 07/19/16 21:47 Dose: 5 mg Heparin Sodium (Porcine) (Heparin -) 5,000 unit SQ BID [facility] Last Admin: 07/20/16 11:25 Dose: 5,000 unit Hydralazine HCl (Apresoline -) 25 mg PO BID [facility] Last Admin: 07/20/16 11:26 Dose: 25 mg Azithromycin (Zithromax 500mg Ivpb (Pre-Docked)) 250 mls @ 250 mls/hr IVPB DAILY [facility] Last Admin: 07/20/16 10:39 Dose: 250 mls/hr Piperacillin Sod/Tazobactam Sod (Zosyn 2.25gm Ivpb (Pre-Docked)) 50 mls @ 100 mls/hr IVPB Q8H-IV [facility] PRN Reason: Protocol Last Admin: 07/20/16 10:39 Dose: 100 mls/hr Insulin Aspart (Novolog Vial) 1 units SQ ACHS [facility] PRN Reason: Protocol Last Admin: 07/20/16 12:22 Dose: Not Given Insulin Detemir (Levemir Vial) 16 units SQ ACBK [facility] Last Admin: 07/20/16 06:03 Dose: 16 unit Meclizine HCl (Antivert -) 25 mg PO Q8H PRN PRN Reason: [facility] Multivitamins/Minerals/Vitamin C (Tab-A-Vit -) 1 tab PO DAILY [facility] Last Admin: 07/20/16 11:25 Dose: 1 tab Non-Formulary Medication (Memantine Hcl [Namenda Xr]) 7 mg PO DAILY [facility] Last Admin: 07/20/16 11:26 Dose: 7 mg Pantoprazole Sodium (Protonix -) 40 mg PO DAILY [facility] Last Admin: 07/20/16 11:26 Dose: 40 mg Sodium Bicarbonate (Sodium Bicarbonate -) 650 mg PO BID [facility] Last Admin: 07/20/16 11:26 Dose: 650 mg - Objective Vital Signs: Vital Signs Temperature 98.7 F 07/20/16 11:22 Pulse Rate 91 H 07/20/16 11:22 Respiratory Rate 20 07/20/16 11:22 Blood Pressure 139/80 07/20/16 11:22 O2 Sat by Pulse Oximetry (%) 96 07/19/16 21:00 Constitutional: Yes: No Distress Eyes: Yes: WNL HENT: Yes: WNL Neck: Yes: WNL Cardiovascular: Yes: WNL Respiratory: Yes: WNL Gastrointestinal: Yes: WNL Extremities: Yes: WNL Edema: No Labs: CBC, BMP 07/19/16 06:00 07/19/16 06:00 INR, PTT INR 1.07 (0.82-1.09) 07/18/16 05:19 Assessment/Plan (1) Elevated troponin Assessment/Plan: I believe that this troponin represents a nonischemic pattern due to renal disease. Would not pursue ischemia workup. Echo pending.
[2016-07-20] MEDS: DONEPEZIL HCL 5 MG TABLET (FP) PO SCH (22:09)
[2016-07-20] MEDS: ATORVASTATIN CA 10 MG TABLET (FP) PO SCH (22:09)
[2016-07-21] MEDS: PIPERACILLIN/TAZOB 2.25 GM 50 ML IVPB SCH ×2 (01:47→10:14)
[2016-07-21] MEDS: INSULIN (NOVOLOG) ASPART 100 UNITS/ML 10ML VIAL SQ SCH ×4 (06:40→22:18)
[2016-07-21] MEDS: INSULIN DETEMIR 100 UNITS/ML MDV SQ SCH (06:43)
[2016-07-21] MEDS: DOCUSATE SODIUM 100 MG CAPSULE (FP) PO SCH (10:18)
[2016-07-21] MEDS: AZITHROMYCIN IVPB 250 ML IVPB SCH (10:18)
[2016-07-21] MEDS: HEPARIN NA (PORCINE) 5,000 UNITS/ML 1ML VIAL SQ SCH ×2 (10:19→22:18)
[2016-07-21] MEDS: MULTIVITAMINS (DAILY MVI) TABLET (FP) PO SCH (10:19)
[2016-07-21] MEDS: hydrALAZINE HCL 25 MG TABLET (FP) PO SCH ×2 (10:19→22:17)
[2016-07-21] MEDS: CLOPIDOGREL BISULFATE 75 MG TABLET (FP) PO SCH (10:19)
[2016-07-21] MEDS: ASPIRIN 81 MG CHEWABLE TABLETS PO SCH (10:19)
[2016-07-21] MEDS: amLODIPine BESYLATE 10 MG TABLET (FP) PO SCH (10:19)
[2016-07-21] MEDS: SODIUM BICARBONATE 650 MG TABLET PO SCH (10:19)
[2016-07-21] MEDS: PANTOPRAZOLE 40 MG TABLET (FP) PO SCH (10:19)
[2016-07-21] MEDS: MEMANTINE HCL 7 MG PO SCH (10:21)
--- NOTE | 2016-07-21 10:53 | PN ---
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, Physician Chief Complaint: ID Resting in bed NAD not SOB or couphing Zosyn Azithromycin Always afebrile - Current Medication List Current Medications: Active Medications Acetaminophen (Tylenol -) 650 mg PO Q4H PRN PRN Reason: FEVER OR PAIN Amlodipine Besylate (Norvasc -) 10 mg PO DAILY [facility] Last Admin: 07/21/16 10:19 Dose: 10 mg Aspirin (Asa -) 81 mg PO DAILY [facility] Last Admin: 07/21/16 10:19 Dose: 81 mg Atorvastatin Calcium (Lipitor -) 10 mg PO HS [facility] Last Admin: 07/20/16 22:09 Dose: 10 mg Clopidogrel Bisulfate (Plavix -) 75 mg PO DAILY [facility] Last Admin: 07/21/16 10:19 Dose: 75 mg Docusate Sodium (Colace -) 100 mg PO DAILY [facility] Last Admin: 07/21/16 10:18 Dose: Not Given Donepezil HCl (Aricept -) 5 mg PO HS [facility] Last Admin: 07/20/16 22:09 Dose: 5 mg Heparin Sodium (Porcine) (Heparin -) 5,000 unit SQ BID [facility] Last Admin: 07/21/16 10:19 Dose: 5,000 unit Hydralazine HCl (Apresoline -) 25 mg PO BID [facility] Last Admin: 07/21/16 10:19 Dose: 25 mg Azithromycin (Zithromax 500mg Ivpb (Pre-Docked)) 250 mls @ 250 mls/hr IVPB DAILY [facility] Last Admin: 07/21/16 10:18 Dose: 250 mls/hr Piperacillin Sod/Tazobactam Sod (Zosyn 2.25gm Ivpb (Pre-Docked)) 50 mls @ 100 mls/hr IVPB Q8H-IV [facility] PRN Reason: Protocol Last Admin: 07/21/16 10:14 Dose: 100 mls/hr Insulin Aspart (Novolog Vial) 1 units SQ ACHS [facility] PRN Reason: Protocol Last Admin: 07/21/16 06:40 Dose: Not Given Insulin Detemir (Levemir Vial) 16 units SQ ACBK [facility] Last Admin: 07/21/16 06:43 Dose: 16 unit Meclizine HCl (Antivert -) 25 mg PO Q8H PRN PRN Reason: [facility] Multivitamins/Minerals/Vitamin C (Tab-A-Vit -) 1 tab PO DAILY [facility] Last Admin: 07/21/16 10:19 Dose: 1 tab Non-Formulary Medication (Memantine Hcl [Namenda Xr]) 7 mg PO DAILY [facility] Last Admin: 07/21/16 10:21 Dose: 7 mg Pantoprazole Sodium (Protonix -) 40 mg PO DAILY [facility] Last Admin: 07/21/16 10:19 Dose: 40 mg Sodium Bicarbonate (Sodium Bicarbonate -) 650 mg PO BID [facility] Last Admin: 07/21/16 10:19 Dose: 650 mg - Objective Vital Signs: Vital Signs Temperature 98.8 F 07/21/16 06:00 Pulse Rate 92 H 07/21/16 06:00 Respiratory Rate 20 07/21/16 06:00 Blood Pressure 148/66 07/21/16 06:00 O2 Sat by Pulse Oximetry (%) 97 07/20/16 21:00 Constitutional: Yes: No Distress Neck: Yes: WNL, Supple Cardiovascular: Yes: S1, S2, Other (Grade 2 systolic murmur) Respiratory: Yes: WNL, Regular, CTA Bilaterally, Diminished Gastrointestinal: Yes: WNL, Soft. No: Tenderness, Tenderness, Epigastrium Edema: No Labs: CBC, BMP 07/19/16 06:00 07/19/16 06:00 INR, PTT INR 1.07 (0.82-1.09) 07/18/16 05:19 Assessment/Plan Microbiology 07/19/16 18:25 Urine For Antigen Detection Legionella Antigen - Final 07/19/16 18:25 Urine For Antigen Detection Streptococcus pneumoniae Antigen (M - Final 07/18/16 06:15 Blood - Peripheral Venous Blood Culture - Preliminary Pending Organism 07/18/16 06:15 Blood - Peripheral Venous Blood Culture - Preliminary NO GROWTH OBTAINED AFTER 72 HOURS, INCUBATION TO CONTINUE FOR 2 DAYS. Laboratory Tests 07/18/16 07/19/16 05:19 06:00 WBC 11.2 H D 9.0 Hgb 9.5 L Hct 29.3 L Plt Count 215 Assessment CHF Bilateral effusions ESRD NO PNA 1/4 blood cultures GPC probable contaminant Plan Stop all antibiotics Will follow up the blood culture though I dont think significant Tc SALDIVAR
--- NOTE | 2016-07-21 11:38 | PN ---
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, Physician History of Present Illness: Pt seen and examined at bedside. She is awake and appears comfortable. She tolerated HD yesterday. - Current Medication List Current Medications: Active Medications Acetaminophen (Tylenol -) 650 mg PO Q4H PRN PRN Reason: FEVER OR PAIN Amlodipine Besylate (Norvasc -) 10 mg PO DAILY [facility] Last Admin: 07/21/16 10:19 Dose: 10 mg Aspirin (Asa -) 81 mg PO DAILY [facility] Last Admin: 07/21/16 10:19 Dose: 81 mg Atorvastatin Calcium (Lipitor -) 10 mg PO HS [facility] Last Admin: 07/20/16 22:09 Dose: 10 mg Clopidogrel Bisulfate (Plavix -) 75 mg PO DAILY [facility] Last Admin: 07/21/16 10:19 Dose: 75 mg Docusate Sodium (Colace -) 100 mg PO DAILY [facility] Last Admin: 07/21/16 10:18 Dose: Not Given Donepezil HCl (Aricept -) 5 mg PO HS [facility] Last Admin: 07/20/16 22:09 Dose: 5 mg Heparin Sodium (Porcine) (Heparin -) 5,000 unit SQ BID [facility] Last Admin: 07/21/16 10:19 Dose: 5,000 unit Hydralazine HCl (Apresoline -) 25 mg PO BID [facility] Last Admin: 07/21/16 10:19 Dose: 25 mg Insulin Aspart (Novolog Vial) 1 units SQ ACHS [facility] PRN Reason: Protocol Last Admin: 07/21/16 06:40 Dose: Not Given Insulin Detemir (Levemir Vial) 16 units SQ ACBK [facility] Last Admin: 07/21/16 06:43 Dose: 16 unit Meclizine HCl (Antivert -) 25 mg PO Q8H PRN PRN Reason: [facility]O Multivitamins/Minerals/Vitamin C (Tab-A-Vit -) 1 tab PO DAILY [facility] Last Admin: 07/21/16 10:19 Dose: 1 tab Non-Formulary Medication (Memantine Hcl [Namenda Xr]) 7 mg PO DAILY [facility] Last Admin: 07/21/16 10:21 Dose: 7 mg Pantoprazole Sodium (Protonix -) 40 mg PO DAILY [facility] Last Admin: 07/21/16 10:19 Dose: 40 mg Sodium Bicarbonate (Sodium Bicarbonate -) 650 mg PO BID [facility] Last Admin: 07/21/16 10:19 Dose: 650 mg - Objective Vital Signs: Vital Signs Temperature 98.2 F 07/21/16 10:00 Pulse Rate 97 H 07/21/16 10:20 Respiratory Rate 20 07/21/16 10:00 Blood Pressure 148/75 07/21/16 10:00 O2 Sat by Pulse Oximetry (%) 99 07/21/16 10:20 Constitutional: Yes: Calm Eyes: Yes: Conjunctiva Clear HENT: Yes: Atraumatic Neck: Yes: Supple Cardiovascular: Yes: S1, S2 Respiratory: Yes: CTA Bilaterally Gastrointestinal: Yes: Normal Bowel Sounds, Soft Genitourinary: Yes: Incontinence Musculoskeletal: Yes: Muscle Weakness Edema: No Neurological: Yes: Confusion Labs: CBC, BMP 07/19/16 06:00 07/19/16 06:00 INR, PTT INR 1.07 (0.82-1.09) 07/18/16 05:19 Assessment/Plan Current Medications Generic Name Dose Route Start Last Admin Trade Name Freq PRN Reason Stop Dose Admin Acetaminophen 650 mg 07/18/16 10:58 Tylenol - PO Q4H PRN FEVER OR PAIN Amlodipine Besylate 10 mg 07/19/16 10:00 07/21/16 10:19 Norvasc - PO 10 mg DAILY [facility] Administration Aspirin 81 mg 07/19/16 10:00 07/21/16 10:19 Asa - PO 81 mg DAILY [facility] Administration Atorvastatin Calcium 10 mg 07/18/16 22:00 07/20/16 22:09 Lipitor - PO 10 mg HS [facility] Administration Clopidogrel Bisulfate 75 mg 07/19/16 10:00 07/21/16 10:19 Plavix - PO 75 mg DAILY [facility] Administration Docusate Sodium 100 mg 07/19/16 10:00 07/21/16 10:18 Colace - PO Not Given DAILY [facility] Donepezil HCl 5 mg 07/19/16 22:00 07/20/16 22:09 Aricept - PO 5 mg HS [facility] Administration Heparin Sodium (Porcine) 5,000 unit 07/18/16 22:00 07/21/16 10:19 Heparin - SQ 5,000 unit BID [facility] Administration Hydralazine HCl 25 mg 07/18/16 22:00 07/21/16 10:19 Apresoline - PO 25 mg BID [facility] Administration Insulin Aspart 1 units 07/18/16 16:30 07/21/16 06:40 Novolog Vial SQ Not Given ACHS [facility] Protocol Insulin Detemir 16 units 07/19/16 07:00 07/21/16 06:43 Levemir Vial SQ 16 unit ACBK [facility] Administration Meclizine HCl 25 mg 07/18/16 10:58 Antivert - PO Q8H PRN [facility] Multivitamins/Minerals/Vitamin C 1 tab 07/19/16 10:00 07/21/16 10:19 Tab-A-Vit - PO 1 tab DAILY [facility] Administration Non-Formulary Medication 7 mg 07/19/16 14:45 07/21/16 10:21 Memantine Hcl [Namenda Xr] PO 7 mg DAILY [facility] Administration Pantoprazole Sodium 40 mg 07/19/16 10:00 07/21/16 10:19 Protonix - PO 40 mg DAILY [facility] Administration Sodium Bicarbonate 650 mg 07/18/16 22:00 07/21/16 10:19 Sodium Bicarbonate - PO 650 mg BID [facility] Administration Impression 1. ESRD 2. anemia 3. HTN 4. PVD 5. hyperlipidemia 6. dementia 7. DM 8. PNA Plan - HD in am - ID input appreciated - please stop PO bicarb - HD is set up as outpt - encourage PO intake - monitor blood pressure Dr Fox
--- NOTE | 2016-07-21 11:45 | PN ---
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, Physician Chief Complaint: Chest pain History of Present Illness: Patient originally came in with cc of Chest pain as per her [employer]. Patient is non verbal at this time, NAD, comfortable in bed. - Current Medication List Current Medications: Active Medications Acetaminophen (Tylenol -) 650 mg PO Q4H PRN PRN Reason: FEVER OR PAIN Amlodipine Besylate (Norvasc -) 10 mg PO DAILY [facility] Last Admin: 07/21/16 10:19 Dose: 10 mg Aspirin (Asa -) 81 mg PO DAILY [facility] Last Admin: 07/21/16 10:19 Dose: 81 mg Atorvastatin Calcium (Lipitor -) 10 mg PO HS [facility] Last Admin: 07/20/16 22:09 Dose: 10 mg Clopidogrel Bisulfate (Plavix -) 75 mg PO DAILY [facility] Last Admin: 07/21/16 10:19 Dose: 75 mg Docusate Sodium (Colace -) 100 mg PO DAILY [facility] Last Admin: 07/21/16 10:18 Dose: Not Given Donepezil HCl (Aricept -) 5 mg PO HS [facility] Last Admin: 07/20/16 22:09 Dose: 5 mg Epoetin Efren (Epogen -) 3,000 units IVPUSH ONCE ONE Stop: 07/22/16 11:40 Heparin Sodium (Porcine) (Heparin -) 5,000 unit SQ BID [facility] Last Admin: 07/21/16 10:19 Dose: 5,000 unit Heparin Sodium (Porcine) (Heparin -) 1,000 unit IVPUSH ONCE ONE Stop: 07/22/16 11:40 Hydralazine HCl (Apresoline -) 25 mg PO BID [facility] Last Admin: 07/21/16 10:19 Dose: 25 mg Insulin Aspart (Novolog Vial) 1 units SQ ACHS [facility] PRN Reason: Protocol Last Admin: 07/21/16 06:40 Dose: Not Given Insulin Detemir (Levemir Vial) 16 units SQ ACBK [facility] Last Admin: 07/21/16 06:43 Dose: 16 unit Meclizine HCl (Antivert -) 25 mg PO Q8H PRN PRN Reason: VERTIGO Multivitamins/Minerals/Vitamin C (Tab-A-Vit -) 1 tab PO DAILY [facility] Last Admin: 07/21/16 10:19 Dose: 1 tab Non-Formulary Medication (Memantine Hcl [Namenda Xr]) 7 mg PO DAILY [facility] Last Admin: 07/21/16 10:21 Dose: 7 mg Pantoprazole Sodium (Protonix -) 40 mg PO DAILY [facility] Last Admin: 07/21/16 10:19 Dose: 40 mg - Objective Vital Signs: Vital Signs Temperature 98.2 F 07/21/16 10:00 Pulse Rate 97 H 07/21/16 10:20 Respiratory Rate 20 07/21/16 10:00 Blood Pressure 148/75 07/21/16 10:00 O2 Sat by Pulse Oximetry (%) 99 07/21/16 10:20 Constitutional: Yes: Well Nourished, No Distress, Calm Cardiovascular: Yes: Regular Rate and Rhythm, Murmur, S1, S2 Respiratory: Yes: Regular Gastrointestinal: Yes: Normal Bowel Sounds Musculoskeletal: Yes: WNL Extremities: Yes: WNL Edema: No Neurological: Yes: Alert, Aphasia Labs: CBC, BMP 07/19/16 06:00 07/19/16 06:00 INR, PTT INR 1.07 (0.82-1.09) 07/18/16 05:19 Problem List - Problems (1) Anemia due to chronic kidney disease Assessment/Plan: Stable Code(s): N18.9 - CHRONIC KIDNEY DISEASE, UNSPECIFIED D63.1 - ANEMIA IN CHRONIC KIDNEY DISEASE (2) Diabetes mellitus with renal manifestation Code(s): E11.29 - TYPE 2 DIABETES MELLITUS W H DIABETIC KIDNEY COMPLICATION (3) Elevated troponin Code(s): R74.8 - ABNORMAL LEVELS OF OTHER SERUM ENZYMES (4) Failure to thrive in adult Assessment/Plan: Poor oral intake. Nepro ordered. encourage PO intake as tolerated. Code(s): R62.7 - ADULT FAILURE TO THRIVE Assessment/Plan D/C ABX, D/C PO hco3, HD in AM, Echo is non significant. Large pleural effusions on CT chest. Pull out more volume during HD. Plan D/C home.
--- NOTE | 2016-07-21 16:33 | PN ---
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, Physician Chief Complaint: No events Telem NSR History of Present Illness: 85F htn, ESRD-HD, chol, PVD, Dementia, CVA, vertigo, anemia admitted from home with agitation and chest pain. The patient cannot give a history of the pain and at this point denies any symptoms. Noted with elevated troponin. - Current Medication List Current Medications: Active Medications Acetaminophen (Tylenol -) 650 mg PO Q4H PRN PRN Reason: FEVER OR PAIN Amlodipine Besylate (Norvasc -) 10 mg PO DAILY [facility] Last Admin: 07/21/16 10:19 Dose: 10 mg Aspirin (Asa -) 81 mg PO DAILY [facility] Last Admin: 07/21/16 10:19 Dose: 81 mg Atorvastatin Calcium (Lipitor -) 10 mg PO HS [facility] Last Admin: 07/20/16 22:09 Dose: 10 mg Clopidogrel Bisulfate (Plavix -) 75 mg PO DAILY [facility] Last Admin: 07/21/16 10:19 Dose: 75 mg Docusate Sodium (Colace -) 100 mg PO DAILY [facility] Last Admin: 07/21/16 10:18 Dose: Not Given Donepezil HCl (Aricept -) 5 mg PO HS [facility] Last Admin: 07/20/16 22:09 Dose: 5 mg Epoetin Efren (Procrit -) 3,000 unit IVPUSH ONCE ONE Stop: 07/22/16 11:40 Heparin Sodium (Porcine) (Heparin -) 5,000 unit SQ BID [facility] Last Admin: 07/21/16 10:19 Dose: 5,000 unit Heparin Sodium (Porcine) (Heparin -) 1,000 unit IVPUSH ONCE ONE Stop: 07/22/16 11:40 Hydralazine HCl (Apresoline -) 25 mg PO BID [facility] Last Admin: 07/21/16 10:19 Dose: 25 mg Insulin Aspart (Novolog Vial) 1 units SQ ACHS [facility] PRN Reason: Protocol Last Admin: 07/21/16 12:02 Dose: Not Given Insulin Detemir (Levemir Vial) 16 units SQ ACBK [facility] Last Admin: 07/21/16 06:43 Dose: 16 unit Meclizine HCl (Antivert -) 25 mg PO Q8H PRN PRN Reason: VERTIGO Multivitamins/Minerals/Vitamin C (Tab-A-Vit -) 1 tab PO DAILY [facility] Last Admin: 07/21/16 10:19 Dose: 1 tab Non-Formulary Medication (Memantine Hcl [Namenda Xr]) 7 mg PO DAILY [facility] Last Admin: 07/21/16 10:21 Dose: 7 mg Pantoprazole Sodium (Protonix -) 40 mg PO DAILY [facility] Last Admin: 07/21/16 10:19 Dose: 40 mg - Objective Vital Signs: Vital Signs Temperature 98.2 F 07/21/16 14:17 Pulse Rate 90 07/21/16 14:17 Respiratory Rate 18 07/21/16 14:17 Blood Pressure 126/61 07/21/16 14:17 O2 Sat by Pulse Oximetry (%) 99 07/21/16 10:20 Constitutional: Yes: Well Nourished, No Distress, Calm Eyes: Yes: WNL HENT: Yes: WNL Neck: Yes: WNL Cardiovascular: Yes: WNL, Regular Rate and Rhythm Respiratory: Yes: WNL, Regular Edema: No Labs: CBC, BMP 07/19/16 06:00 07/19/16 06:00 INR, PTT INR 1.07 (0.82-1.09) 07/18/16 05:19 Assessment/Plan Echocardiogram with mild global LV dysfunction and EF 45%. Has a significant pleural effusion. Medical management is advised. Add Metoprolol XL 12.5mg qd Will see as needed.
[2016-07-21] MEDS: ATORVASTATIN CA 10 MG TABLET (FP) PO SCH (22:17)
[2016-07-21] MEDS: DONEPEZIL HCL 5 MG TABLET (FP) PO SCH (22:17)
[2016-07-22] MEDS: INSULIN DETEMIR 100 UNITS/ML MDV SQ SCH (06:01)
[2016-07-22] MEDS: INSULIN SLIDING SCALE (NOVOLOG) 1 VIAL SQ SCH ×4 (06:09→21:46)
[2016-07-22 08:43] LABS: BASOPHIL 0.8 % (0-2.0); EOSINOPHIL 3.5 % (0-4.5); MCH 28.8 pg (25.7-33.7); MCHC 32.9 g/dl (32.0-36.0); MEAN CELL VOLUME 87.6 fl (80-96); MEAN PLT VOLUME 7.4 fl (7.5-11.1); NEUTROPHILS 74.6 % (42.8-82.8); PLATELET COUNT 227 K/MM3 (134-434); WHITE BLOOD COUNT 7.1 K/mm3 (4.0-10.0)
[2016-07-22] MEDS ORDERED: EPOETIN ALFA 3,000 UNIT/1 ML ML IVPUSH ONE (09:00)
[2016-07-22] MEDS ORDERED: HEPARIN NA (PORCINE) 5,000 UNITS/ML 1ML VIAL IVPUSH ONE (09:00)
[2016-07-22 09:26] LABS: ALBUMIN 2.9 g/dl (3.4-5.0); CALCIUM 8.7 mg/dL (8.5-10.1)
[2016-07-22 09:31] LABS: BILIRUBIN,TOTAL 0.4 mg/dL (0.2-1.0); COCKROFT - GAULT 10.302; CREATININE 3.7 mg/dL (0.55-1.02); TOT PROT 6.8 g/dl (6.4-8.2)
[2016-07-22] MEDS: MULTIVITAMINS (DAILY MVI) TABLET (FP) PO SCH (11:18)
[2016-07-22] MEDS: DOCUSATE SODIUM 100 MG CAPSULE (FP) PO SCH (11:18)
[2016-07-22] MEDS: METOPROLOL SUCCINATE 25 MG TAB.SR.24H (FP) PO SCH (11:18)
[2016-07-22] MEDS: hydrALAZINE HCL 25 MG TABLET (FP) PO SCH ×2 (11:19→21:46)
[2016-07-22] MEDS: ASPIRIN 81 MG CHEWABLE TABLETS PO SCH (11:19)
[2016-07-22] MEDS: amLODIPine BESYLATE 10 MG TABLET (FP) PO SCH (11:19)
[2016-07-22] MEDS: CLOPIDOGREL BISULFATE 75 MG TABLET (FP) PO SCH (11:19)
[2016-07-22] MEDS: PANTOPRAZOLE 40 MG TABLET (FP) PO SCH (11:19)
[2016-07-22] MEDS: HEPARIN NA (PORCINE) 5,000 UNITS/ML 1ML VIAL SQ SCH ×2 (11:20→21:46)
[2016-07-22] MEDS: MEMANTINE HCL 7 MG PO SCH (11:20)
--- NOTE | 2016-07-22 12:42 | PN ---
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, Physician History of Present Illness: Pt seen and examined in HD. She is tolerating dialysis so far. - Current Medication List Current Medications: Active Medications Acetaminophen (Tylenol -) 650 mg PO Q4H PRN PRN Reason: FEVER OR PAIN Amlodipine Besylate (Norvasc -) 10 mg PO DAILY [facility] Last Admin: 07/22/16 11:19 Dose: 10 mg Aspirin (Asa -) 81 mg PO DAILY [facility] Last Admin: 07/22/16 11:19 Dose: 81 mg Atorvastatin Calcium (Lipitor -) 10 mg PO HS [facility] Last Admin: 07/21/16 22:17 Dose: 10 mg Clopidogrel Bisulfate (Plavix -) 75 mg PO DAILY [facility] Last Admin: 07/22/16 11:19 Dose: 75 mg Docusate Sodium (Colace -) 100 mg PO DAILY [facility] Last Admin: 07/22/16 11:18 Dose: Not Given Donepezil HCl (Aricept -) 5 mg PO HS [facility] Last Admin: 07/21/16 22:17 Dose: 5 mg Heparin Sodium (Porcine) (Heparin -) 5,000 unit SQ BID [facility] Last Admin: 07/22/16 11:20 Dose: 5,000 unit Hydralazine HCl (Apresoline -) 25 mg PO BID [facility] Last Admin: 07/22/16 11:19 Dose: 25 mg Insulin Aspart (Novolog Vial Sliding Scale -) 1 vial SQ ACHS [facility] PRN Reason: Protocol Last Admin: 07/22/16 11:21 Dose: Not Given Insulin Detemir (Levemir Vial) 16 units SQ ACBK [facility] Last Admin: 07/22/16 06:01 Dose: 16 unit Meclizine HCl (Antivert -) 25 mg PO Q8H PRN PRN Reason: VERTIGO Metoprolol Succinate (Toprol Xl -) 12.5 mg PO DAILY [facility] Last Admin: 07/22/16 11:18 Dose: 12.5 mg Multivitamins/Minerals/Vitamin C (Tab-A-Vit -) 1 tab PO DAILY [facility] Last Admin: 07/22/16 11:18 Dose: 1 tab Non-Formulary Medication (Memantine Hcl [Namenda Xr]) 7 mg PO DAILY [facility] Last Admin: 07/22/16 11:20 Dose: 7 mg Pantoprazole Sodium (Protonix -) 40 mg PO DAILY [facility] Last Admin: 07/22/16 11:19 Dose: 40 mg - Objective Vital Signs: Vital Signs Temperature 98.1 F 07/22/16 07:25 Pulse Rate 35 L 07/22/16 11:00 Respiratory Rate 18 07/22/16 11:00 Blood Pressure 141/66 07/22/16 11:00 O2 Sat by Pulse Oximetry (%) 98 07/22/16 09:00 Constitutional: Yes: Calm Eyes: Yes: Conjunctiva Clear HENT: Yes: Atraumatic Cardiovascular: Yes: S1, S2 Respiratory: Yes: CTA Bilaterally Gastrointestinal: Yes: Normal Bowel Sounds, Soft Genitourinary: Yes: Incontinence Musculoskeletal: Yes: Muscle Weakness Edema: No Neurological: Yes: Confusion Labs: CBC, BMP 07/22/16 07:30 07/22/16 07:30 INR, PTT INR 1.07 (0.82-1.09) 07/18/16 05:19 Assessment/Plan Current Medications Generic Name Dose Route Start Last Admin Trade Name Freq PRN Reason Stop Dose Admin Acetaminophen 650 mg 07/18/16 10:58 Tylenol - PO Q4H PRN FEVER OR PAIN Amlodipine Besylate 10 mg 07/19/16 10:00 07/22/16 11:19 Norvasc - PO 10 mg DAILY [facility] Administration Aspirin 81 mg 07/19/16 10:00 07/22/16 11:19 Asa - PO 81 mg DAILY [facility] Administration Atorvastatin Calcium 10 mg 07/18/16 22:00 07/21/16 22:17 Lipitor - PO 10 mg HS [facility] Administration Clopidogrel Bisulfate 75 mg 07/19/16 10:00 07/22/16 11:19 Plavix - PO 75 mg DAILY [facility] Administration Docusate Sodium 100 mg 07/19/16 10:00 07/22/16 11:18 Colace - PO Not Given DAILY [facility] Donepezil HCl 5 mg 07/19/16 22:00 07/21/16 22:17 Aricept - PO 5 mg HS [facility] Administration Heparin Sodium (Porcine) 5,000 unit 07/18/16 22:00 07/22/16 11:20 Heparin - SQ 5,000 unit BID [facility] Administration Hydralazine HCl 25 mg 07/18/16 22:00 07/22/16 11:19 Apresoline - PO 25 mg BID [facility] Administration Insulin Aspart 1 vial 07/22/16 07:00 07/22/16 11:21 Novolog Vial Sliding Scale - SQ Not Given ACHS [facility] Protocol Insulin Detemir 16 units 07/19/16 07:00 07/22/16 06:01 Levemir Vial SQ 16 unit ACBK [facility] Administration Meclizine HCl 25 mg 07/18/16 10:58 Antivert - PO Q8H PRN [facility] Metoprolol Succinate 12.5 mg 07/22/16 10:15 07/22/16 11:18 Toprol Xl - PO 12.5 mg DAILY [facility] Administration Multivitamins/Minerals/Vitamin C 1 tab 07/19/16 10:00 07/22/16 11:18 Tab-A-Vit - PO 1 tab DAILY [facility] Administration Non-Formulary Medication 7 mg 07/19/16 14:45 07/22/16 11:20 Memantine Hcl [Namenda Xr] PO 7 mg DAILY [facility] Administration Pantoprazole Sodium 40 mg 07/19/16 10:00 07/22/16 11:19 Protonix - PO 40 mg DAILY [facility] Administration Impression 1. ESRD 2. anemia 3. HTN 4. PVD 5. hyperlipidemia 6. dementia 7. DM 8. PNA Plan - pt tolerated HD today - cont current meds - no acute change in management - HD is set up as outpt - encourage PO intake - monitor blood pressure Dr Fox
--- NOTE | 2016-07-22 12:52 | PN ---
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, Physician - Current Medication List Current Medications: Active Medications Acetaminophen (Tylenol -) 650 mg PO Q4H PRN PRN Reason: FEVER OR PAIN Amlodipine Besylate (Norvasc -) 10 mg PO DAILY [facility] Last Admin: 07/22/16 11:19 Dose: 10 mg Aspirin (Asa -) 81 mg PO DAILY [facility] Last Admin: 07/22/16 11:19 Dose: 81 mg Atorvastatin Calcium (Lipitor -) 10 mg PO HS [facility] Last Admin: 07/21/16 22:17 Dose: 10 mg Clopidogrel Bisulfate (Plavix -) 75 mg PO DAILY [facility] Last Admin: 07/22/16 11:19 Dose: 75 mg Docusate Sodium (Colace -) 100 mg PO DAILY [facility] Last Admin: 07/22/16 11:18 Dose: Not Given Donepezil HCl (Aricept -) 5 mg PO HS [facility] Last Admin: 07/21/16 22:17 Dose: 5 mg Heparin Sodium (Porcine) (Heparin -) 5,000 unit SQ BID [facility] Last Admin: 07/22/16 11:20 Dose: 5,000 unit Hydralazine HCl (Apresoline -) 25 mg PO BID [facility] Last Admin: 07/22/16 11:19 Dose: 25 mg Insulin Aspart (Novolog Vial Sliding Scale -) 1 vial SQ ACHS [facility] PRN Reason: Protocol Last Admin: 07/22/16 11:21 Dose: Not Given Insulin Detemir (Levemir Vial) 16 units SQ ACBK [facility] Last Admin: 07/22/16 06:01 Dose: 16 unit Meclizine HCl (Antivert -) 25 mg PO Q8H PRN PRN Reason: VERTIGO Metoprolol Succinate (Toprol Xl -) 12.5 mg PO DAILY [facility] Last Admin: 07/22/16 11:18 Dose: 12.5 mg Multivitamins/Minerals/Vitamin C (Tab-A-Vit -) 1 tab PO DAILY [facility] Last Admin: 07/22/16 11:18 Dose: 1 tab Non-Formulary Medication (Memantine Hcl [Namenda Xr]) 7 mg PO DAILY [facility] Last Admin: 07/22/16 11:20 Dose: 7 mg Pantoprazole Sodium (Protonix -) 40 mg PO DAILY [facility] Last Admin: 07/22/16 11:19 Dose: 40 mg - Objective Vital Signs: Vital Signs Temperature 98.1 F 07/22/16 12:30 Pulse Rate 89 07/22/16 12:30 Respiratory Rate 18 07/22/16 12:30 Blood Pressure 148/64 07/22/16 12:30 O2 Sat by Pulse Oximetry (%) 98 07/22/16 09:00 Constitutional: Yes: Calm Neck: Yes: Trachea Midline Cardiovascular: Yes: Regular Rate and Rhythm, S1, S2 Respiratory: Yes: CTA Bilaterally Gastrointestinal: Yes: Normal Bowel Sounds, Soft Edema: No Neurological: Yes: Alert Labs: CBC, BMP 07/22/16 07:30 07/22/16 07:30 INR, PTT INR 1.07 (0.82-1.09) 07/18/16 05:19 Assessment/Plan ESRD on HD tolerated session today bilateral effusion will get pulm input dementia on aricept and nameda DM on insulin BGM ok mental status calm not agitated
--- NOTE | 2016-07-22 16:56 | PN ---
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, Physician History of Present Illness: Awake, confused No acute distress Afebrile WBC WNL Off antibiotics - Current Medication List Current Medications: Active Medications Acetaminophen (Tylenol -) 650 mg PO Q4H PRN PRN Reason: FEVER OR PAIN Amlodipine Besylate (Norvasc -) 10 mg PO DAILY [facility] Last Admin: 07/22/16 11:19 Dose: 10 mg Aspirin (Asa -) 81 mg PO DAILY [facility] Last Admin: 07/22/16 11:19 Dose: 81 mg Atorvastatin Calcium (Lipitor -) 10 mg PO HS [facility] Last Admin: 07/21/16 22:17 Dose: 10 mg Clopidogrel Bisulfate (Plavix -) 75 mg PO DAILY [facility] Last Admin: 07/22/16 11:19 Dose: 75 mg Docusate Sodium (Colace -) 100 mg PO DAILY [facility] Last Admin: 07/22/16 11:18 Dose: Not Given Donepezil HCl (Aricept -) 5 mg PO HS [facility] Last Admin: 07/21/16 22:17 Dose: 5 mg Heparin Sodium (Porcine) (Heparin -) 5,000 unit SQ BID [facility] Last Admin: 07/22/16 11:20 Dose: 5,000 unit Hydralazine HCl (Apresoline -) 25 mg PO BID [facility] Last Admin: 07/22/16 11:19 Dose: 25 mg Insulin Aspart (Novolog Vial Sliding Scale -) 1 vial SQ ACHS [facility] PRN Reason: Protocol Last Admin: 07/22/16 11:21 Dose: Not Given Insulin Detemir (Levemir Vial) 16 units SQ ACBK [facility] Last Admin: 07/22/16 06:01 Dose: 16 unit Meclizine HCl (Antivert -) 25 mg PO Q8H PRN PRN Reason: VERTIGO Metoprolol Succinate (Toprol Xl -) 12.5 mg PO DAILY [facility] Last Admin: 07/22/16 11:18 Dose: 12.5 mg Multivitamins/Minerals/Vitamin C (Tab-A-Vit -) 1 tab PO DAILY [facility] Last Admin: 07/22/16 11:18 Dose: 1 tab Non-Formulary Medication (Memantine Hcl [Namenda Xr]) 7 mg PO DAILY [facility] Last Admin: 07/22/16 11:20 Dose: 7 mg Pantoprazole Sodium (Protonix -) 40 mg PO DAILY [facility] Last Admin: 07/22/16 11:19 Dose: 40 mg - Objective Vital Signs: Vital Signs Temperature 99 F 07/22/16 15:41 Pulse Rate 105 H 07/22/16 15:41 Respiratory Rate 16 07/22/16 15:41 Blood Pressure 120/57 07/22/16 15:41 O2 Sat by Pulse Oximetry (%) 98 07/22/16 09:00 Constitutional: Yes: No Distress Cardiovascular: Yes: Regular Rate and Rhythm, S1, S2 Respiratory: Yes: Diminished Gastrointestinal: Yes: Normal Bowel Sounds, Soft. No: Tenderness Edema: No Labs: CBC, BMP 07/22/16 07:30 07/22/16 07:30 INR, PTT INR 1.07 (0.82-1.09) 07/18/16 05:19 Assessment/Plan Blood c/s probable contaminant Observe off antibiotics
--- NOTE | 2016-07-22 17:06 | CON.PULM ---
Consult Consult Specialty:: PULMONARY Referred by:: Dr. Jacobs Reason for Consultation:: pleural effusions - History of Present Illness History of Present Illness: 86yo female with h/o HTN, DM, hyperlipidemia, ESRD on HD via permacath, h/o CVA , dementia who was admitted with altered mental status. Pt unable to provide further history at this time due to her dementia. States "help me" but unable to elaborate further. No shortness of breath or chest pain. No fevers recorded. One positive blood culture attributed to contamination. Noted to have bilateral effusions on CXR, confirmed with CT chest, pulmonary consulted for further evaluation. 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 Cardio/Vascular: Yes: HTN, Hyperlipdemia, Other (PVD) Renal/: Yes: Renal Inusuff ...: No Endocrine: Yes: Diabetes Mellitus - Past Surgical History Past Surgical History: Yes: Amputation, Carotid Endarterectomy - Alcohol/Substance Use Hx Alcohol Use: No History of Substance Use: reports: None - Smoking History Smoking history: Never smoked Have you smoked in the past 12 months: No Aproximately how many cigarettes per day: 0 - Social History ADL: Family Assistance History of Recent Travel: No Home Medications - Allergies Allergies/Adverse Reactions: Allergies Allergy/AdvReac Type Severity Reaction Status Date / Time No Known Drug Allergies Allergy Verified 07/18/16 05:12 - Home Medications Home Medications: Ambulatory Orders Docusate Sodium 100 mg PO DAILY 11/20/14 Donepezil HCl 5 mg PO DAILY 11/20/14 Meclizine HCl 25 mg PO Q8H PRN 11/20/14 Memantine HCl [Namenda Xr] 7 mg PO DAILY 11/20/14 Pantoprazole Sodium [Protonix] 40 mg PO DAILY 11/20/14 Atorvastatin Ca [Lipitor] 10 mg PO HS 02/14/15 Insulin (Levemir) [Levemir Flexpen -] 16 units SQ DAILY 02/14/15 Insulin Lispro [Humalog] 0 unit SQ BID 04/27/16 Sodium Bicarbonate - 650 mg PO BID #60 tablet 04/30/16 Hydralazine HCl [Apresoline -] 25 mg PO BID #0 tab MDD 2 07/05/16 Acetaminophen [Tylenol .Regular Strength -] 650 mg PO Q4H PRN #0 tablet Amlodipine Besylate [Norvasc -] 10 mg PO DAILY tablet 07/09/16 Aspirin [ASA -] 81 mg PO DAILY tab.chew 07/09/16 Clopidogrel Bisulfate [Plavix -] 75 mg PO DAILY #30 tablet 07/09/16 Insulin Sliding Scale [Novolog Vial Sliding Scale -] 1 vial SQ ACHS units 07/09 Multivitamins [Multivit ([facility] Formulary)] 1 tab PO DAILY tab 07/09/16 Quetiapine Fumarate [Seroquel -] 50 mg PO HS 07/19/16 Family Disease History - Family Disease History Family History: Unable to Obtain Review of Systems Unable to obtain ROS, reason: pt demented Physical Exam Vital Sings: Vital Signs Temperature 99 F 07/22/16 15:41 Pulse Rate 105 H 07/22/16 15:41 Respiratory Rate 16 07/22/16 15:41 Blood Pressure 120/57 07/22/16 15:41 O2 Sat by Pulse Oximetry (%) 98 07/22/16 09:00 Constitutional: Yes: Anxious, Other (comfortable while sleeping, anxious when awake) Eyes: Yes: Conjunctiva Clear, EOM Intact HENT: Yes: Atraumatic, Normocephalic Neck: Yes: Supple, Trachea Midline Cardiovascular: Yes: Regular Rate and Rhythm Respiratory: Yes: Regular, Rhonchi ...Clubbing: No Gastrointestinal: Yes: Normal Bowel Sounds, Soft. No: Tenderness Edema: No Neurological: Yes: Confusion Labs: CBC, BMP 07/22/16 07:30 07/22/16 07:30 Imaging - Results Chest X-ray: Report Reviewed, Image Reviewed Cat Scan: Report Reviewed, Image Reviewed (bilateral effusions, pulmonary vascular congestion) Assessment/Plan Acute on Chronic LV Systolic Heart Failure ESRD on HD Volume Overload Bilateral Pleural Effusions HTN DM Dementia - chest imaging consistent with decompensated CHF or volume overload - would continue HD per renal with increased ultrafiltration - monitor CXR with HD - fluid restriction - O2 to keep SpO2 >90% - if no improvement with increased HD/ultrafiltration can consider thoracentesis, but would defer at this time since pt comfortable and saturating well on nasal cannula - aspiration precautions - DVT prophylaxis Thank you for this consult Eddie Murcia MD
[2016-07-22] MEDS ORDERED: ALBUTEROL SO4 2.5/IPRATROPIUM 0.5 INH SOL 3 ML VIAL.NEB. NEB ONE (18:15)
[2016-07-22] MEDS ORDERED: INSULIN (NOVOLOG) ASPART 100 UNITS/ML 10ML VIAL ONE ×3 (18:24→21:36)
[2016-07-22] MEDS: ACETAMINOPHEN 325 MG TABLET (FP) PO PRN (18:27)
[2016-07-22] MEDS: ALBUTEROL SO4 2.5/IPRATROPIUM 0.5 INH SOL 3 ML VIAL.NEB. NEB PRN (18:30)
[2016-07-22] MEDS: ATORVASTATIN CA 10 MG TABLET (FP) PO SCH (21:46)
[2016-07-22] MEDS: DONEPEZIL HCL 5 MG TABLET (FP) PO SCH (21:46)
[2016-07-23] MEDS: ACETAMINOPHEN 325 MG TABLET (FP) PO PRN (02:55)
[2016-07-23] MEDS: ALBUTEROL SO4 2.5/IPRATROPIUM 0.5 INH SOL 3 ML VIAL.NEB. NEB PRN ×2 (03:12→17:21)
[2016-07-23] MEDS: INSULIN SLIDING SCALE (NOVOLOG) 1 VIAL SQ SCH ×4 (06:08→23:16)
[2016-07-23] MEDS: INSULIN DETEMIR 100 UNITS/ML MDV SQ SCH (06:38)
[2016-07-23] MEDS: MULTIVITAMINS (DAILY MVI) TABLET (FP) PO SCH (10:12)
[2016-07-23] MEDS: amLODIPine BESYLATE 10 MG TABLET (FP) PO SCH (10:12)
[2016-07-23] MEDS: METOPROLOL SUCCINATE 25 MG TAB.SR.24H (FP) PO SCH (10:12)
[2016-07-23] MEDS: PANTOPRAZOLE 40 MG TABLET (FP) PO SCH (10:13)
[2016-07-23] MEDS: CLOPIDOGREL BISULFATE 75 MG TABLET (FP) PO SCH (10:13)
[2016-07-23] MEDS: MEMANTINE HCL 7 MG PO SCH (10:13)
[2016-07-23] MEDS: DOCUSATE SODIUM 100 MG CAPSULE (FP) PO SCH (10:13)
[2016-07-23] MEDS: HEPARIN NA (PORCINE) 5,000 UNITS/ML 1ML VIAL SQ SCH ×2 (10:13→22:53)
[2016-07-23] MEDS: hydrALAZINE HCL 25 MG TABLET (FP) PO SCH ×2 (10:13→22:53)
[2016-07-23] MEDS: ASPIRIN 81 MG CHEWABLE TABLETS PO SCH (10:13)
[2016-07-23] MEDS ORDERED: PT OWN MED DRAWER 7, Y5N ONE (10:27)
--- NOTE | 2016-07-23 10:30 | PN ---
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 Patient is non verbal at this time, NAD, comfortable in bed. - Current Medication List Current Medications: Active Medications Acetaminophen (Tylenol -) 650 mg PO Q4H PRN PRN Reason: FEVER OR PAIN Last Admin: 07/23/16 02:55 Dose: 650 mg Albuterol/Ipratropium (Duoneb -) 1 amp NEB Q6H PRN PRN Reason: SHORT OF BREATH/WHEEZING Last Admin: 07/23/16 03:12 Dose: 1 amp Amlodipine Besylate (Norvasc -) 10 mg PO DAILY [facility] Last Admin: 07/23/16 10:12 Dose: 10 mg Aspirin (Asa -) 81 mg PO DAILY [facility] Last Admin: 07/23/16 10:13 Dose: 81 mg Atorvastatin Calcium (Lipitor -) 10 mg PO HS [facility] Last Admin: 07/22/16 21:46 Dose: 10 mg Clopidogrel Bisulfate (Plavix -) 75 mg PO DAILY [facility] Last Admin: 07/23/16 10:13 Dose: 75 mg Docusate Sodium (Colace -) 100 mg PO DAILY [facility] Last Admin: 07/23/16 10:13 Dose: Not Given Donepezil HCl (Aricept -) 5 mg PO HS [facility] Last Admin: 07/22/16 21:46 Dose: 5 mg Heparin Sodium (Porcine) (Heparin -) 5,000 unit SQ BID [facility] Last Admin: 07/23/16 10:13 Dose: 5,000 unit Hydralazine HCl (Apresoline -) 25 mg PO BID [facility] Last Admin: 07/23/16 10:13 Dose: 25 mg Insulin Aspart (Novolog Vial Sliding Scale -) 1 vial SQ ACHS [facility] PRN Reason: Protocol Last Admin: 07/23/16 06:08 Dose: Not Given Insulin Detemir (Levemir Vial) 16 units SQ ACBK [facility] Last Admin: 07/23/16 06:38 Dose: 16 units Meclizine HCl (Antivert -) 25 mg PO Q8H PRN PRN Reason: VERTIGO Metoprolol Succinate (Toprol Xl -) 12.5 mg PO DAILY [facility] Last Admin: 07/23/16 10:12 Dose: 12.5 mg Multivitamins/Minerals/Vitamin C (Tab-A-Vit -) 1 tab PO DAILY [facility] Last Admin: 07/23/16 10:12 Dose: 1 tab Non-Formulary Medication (Memantine Hcl [Namenda Xr]) 7 mg PO DAILY [facility] Last Admin: 07/23/16 10:13 Dose: 7 mg Pantoprazole Sodium (Protonix -) 40 mg PO DAILY [facility] Last Admin: 07/23/16 10:13 Dose: 40 mg - Objective Vital Signs: Vital Signs Temperature 98.2 F 07/23/16 06:00 Pulse Rate 93 H 07/23/16 06:00 Respiratory Rate 18 07/23/16 06:00 Blood Pressure 110/53 07/23/16 06:00 O2 Sat by Pulse Oximetry (%) 96 07/22/16 21:00 Constitutional: Yes: No Distress, Calm, Cachectic Cardiovascular: Yes: Regular Rate and Rhythm Respiratory: Yes: Regular Gastrointestinal: Yes: Normal Bowel Sounds Musculoskeletal: Yes: Muscle Weakness Extremities: Yes: WNL Edema: No Neurological: Yes: Alert, Confusion Labs: CBC, BMP 07/22/16 07:30 07/22/16 07:30 INR, PTT INR 1.07 (0.82-1.09) 07/18/16 05:19 Problem List - Problems (1) Anemia due to chronic kidney disease Assessment/Plan: Stable, RENAL ON BOARD, IS GETTING HD Code(s): N18.9 - CHRONIC KIDNEY DISEASE, UNSPECIFIED D63.1 - ANEMIA IN CHRONIC KIDNEY DISEASE (2) Diabetes mellitus with renal manifestation Assessment/Plan: Controlled at this time. Code(s): E11.29 - TYPE 2 DIABETES MELLITUS W OTH DIABETIC KIDNEY COMPLICATION (3) Elevated troponin Assessment/Plan: SECONDARY TO RENAL? Code(s): R74.8 - ABNORMAL LEVELS OF OTHER SERUM ENZYMES (4) Failure to thrive in adult Assessment/Plan: ORAL INTAKE IMPROVING . Nepro ordered. encourage PO intake as tolerated. Code(s): R62.7 - ADULT FAILURE TO THRIVE Assessment/Plan STABLE, Large pleural effusions on CT chest. Pull out more volume during HD. Plan D/C home.
--- NOTE | 2016-07-23 12:40 | PN ---
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, Physician History of Present Illness: pulmpnary drowsy,-resp distress - Current Medication List Current Medications: Active Medications Acetaminophen (Tylenol -) 650 mg PO Q4H PRN PRN Reason: FEVER OR PAIN Last Admin: 07/23/16 02:55 Dose: 650 mg Albuterol/Ipratropium (Duoneb -) 1 amp NEB Q6H PRN PRN Reason: SHORT OF BREATH/WHEEZING Last Admin: 07/23/16 03:12 Dose: 1 amp Amlodipine Besylate (Norvasc -) 10 mg PO DAILY [facility] Last Admin: 07/23/16 10:12 Dose: 10 mg Aspirin (Asa -) 81 mg PO DAILY [facility] Last Admin: 07/23/16 10:13 Dose: 81 mg Atorvastatin Calcium (Lipitor -) 10 mg PO HS [facility] Last Admin: 07/22/16 21:46 Dose: 10 mg Clopidogrel Bisulfate (Plavix -) 75 mg PO DAILY [facility] Last Admin: 07/23/16 10:13 Dose: 75 mg Docusate Sodium (Colace -) 100 mg PO DAILY [facility] Last Admin: 07/23/16 10:13 Dose: Not Given Donepezil HCl (Aricept -) 5 mg PO HS [facility] Last Admin: 07/22/16 21:46 Dose: 5 mg Heparin Sodium (Porcine) (Heparin -) 5,000 unit SQ BID [facility] Last Admin: 07/23/16 10:13 Dose: 5,000 unit Hydralazine HCl (Apresoline -) 25 mg PO BID [facility] Last Admin: 07/23/16 10:13 Dose: 25 mg Insulin Aspart (Novolog Vial Sliding Scale -) 1 vial SQ ACHS [facility] PRN Reason: Protocol Last Admin: 07/23/16 11:42 Dose: Not Given Insulin Detemir (Levemir Vial) 16 units SQ ACBK [facility] Last Admin: 07/23/16 06:38 Dose: 16 units Meclizine HCl (Antivert -) 25 mg PO Q8H PRN PRN Reason: VERTIGO Metoprolol Succinate (Toprol Xl -) 12.5 mg PO DAILY [facility] Last Admin: 07/23/16 10:12 Dose: 12.5 mg Multivitamins/Minerals/Vitamin C (Tab-A-Vit -) 1 tab PO DAILY [facility] Last Admin: 07/23/16 10:12 Dose: 1 tab Non-Formulary Medication (Memantine Hcl [Namenda Xr]) 7 mg PO DAILY [facility] Last Admin: 07/23/16 10:13 Dose: 7 mg Pantoprazole Sodium (Protonix -) 40 mg PO DAILY [facility] Last Admin: 07/23/16 10:13 Dose: 40 mg - Objective Vital Signs: Vital Signs Temperature 98.2 F 07/23/16 10:00 Pulse Rate 88 07/23/16 10:00 Respiratory Rate 18 07/23/16 10:00 Blood Pressure 147/78 07/23/16 10:00 O2 Sat by Pulse Oximetry (%) 97 07/23/16 09:00 Constitutional: Yes: Calm, Other (drowsy) Eyes: Yes: WNL HENT: Yes: WNL Neck: Yes: WNL Cardiovascular: Yes: Regular Rate and Rhythm, S1, S2 Respiratory: Yes: Diminished (poor inpiratory effort), Rhonchi (few rhonchi) Gastrointestinal: Yes: Normal Bowel Sounds, Soft Extremities: Yes: WNL Edema: No Labs: CBC, BMP 07/22/16 07:30 07/22/16 07:30 INR, PTT INR 1.07 (0.82-1.09) 07/18/16 05:19 - ....Imaging Cat Scan: Report Reviewed, Image Reviewed Problem List - Problems (1) Anemia due to chronic kidney disease Code(s): N18.9 - CHRONIC KIDNEY DISEASE, UNSPECIFIED D63.1 - ANEMIA IN CHRONIC KIDNEY DISEASE (2) Chronic progressive renal failure Code(s): N18.9 - CHRONIC KIDNEY DISEASE, UNSPECIFIED Qualifiers: Chronic kidney disease stage: stage 5 Qualified Code(s): N18.5 - Chronic kidney disease, stage 5 (3) ESRD (end stage renal disease) Code(s): N18.6 - END STAGE RENAL DISEASE (4) Hypertension Code(s): I10 - ESSENTIAL (PRIMARY) HYPERTENSION (5) CHF (congestive heart failure) Code(s): I50.9 - HEART FAILURE, UNSPECIFIED (6) Pleural effusion due to CHF (congestive heart failure) Code(s): I50.9 - HEART FAILURE, UNSPECIFIED (7) Diabetes mellitus with renal manifestation Code(s): E11.29 - TYPE 2 DIABETES MELLITUS W OTH DIABETIC KIDNEY COMPLICATION (8) Alzheimer's dementia Code(s): G30.9 - ALZHEIMER'S DISEASE, UNSPECIFIED (9) Dementia Code(s): F03.90 - UNSPECIFIED DEMENTIA WITHOUT BEHAVIORAL DISTURBANCE Qualifiers: Dementia type: unspecified type Dementia behavioral disturbance: without behavioral disturbance Qualified Code(s): F03.90 - Unspecified dementia without behavioral disturbance Assessment/Plan Assessment/Plan Acute on Chronic LV Systolic Heart Failure ESRD on HD Volume Overload Bilateral Pleural Effusions HTN DM Dementia - HD as per renal - monitor CXRs - fluid restriction - O2 to keep SpO2 >90% - if no improvement with increased HD/ultrafiltration can consider thoracentesis - aspiration precautions - DVT prophylaxis DR BAXTER
--- NOTE | 2016-07-23 13:35 | PN ---
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, Physician History of Present Illness: Pt seen and examined at bedside. She is awake and appears comfortable. - Current Medication List Current Medications: Active Medications Acetaminophen (Tylenol -) 650 mg PO Q4H PRN PRN Reason: FEVER OR PAIN Last Admin: 07/23/16 02:55 Dose: 650 mg Albuterol/Ipratropium (Duoneb -) 1 amp NEB Q6H PRN PRN Reason: SHORT OF BREATH/WHEEZING Last Admin: 07/23/16 03:12 Dose: 1 amp Amlodipine Besylate (Norvasc -) 10 mg PO DAILY [facility] Last Admin: 07/23/16 10:12 Dose: 10 mg Aspirin (Asa -) 81 mg PO DAILY [facility] Last Admin: 07/23/16 10:13 Dose: 81 mg Atorvastatin Calcium (Lipitor -) 10 mg PO HS [facility] Last Admin: 07/22/16 21:46 Dose: 10 mg Clopidogrel Bisulfate (Plavix -) 75 mg PO DAILY [facility] Last Admin: 07/23/16 10:13 Dose: 75 mg Docusate Sodium (Colace -) 100 mg PO DAILY [facility] Last Admin: 07/23/16 10:13 Dose: Not Given Donepezil HCl (Aricept -) 5 mg PO HS [facility] Last Admin: 07/22/16 21:46 Dose: 5 mg Heparin Sodium (Porcine) (Heparin -) 5,000 unit SQ BID [facility] Last Admin: 07/23/16 10:13 Dose: 5,000 unit Hydralazine HCl (Apresoline -) 25 mg PO BID [facility] Last Admin: 07/23/16 10:13 Dose: 25 mg Insulin Aspart (Novolog Vial Sliding Scale -) 1 vial SQ ACHS [facility] PRN Reason: Protocol Last Admin: 07/23/16 11:42 Dose: Not Given Insulin Detemir (Levemir Vial) 16 units SQ ACBK [facility] Last Admin: 07/23/16 06:38 Dose: 16 units Meclizine HCl (Antivert -) 25 mg PO Q8H PRN PRN Reason: VERTIGO Metoprolol Succinate (Toprol Xl -) 12.5 mg PO DAILY [facility] Last Admin: 07/23/16 10:12 Dose: 12.5 mg Multivitamins/Minerals/Vitamin C (Tab-A-Vit -) 1 tab PO DAILY [facility] Last Admin: 07/23/16 10:12 Dose: 1 tab Non-Formulary Medication (Memantine Hcl [Namenda Xr]) 7 mg PO DAILY [facility] Last Admin: 07/23/16 10:13 Dose: 7 mg Pantoprazole Sodium (Protonix -) 40 mg PO DAILY [facility] Last Admin: 07/23/16 10:13 Dose: 40 mg - Objective Vital Signs: Vital Signs Temperature 98.2 F 07/23/16 10:00 Pulse Rate 88 07/23/16 10:00 Respiratory Rate 18 07/23/16 10:00 Blood Pressure 147/78 07/23/16 10:00 O2 Sat by Pulse Oximetry (%) 97 07/23/16 09:00 Constitutional: Yes: Calm Cardiovascular: Yes: S1, S2 Respiratory: Yes: On Nasal O2 Gastrointestinal: Yes: Soft Genitourinary: Yes: Incontinence Musculoskeletal: Yes: Muscle Weakness Edema: No Neurological: Yes: Confusion Labs: CBC, BMP 07/22/16 07:30 07/22/16 07:30 INR, PTT INR 1.07 (0.82-1.09) 07/18/16 05:19 Assessment/Plan Current Medications Generic Name Dose Route Start Last Admin Trade Name Freq PRN Reason Stop Dose Admin Acetaminophen 650 mg 07/18/16 10:58 07/23/16 02:55 Tylenol - PO 650 mg Q4H PRN Administration FEVER OR PAIN Albuterol/Ipratropium 1 amp 07/22/16 18:17 07/23/16 03:12 Duoneb - NEB 1 amp Q6H PRN Administration SHORT OF BREATH/WHEEZING Amlodipine Besylate 10 mg 07/19/16 10:00 07/23/16 10:12 Norvasc - PO 10 mg DAILY [facility] Administration Aspirin 81 mg 07/19/16 10:00 07/23/16 10:13 Asa - PO 81 mg DAILY [facility] Administration Atorvastatin Calcium 10 mg 07/18/16 22:00 07/22/16 21:46 Lipitor - PO 10 mg HS [facility] Administration Clopidogrel Bisulfate 75 mg 07/19/16 10:00 07/23/16 10:13 Plavix - PO 75 mg DAILY [facility] Administration Docusate Sodium 100 mg 07/19/16 10:00 07/23/16 10:13 Colace - PO Not Given DAILY [facility] Donepezil HCl 5 mg 07/19/16 22:00 07/22/16 21:46 Aricept - PO 5 mg HS [facility] Administration Heparin Sodium (Porcine) 5,000 unit 07/18/16 22:00 07/23/16 10:13 Heparin - SQ 5,000 unit BID [facility] Administration Hydralazine HCl 25 mg 07/18/16 22:00 07/23/16 10:13 Apresoline - PO 25 mg BID [facility] Administration Insulin Aspart 1 vial 07/22/16 07:00 07/23/16 11:42 Novolog Vial Sliding Scale - SQ Not Given ACHS [facility] Protocol Insulin Detemir 16 units 07/19/16 07:00 07/23/16 06:38 Levemir Vial SQ 16 units ACBK [facility] Administration Meclizine HCl 25 mg 07/18/16 10:58 Antivert - PO Q8H PRN [facility] Metoprolol Succinate 12.5 mg 07/22/16 10:15 07/23/16 10:12 Toprol Xl - PO 12.5 mg DAILY [facility] Administration Multivitamins/Minerals/Vitamin C 1 tab 07/19/16 10:00 07/23/16 10:12 Tab-A-Vit - PO 1 tab DAILY [facility] Administration Non-Formulary Medication 7 mg 07/19/16 14:45 07/23/16 10:13 Memantine Hcl [Namenda Xr] PO 7 mg DAILY [facility] Administration Pantoprazole Sodium 40 mg 07/19/16 10:00 07/23/16 10:13 Protonix - PO 40 mg DAILY [facility] Administration Impression 1. ESRD 2. anemia 3. HTN 4. PVD 5. hyperlipidemia 6. dementia 7. DM 8. PNA Plan - HD scheduled as outpt in am - will need follow up with pulmonary - discussed case with medical team - pulmonary input appreciated - encourage PO intake - monitor blood pressure Dr Fox
--- NOTE | 2016-07-23 20:58 | HOSP ---
Subjective - Review of Symptoms Events since last encounter: Was called by nurse to evaluate patient due to altered mental status. Patient with baseline dementia, poor historian. Not responding to questioning. Responds to son who is here. Son states that she told him "I'm dieing." Son states that his mother is not at her baseline, she is lethargic and not able to communicate well with him and notes left facial droop. General: Yes: Fatigue. No: Chills, Night Sweats HEENT: No: Head Aches, Visual Changes Pulmonary: No: Dyspnea, Cough, Pleuritic Chest Pain Cardiovascular: Yes: Orthopnea. No: Chest Pain, Palpitations Gastrointestinal: No: Nausea, Vomiting, Abdominal Pain Genitourinary: Yes: Dysuria Neurological: Yes: Confusion Physical Examination Vital Signs: Vital Signs Temperature 97.6 F 07/23/16 18:00 Pulse Rate 105 H 07/23/16 18:00 Respiratory Rate 18 07/23/16 18:00 Blood Pressure 146/75 07/23/16 18:00 O2 Sat by Pulse Oximetry (%) 97 07/23/16 09:00 Constitutional: Yes: Calm Eyes: Yes: Conjunctiva Clear. No: Ptosis HENT: Yes: Atraumatic, Normocephalic. No: Drooling Cardiovascular: Yes: Regular Rate and Rhythm, Tachycardia, S1, S2. No: Murmur Respiratory: Yes: Diminished, Dullness, On Nasal O2. No: Rhonchi, Wheezes Gastrointestinal: Yes: Normal Bowel Sounds, Soft ...Rectal Exam: Yes: Deferred Extremities: No: Calf Tenderness Edema: LLE: Trace, RLE: Trace Peripheral Pulses WNL: Yes Peripheral Pulses: Left Doralis Pedis: 2+, Right Dorsalis Pedis: 2+ Neurological: Yes: Alert, Aphasia, Confusion, Facial Droop (left), Weakness. No : Oriented ...Motor Strength: LUE (not able to move left side arm/leg due to previous stroke;), RUE (right; no agronomist strength ;), RLE (not able to move rigtt extremities) Labs: CBC, BMP 07/22/16 07:30 07/22/16 07:30 Hospitalist Encounter Assessment: 86 year old female with h/o HTN, DM, hyperlipidemia, ESRD on HD via permacath, h /o CVA, dementia who was admitted with altered mental status. Rapid response called due to change in mental status according to son, patient not as responsive, with left facial droop. Stroke protocol was activated. #rule out stroke -stroke head CT -cbc, cmp, coags, cardiac profile -EKG -patient vitals wnl -O2 sat >90 on 2L NC -patient already on aspirin and clopidogrel -await pending studies -patient is already on statin; last echo was 07/21 reviewed, no embolus; -further imaging as per primary team -patient has bilateral pleural effusions on CT secondary to vol overload; r/o PNA; will check white count; -secondary stroke prevention precautions -neuro consult #ESRD: -HD TTS -mental status change could be due to uremia; will check labs Primary Physician Notified: Lawrence Jacobs Time PMD Notified: 08:45 Visit type - Emergency Visit Emergency Visit: Yes ED Registration Date: 07/18/16 Care time: The patient presented to the Emergency Department on the above date and was hospitalized for further evaluation of their emergent condition. - New Patient This patient is new to me today: Yes Date on this admission: 07/24/16 - Critical Care Critical Care patient: No
[2016-07-23 22:30] LABS: BASOPHIL 0.5 % (0-2.0); EOSINOPHIL 2.1 % (0-4.5); MCH 28.3 pg (25.7-33.7); MCHC 31.8 g/dl (32.0-36.0); MEAN CELL VOLUME 89.1 fl (80-96); MEAN PLT VOLUME 7.8 fl (7.5-11.1); NEUTROPHILS 78.4 % (42.8-82.8); PLATELET COUNT 263 K/MM3 (134-434); RDW 16.7 % (11.6-15.6); WHITE BLOOD COUNT 9.8 K/mm3 (4.0-10.0)
[2016-07-23] MEDS: DONEPEZIL HCL 5 MG TABLET (FP) PO SCH (22:53)
[2016-07-23] MEDS: ATORVASTATIN CA 10 MG TABLET (FP) PO SCH (22:53)
[2016-07-23 23:19] LABS: INR 1.04 (0.82-1.09); PROTHROMBIN TIME (PATIENT) 11.5 SEC (9.98-11.88)
[2016-07-23 23:22] LABS: ACTIVATED PTT 32.3 SECONDS (26.9-34.4)
[2016-07-23 23:43] LABS: BILIRUBIN,TOTAL 0.3 mg/dL (0.2-1.0); COCKROFT - GAULT 8.6615; CREATININE 4.4 mg/dL (0.55-1.02); TOT PROT 6.8 g/dl (6.4-8.2)
[2016-07-23 23:45] LABS: TROPONIN I 0.29 ng/ml (0.00-0.05)
[2016-07-24] MEDS: INSULIN DETEMIR 100 UNITS/ML MDV SQ SCH (06:38)
[2016-07-24] MEDS: INSULIN SLIDING SCALE (NOVOLOG) 1 VIAL SQ SCH ×4 (06:40→21:20)
[2016-07-24] MEDS ORDERED: HEPARIN NA (PORCINE) 5,000 UNITS/ML 1ML VIAL IVPUSH ONE (08:00)
[2016-07-24] MEDS ORDERED: EPOETIN ALFA 3,000 UNIT/1 ML ML IVPUSH ONE (09:00)
--- NOTE | 2016-07-24 09:39 | CON.NEURO ---
Consult - History of Present Illness History of Present Illness: 5-year-old female admitted to hospital for confusion and had bilateral pleural effusion. She has histor of DM , HTN, ESRD, CHF and She is currently on statin , apsirin and plavix. she has history of stroke and have left arm and left weaknes. She has some mental status change last night and found to have left sided facial droppiness ( as per her son) . Stroke code was called and had urgent ct head showed old lacunar stroke. Shanell [facility] and she also have baseline dementia and getting aricept and namenda. - Past Medical History CRITICAL CARE REGISTERED NURSE: Yes: CVA, Dementia Cardio/Vascular: Yes: HTN, Hyperlipdemia, Other (PVD) Renal/: Yes: Renal Inusuff ...: No Endocrine: Yes: Diabetes Mellitus - Past Surgical History Past Surgical History: Yes: Amputation, Carotid Endarterectomy - Alcohol/Substance Use Hx Alcohol Use: No History of Substance Use: reports: None - Smoking History Smoking history: Never smoked Have you smoked in the past 12 months: No Aproximately how many cigarettes per day: 0 - Social History ADL: Family Assistance History of Recent Travel: No Home Medications - Allergies Allergies/Adverse Reactions: Allergies Allergy/AdvReac Type Severity Reaction Status Date / Time No Known Drug Allergies Allergy Verified 07/18/16 05:12 - Home Medications Home Medications: Ambulatory Orders Docusate Sodium 100 mg PO DAILY 11/20/14 Donepezil HCl 5 mg PO DAILY 11/20/14 Meclizine HCl 25 mg PO Q8H PRN 11/20/14 Memantine HCl [Namenda Xr] 7 mg PO DAILY 11/20/14 Pantoprazole Sodium [Protonix] 40 mg PO DAILY 11/20/14 Atorvastatin Ca [Lipitor] 10 mg PO HS 02/14/15 Insulin (Levemir) [Levemir Flexpen -] 16 units SQ DAILY 02/14/15 Insulin Lispro [Humalog] 0 unit SQ BID 04/27/16 Sodium Bicarbonate - 650 mg PO BID #60 tablet 04/30/16 Hydralazine HCl [Apresoline -] 25 mg PO BID #0 tab MDD 2 07/05/16 Acetaminophen [Tylenol .Regular Strength -] 650 mg PO Q4H PRN #0 tablet Amlodipine Besylate [Norvasc -] 10 mg PO DAILY tablet 07/09/16 Aspirin [ASA -] 81 mg PO DAILY tab.chew 07/09/16 Clopidogrel Bisulfate [Plavix -] 75 mg PO DAILY #30 tablet 07/09/16 Insulin Sliding Scale [Novolog Vial Sliding Scale -] 1 vial SQ ACHS units 07/09 Multivitamins [Multivit ([facility])] 1 tab PO DAILY tab 07/09/16 Quetiapine Fumarate [Seroquel -] 50 mg PO HS 07/19/16 Physical Exam-Neuro Vital Signs: Vital Signs Temperature 98.2 F 07/24/16 06:55 Pulse Rate 54 L 07/24/16 09:00 Respiratory Rate 18 07/24/16 09:00 Blood Pressure 120/49 07/24/16 09:00 O2 Sat by Pulse Oximetry (%) 93 L 07/23/16 21:00 Labs: CBC, BMP 07/23/16 20:29 07/23/16 21:30 INR, PTT INR 1.04 (0.82-1.09) 07/23/16 21:30 NIH Stroke Scale - Total Score NIH Stroke Scale Score: 0 Imaging - Results Cat Scan: Report Reviewed Assessment/Plan 85-year-old female admitted to hospital for confusion and had bilateral pleural effusion. She has histor of DM , HTN, ESRD, CHF and She is currently on statin , apsirin and plavix. she has history of stroke and have left arm and left weaknes. She has some mental status change last night and found to have left sided facial droppiness ( as per her son) . Stroke code was called and had urgent ct head showed old lacunar stroke. Shanell [facility] and she also have baseline dementia and getting aricept and namenda. PMH,Medication, ROS reviewed in chart Neurological Examination alert and follow command, oriented x 0 ( baseline dementia) no acute distress left sided facial drop noticed, and eomi and pupils are reactive left sided grade 4 for both upper and lowe rextremity CT head showed no acute findings Assessment-- 86 year old female history of stroke ( baseline left hemiparesis) , dementia , DM, HTN, ESRD had mental status change and left sided facial paralysis ( not clear if it is old or new ) Likely it could be stroke Plan-- 1.she is already on plavix and apsirin , continue 2. continue statin 3. PT,DVT PROPHYLAXIS AND Speech 4. Mri of brain and carotid ultrasound , thought given her co morbidity she would not be candidate for any prcedure 5. continue current level of care thanks for consult please feel free to call me if you have any question Victor M Walton MD Neurology attending
--- NOTE | 2016-07-24 11:43 | PN ---
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, Physician History of Present Illness: Renal F/U Pt seen earlier while on HD She was c/o feeling hungry Pt was NPO since suspected that she may have had an acute CVA Swallowing eval to be done BP was stable throughout the treatment and no hypotension developed - Current Medication List Current Medications: Active Medications Acetaminophen (Tylenol -) 650 mg PO Q4H PRN PRN Reason: FEVER OR PAIN Last Admin: 07/23/16 02:55 Dose: 650 mg Albuterol/Ipratropium (Duoneb -) 1 amp NEB Q6H PRN PRN Reason: SHORT OF BREATH/WHEEZING Last Admin: 07/23/16 17:21 Dose: 1 amp Amlodipine Besylate (Norvasc -) 10 mg PO DAILY [facility] Last Admin: 07/23/16 10:12 Dose: 10 mg Aspirin (Asa -) 81 mg PO DAILY [facility] Last Admin: 07/23/16 10:13 Dose: 81 mg Atorvastatin Calcium (Lipitor -) 10 mg PO HS [facility] Last Admin: 07/23/16 22:53 Dose: 10 mg Clopidogrel Bisulfate (Plavix -) 75 mg PO DAILY [facility] Last Admin: 07/23/16 10:13 Dose: 75 mg Docusate Sodium (Colace -) 100 mg PO DAILY [facility] Last Admin: 07/23/16 10:13 Dose: Not Given Donepezil HCl (Aricept -) 5 mg PO HS [facility] Last Admin: 07/23/16 22:53 Dose: 5 mg Heparin Sodium (Porcine) (Heparin -) 5,000 unit SQ BID [facility] Last Admin: 07/23/16 22:53 Dose: 5,000 unit Hydralazine HCl (Apresoline -) 25 mg PO BID [facility] Last Admin: 07/23/16 22:53 Dose: 25 mg Insulin Aspart (Novolog Vial Sliding Scale -) 1 vial SQ ACHS [facility] PRN Reason: Protocol Last Admin: 07/24/16 06:40 Dose: 2 units Insulin Detemir (Levemir Vial) 16 units SQ ACBK [facility] Last Admin: 07/24/16 06:38 Dose: 16 units Meclizine HCl (Antivert -) 25 mg PO Q8H PRN PRN Reason: VERTIGO Metoprolol Succinate (Toprol Xl -) 12.5 mg PO DAILY [facility] Last Admin: 07/23/16 10:12 Dose: 12.5 mg Multivitamins/Minerals/Vitamin C (Tab-A-Vit -) 1 tab PO DAILY [facility] Last Admin: 07/23/16 10:12 Dose: 1 tab Non-Formulary Medication (Memantine Hcl [Namenda Xr]) 7 mg PO DAILY [facility] Last Admin: 07/23/16 10:13 Dose: 7 mg Pantoprazole Sodium (Protonix -) 40 mg PO DAILY [facility] Last Admin: 07/23/16 10:13 Dose: 40 mg - Objective Vital Signs: Vital Signs Temperature 98.2 F 07/24/16 06:55 Pulse Rate 89 07/24/16 10:17 Respiratory Rate 18 07/24/16 10:17 Blood Pressure 138/61 07/24/16 10:17 O2 Sat by Pulse Oximetry (%) 93 L 07/23/16 21:00 Constitutional: Yes: No Distress Cardiovascular: Yes: S1, S2 Respiratory: Yes: CTA Bilaterally Gastrointestinal: Yes: Soft. No: Tenderness, Rebound Edema: No Labs: CBC, BMP 07/23/16 20:29 07/23/16 21:30 INR, PTT INR 1.04 (0.82-1.09) 07/23/16 21:30 Assessment/Plan Impression 1. ESRD 2. Possible new CVA since pt had AMS and localized weakness 3. HTN 4. PVD 5. hyperlipidemia 6. dementia 7. DM 8. PNA 9. Anemia Plan - Swallowing evaluation - Feed when deemed safe - BP has been well controlled - On Statin, ASA and Plavix Dr Hutson
--- NOTE | 2016-07-24 12:04 | PN ---
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 (short form) - Note 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: PULMONARY OMANI SPEAKING/SON PRESENT STROKE ALERT CALLED LAST PM DUE TO "NEW" LEFT FACIAL" VSS/NPO LEFT FACIAL DIMINISHED BREATH SOUNDS B/L S1S2 SOFT NONTENDER NO EDEMA/LEFT SIDED WEAKNESS LABS/CT/MEDS/NOTES REVIEWED R/O acute cva Acute on Chronic LV Systolic Heart Failure ESRD on HD Volume Overload Bilateral Pleural Effusions HTN DM Dementia - mri/carotids pending for today - HD as per renal - npo for now - fluid restriction - O2 to keep SpO2 >90% - if no improvement with increased HD/ultrafiltration can consider thoracentesis - aspiration precautions - DVT prophylaxis Rommel VALERIO MD
[2016-07-24] MEDS: hydrALAZINE HCL 25 MG TABLET (FP) PO SCH ×2 (12:11→22:18)
[2016-07-24] MEDS: ASPIRIN 81 MG CHEWABLE TABLETS PO SCH (12:11)
[2016-07-24] MEDS: HEPARIN NA (PORCINE) 5,000 UNITS/ML 1ML VIAL SQ SCH ×2 (12:12→22:18)
[2016-07-24] MEDS: DOCUSATE SODIUM 100 MG CAPSULE (FP) PO SCH (12:12)
[2016-07-24] MEDS: MEMANTINE HCL 7 MG PO SCH (12:13)
[2016-07-24] MEDS: MULTIVITAMINS (DAILY MVI) TABLET (FP) PO SCH (12:14)
[2016-07-24] MEDS: CLOPIDOGREL BISULFATE 75 MG TABLET (FP) PO SCH (12:14)
[2016-07-24] MEDS: PANTOPRAZOLE 40 MG TABLET (FP) PO SCH (12:14)
[2016-07-24] MEDS: amLODIPine BESYLATE 10 MG TABLET (FP) PO SCH (12:14)
[2016-07-24] MEDS: METOPROLOL SUCCINATE 25 MG TAB.SR.24H (FP) PO SCH (12:15)
[2016-07-24] MEDS ORDERED: PT OWN MED DRAWER 7, Y5N ONE (12:33)
--- NOTE | 2016-07-24 15:48 | PN ---
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, Physician History of Present Illness: IN BED LOOKS COMFORTABLE NO COMPLAINTS--GETTING DIALYSIS EVENTS NOTED--HAD CHANGE IN MS LAST NIGHT--NOW BACK TO BASELINE - Current Medication List Current Medications: Active Medications Acetaminophen (Tylenol -) 650 mg PO Q4H PRN PRN Reason: FEVER OR PAIN Last Admin: 07/23/16 02:55 Dose: 650 mg Albuterol/Ipratropium (Duoneb -) 1 amp NEB Q6H PRN PRN Reason: SHORT OF BREATH/WHEEZING Last Admin: 07/23/16 17:21 Dose: 1 amp Amlodipine Besylate (Norvasc -) 10 mg PO DAILY [facility] Last Admin: 07/24/16 12:14 Dose: 10 mg Aspirin (Asa -) 81 mg PO DAILY [facility] Last Admin: 07/24/16 12:11 Dose: 81 mg Atorvastatin Calcium (Lipitor -) 10 mg PO HS [facility] Last Admin: 07/23/16 22:53 Dose: 10 mg Clopidogrel Bisulfate (Plavix -) 75 mg PO DAILY [facility] Last Admin: 07/24/16 12:14 Dose: 75 mg Docusate Sodium (Colace -) 100 mg PO DAILY [facility] Last Admin: 07/24/16 12:12 Dose: Not Given Donepezil HCl (Aricept -) 5 mg PO HS [facility] Last Admin: 07/23/16 22:53 Dose: 5 mg Heparin Sodium (Porcine) (Heparin -) 5,000 unit SQ BID [facility] Last Admin: 07/24/16 12:12 Dose: 5,000 unit Hydralazine HCl (Apresoline -) 25 mg PO BID [facility] Last Admin: 07/24/16 12:11 Dose: 25 mg Insulin Aspart (Novolog Vial Sliding Scale -) 1 vial SQ ACHS [facility] PRN Reason: Protocol Last Admin: 07/24/16 12:15 Dose: Not Given Insulin Detemir (Levemir Vial) 16 units SQ ACBK [facility] Last Admin: 07/24/16 06:38 Dose: 16 units Meclizine HCl (Antivert -) 25 mg PO Q8H PRN PRN Reason: VERTIGO Metoprolol Succinate (Toprol Xl -) 12.5 mg PO DAILY [facility] Last Admin: 07/24/16 12:15 Dose: 12.5 mg Multivitamins/Minerals/Vitamin C (Tab-A-Vit -) 1 tab PO DAILY [facility] Last Admin: 07/24/16 12:14 Dose: 1 tab Non-Formulary Medication (Memantine Hcl [Namenda Xr]) 7 mg PO DAILY [facility] Last Admin: 07/24/16 12:13 Dose: 7 mg Pantoprazole Sodium (Protonix -) 40 mg PO DAILY [facility] Last Admin: 07/24/16 12:14 Dose: 40 mg - Objective Vital Signs: Vital Signs Temperature 98.0 F 07/24/16 14:00 Pulse Rate 94 H 07/24/16 14:00 Respiratory Rate 18 07/24/16 14:00 Blood Pressure 106/58 07/24/16 14:00 O2 Sat by Pulse Oximetry (%) 92 L 07/24/16 11:37 Cardiovascular: Yes: S1, S2 Respiratory: Yes: Regular, CTA Bilaterally Gastrointestinal: Yes: Normal Bowel Sounds, Soft Neurological: Yes: Alert, Confusion. 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
[2016-07-24] MEDS ORDERED: INSULIN (NOVOLOG) ASPART 100 UNITS/ML 10ML VIAL ONE (16:35)
--- NOTE | 2016-07-24 19:17 | EKG ---
Test Reason : Blood Pressure : / mmHG Vent. Rate : 100 BPM Atrial Rate : 100 BPM P-R Int : 194 ms QRS Dur : 078 ms QT Int : 340 ms P-R-T Axes : 048 -22 184 degrees QTc Int : 438 ms POOR DATA QUALITY, INTERPRETATION MAY BE ADVERSELY AFFECTED NORMAL SINUS RHYTHM LEFT VENTRICULAR HYPERTROPHY WITH REPOLARIZATION ABNORMALITY CANNOT RULE OUT SEPTAL INFARCT (CITED ON OR BEFORE 27-APR-2016) ABNORMAL ECG WHEN COMPARED WITH ECG OF 19-JUL-2016 10:33, NO SIGNIFICANT CHANGE WAS FOUND Confirmed by TREVOR HUSSEIN MD ([id number]) on 07/24/2016 7:17:24 PM Referred By: Confirmed By:TREVOR HUSSEIN MD
[2016-07-24] MEDS: ATORVASTATIN CA 10 MG TABLET (FP) PO SCH (22:18)
[2016-07-24] MEDS: DONEPEZIL HCL 5 MG TABLET (FP) PO SCH (22:18)
[2016-07-25] MEDS: INSULIN SLIDING SCALE (NOVOLOG) 1 VIAL SQ SCH ×4 (06:16→21:32)
[2016-07-25] MEDS ORDERED: PT OWN MED DRAWER 7, Y5N ONE ×2 (10:16→11:39)
--- NOTE | 2016-07-25 10:37 | PN ---
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, Physician History of Present Illness: Renal F/U Pt's mentation has remained at her baseline since yesterday She is able to tolerate PO feeds She is in no distress - Current Medication List Current Medications: Active Medications Acetaminophen (Tylenol -) 650 mg PO Q4H PRN PRN Reason: FEVER OR PAIN Last Admin: 07/23/16 02:55 Dose: 650 mg Albuterol/Ipratropium (Duoneb -) 1 amp NEB Q6H PRN PRN Reason: SHORT OF BREATH/WHEEZING Last Admin: 07/23/16 17:21 Dose: 1 amp Amlodipine Besylate (Norvasc -) 10 mg PO DAILY [facility] Last Admin: 07/24/16 12:14 Dose: 10 mg Aspirin (Asa -) 81 mg PO DAILY [facility] Last Admin: 07/24/16 12:11 Dose: 81 mg Atorvastatin Calcium (Lipitor -) 10 mg PO HS [facility] Last Admin: 07/24/16 22:18 Dose: 10 mg Clopidogrel Bisulfate (Plavix -) 75 mg PO DAILY [facility] Last Admin: 07/24/16 12:14 Dose: 75 mg Docusate Sodium (Colace -) 100 mg PO DAILY [facility] Last Admin: 07/24/16 12:12 Dose: Not Given Donepezil HCl (Aricept -) 5 mg PO HS [facility] Last Admin: 07/24/16 22:18 Dose: 5 mg Heparin Sodium (Porcine) (Heparin -) 5,000 unit SQ BID [facility] Last Admin: 07/24/16 22:18 Dose: 5,000 unit Hydralazine HCl (Apresoline -) 25 mg PO BID [facility] Last Admin: 07/24/16 22:18 Dose: 25 mg Insulin Aspart (Novolog Vial Sliding Scale -) 1 vial SQ ACHS [facility] PRN Reason: Protocol Last Admin: 07/25/16 06:16 Dose: Not Given Insulin Detemir (Levemir Vial) 16 units SQ ACBK [facility] Last Admin: 07/24/16 06:38 Dose: 16 units Meclizine HCl (Antivert -) 25 mg PO Q8H PRN PRN Reason: VERTIGO Metoprolol Succinate (Toprol Xl -) 12.5 mg PO DAILY [facility] Last Admin: 07/24/16 12:15 Dose: 12.5 mg Multivitamins/Minerals/Vitamin C (Tab-A-Vit -) 1 tab PO DAILY [facility] Last Admin: 07/24/16 12:14 Dose: 1 tab Non-Formulary Medication (Memantine Hcl [Namenda Xr]) 7 mg PO DAILY [facility] Last Admin: 07/24/16 12:13 Dose: 7 mg Pantoprazole Sodium (Protonix -) 40 mg PO DAILY [facility] Last Admin: 07/24/16 12:14 Dose: 40 mg - Objective Vital Signs: Vital Signs Temperature 98.5 F 07/25/16 06:00 Pulse Rate 90 07/25/16 06:00 Respiratory Rate 20 07/25/16 06:00 Blood Pressure 101/50 07/25/16 06:00 O2 Sat by Pulse Oximetry (%) 92 L 07/24/16 21:00 Constitutional: Yes: No Distress Cardiovascular: Yes: S1, S2 Respiratory: Yes: CTA Bilaterally Gastrointestinal: Yes: Soft. No: Tenderness, Rebound Edema: No Labs: CBC, BMP 07/23/16 20:29 07/23/16 21:30 INR, PTT INR 1.04 (0.82-1.09) 07/23/16 21:30 Assessment/Plan Impression 1. ESRD 2. S/P AMS aand now back to baseline 3. HTN 4. PVD 5. hyperlipidemia 6. dementia 7. DM 8. PNA 9. Anemia Plan - Await Carotid doppler result - BP has been well controlled - On Statin, ASA and Plavix - Next HD 07/27 Dr Hutson
--- NOTE | 2016-07-25 10:43 | PN ---
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, Physician - Current Medication List Current Medications: Active Medications Acetaminophen (Tylenol -) 650 mg PO Q4H PRN PRN Reason: FEVER OR PAIN Last Admin: 07/23/16 02:55 Dose: 650 mg Albuterol/Ipratropium (Duoneb -) 1 amp NEB Q6H PRN PRN Reason: SHORT OF BREATH/WHEEZING Last Admin: 07/23/16 17:21 Dose: 1 amp Amlodipine Besylate (Norvasc -) 10 mg PO DAILY [facility] Last Admin: 07/24/16 12:14 Dose: 10 mg Aspirin (Asa -) 81 mg PO DAILY [facility] Last Admin: 07/24/16 12:11 Dose: 81 mg Atorvastatin Calcium (Lipitor -) 10 mg PO HS [facility] Last Admin: 07/24/16 22:18 Dose: 10 mg Clopidogrel Bisulfate (Plavix -) 75 mg PO DAILY [facility] Last Admin: 07/24/16 12:14 Dose: 75 mg Docusate Sodium (Colace -) 100 mg PO DAILY [facility] Last Admin: 07/24/16 12:12 Dose: Not Given Donepezil HCl (Aricept -) 5 mg PO HS [facility] Last Admin: 07/24/16 22:18 Dose: 5 mg Heparin Sodium (Porcine) (Heparin -) 5,000 unit SQ BID [facility] Last Admin: 07/24/16 22:18 Dose: 5,000 unit Hydralazine HCl (Apresoline -) 25 mg PO BID [facility] Last Admin: 07/24/16 22:18 Dose: 25 mg Insulin Aspart (Novolog Vial Sliding Scale -) 1 vial SQ ACHS [facility] PRN Reason: Protocol Last Admin: 07/25/16 06:16 Dose: Not Given Insulin Detemir (Levemir Vial) 16 units SQ ACBK [facility] Last Admin: 07/24/16 06:38 Dose: 16 units Meclizine HCl (Antivert -) 25 mg PO Q8H PRN PRN Reason: VERTIGO Metoprolol Succinate (Toprol Xl -) 12.5 mg PO DAILY [facility] Last Admin: 07/24/16 12:15 Dose: 12.5 mg Multivitamins/Minerals/Vitamin C (Tab-A-Vit -) 1 tab PO DAILY [facility] Last Admin: 07/24/16 12:14 Dose: 1 tab Non-Formulary Medication (Memantine Hcl [Namenda Xr]) 7 mg PO DAILY [facility] Last Admin: 07/24/16 12:13 Dose: 7 mg Pantoprazole Sodium (Protonix -) 40 mg PO DAILY [facility] Last Admin: 07/24/16 12:14 Dose: 40 mg - Objective Vital Signs: Vital Signs Temperature 98.5 F 07/25/16 06:00 Pulse Rate 90 07/25/16 06:00 Respiratory Rate 20 07/25/16 06:00 Blood Pressure 101/50 07/25/16 06:00 O2 Sat by Pulse Oximetry (%) 92 L 07/24/16 21:00 Cardiovascular: Yes: Regular Rate and Rhythm Respiratory: Yes: Regular, CTA Bilaterally Gastrointestinal: Yes: Normal Bowel Sounds, Soft Labs: CBC, BMP 07/23/16 20:29 07/23/16 21:30 INR, PTT INR 1.04 (0.82-1.09) 07/23/16 21:30 Problem List - Problems (1) Chest pain Code(s): R07.9 - CHEST PAIN, UNSPECIFIED (2) Pneumonia Assessment/Plan: OFF IV ABX ID CONSULT NOTED F/U CXR NOTED Code(s): J18.9 - PNEUMONIA, UNSPECIFIED ORGANISM Qualifiers: Pneumonia type: due to unspecified organism Laterality: bilateral Lung location: lower lobe of lung Qualified Code(s): J18.9 - Pneumonia, unspecified organism (3) Diabetes mellitus with renal manifestation Assessment/Plan: ON DIALYSIS Code(s): E11.29 - 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
[2016-07-25] MEDS ORDERED: INSULIN DETEMIR 100 UNITS/ML MDV SQ ONE (10:56)
[2016-07-25] MEDS: INSULIN DETEMIR 100 UNITS/ML MDV SQ SCH (11:17)
[2016-07-25] MEDS: hydrALAZINE HCL 25 MG TABLET (FP) PO SCH ×2 (11:19→21:33)
[2016-07-25] MEDS: DOCUSATE SODIUM 100 MG CAPSULE (FP) PO SCH (11:19)
[2016-07-25] MEDS: ASPIRIN 81 MG CHEWABLE TABLETS PO SCH (11:19)
[2016-07-25] MEDS: HEPARIN NA (PORCINE) 5,000 UNITS/ML 1ML VIAL SQ SCH ×2 (11:19→21:33)
[2016-07-25] MEDS: CLOPIDOGREL BISULFATE 75 MG TABLET (FP) PO SCH (11:20)
[2016-07-25] MEDS: MEMANTINE HCL 7 MG PO SCH (11:20)
[2016-07-25] MEDS: amLODIPine BESYLATE 10 MG TABLET (FP) PO SCH (11:20)
[2016-07-25] MEDS: METOPROLOL SUCCINATE 25 MG TAB.SR.24H (FP) PO SCH (11:21)
[2016-07-25] MEDS: MULTIVITAMINS (DAILY MVI) TABLET (FP) PO SCH (11:21)
[2016-07-25] MEDS: PANTOPRAZOLE 40 MG TABLET (FP) PO SCH (11:21)
[2016-07-25] MEDS ORDERED: INSULIN (NOVOLOG) ASPART 100 UNITS/ML 10ML VIAL ONE ×2 (11:24→21:27)
--- NOTE | 2016-07-25 12:30 | PN ---
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 (short form) - Note 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: PULMONARY BRUNEIAN SPEAKING/WANTS TO EAT VSS/NPO ANICTERIC DIMINISHED BREATH SOUNDS B/L S1S2 SOFT NONTENDER NO EDEMA/LEFT SIDED WEAKNESS LABS/CT/MEDS/NOTES REVIEWED R/O acute cva Acute on Chronic LV Systolic Heart Failure ESRD on HD Volume Overload Bilateral Pleural Effusions HTN DM Dementia - mri/carotids reviewed - HD as per renal - npo for now - fluid restriction - O2 to keep SpO2 >90% - if no improvement with increased HD/ultrafiltration can consider thoracentesis - aspiration precautions - DVT prophylaxis - swallow ashvin VALERIO MD
[2016-07-25] MEDS: ATORVASTATIN CA 10 MG TABLET (FP) PO SCH (21:33)
[2016-07-25] MEDS: DONEPEZIL HCL 5 MG TABLET (FP) PO SCH (21:33)
[2016-07-26] MEDS: INSULIN DETEMIR 100 UNITS/ML MDV SQ SCH (06:22)
[2016-07-26] MEDS: INSULIN SLIDING SCALE (NOVOLOG) 1 VIAL SQ SCH ×4 (06:23→21:57)
--- NOTE | 2016-07-26 08:56 | PN ---
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, Physician History of Present Illness: IN BED LOOKS COMFORTABLE NO COMPLAINTS--GETTING DIALYSIS EVENTS NOTED--HAD CHANGE IN MS LAST NIGHT--NOW BACK TO BASELINE - Current Medication List Current Medications: Active Medications Acetaminophen (Tylenol -) 650 mg PO Q4H PRN PRN Reason: FEVER OR PAIN Last Admin: 07/23/16 02:55 Dose: 650 mg Albuterol/Ipratropium (Duoneb -) 1 amp NEB Q6H PRN PRN Reason: SHORT OF BREATH/WHEEZING Last Admin: 07/23/16 17:21 Dose: 1 amp Amlodipine Besylate (Norvasc -) 10 mg PO DAILY [facility] Last Admin: 07/25/16 11:20 Dose: 10 mg Aspirin (Asa -) 81 mg PO DAILY [facility] Last Admin: 07/25/16 11:19 Dose: 81 mg Atorvastatin Calcium (Lipitor -) 10 mg PO HS [facility] Last Admin: 07/25/16 21:33 Dose: 10 mg Clopidogrel Bisulfate (Plavix -) 75 mg PO DAILY [facility] Last Admin: 07/25/16 11:20 Dose: 75 mg Docusate Sodium (Colace -) 100 mg PO DAILY [facility] Last Admin: 07/25/16 11:19 Dose: Not Given Donepezil HCl (Aricept -) 5 mg PO HS [facility] Last Admin: 07/25/16 21:33 Dose: 5 mg Hydralazine HCl (Apresoline -) 25 mg PO BID [facility] Last Admin: 07/25/16 21:33 Dose: 25 mg Insulin Aspart (Novolog Vial Sliding Scale -) 1 vial SQ ACHS [facility] PRN Reason: Protocol Last Admin: 07/26/16 06:23 Dose: 2 units Insulin Detemir (Levemir Vial) 16 units SQ ACBK [facility] Last Admin: 07/26/16 06:22 Dose: 16 units Meclizine HCl (Antivert -) 25 mg PO Q8H PRN PRN Reason: VERTIGO Metoprolol Succinate (Toprol Xl -) 12.5 mg PO DAILY [facility] Last Admin: 07/25/16 11:21 Dose: 12.5 mg Multivitamins/Minerals/Vitamin C (Tab-A-Vit -) 1 tab PO DAILY [facility] Last Admin: 07/25/16 11:21 Dose: 1 tab Non-Formulary Medication (Memantine Hcl [Namenda Xr]) 7 mg PO DAILY [facility] Last Admin: 07/25/16 11:20 Dose: 7 mg Pantoprazole Sodium (Protonix -) 40 mg PO DAILY [facility] Last Admin: 07/25/16 11:21 Dose: 40 mg - Objective Vital Signs: Vital Signs Temperature 97.5 F L 07/26/16 06:00 Pulse Rate 96 H 07/26/16 06:00 Respiratory Rate 20 07/26/16 06:00 Blood Pressure 108/56 07/26/16 06:00 O2 Sat by Pulse Oximetry (%) 94 L 07/25/16 21:00 Cardiovascular: Yes: Regular Rate and Rhythm Respiratory: Yes: Diminished Gastrointestinal: Yes: Normal Bowel Sounds, Soft Labs: CBC, BMP 07/23/16 20:29 07/23/16 21:30 INR, PTT INR 1.04 (0.82-1.09) 07/23/16 21:30 Problem List - Problems (1) Chest pain Code(s): R07.9 - CHEST PAIN, UNSPECIFIED (2) Pneumonia Code(s): J18.9 - PNEUMONIA, UNSPECIFIED ORGANISM Qualifiers: Pneumonia type: due to unspecified organism Laterality: bilateral Lung location: lower lobe of lung Qualified Code(s): J18.9 - Pneumonia, unspecified organism (3) Diabetes mellitus with renal manifestation Assessment/Plan: ON DIALYSIS [facility] Code(s): E11.29 - 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
[2016-07-26 09:22] LABS: BASOPHIL 1.1 % (0-2.0); EOSINOPHIL 1.3 % (0-4.5); MCH 29.3 pg (25.7-33.7); MCHC 32.7 g/dl (32.0-36.0); MEAN CELL VOLUME 89.7 fl (80-96); MEAN PLT VOLUME 7.6 fl (7.5-11.1); NEUTROPHILS 76.9 % (42.8-82.8); PLATELET COUNT 244 K/MM3 (134-434); RDW 16.4 % (11.6-15.6); WHITE BLOOD COUNT 8.9 K/mm3 (4.0-10.0)
[2016-07-26 09:47] LABS: ALBUMIN 3.2 g/dl (3.4-5.0); BILIRUBIN,TOTAL 0.3 mg/dL (0.2-1.0); CALCIUM 8.9 mg/dL (8.5-10.1); COCKROFT - GAULT 7.191; CREATININE 5.3 mg/dL (0.55-1.02); TOT PROT 7.2 g/dl (6.4-8.2)
[2016-07-26 09:49] LABS: TROPONIN I 0.29 ng/ml (0.00-0.05)
--- NOTE | 2016-07-26 10:07 | CONSULT ---
Admitting History and Physical - Primary Care Physician PCP: Lawrence Jacobs - Admission History of Present Illness: 86yo female with h/o HTN, DM, hyperlipidemia, ESRD on HD via permacath, h/o CVA , dementia who was admitted with altered mental status. Bilateral effusions on CXR, confirmed with CT chest. Left facial weekness noted 07/23. Stroke protocol initiated. MRI not completed. Pureed diet ordered 07/24. Noted to cough at times on thin liquid. Selected Entries 07/24/16 07/24/16 07/24/16 02:00 06:00 06:55 Breakfast Lunch Supper Temperature 98.0 F 98.9 F 98.2 F 07/24/16 07/24/16 07/24/16 11:37 14:00 18:21 Breakfast Lunch 75% Supper Temperature 98.4 F 98.0 F 99.6 F 07/24/16 07/24/16 07/25/16 22:00 22:24 06:00 Breakfast Lunch Supper 100% Temperature 98.3 F 98.5 F 07/25/16 07/25/16 07/25/16 10:04 15:29 18:00 Breakfast 100% Lunch 100% Supper Temperature 97.4 F L 97.2 F L 07/25/16 07/25/16 07/26/16 18:43 22:00 02:08 Breakfast Lunch Supper 75% Temperature 98.4 F 97.6 F 07/26/16 06:00 Breakfast Lunch Supper Temperature 97.5 F L Laboratory Tests 07/26/16 09:10 WBC 8.9 Unable to hold both UE in elevated position. Left weaker than right. This is my first consult with this pt. History Source: Patient, Medical Record Limitations to Obtaining History: Clinical Condition, Dementia - Past Medical History AIR TUCKER: Yes: CVA, Dementia Cardiovascular: Yes: HTN, Hyperlipdemia, Other (PVD) Renal/: Yes: Renal Inusuff ...: No Heme/Onc: Yes: Anemia Endocrine: Yes: Diabetes Mellitus - Past Surgical History Past Surgical History: Yes: Amputation, Carotid Endarterectomy - Smoking History Smoking history: Never smoked Have you smoked in the past 12 months: No Aproximately how many cigarettes per day: 0 - Alcohol/Substance Use Hx Alcohol Use: No History of Substance Use: reports: None - Social History ADL: Family Assistance History of Recent Travel: No History - Admission Reason For Visit: PNEUMONIA ANEMIA CKD - Diagnostics X-ray: Report Reviewed CT Scan: Report Reviewed MRI: Pending - General Mental Status: Alert and Oriented, Able to Follow Commands Attention: Distractible, Mild Impairment Ability to Follow Directions: Fair - Hearing Hearing: Functional Hearing Aide: No With Patient: No Speech Evaluation - Communication Primary Language: MOLDOVAN Communication: Yes: Simple Responses Oral Expression Ability: Yes: Mild Impairment - Speech Production Able to Make Needs Known: Yes: Mildly Impaired Intelligibility: Yes: Mildly Impaired - Speech Characteristics Voice Loudness: Normal Voice Pitch: Yes: Normal Voice Phonatory-based Quality: Yes: Normal Nasal Resonance: Normal Articulation: Yes: Imprecise - Language/Auditory Comprehension Follows: Yes: 1 Stage Simple Commands - Swallow Evaluation/Bedside Assessment Current Nutritional Intake: Dysphagia Pureed, Thin Liquids Oral Secretions: Yes: Pooling (mild pooling of saliva in oral cavity) Dentition: Yes: Missing Teeth Facial Symmetry at Rest: Facial Droop Left Jaw Position: Open at Rest (drooling) Lingual Movement: Symmetric, Reduced Protrusion Lingual Speed of Movement: Reduced Lingual Movement Strgth Against Opposition: Reduced Lingual Movement Characteristics: Normal Velopharyngeal Movement: Normal Laryngeal Movement: Able to Palpate, Labored,delay initiation Rate of Intake: WFL Labial Seal: Impaired Bilaterally Oral Prep Time: Increased A-P Transit: Impaired Timing of Swallow: Delayed Coughing/Throat Clear: Yes (thin liquid. IncreasedRR with thick liquid) Recommendations - Speech Evaluation, Impression/Plan Impression: Verbal, simple respones in Arabic eg "I feel bad", "I cant", "Give me more water." Mild articulatory imprecision. Drooling, Delayed fairly brisk swallow but with delayed cough and increased RR. - Dysphagia Impressions/Plan Swallowing Skills: Impaired Dysphagia Impressions: Ongoing Evaluation, Suspect Aspiration *Silent aspiration: cannot be R/O at bedside Recommendations: Modified Barium Swallow - Recommendations Diet Consistency: Dysphagia Pureed, NPO Medication Administration: Crushed with applesauce Liquids: NPO, Other (Hold liquids until MBS)
[2016-07-26] MEDS: DOCUSATE SODIUM 100 MG CAPSULE (FP) PO SCH (10:51)
[2016-07-26] MEDS: METOPROLOL SUCCINATE 25 MG TAB.SR.24H (FP) PO SCH (11:02)
[2016-07-26] MEDS: MULTIVITAMINS (DAILY MVI) TABLET (FP) PO SCH (11:03)
[2016-07-26] MEDS: ASPIRIN 81 MG CHEWABLE TABLETS PO SCH (11:03)
[2016-07-26] MEDS: hydrALAZINE HCL 25 MG TABLET (FP) PO SCH ×2 (11:03→21:54)
[2016-07-26] MEDS: amLODIPine BESYLATE 10 MG TABLET (FP) PO SCH (11:03)
[2016-07-26] MEDS: CLOPIDOGREL BISULFATE 75 MG TABLET (FP) PO SCH (11:03)
[2016-07-26] MEDS: MEMANTINE HCL 7 MG PO SCH (11:04)
[2016-07-26] MEDS: PANTOPRAZOLE 40 MG TABLET (FP) PO SCH (11:04)
--- NOTE | 2016-07-26 11:41 | EKG ---
Test Reason : Blood Pressure : / mmHG Vent. Rate : 095 BPM Atrial Rate : 095 BPM P-R Int : 206 ms QRS Dur : 090 ms QT Int : 358 ms P-R-T Axes : 050 -25 188 degrees QTc Int : 449 ms NORMAL SINUS RHYTHM LEFT VENTRICULAR HYPERTROPHY WITH REPOLARIZATION ABNORMALITY CANNOT RULE OUT ANTEROSEPTAL INFARCT (CITED ON OR BEFORE 27-APR-2016) ABNORMAL ECG WHEN COMPARED WITH ECG OF 23-JUL-2016 22:39, T WAVE VARIATION Confirmed by GILDARDO PINEDO MD ([id number]) on 07/26/2016 11:41:14 AM Referred By: Confirmed By:GILDARDO PINEDO MD
--- NOTE | 2016-07-26 12:09 | PN ---
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, Physician History of Present Illness: pulmonary awake,-resp distress - Current Medication List Current Medications: Active Medications Acetaminophen (Tylenol -) 650 mg PO Q4H PRN PRN Reason: FEVER OR PAIN Last Admin: 07/23/16 02:55 Dose: 650 mg Albuterol/Ipratropium (Duoneb -) 1 amp NEB Q6H PRN PRN Reason: SHORT OF BREATH/WHEEZING Last Admin: 07/23/16 17:21 Dose: 1 amp Amlodipine Besylate (Norvasc -) 10 mg PO DAILY [facility] Last Admin: 07/26/16 11:03 Dose: 10 mg Aspirin (Asa -) 81 mg PO DAILY [facility] Last Admin: 07/26/16 11:03 Dose: 81 mg Atorvastatin Calcium (Lipitor -) 10 mg PO HS [facility] Last Admin: 07/25/16 21:33 Dose: 10 mg Clopidogrel Bisulfate (Plavix -) 75 mg PO DAILY [facility] Last Admin: 07/26/16 11:03 Dose: 75 mg Docusate Sodium (Colace -) 100 mg PO DAILY [facility] Last Admin: 07/26/16 10:51 Dose: Not Given Donepezil HCl (Aricept -) 5 mg PO HS [facility] Last Admin: 07/25/16 21:33 Dose: 5 mg Hydralazine HCl (Apresoline -) 25 mg PO BID [facility] Last Admin: 07/26/16 11:03 Dose: 25 mg Insulin Aspart (Novolog Vial Sliding Scale -) 1 vial SQ ACHS [facility] PRN Reason: Protocol Last Admin: 07/26/16 12:00 Dose: Not Given Insulin Detemir (Levemir Vial) 16 units SQ ACBK [facility] Last Admin: 07/26/16 06:22 Dose: 16 units Meclizine HCl (Antivert -) 25 mg PO Q8H PRN PRN Reason: VERTIGO Metoprolol Succinate (Toprol Xl -) 12.5 mg PO DAILY [facility] Last Admin: 07/26/16 11:02 Dose: 12.5 mg Multivitamins/Minerals/Vitamin C (Tab-A-Vit -) 1 tab PO DAILY [facility] Last Admin: 07/26/16 11:03 Dose: 1 tab Non-Formulary Medication (Memantine Hcl [Namenda Xr]) 7 mg PO DAILY [facility] Last Admin: 07/26/16 11:04 Dose: 7 mg Pantoprazole Sodium (Protonix -) 40 mg PO DAILY [facility] Last Admin: 07/26/16 11:04 Dose: 40 mg - Objective Vital Signs: Vital Signs Temperature 97.3 F L 07/26/16 11:11 Pulse Rate 96 H 07/26/16 11:11 Respiratory Rate 18 07/26/16 11:11 Blood Pressure 114/69 07/26/16 11:11 O2 Sat by Pulse Oximetry (%) 94 L 07/25/16 21:00 Constitutional: Yes: Calm, Thin Eyes: Yes: WNL HENT: Yes: WNL Neck: Yes: WNL Cardiovascular: Yes: Regular Rate and Rhythm, S1, S2 Respiratory: Yes: Diminished Gastrointestinal: Yes: Normal Bowel Sounds, Soft Extremities: Yes: WNL Edema: No Labs: CBC, BMP 07/26/16 09:10 07/26/16 09:10 INR, PTT INR 1.04 (0.82-1.09) 07/23/16 21:30 - ....Imaging Chest X-ray: Report Reviewed, Image Reviewed Problem List - Problems (1) Anemia due to chronic kidney disease Code(s): N18.9 - CHRONIC KIDNEY DISEASE, UNSPECIFIED D63.1 - ANEMIA IN CHRONIC KIDNEY DISEASE (2) Chronic progressive renal failure Code(s): N18.9 - CHRONIC KIDNEY DISEASE, UNSPECIFIED Qualifiers: Chronic kidney disease stage: stage 5 Qualified Code(s): N18.5 - Chronic kidney disease, stage 5 (3) ESRD (end stage renal disease) Code(s): N18.6 - END STAGE RENAL DISEASE (4) Hypertension Code(s): I10 - ESSENTIAL (PRIMARY) HYPERTENSION (5) CHF (congestive heart failure) Code(s): I50.9 - HEART FAILURE, UNSPECIFIED (6) Pleural effusion due to CHF (congestive heart failure) Code(s): I50.9 - HEART FAILURE, UNSPECIFIED (7) Diabetes mellitus with renal manifestation Code(s): E11.29 - TYPE 2 DIABETES MELLITUS W OTH DIABETIC KIDNEY COMPLICATION (8) Alzheimer's dementia Code(s): G30.9 - ALZHEIMER'S DISEASE, UNSPECIFIED (9) Dementia Code(s): F03.90 - UNSPECIFIED DEMENTIA WITHOUT BEHAVIORAL DISTURBANCE Qualifiers: Dementia type: unspecified type Dementia behavioral disturbance: without behavioral disturbance Qualified Code(s): F03.90 - Unspecified dementia without behavioral disturbance Assessment/Plan Assessment/Plan Acute on Chronic LV Systolic Heart Failure ESRD on HD Volume Overload Bilateral Pleural Effusions HTN DM Dementia - HD as per renal - monitor CXRs - fluid restriction - O2 to keep SpO2 >90% - thoracentesis - aspiration precautions - DVT prophylaxis DR BAXTER
--- NOTE | 2016-07-26 16:32 | PN ---
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, Physician History of Present Illness: Pt seen and examined at bedside. She appears comfortable. - Current Medication List Current Medications: Active Medications Acetaminophen (Tylenol -) 650 mg PO Q4H PRN PRN Reason: FEVER OR PAIN Last Admin: 07/23/16 02:55 Dose: 650 mg Albuterol/Ipratropium (Duoneb -) 1 amp NEB Q6H PRN PRN Reason: SHORT OF BREATH/WHEEZING Last Admin: 07/23/16 17:21 Dose: 1 amp Amlodipine Besylate (Norvasc -) 10 mg PO DAILY [facility] Last Admin: 07/26/16 11:03 Dose: 10 mg Aspirin (Asa -) 81 mg PO DAILY [facility] Last Admin: 07/26/16 11:03 Dose: 81 mg Atorvastatin Calcium (Lipitor -) 10 mg PO HS [facility] Last Admin: 07/25/16 21:33 Dose: 10 mg Clopidogrel Bisulfate (Plavix -) 75 mg PO DAILY [facility] Last Admin: 07/26/16 11:03 Dose: 75 mg Docusate Sodium (Colace -) 100 mg PO DAILY [facility] Last Admin: 07/26/16 10:51 Dose: Not Given Donepezil HCl (Aricept -) 5 mg PO HS [facility] Last Admin: 07/25/16 21:33 Dose: 5 mg Hydralazine HCl (Apresoline -) 25 mg PO BID [facility] Last Admin: 07/26/16 11:03 Dose: 25 mg Insulin Aspart (Novolog Vial Sliding Scale -) 1 vial SQ ACHS [facility] PRN Reason: Protocol Last Admin: 07/26/16 12:00 Dose: Not Given Insulin Detemir (Levemir Vial) 16 units SQ ACBK [facility] Last Admin: 07/26/16 06:22 Dose: 16 units Meclizine HCl (Antivert -) 25 mg PO Q8H PRN PRN Reason: VERTIGO Metoprolol Succinate (Toprol Xl -) 12.5 mg PO DAILY [facility] Last Admin: 07/26/16 11:02 Dose: 12.5 mg Multivitamins/Minerals/Vitamin C (Tab-A-Vit -) 1 tab PO DAILY [facility] Last Admin: 07/26/16 11:03 Dose: 1 tab Non-Formulary Medication (Memantine Hcl [Namenda Xr]) 7 mg PO DAILY [facility] Last Admin: 07/26/16 11:04 Dose: 7 mg Pantoprazole Sodium (Protonix -) 40 mg PO DAILY [facility] Last Admin: 07/26/16 11:04 Dose: 40 mg - Objective Vital Signs: Vital Signs Temperature 97.6 F 07/26/16 14:35 Pulse Rate 94 H 07/26/16 14:35 Respiratory Rate 18 07/26/16 14:35 Blood Pressure 116/58 07/26/16 14:35 O2 Sat by Pulse Oximetry (%) 94 L 07/25/16 21:00 Constitutional: Yes: Calm Eyes: Yes: Conjunctiva Clear HENT: Yes: Atraumatic Neck: Yes: Supple Cardiovascular: Yes: S1, S2 Respiratory: Yes: Diminished Gastrointestinal: Yes: Soft Genitourinary: Yes: Incontinence Musculoskeletal: Yes: Muscle Weakness Edema: No Neurological: Yes: Confusion Labs: CBC, BMP 07/26/16 09:10 07/26/16 09:10 INR, PTT INR 1.04 (0.82-1.09) 07/23/16 21:30 Assessment/Plan Current Medications Generic Name Dose Route Start Last Admin Trade Name Freq PRN Reason Stop Dose Admin Acetaminophen 650 mg 07/18/16 10:58 07/23/16 02:55 Tylenol - PO 650 mg Q4H PRN Administration FEVER OR PAIN Albuterol/Ipratropium 1 amp 07/22/16 18:17 07/23/16 17:21 Duoneb - NEB 1 amp Q6H PRN Administration SHORT OF BREATH/WHEEZING Amlodipine Besylate 10 mg 07/19/16 10:00 07/26/16 11:03 Norvasc - PO 10 mg DAILY [facility] Administration Aspirin 81 mg 07/19/16 10:00 07/26/16 11:03 Asa - PO 81 mg DAILY [facility] Administration Atorvastatin Calcium 10 mg 07/18/16 22:00 07/25/16 21:33 Lipitor - PO 10 mg HS [facility] Administration Clopidogrel Bisulfate 75 mg 07/19/16 10:00 07/26/16 11:03 Plavix - PO 75 mg DAILY [facility] Administration Docusate Sodium 100 mg 07/19/16 10:00 07/26/16 10:51 Colace - PO Not Given DAILY [facility] Donepezil HCl 5 mg 07/19/16 22:00 07/25/16 21:33 Aricept - PO 5 mg HS [facility] Administration Hydralazine HCl 25 mg 07/18/16 22:00 07/26/16 11:03 Apresoline - PO 25 mg BID [facility] Administration Insulin Aspart 1 vial 07/22/16 07:00 07/26/16 12:00 Novolog Vial Sliding Scale - SQ Not Given ACHS [facility] Protocol Insulin Detemir 16 units 07/19/16 07:00 07/26/16 06:22 Levemir Vial SQ 16 units ACBK [facility] Administration Meclizine HCl 25 mg 07/18/16 10:58 Antivert - PO Q8H PRN [facility] Metoprolol Succinate 12.5 mg 07/22/16 10:15 07/26/16 11:02 Toprol Xl - PO 12.5 mg DAILY [facility] Administration Multivitamins/Minerals/Vitamin C 1 tab 07/19/16 10:00 07/26/16 11:03 Tab-A-Vit - PO 1 tab DAILY [facility] Administration Non-Formulary Medication 7 mg 07/19/16 14:45 07/26/16 11:04 Memantine Hcl [Namenda Xr] PO 7 mg DAILY [facility] Administration Pantoprazole Sodium 40 mg 07/19/16 10:00 07/26/16 11:04 Protonix - PO 40 mg DAILY [facility] Administration Impression 1. ESRD 2. S/P AMS aand now back to baseline 3. HTN 4. PVD 5. hyperlipidemia 6. dementia 7. DM 8. PNA 9. Anemia Plan - will arrange for HD with [facility] in am - follow up swallow eval - pulmonary input appreciated - monitor blood pressure Dr Fox
[2016-07-26] MEDS ORDERED: INSULIN (NOVOLOG) ASPART 100 UNITS/ML 10ML VIAL ONE ×2 (17:12→21:56)
[2016-07-26] MEDS ORDERED: PT OWN MED DRAWER 7, Y5N ONE (17:44)
[2016-07-26] MEDS: ATORVASTATIN CA 10 MG TABLET (FP) PO SCH (21:56)
[2016-07-26] MEDS: DONEPEZIL HCL 5 MG TABLET (FP) PO SCH (21:57)
[2016-07-27] MEDS: ALBUTEROL SO4 2.5/IPRATROPIUM 0.5 INH SOL 3 ML VIAL.NEB. NEB PRN ×2 (01:32→22:01)
[2016-07-27] MEDS: INSULIN SLIDING SCALE (NOVOLOG) 1 VIAL SQ SCH ×4 (06:02→21:44)
[2016-07-27] MEDS: INSULIN DETEMIR 100 UNITS/ML MDV SQ SCH (06:32)
--- NOTE | 2016-07-27 09:21 | PN ---
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, Physician History of Present Illness: IN BED LOOKS COMFORTABLE NO COMPLAINTS--GETTING DIALYSIS EVENTS NOTED--HAD CHANGE IN MS LAST NIGHT--NOW BACK TO BASELINE - Current Medication List Current Medications: Active Medications Acetaminophen (Tylenol -) 650 mg PO Q4H PRN PRN Reason: FEVER OR PAIN Last Admin: 07/23/16 02:55 Dose: 650 mg Albuterol/Ipratropium (Duoneb -) 1 amp NEB Q6H PRN PRN Reason: SHORT OF BREATH/WHEEZING Last Admin: 07/27/16 01:32 Dose: 1 amp Amlodipine Besylate (Norvasc -) 10 mg PO DAILY [facility] Last Admin: 07/26/16 11:03 Dose: 10 mg Aspirin (Asa -) 81 mg PO DAILY [facility] Last Admin: 07/26/16 11:03 Dose: 81 mg Atorvastatin Calcium (Lipitor -) 10 mg PO HS [facility] Last Admin: 07/26/16 21:56 Dose: 10 mg Clopidogrel Bisulfate (Plavix -) 75 mg PO DAILY [facility] Last Admin: 07/26/16 11:03 Dose: 75 mg Docusate Sodium (Colace -) 100 mg PO DAILY [facility] Last Admin: 07/26/16 10:51 Dose: Not Given Donepezil HCl (Aricept -) 5 mg PO HS [facility] Last Admin: 07/26/16 21:57 Dose: 5 mg Hydralazine HCl (Apresoline -) 25 mg PO BID [facility] Last Admin: 07/26/16 21:54 Dose: Not Given Insulin Aspart (Novolog Vial Sliding Scale -) 1 vial SQ ACHS [facility] PRN Reason: Protocol Last Admin: 07/27/16 06:02 Dose: Not Given Insulin Detemir (Levemir Vial) 16 units SQ ACBK [facility] Last Admin: 07/27/16 06:32 Dose: 16 units Meclizine HCl (Antivert -) 25 mg PO Q8H PRN PRN Reason: VERTIGO Metoprolol Succinate (Toprol Xl -) 12.5 mg PO DAILY [facility] Last Admin: 07/26/16 11:02 Dose: 12.5 mg Multivitamins/Minerals/Vitamin C (Tab-A-Vit -) 1 tab PO DAILY [facility] Last Admin: 07/26/16 11:03 Dose: 1 tab Non-Formulary Medication (Memantine Hcl [Namenda Xr]) 7 mg PO DAILY [facility] Last Admin: 07/26/16 11:04 Dose: 7 mg Pantoprazole Sodium (Protonix -) 40 mg PO DAILY [facility] Last Admin: 07/26/16 11:04 Dose: 40 mg - Objective Vital Signs: Vital Signs Temperature 98.9 F 07/27/16 06:00 Pulse Rate 99 H 07/27/16 06:00 Respiratory Rate 18 07/27/16 06:00 Blood Pressure 135/74 07/27/16 06:00 O2 Sat by Pulse Oximetry (%) 90 L 07/26/16 21:00 Cardiovascular: Yes: Regular Rate and Rhythm Respiratory: Yes: Diminished Gastrointestinal: Yes: Normal Bowel Sounds, Soft Labs: CBC, BMP 07/26/16 09:10 07/26/16 09:10 INR, PTT INR 1.04 (0.82-1.09) 07/23/16 21:30 Problem List - Problems (1) Chest pain Code(s): R07.9 - CHEST PAIN, UNSPECIFIED (2) Pneumonia Assessment/Plan: OFF IV ABX ID CONSULT NOTED F/U CXR NOTED MBS DONE ON DYSPHAGIA DIET Code(s): J18.9 - PNEUMONIA, UNSPECIFIED ORGANISM Qualifiers: Pneumonia type: due to unspecified organism Laterality: bilateral Lung location: lower lobe of lung Qualified Code(s): J18.9 - Pneumonia, unspecified organism (3) Diabetes mellitus with renal manifestation Assessment/Plan: ON DIALYSIS [facility] Code(s): E11.29 - TYPE 2 DIABETES MELLITUS W OTH DIABETIC KIDNEY COMPLICATION (4) ESRD (end stage renal disease) Assessment/Plan: RENAL CONSULT Code(s): N18.6 - END STAGE RENAL DISEASE (5) Change in mental state Assessment/Plan: CT OLD CVA NEURO ON [facility] Code(s): R41.82 - ALTERED MENTAL STATUS, UNSPECIFIED (6) Pleural effusion Assessment/Plan: WILL D/W PULM IR DIALYSIS Code(s): J90 - PLEURAL EFFUSION, NOT ELSEWHERE CLASSIFIED
[2016-07-27] MEDS: ASPIRIN 81 MG CHEWABLE TABLETS PO SCH (10:14)
[2016-07-27] MEDS: CLOPIDOGREL BISULFATE 75 MG TABLET (FP) PO SCH (10:14)
[2016-07-27] MEDS: hydrALAZINE HCL 25 MG TABLET (FP) PO SCH ×2 (10:18→21:52)
[2016-07-27] MEDS: MEMANTINE HCL 7 MG PO SCH (10:20)
[2016-07-27] MEDS: amLODIPine BESYLATE 10 MG TABLET (FP) PO SCH (10:21)
[2016-07-27] MEDS: PANTOPRAZOLE 40 MG TABLET (FP) PO SCH (10:21)
[2016-07-27] MEDS: MULTIVITAMINS (DAILY MVI) TABLET (FP) PO SCH (10:21)
[2016-07-27] MEDS: METOPROLOL SUCCINATE 25 MG TAB.SR.24H (FP) PO SCH (10:21)
[2016-07-27] MEDS: DOCUSATE SODIUM 100 MG CAPSULE (FP) PO SCH (10:26)
[2016-07-27 10:36] LABS: MCH 29.7 pg (25.7-33.7); MCHC 33.2 g/dl (32.0-36.0); MEAN CELL VOLUME 89.4 fl (80-96); MEAN PLT VOLUME 7.6 fl (7.5-11.1); PLATELET COUNT 225 K/MM3 (134-434); RDW 17.1 % (11.6-15.6); WHITE BLOOD COUNT 8.3 K/mm3 (4.0-10.0)
[2016-07-27 11:00] LABS: TROPONIN I 0.42 ng/ml (0.00-0.05)
[2016-07-27] MEDS ORDERED: EPOETIN ALFA 2,000 UNITS/1 ML VIAL IVPUSH ONE (11:30)
--- NOTE | 2016-07-27 11:35 | PN ---
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, Physician History of Present Illness: pulmonary comfortable,resting in bed,awake,confused,-resp distress - Current Medication List Current Medications: Active Medications Acetaminophen (Tylenol -) 650 mg PO Q4H PRN PRN Reason: FEVER OR PAIN Last Admin: 07/23/16 02:55 Dose: 650 mg Albuterol/Ipratropium (Duoneb -) 1 amp NEB Q6H PRN PRN Reason: SHORT OF BREATH/WHEEZING Last Admin: 07/27/16 01:32 Dose: 1 amp Amlodipine Besylate (Norvasc -) 10 mg PO DAILY [facility] Last Admin: 07/27/16 10:21 Dose: Not Given Atorvastatin Calcium (Lipitor -) 10 mg PO HS [facility] Last Admin: 07/26/16 21:56 Dose: 10 mg Docusate Sodium (Colace -) 100 mg PO DAILY [facility] Last Admin: 07/27/16 10:26 Dose: Not Given Donepezil HCl (Aricept -) 5 mg PO HS [facility] Last Admin: 07/26/16 21:57 Dose: 5 mg Hydralazine HCl (Apresoline -) 25 mg PO BID [facility] Last Admin: 07/27/16 10:18 Dose: Not Given Insulin Aspart (Novolog Vial Sliding Scale -) 1 vial SQ ACHS [facility] PRN Reason: Protocol Last Admin: 07/27/16 06:02 Dose: Not Given Insulin Detemir (Levemir Vial) 16 units SQ ACBK [facility] Last Admin: 07/27/16 06:32 Dose: 16 units Meclizine HCl (Antivert -) 25 mg PO Q8H PRN PRN Reason: VERTIGO Metoprolol Succinate (Toprol Xl -) 12.5 mg PO DAILY [facility] Last Admin: 07/27/16 10:21 Dose: Not Given Multivitamins/Minerals/Vitamin C (Tab-A-Vit -) 1 tab PO DAILY [facility] Last Admin: 07/27/16 10:21 Dose: Not Given Non-Formulary Medication (Memantine Hcl [Namenda Xr]) 7 mg PO DAILY [facility] Last Admin: 07/27/16 10:20 Dose: Not Given Pantoprazole Sodium (Protonix -) 40 mg PO DAILY [facility] Last Admin: 07/27/16 10:21 Dose: Not Given - Objective Vital Signs: Vital Signs Temperature 98.8 F 07/27/16 09:45 Pulse Rate 74 06/06/17 11:29 Respiratory Rate 18 07/27/16 11:20 Blood Pressure 125/71 07/27/16 11:20 O2 Sat by Pulse Oximetry (%) 96 07/27/16 11:29 Constitutional: Yes: Calm, Thin Eyes: Yes: WNL HENT: Yes: WNL Neck: Yes: WNL Cardiovascular: Yes: Regular Rate and Rhythm, S1, S2 Respiratory: Yes: Diminished (poor inspiratory effort) Gastrointestinal: Yes: Normal Bowel Sounds, Soft Extremities: Yes: WNL Edema: No Labs: CBC, BMP 07/27/16 09:50 07/27/16 09:50 INR, PTT INR 1.04 (0.82-1.09) 07/23/16 21:30 Problem List - Problems (1) Anemia due to chronic kidney disease Code(s): N18.9 - CHRONIC KIDNEY DISEASE, UNSPECIFIED D63.1 - ANEMIA IN CHRONIC KIDNEY DISEASE (2) Chronic progressive renal failure Code(s): N18.9 - CHRONIC KIDNEY DISEASE, UNSPECIFIED Qualifiers: Chronic kidney disease stage: stage 5 Qualified Code(s): N18.5 - Chronic kidney disease, stage 5 (3) ESRD (end stage renal disease) Code(s): N18.6 - END STAGE RENAL DISEASE (4) Hypertension Code(s): I10 - ESSENTIAL (PRIMARY) HYPERTENSION (5) CHF (congestive heart failure) Code(s): I50.9 - HEART FAILURE, UNSPECIFIED (6) Pleural effusion due to CHF (congestive heart failure) Code(s): I50.9 - HEART FAILURE, UNSPECIFIED (7) Diabetes mellitus with renal manifestation Code(s): E11.29 - TYPE 2 DIABETES MELLITUS W OTH DIABETIC KIDNEY COMPLICATION (8) Alzheimer's dementia Code(s): G30.9 - ALZHEIMER'S DISEASE, UNSPECIFIED (9) Dementia Code(s): F03.90 - UNSPECIFIED DEMENTIA WITHOUT BEHAVIORAL DISTURBANCE Qualifiers: Dementia type: unspecified type Dementia behavioral disturbance: without behavioral disturbance Qualified Code(s): F03.90 - Unspecified dementia without behavioral disturbance Assessment/Plan Assessment/Plan Acute on Chronic LV Systolic Heart Failure ESRD on HD Volume Overload Bilateral Pleural Effusions HTN DM Dementia - HD as per renal - monitor CXRs - fluid restriction - O2 to keep SpO2 >90% - thoracentesis - aspiration precautions - DVT prophylaxis - chest x-ray DR BAXTER
[2016-07-27 11:37] LABS: CALCIUM 9.1 mg/dL (8.5-10.1); COCKROFT - GAULT 6.3495; CREATININE 6.3 mg/dL (0.55-1.02)
--- NOTE | 2016-07-27 12:14 | PN ---
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, ENTRY REP - Note 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: Selected Entries 07/26/16 07/26/16 07/26/16 02:08 06:00 10:15 Breakfast 25% Lunch Supper Temperature 97.6 F 97.5 F L 07/26/16 07/26/16 07/26/16 11:10 11:11 14:35 Breakfast 25% Lunch Supper Temperature 97.3 F L 97.6 F 07/26/16 07/26/16 07/26/16 17:08 18:00 21:00 Breakfast Lunch 100% Supper 75% Temperature 97.6 F 98.2 F 07/27/16 07/27/16 07/27/16 02:00 06:00 09:45 Breakfast Lunch Supper Temperature 97.4 F L 98.9 F 98.8 F 07/27/16 11:13 Breakfast 100% Lunch Supper Temperature Rec: ground and thin liquid. No straw
--- NOTE | 2016-07-27 13:12 | PN ---
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, Physician History of Present Illness: Pt seen and examined at bedside. She is currently getting HD. - Current Medication List Current Medications: Active Medications Acetaminophen (Tylenol -) 650 mg PO Q4H PRN PRN Reason: FEVER OR PAIN Last Admin: 07/23/16 02:55 Dose: 650 mg Albuterol/Ipratropium (Duoneb -) 1 amp NEB Q6H PRN PRN Reason: SHORT OF BREATH/WHEEZING Last Admin: 07/27/16 01:32 Dose: 1 amp Amlodipine Besylate (Norvasc -) 10 mg PO DAILY [facility] Last Admin: 07/27/16 10:21 Dose: Not Given Atorvastatin Calcium (Lipitor -) 10 mg PO HS [facility] Last Admin: 07/26/16 21:56 Dose: 10 mg Docusate Sodium (Colace -) 100 mg PO DAILY [facility] Last Admin: 07/27/16 10:26 Dose: Not Given Donepezil HCl (Aricept -) 5 mg PO HS [facility] Last Admin: 07/26/16 21:57 Dose: 5 mg Hydralazine HCl (Apresoline -) 25 mg PO BID [facility] Last Admin: 07/27/16 10:18 Dose: Not Given Insulin Aspart (Novolog Vial Sliding Scale -) 1 vial SQ ACHS [facility] PRN Reason: Protocol Last Admin: 07/27/16 12:44 Dose: Not Given Insulin Detemir (Levemir Vial) 16 units SQ ACBK [facility] Last Admin: 07/27/16 06:32 Dose: 16 units Meclizine HCl (Antivert -) 25 mg PO Q8H PRN PRN Reason: [facility]IGO Metoprolol Succinate (Toprol Xl -) 12.5 mg PO DAILY [facility] Last Admin: 07/27/16 10:21 Dose: Not Given Multivitamins/Minerals/Vitamin C (Tab-A-Vit -) 1 tab PO DAILY [facility] Last Admin: 07/27/16 10:21 Dose: Not Given Non-Formulary Medication (Memantine Hcl [Namenda Xr]) 7 mg PO DAILY [facility] Last Admin: 07/27/16 10:20 Dose: Not Given Pantoprazole Sodium (Protonix -) 40 mg PO DAILY [facility] Last Admin: 07/27/16 10:21 Dose: Not Given - Objective Vital Signs: Vital Signs Temperature 98.8 F 07/27/16 09:45 Pulse Rate 90 07/27/16 13:05 Respiratory Rate 18 07/27/16 13:05 Blood Pressure 111/68 07/27/16 13:05 O2 Sat by Pulse Oximetry (%) 96 07/27/16 11:29 Constitutional: Yes: Calm Neck: Yes: Supple Cardiovascular: Yes: S1, S2 Respiratory: Yes: Diminished, On Nasal O2 Gastrointestinal: Yes: Soft Genitourinary: Yes: Incontinence Musculoskeletal: Yes: Muscle Weakness Edema: No Neurological: Yes: Confusion Labs: CBC, BMP 07/27/16 09:50 07/27/16 09:50 INR, PTT INR 1.04 (0.82-1.09) 07/23/16 21:30 Problem List - Problems (1) Anemia due to chronic kidney disease Code(s): N18.9 - CHRONIC KIDNEY DISEASE, UNSPECIFIED D63.1 - ANEMIA IN CHRONIC KIDNEY DISEASE (2) CHF (congestive heart failure) Code(s): I50.9 - HEART FAILURE, UNSPECIFIED (3) Diabetes mellitus with renal manifestation Code(s): E11.29 - TYPE 2 DIABETES MELLITUS W OTH DIABETIC KIDNEY COMPLICATION (4) ESRD (end stage renal disease) Code(s): N18.6 - END STAGE RENAL DISEASE (5) Failure to thrive in adult Code(s): R62.7 - ADULT FAILURE TO THRIVE (6) Hypertension Code(s): I10 - ESSENTIAL (PRIMARY) HYPERTENSION (7) Pleural effusion Code(s): J90 - PLEURAL EFFUSION, NOT ELSEWHERE CLASSIFIED Assessment/Plan Current Medications Generic Name Dose Route Start Last Admin Trade Name Freq PRN Reason Stop Dose Admin Acetaminophen 650 mg 07/18/16 10:58 07/23/16 02:55 Tylenol - PO 650 mg Q4H PRN Administration FEVER OR PAIN Albuterol/Ipratropium 1 amp 07/22/16 18:17 07/27/16 01:32 Duoneb - NEB 1 amp Q6H PRN Administration SHORT OF BREATH/WHEEZING Amlodipine Besylate 10 mg 07/19/16 10:00 07/27/16 10:21 Norvasc - PO Not Given DAILY [facility] Atorvastatin Calcium 10 mg 07/18/16 22:00 07/26/16 21:56 Lipitor - PO 10 mg HS [facility] Administration Docusate Sodium 100 mg 07/19/16 10:00 07/27/16 10:26 Colace - PO Not Given DAILY [facility] Donepezil HCl 5 mg 07/19/16 22:00 07/26/16 21:57 Aricept - PO 5 mg HS [facility] Administration Hydralazine HCl 25 mg 07/18/16 22:00 07/27/16 10:18 Apresoline - PO Not Given BID [facility] Insulin Aspart 1 vial 07/22/16 07:00 07/27/16 12:44 Novolog Vial Sliding Scale - SQ Not Given ACHS [facility] Protocol Insulin Detemir 16 units 07/19/16 07:00 07/27/16 06:32 Levemir Vial SQ 16 units ACBK [facility] Administration Meclizine HCl 25 mg 07/18/16 10:58 Antivert - PO Q8H PRN [facility] Metoprolol Succinate 12.5 mg 07/22/16 10:15 07/27/16 10:21 Toprol Xl - PO Not Given DAILY [facility] Multivitamins/Minerals/Vitamin C 1 tab 07/19/16 10:00 07/27/16 10:21 Tab-A-Vit - PO Not Given DAILY [facility] Non-Formulary Medication 7 mg 07/19/16 14:45 07/27/16 10:20 Memantine Hcl [Namenda Xr] PO Not Given DAILY [facility] Pantoprazole Sodium 40 mg 07/19/16 10:00 07/27/16 10:21 Protonix - PO Not Given DAILY [facility] Impression 1. ESRD 2. S/P AMS aand now back to baseline 3. HTN 4. PVD 5. hyperlipidemia 6. dementia 7. DM 8. PNA 9. Anemia 10. pleural effusion Plan - HD today, pt is tolerating - swallow eval appreciated - encourage PO intake - monitor blood pressure - will follow Dr Fox
[2016-07-27 20:39] LABS: ALLENS TEST POSITIVE; ART PUNCT SITE LEFT RADIAL; ARTERIAL BLD GAS O2 SATURATION 95.2 % (90-98.9); ARTERIAL BLOOD GAS BASE EXCESS 4.9 meq/l (-2-2); ARTERIAL BLOOD GAS HCO3 28.6 meq/L (22-26); ARTERIAL BLOOD GAS PO2 70.1 mmHg (68-100); LPM/O2% 50%; PT. ON O2? YES; TYPE OF O2 VENTI MASK
[2016-07-27 20:40] LABS: ARTERIAL BLOOD GAS pH 7.47 (7.35-7.45)
[2016-07-27] MEDS: ATORVASTATIN CA 10 MG TABLET (FP) PO SCH (21:52)
[2016-07-27] MEDS: DONEPEZIL HCL 5 MG TABLET (FP) PO SCH (21:52)
[2016-07-27] MEDS: ACETAMINOPHEN 325 MG TABLET (FP) PO PRN (21:52)
[2016-07-28] MEDS: INSULIN SLIDING SCALE (NOVOLOG) 1 VIAL SQ SCH ×4 (05:59→21:47)
[2016-07-28] MEDS: DOCUSATE SODIUM 100 MG CAPSULE (FP) PO SCH (10:07)
[2016-07-28] MEDS: hydrALAZINE HCL 25 MG TABLET (FP) PO SCH ×2 (10:07→21:47)
[2016-07-28] MEDS: MEMANTINE HCL 7 MG PO SCH (10:10)
[2016-07-28] MEDS: PANTOPRAZOLE 40 MG TABLET (FP) PO SCH (10:10)
[2016-07-28] MEDS: amLODIPine BESYLATE 10 MG TABLET (FP) PO SCH (10:10)
[2016-07-28] MEDS: MULTIVITAMINS (DAILY MVI) TABLET (FP) PO SCH (10:10)
[2016-07-28] MEDS: METOPROLOL SUCCINATE 25 MG TAB.SR.24H (FP) PO SCH (10:11)
[2016-07-28] MEDS: INSULIN DETEMIR 100 UNITS/ML MDV SQ SCH (10:17)
--- NOTE | 2016-07-28 11:02 | PN ---
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, Physician History of Present Illness: Pt seen and examined at bedside. She is awake and alert. She is asking for food. Her appetite seems to have drastically improved. - Current Medication List Current Medications: Active Medications Acetaminophen (Tylenol -) 650 mg PO Q4H PRN PRN Reason: FEVER OR PAIN Last Admin: 07/27/16 21:52 Dose: 650 mg Albuterol/Ipratropium (Duoneb -) 1 amp NEB Q6H PRN PRN Reason: SHORT OF BREATH/WHEEZING Last Admin: 07/27/16 22:01 Dose: 1 amp Amlodipine Besylate (Norvasc -) 10 mg PO DAILY [facility] Last Admin: 07/28/16 10:10 Dose: 10 mg Atorvastatin Calcium (Lipitor -) 10 mg PO HS [facility] Last Admin: 07/27/16 21:52 Dose: 10 mg Docusate Sodium (Colace -) 100 mg PO DAILY [facility] Last Admin: 07/28/16 10:07 Dose: Not Given Donepezil HCl (Aricept -) 5 mg PO HS [facility] Last Admin: 07/27/16 21:52 Dose: 5 mg Hydralazine HCl (Apresoline -) 25 mg PO BID [facility] Last Admin: 07/28/16 10:07 Dose: 25 mg Insulin Aspart (Novolog Vial Sliding Scale -) 1 vial SQ ACHS [facility] PRN Reason: Protocol Last Admin: 07/28/16 05:59 Dose: Not Given Insulin Detemir (Levemir Vial) 16 units SQ ACBK [facility] Last Admin: 07/28/16 10:17 Dose: 16 units Meclizine HCl (Antivert -) 25 mg PO Q8H PRN PRN Reason: VERTIGO Metoprolol Succinate (Toprol Xl -) 12.5 mg PO DAILY [facility] Last Admin: 07/28/16 10:11 Dose: 12.5 mg Multivitamins/Minerals/Vitamin C (Tab-A-Vit -) 1 tab PO DAILY [facility] Last Admin: 07/28/16 10:10 Dose: 1 tab Non-Formulary Medication (Memantine Hcl [Namenda Xr]) 7 mg PO DAILY [facility] Last Admin: 07/28/16 10:10 Dose: 7 mg Pantoprazole Sodium (Protonix -) 40 mg PO DAILY [facility] Last Admin: 07/28/16 10:10 Dose: 40 mg - Objective Vital Signs: Vital Signs Temperature 99.1 F 07/28/16 05:59 Pulse Rate 93 H 07/28/16 05:59 Respiratory Rate 18 07/28/16 05:59 Blood Pressure 108/65 07/28/16 05:59 O2 Sat by Pulse Oximetry (%) 94 L 07/27/16 21:00 Constitutional: Yes: Calm Eyes: Yes: Conjunctiva Clear HENT: Yes: Atraumatic Cardiovascular: Yes: S1, S2 Respiratory: Yes: On Nasal O2 Gastrointestinal: Yes: Soft Genitourinary: Yes: Incontinence Musculoskeletal: Yes: Muscle Weakness Edema: No Neurological: Yes: Oriented Psychiatric: Yes: Oriented Labs: CBC, BMP 07/27/16 09:50 07/27/16 09:50 INR, PTT INR 1.04 (0.82-1.09) 07/23/16 21:30 Problem List - Problems (1) Anemia due to chronic kidney disease Code(s): N18.9 - CHRONIC KIDNEY DISEASE, UNSPECIFIED D63.1 - ANEMIA IN CHRONIC KIDNEY DISEASE (2) CHF (congestive heart failure) Code(s): I50.9 - HEART FAILURE, UNSPECIFIED (3) Diabetes mellitus with renal manifestation Code(s): E11.29 - TYPE 2 DIABETES MELLITUS W OTH DIABETIC KIDNEY COMPLICATION (4) ESRD (end stage renal disease) Code(s): N18.6 - END STAGE RENAL DISEASE (5) Failure to thrive in adult Code(s): R62.7 - ADULT FAILURE TO THRIVE (6) Hypertension Code(s): I10 - ESSENTIAL (PRIMARY) HYPERTENSION (7) Pleural effusion Code(s): J90 - PLEURAL EFFUSION, NOT ELSEWHERE CLASSIFIED Assessment/Plan Current Medications Generic Name Dose Route Start Last Admin Trade Name Freq PRN Reason Stop Dose Admin Acetaminophen 650 mg 07/18/16 10:58 07/27/16 21:52 Tylenol - PO 650 mg Q4H PRN Administration FEVER OR PAIN Albuterol/Ipratropium 1 amp 07/22/16 18:17 07/27/16 22:01 Duoneb - NEB 1 amp Q6H PRN Administration SHORT OF BREATH/WHEEZING Amlodipine Besylate 10 mg 07/19/16 10:00 07/28/16 10:10 Norvasc - PO 10 mg DAILY [facility] Administration Atorvastatin Calcium 10 mg 07/18/16 22:00 07/27/16 21:52 Lipitor - PO 10 mg HS [facility] Administration Docusate Sodium 100 mg 07/19/16 10:00 07/28/16 10:07 Colace - PO Not Given DAILY [facility] Donepezil HCl 5 mg 07/19/16 22:00 07/27/16 21:52 Aricept - PO 5 mg HS [facility] Administration Hydralazine HCl 25 mg 07/18/16 22:00 07/28/16 10:07 Apresoline - PO 25 mg BID [facility] Administration Insulin Aspart 1 vial 07/22/16 07:00 07/28/16 05:59 Novolog Vial Sliding Scale - SQ Not Given ACHS [facility] Protocol Insulin Detemir 16 units 07/19/16 07:00 07/28/16 10:17 Levemir Vial SQ 16 units ACBK [facility] Administration Meclizine HCl 25 mg 07/18/16 10:58 Antivert - PO Q8H PRN [facility] Metoprolol Succinate 12.5 mg 07/22/16 10:15 07/28/16 10:11 Toprol Xl - PO 12.5 mg DAILY [facility] Administration Multivitamins/Minerals/Vitamin C 1 tab 07/19/16 10:00 07/28/16 10:10 Tab-A-Vit - PO 1 tab DAILY [facility] Administration Non-Formulary Medication 7 mg 07/19/16 14:45 07/28/16 10:10 Memantine Hcl [Namenda Xr] PO 7 mg DAILY [facility] Administration Pantoprazole Sodium 40 mg 07/19/16 10:00 07/28/16 10:10 Protonix - PO 40 mg DAILY [facility] Administration Impression 1. ESRD 2. S/P AMS aand now back to baseline 3. HTN 4. PVD 5. hyperlipidemia 6. dementia 7. DM 8. PNA 9. Anemia 10. pleural effusion Plan - will arrange for HD in am with UF - thoracocentesis on Tuesday - monitor pulse ox - appetite is improved - check phos levels - monitor blood pressure - will follow Dr Fox
--- NOTE | 2016-07-28 11:25 | PN ---
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 - Note 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: Selected Entries 07/26/16 07/26/16 07/26/16 02:08 06:00 10:15 Breakfast 25% Lunch Supper Pulse Rate 96 H 96 H 07/26/16 07/26/16 07/26/16 11:10 11:11 14:35 Breakfast 25% Lunch Supper Pulse Rate 96 H 94 H 07/26/16 07/26/16 07/26/16 17:08 18:00 21:00 Breakfast Lunch 100% Supper 75% Pulse Rate 97 H 92 H 07/27/16 07/27/16 07/27/16 02:00 06:00 09:45 Breakfast Lunch Supper Pulse Rate 96 H 99 H 91 H 07/27/16 07/27/16 07/27/16 09:50 10:00 10:20 Breakfast 75% Lunch Supper Pulse Rate 93 H 90 07/27/16 07/27/16 07/27/16 10:50 11:13 11:20 Breakfast 100% Lunch Supper Pulse Rate 98 H 97 H 07/27/16 07/27/16 07/27/16 11:29 11:50 12:20 Breakfast Lunch Supper Pulse Rate 74 99 H 92 H 07/27/16 07/27/16 07/27/16 12:50 13:05 13:10 Breakfast Lunch Supper Pulse Rate 94 H 90 90 07/27/16 07/27/16 07/27/16 14:39 18:00 21:00 Breakfast Lunch 75% Supper 100% Pulse Rate 89 98 H 102 H 07/28/16 07/28/16 02:00 05:59 Breakfast Lunch Supper Pulse Rate 102 H 93 H Reported to cough intermittently on thin liquid. Fever spike 6/7. CXR right midlung worsening? r/o aspiration? REC: Dysphagia puree/nectar thick liquid for now. Monitor pulmonary status.
[2016-07-28] MEDS: ALBUTEROL SO4 2.5/IPRATROPIUM 0.5 INH SOL 3 ML VIAL.NEB. NEB PRN ×2 (11:30→22:12)
[2016-07-28] MEDS ORDERED: INSULIN (NOVOLOG) ASPART 100 UNITS/ML 10ML VIAL ONE ×2 (12:08→16:49)
--- NOTE | 2016-07-28 13:18 | PN ---
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
--- NOTE | 2016-07-28 14:45 | PN ---
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 Patient is nicaraguan speaking, NAD, comfortable in bed. Had HD yesterday, 2L taken out, CXR shows mild effusion on the right and atelectasis. Probable Thoracentesis on Tuesday? if CXR shows effusion - Current Medication List Current Medications: Active Medications Acetaminophen (Tylenol -) 650 mg PO Q4H PRN PRN Reason: FEVER OR PAIN Last Admin: 07/27/16 21:52 Dose: 650 mg Albumin Human (Albumin Human 25%) 12.5 gm IVPB Q30M [facility] Albuterol/Ipratropium (Duoneb -) 1 amp NEB Q6H PRN PRN Reason: SHORT OF BREATH/WHEEZING Last Admin: 07/28/16 11:30 Dose: 1 amp Amlodipine Besylate (Norvasc -) 10 mg PO DAILY [facility] Last Admin: 07/28/16 10:10 Dose: 10 mg Atorvastatin Calcium (Lipitor -) 10 mg PO HS [facility] Last Admin: 07/27/16 21:52 Dose: 10 mg Docusate Sodium (Colace -) 100 mg PO DAILY [facility] Last Admin: 07/28/16 10:07 Dose: Not Given Donepezil HCl (Aricept -) 5 mg PO HS [facility] Last Admin: 07/27/16 21:52 Dose: 5 mg Epoetin Efren (Epogen -) 4,000 units IVPUSH ONCE ONE Stop: 07/29/16 11:03 Hydralazine HCl (Apresoline -) 25 mg PO BID [facility] Last Admin: 07/28/16 10:07 Dose: 25 mg Insulin Aspart (Novolog Vial Sliding Scale -) 1 vial SQ ACHS [facility] PRN Reason: Protocol Last Admin: 07/28/16 12:09 Dose: 2 units Insulin Detemir (Levemir Vial) 16 units SQ ACBK [facility] Last Admin: 07/28/16 10:17 Dose: 16 units Meclizine HCl (Antivert -) 25 mg PO Q8H PRN PRN Reason: VERTIGO Metoprolol Succinate (Toprol Xl -) 12.5 mg PO DAILY [facility] Last Admin: 07/28/16 10:11 Dose: 12.5 mg Multivitamins/Minerals/Vitamin C (Tab-A-Vit -) 1 tab PO DAILY [facility] Last Admin: 07/28/16 10:10 Dose: 1 tab Non-Formulary Medication (Memantine Hcl [Namenda Xr]) 7 mg PO DAILY [facility] Last Admin: 07/28/16 10:10 Dose: 7 mg Pantoprazole Sodium (Protonix -) 40 mg PO DAILY [facility] Last Admin: 07/28/16 10:10 Dose: 40 mg - Objective Vital Signs: Vital Signs Temperature 98.5 F 07/28/16 10:00 Pulse Rate 104 H 07/28/16 13:42 Respiratory Rate 18 07/28/16 10:00 Blood Pressure 130/68 07/28/16 10:00 O2 Sat by Pulse Oximetry (%) 94 L 07/28/16 13:42 Constitutional: Yes: Well Nourished, No Distress, Calm Respiratory: Yes: Regular Gastrointestinal: Yes: Normal Bowel Sounds Musculoskeletal: Yes: Other (generalized weakness) Edema: No Neurological: Yes: Alert Labs: CBC, BMP 07/27/16 09:50 07/27/16 09:50 INR, PTT INR 1.04 (0.82-1.09) 07/23/16 21:30 Problem List - Problems (1) Anemia due to chronic kidney disease Assessment/Plan: Gradually improving, RENAL ON BOARD, IS GETTING HD Code(s): N18.9 - CHRONIC KIDNEY DISEASE, UNSPECIFIED D63.1 - ANEMIA IN CHRONIC KIDNEY DISEASE (2) Diabetes mellitus with renal manifestation Assessment/Plan: Controlled at this time. Code(s): E11.29 - TYPE 2 DIABETES MELLITUS W OTH DIABETIC KIDNEY COMPLICATION (3) Elevated troponin Assessment/Plan: SECONDARY TO RENAL Code(s): R74.8 - ABNORMAL LEVELS OF OTHER SERUM ENZYMES (4) Failure to thrive in adult Assessment/Plan: APPETITE IS IMPROVED Code(s): R62.7 - ADULT FAILURE TO THRIVE (5) ESRD (end stage renal disease) Code(s): N18.6 - END STAGE RENAL DISEASE (6) Atelectasis of right lung Code(s): J98.11 - ATELECTASIS Assessment/Plan HD IN AM PHYSICAL THERAPY- ENCOURAGE TO GET HER OUT OF BED INCENTIVE SPIROMETER- NURSING TO ENCOURAGE DEEP BREATHING EXERCISES WELL. CHEST PHYSIOTHERAPY LOW O2 LEVELS LIKELY SECONDARY TO DEVELOPING ATELECTASIS.
[2016-07-28] MEDS: DONEPEZIL HCL 5 MG TABLET (FP) PO SCH (21:46)
[2016-07-28] MEDS: ATORVASTATIN CA 10 MG TABLET (FP) PO SCH (21:46)
[2016-07-28] MEDS: ACETAMINOPHEN 325 MG TABLET (FP) PO PRN (21:48)
[2016-07-29] MEDS: INSULIN DETEMIR 100 UNITS/ML MDV SQ SCH (06:11)
[2016-07-29] MEDS: INSULIN SLIDING SCALE (NOVOLOG) 1 VIAL SQ SCH ×4 (06:11→21:30)
[2016-07-29] MEDS: ALBUTEROL SO4 2.5/IPRATROPIUM 0.5 INH SOL 3 ML VIAL.NEB. NEB PRN (06:27)
[2016-07-29] MEDS ORDERED: EPOETIN ALFA 2,000 UNITS/1 ML VIAL IVPUSH ONE (09:00)
[2016-07-29 09:26] LABS: MCH 29.3 pg (25.7-33.7); MCHC 32.3 g/dl (32.0-36.0); MEAN CELL VOLUME 90.9 fl (80-96); MEAN PLT VOLUME 7.7 fl (7.5-11.1); PLATELET COUNT 210 K/MM3 (134-434); RDW 18.2 % (11.6-15.6); WHITE BLOOD COUNT 7.2 K/mm3 (4.0-10.0)
[2016-07-29 09:47] LABS: ALBUMIN 3.2 g/dl (3.4-5.0); BILIRUBIN,TOTAL 0.4 mg/dL (0.2-1.0); CALCIUM 8.8 mg/dL (8.5-10.1); COCKROFT - GAULT 7.6925; CREATININE 5.2 mg/dL (0.55-1.02); PHOSPHOROUS 5.1 mg/dL (2.5-4.9); TOT PROT 6.8 g/dl (6.4-8.2)
[2016-07-29] MEDS: ALBUMIN HUMAN 25% 12.5 GM/50 ML VIAL IVPB SCH ×4 (10:00→11:30)
--- NOTE | 2016-07-29 11:53 | PN ---
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 - Note 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: Selected Entries 07/28/16 07/28/16 07/28/16 02:00 05:59 10:00 Breakfast Lunch Supper Temperature 99.5 F 99.1 F 98.5 F Pulse Rate 07/28/16 07/28/16 07/28/16 14:34 18:00 19:55 Breakfast 100% Lunch 100% Supper 100% Temperature 97.2 F L 98.4 F Pulse Rate 07/28/16 07/29/16 07/29/16 22:00 02:00 06:00 Breakfast Lunch Supper Temperature 98.3 F Pulse Rate 96 H 92 H 07/29/16 07/29/16 07/29/16 08:00 08:10 08:40 Breakfast Lunch Supper Temperature Pulse Rate 98 H 92 H 93 H 07/29/16 07/29/16 07/29/16 09:10 09:40 10:10 Breakfast 100% Lunch Supper Temperature Pulse Rate 104 H 94 H 95 H 07/29/16 11:06 Breakfast Lunch Supper Temperature Pulse Rate 105 H Laboratory Tests 07/27/16 07/29/16 09:50 08:00 WBC 8.3 7.2 Renal diet with Nepro ordered/ nectar thick liquid. Unfortunately, nepro can not be thickened with thickening powder as it lumps and still in thin. Can this pt with renal dx medically tolerate Ensure Compact (which is nectar thick) or Magic cup (pudding consistency)? Monitor pulmonary status/PO tolerance.
[2016-07-29] MEDS: PANTOPRAZOLE 40 MG TABLET (FP) PO SCH (12:11)
[2016-07-29] MEDS: DOCUSATE SODIUM 100 MG CAPSULE (FP) PO SCH (12:12)
[2016-07-29] MEDS: METOPROLOL SUCCINATE 25 MG TAB.SR.24H (FP) PO SCH (12:12)
[2016-07-29] MEDS: hydrALAZINE HCL 25 MG TABLET (FP) PO SCH ×2 (12:13→21:31)
[2016-07-29] MEDS: MULTIVITAMINS (DAILY MVI) TABLET (FP) PO SCH (12:14)
[2016-07-29] MEDS: amLODIPine BESYLATE 10 MG TABLET (FP) PO SCH (12:14)
[2016-07-29] MEDS: MEMANTINE HCL 7 MG PO SCH (12:15)
[2016-07-29 13:38] LABS: CREATININE 1.7 mg/dL (0.55-1.02)
--- NOTE | 2016-07-29 13:41 | PN ---
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 Patient is malawian speaking, NAD, comfortable in bed. Had HD yesterday, 2L taken out, CXR shows worsening with mild effusion on the right and atelectasis. Spoke IR , Thoracentesis planned for AM. Left message for son to call back for consent. Getting HD today. Looks comfortable in bed. - Current Medication List Current Medications: Active Medications Acetaminophen (Tylenol -) 650 mg PO Q4H PRN PRN Reason: FEVER OR PAIN Last Admin: 07/28/16 21:48 Dose: 650 mg Albuterol/Ipratropium (Duoneb -) 1 amp NEB Q6H PRN PRN Reason: SHORT OF BREATH/WHEEZING Last Admin: 07/29/16 06:27 Dose: 1 amp Amlodipine Besylate (Norvasc -) 10 mg PO DAILY [facility] Last Admin: 07/29/16 12:14 Dose: 10 mg Atorvastatin Calcium (Lipitor -) 10 mg PO HS [facility] Last Admin: 07/28/16 21:46 Dose: 10 mg Docusate Sodium (Colace -) 100 mg PO DAILY [facility] Last Admin: 07/29/16 12:12 Dose: 100 mg Donepezil HCl (Aricept -) 5 mg PO HS [facility] Last Admin: 07/28/16 21:46 Dose: 5 mg Hydralazine HCl (Apresoline -) 25 mg PO BID [facility] Last Admin: 07/29/16 12:13 Dose: 25 mg Insulin Aspart (Novolog Vial Sliding Scale -) 1 vial SQ ACHS [facility] PRN Reason: Protocol Last Admin: 07/29/16 12:16 Dose: 2 units Insulin Detemir (Levemir Vial) 16 units SQ ACBK [facility] Last Admin: 07/29/16 06:11 Dose: 16 units Meclizine HCl (Antivert -) 25 mg PO Q8H PRN PRN Reason: VERTIGO Last Admin: 07/28/16 21:46 Dose: 25 mg Metoprolol Succinate (Toprol Xl -) 12.5 mg PO DAILY [facility] Last Admin: 07/29/16 12:12 Dose: 12.5 mg Multivitamins/Minerals/Vitamin C (Tab-A-Vit -) 1 tab PO DAILY [facility] Last Admin: 07/29/16 12:14 Dose: 1 tab Non-Formulary Medication (Memantine Hcl [Namenda Xr]) 7 mg PO DAILY [facility] Last Admin: 07/29/16 12:15 Dose: 7 mg Pantoprazole Sodium (Protonix -) 40 mg PO DAILY [facility] Last Admin: 07/29/16 12:11 Dose: 40 mg - Objective Vital Signs: Vital Signs Temperature 97.8 F 07/29/16 10:00 Pulse Rate 97 H 07/29/16 12:00 Respiratory Rate 18 07/29/16 12:00 Blood Pressure 125/57 07/29/16 12:00 O2 Sat by Pulse Oximetry (%) 98 07/29/16 11:06 Constitutional: Yes: Well Nourished, No Distress, Calm Cardiovascular: Yes: Regular Rate and Rhythm Respiratory: Yes: Regular, Diminished (BLL) Gastrointestinal: Yes: Normal Bowel Sounds Musculoskeletal: Yes: Other (generalized weakness) Edema: No Peripheral Pulses WNL: No Peripheral Pulses: Left Doralis Pedis: 1+, Right Dorsalis Pedis: 1+ Neurological: Yes: Alert Labs: CBC, BMP 07/29/16 08:00 INR, PTT INR 1.04 (0.82-1.09) 07/23/16 21:30 Problem List - Problems (1) Anemia due to chronic kidney disease Assessment/Plan: Gradually improving, RENAL ON BOARD, IS GETTING HD, RECEIVED EPOGEN. Code(s): N18.9 - CHRONIC KIDNEY DISEASE, UNSPECIFIED D63.1 - ANEMIA IN CHRONIC KIDNEY DISEASE (2) Diabetes mellitus with renal manifestation Assessment/Plan: Controlled at this time. Code(s): E11.29 - TYPE 2 DIABETES MELLITUS W H DIABETIC KIDNEY COMPLICATION (3) ESRD (end stage renal disease) Assessment/Plan: ON HD Code(s): N18.6 - END STAGE RENAL DISEASE (4) Atelectasis of right lung Assessment/Plan: WORSENING OF CXR, AWAITING CONSENT FROM SON, LEFT MESSAGE TO CALL BACK. THORACENTESIS SCHEDULED FOR AM Code(s): J98.11 - ATELECTASIS Assessment/Plan HD today Thoracentesis in AM Consent pending from the son
--- NOTE | 2016-07-29 15:17 | PN ---
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 (short form) - Note 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: PULMONARY Still some shortness of breath. No chest pain. Last CXR still with bilateral effusions. Last Vital Signs Temp Pulse Resp BP Pulse Ox 97.8 F 97 H 18 125/57 98 07/29/16 10:00 07/29/16 12:00 07/29/16 12:00 07/29/16 12:00 07/29/16 11:06 Gen: NAD at rest Heart: RRR Lung: decreased breath sounds at the bases Abd: soft, nontender Ext: no edema CBC, BMP 07/29/16 08:00 07/29/16 12:00 Active Medications Acetaminophen (Tylenol -) 650 mg PO Q4H PRN PRN Reason: FEVER OR PAIN Last Admin: 07/28/16 21:48 Dose: 650 mg Albuterol/Ipratropium (Duoneb -) 1 amp NEB Q6H PRN PRN Reason: SHORT OF BREATH/WHEEZING Last Admin: 07/29/16 06:27 Dose: 1 amp Amlodipine Besylate (Norvasc -) 10 mg PO DAILY [facility] Last Admin: 07/29/16 12:14 Dose: 10 mg Atorvastatin Calcium (Lipitor -) 10 mg PO HS [facility] Last Admin: 07/28/16 21:46 Dose: 10 mg Docusate Sodium (Colace -) 100 mg PO DAILY [facility] Last Admin: 07/29/16 12:12 Dose: 100 mg Donepezil HCl (Aricept -) 5 mg PO HS [facility] Last Admin: 07/28/16 21:46 Dose: 5 mg Hydralazine HCl (Apresoline -) 25 mg PO BID [facility] Last Admin: 07/29/16 12:13 Dose: 25 mg Insulin Aspart (Novolog Vial Sliding Scale -) 1 vial SQ ACHS [facility] PRN Reason: Protocol Last Admin: 07/29/16 12:16 Dose: 2 units Insulin Detemir (Levemir Vial) 16 units SQ ACBK [facility] Last Admin: 07/29/16 06:11 Dose: 16 units Meclizine HCl (Antivert -) 25 mg PO Q8H PRN PRN Reason: VERTIGO Last Admin: 07/28/16 21:46 Dose: 25 mg Metoprolol Succinate (Toprol Xl -) 12.5 mg PO DAILY [facility] Last Admin: 07/29/16 12:12 Dose: 12.5 mg Multivitamins/Minerals/Vitamin C (Tab-A-Vit -) 1 tab PO DAILY [facility] Last Admin: 07/29/16 12:14 Dose: 1 tab Non-Formulary Medication (Memantine Hcl [Namenda Xr]) 7 mg PO DAILY [facility] Last Admin: 07/29/16 12:15 Dose: 7 mg Pantoprazole Sodium (Protonix -) 40 mg PO DAILY [facility] Last Admin: 07/29/16 12:11 Dose: 40 mg A/P Acute on Chronic LV Systolic Heart Failure ESRD on HD Volume Overload Bilateral Pleural Effusions HTN DM Dementia - continue HD per renal with increased ultrafiltration - monitor CXR with HD - fluid restriction - O2 to keep SpO2 >90% - if no improvement with increased HD/ultrafiltration can consider thoracentesis - aspiration precautions - DVT prophylaxis
--- NOTE | 2016-07-29 15:31 | PN ---
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, Physician History of Present Illness: Pt seen and examined at bedside. She appears comfortable. She has improved PO intake. - Current Medication List Current Medications: Active Medications Acetaminophen (Tylenol -) 650 mg PO Q4H PRN PRN Reason: FEVER OR PAIN Last Admin: 07/28/16 21:48 Dose: 650 mg Albuterol/Ipratropium (Duoneb -) 1 amp NEB Q6H PRN PRN Reason: SHORT OF BREATH/WHEEZING Last Admin: 07/29/16 06:27 Dose: 1 amp Amlodipine Besylate (Norvasc -) 10 mg PO DAILY [facility] Last Admin: 07/29/16 12:14 Dose: 10 mg Atorvastatin Calcium (Lipitor -) 10 mg PO HS [facility] Last Admin: 07/28/16 21:46 Dose: 10 mg Docusate Sodium (Colace -) 100 mg PO DAILY [facility] Last Admin: 07/29/16 12:12 Dose: 100 mg Donepezil HCl (Aricept -) 5 mg PO HS [facility] Last Admin: 07/28/16 21:46 Dose: 5 mg Hydralazine HCl (Apresoline -) 25 mg PO BID [facility] Last Admin: 07/29/16 12:13 Dose: 25 mg Insulin Aspart (Novolog Vial Sliding Scale -) 1 vial SQ ACHS [facility] PRN Reason: Protocol Last Admin: 07/29/16 12:16 Dose: 2 units Insulin Detemir (Levemir Vial) 16 units SQ ACBK [facility] Last Admin: 07/29/16 06:11 Dose: 16 units Meclizine HCl (Antivert -) 25 mg PO Q8H PRN PRN Reason: VERTIGO Last Admin: 07/28/16 21:46 Dose: 25 mg Metoprolol Succinate (Toprol Xl -) 12.5 mg PO DAILY [facility] Last Admin: 07/29/16 12:12 Dose: 12.5 mg Multivitamins/Minerals/Vitamin C (Tab-A-Vit -) 1 tab PO DAILY [facility] Last Admin: 07/29/16 12:14 Dose: 1 tab Non-Formulary Medication (Memantine Hcl [Namenda Xr]) 7 mg PO DAILY [facility] Last Admin: 07/29/16 12:15 Dose: 7 mg Pantoprazole Sodium (Protonix -) 40 mg PO DAILY [facility] Last Admin: 07/29/16 12:11 Dose: 40 mg - Objective Vital Signs: Vital Signs Temperature 98.2 F 07/29/16 14:45 Pulse Rate 95 H 07/29/16 14:45 Respiratory Rate 20 07/29/16 14:45 Blood Pressure 111/51 07/29/16 14:45 O2 Sat by Pulse Oximetry (%) 98 07/29/16 11:06 Constitutional: Yes: Calm Eyes: Yes: Conjunctiva Clear HENT: Yes: Atraumatic Cardiovascular: Yes: S1, S2 Respiratory: Yes: On Nasal O2 Gastrointestinal: Yes: Soft Genitourinary: Yes: Incontinence Edema: No Neurological: Yes: Confusion Labs: CBC, BMP 07/29/16 08:00 07/29/16 12:00 INR, PTT INR 1.04 (0.82-1.09) 07/23/16 21:30 Problem List - Problems (1) Anemia due to chronic kidney disease Code(s): N18.9 - CHRONIC KIDNEY DISEASE, UNSPECIFIED D63.1 - ANEMIA IN CHRONIC KIDNEY DISEASE (2) CHF (congestive heart failure) Code(s): I50.9 - HEART FAILURE, UNSPECIFIED (3) Diabetes mellitus with renal manifestation Code(s): E11.29 - TYPE 2 DIABETES MELLITUS W OTH DIABETIC KIDNEY COMPLICATION (4) ESRD (end stage renal disease) Code(s): N18.6 - END STAGE RENAL DISEASE (5) Failure to thrive in adult Code(s): R62.7 - ADULT FAILURE TO THRIVE (6) Hypertension Code(s): I10 - ESSENTIAL (PRIMARY) HYPERTENSION (7) Pleural effusion Code(s): J90 - PLEURAL EFFUSION, NOT ELSEWHERE CLASSIFIED Assessment/Plan Current Medications Generic Name Dose Route Start Last Admin Trade Name Freq PRN Reason Stop Dose Admin Acetaminophen 650 mg 07/18/16 10:58 07/28/16 21:48 Tylenol - PO 650 mg Q4H PRN Administration FEVER OR PAIN Albuterol/Ipratropium 1 amp 07/22/16 18:17 07/29/16 06:27 Duoneb - NEB 1 amp Q6H PRN Administration SHORT OF BREATH/WHEEZING Amlodipine Besylate 10 mg 07/19/16 10:00 07/29/16 12:14 Norvasc - PO 10 mg DAILY [facility] Administration Atorvastatin Calcium 10 mg 07/18/16 22:00 07/28/16 21:46 Lipitor - PO 10 mg HS [facility] Administration Docusate Sodium 100 mg 07/19/16 10:00 07/29/16 12:12 Colace - PO 100 mg DAILY [facility] Administration Donepezil HCl 5 mg 07/19/16 22:00 07/28/16 21:46 Aricept - PO 5 mg HS [facility] Administration Hydralazine HCl 25 mg 07/18/16 22:00 07/29/16 12:13 Apresoline - PO 25 mg BID [facility] Administration Insulin Aspart 1 vial 07/22/16 07:00 07/29/16 12:16 Novolog Vial Sliding Scale - SQ 2 units ACHS [facility] Administration Protocol Insulin Detemir 16 units 07/19/16 07:00 07/29/16 06:11 Levemir Vial SQ 16 units ACBK [facility] Administration Meclizine HCl 25 mg 07/18/16 10:58 07/28/16 21:46 Antivert - PO 25 mg Q8H PRN Administration VERTIGO Metoprolol Succinate 12.5 mg 07/22/16 10:15 07/29/16 12:12 Toprol Xl - PO 12.5 mg DAILY [facility] Administration Multivitamins/Minerals/Vitamin C 1 tab 07/19/16 10:00 07/29/16 12:14 Tab-A-Vit - PO 1 tab DAILY [facility] Administration Non-Formulary Medication 7 mg 07/19/16 14:45 07/29/16 12:15 Memantine Hcl [Namenda Xr] PO 7 mg DAILY [facility] Administration Pantoprazole Sodium 40 mg 07/19/16 10:00 07/29/16 12:11 Protonix - PO 40 mg DAILY [facility] Administration Laboratory Tests 07/29/16 08:00 Phosphorus 5.1 H Impression 1. ESRD 2. S/P AMS aand now back to baseline 3. HTN 4. PVD 5. hyperlipidemia 6. dementia 7. DM 8. PNA 9. Anemia 10. pleural effusion Plan - pt tolerated HD today - pt had about 3 liters removed - thoracocentesis on Tuesday - monitor pulse ox - start phoslo - monitor blood pressure - will follow Dr Fox
[2016-07-29] MEDS: CALCIUM ACETATE 667 MG CAPSULE (FP) PO SCH (17:12)
[2016-07-29] MEDS: ATORVASTATIN CA 10 MG TABLET (FP) PO SCH (21:31)
[2016-07-29] MEDS: DONEPEZIL HCL 5 MG TABLET (FP) PO SCH (21:31)
[2016-07-30] MEDS: INSULIN SLIDING SCALE (NOVOLOG) 1 VIAL SQ SCH ×4 (06:26→22:28)
[2016-07-30] MEDS: INSULIN DETEMIR 100 UNITS/ML MDV SQ SCH (06:28)
[2016-07-30 06:54] LABS: BASOPHIL 0.7 % (0-2.0); EOSINOPHIL 3.5 % (0-4.5); MCH 29.5 pg (25.7-33.7); MCHC 32.6 g/dl (32.0-36.0); MEAN CELL VOLUME 90.7 fl (80-96); MEAN PLT VOLUME 7.9 fl (7.5-11.1); NEUTROPHILS 59.1 % (42.8-82.8); PLATELET COUNT 205 K/MM3 (134-434); RDW 18.3 % (11.6-15.6); WHITE BLOOD COUNT 7.1 K/mm3 (4.0-10.0)
[2016-07-30 07:17] LABS: ALBUMIN 3.6 g/dl (3.4-5.0); BILIRUBIN,TOTAL 0.5 mg/dL (0.2-1.0); CALCIUM 8.9 mg/dL (8.5-10.1); COCKROFT - GAULT 10.812; CREATININE 3.7 mg/dL (0.55-1.02); TOT PROT 6.8 g/dl (6.4-8.2)
[2016-07-30 07:19] LABS: FERRITIN 179.739 ng/ml (6.9-282.5)
[2016-07-30] MEDS: PANTOPRAZOLE 40 MG TABLET (FP) PO SCH (10:03)
[2016-07-30] MEDS: MULTIVITAMINS (DAILY MVI) TABLET (FP) PO SCH (10:03)
[2016-07-30] MEDS: MEMANTINE HCL 7 MG PO SCH (10:03)
[2016-07-30] MEDS: DOCUSATE SODIUM 100 MG CAPSULE (FP) PO SCH (10:03)
[2016-07-30] MEDS: hydrALAZINE HCL 25 MG TABLET (FP) PO SCH ×2 (10:03→22:29)
[2016-07-30] MEDS: amLODIPine BESYLATE 10 MG TABLET (FP) PO SCH (10:04)
[2016-07-30] MEDS: METOPROLOL SUCCINATE 25 MG TAB.SR.24H (FP) PO SCH (10:04)
[2016-07-30] MEDS: CALCIUM ACETATE 667 MG CAPSULE (FP) PO SCH ×3 (10:05→16:56)
[2016-07-30 12:07] LABS: PLEURAL FLUID APPEARANCE CLEAR; PLEURAL FLUID COLOR YELLOW; PLEURAL FLUID SOURCE PLEURAL
[2016-07-30 12:29] LABS: GLUCOSE,PLEURAL FLUID 129.805; TOTAL PROTEIN,PLEURAL FLUID 2.387
[2016-07-30 12:31] LABS: CHLORIDE PLEURAL FLUID 103
--- NOTE | 2016-07-30 12:53 | PN ---
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, Physician History of Present Illness: Pt seen and examined at bedside. She just had the thoracocentesis. She appears comfortable. - Current Medication List Current Medications: Active Medications Acetaminophen (Tylenol -) 650 mg PO Q4H PRN PRN Reason: FEVER OR PAIN Last Admin: 07/28/16 21:48 Dose: 650 mg Albuterol/Ipratropium (Duoneb -) 1 amp NEB Q6H PRN PRN Reason: SHORT OF BREATH/WHEEZING Last Admin: 07/29/16 06:27 Dose: 1 amp Amlodipine Besylate (Norvasc -) 10 mg PO DAILY [facility] Last Admin: 07/30/16 10:04 Dose: Not Given Atorvastatin Calcium (Lipitor -) 10 mg PO HS [facility] Last Admin: 07/29/16 21:31 Dose: 10 mg Calcium Acetate (Phoslo -) 667 mg PO TIDCM [facility] Last Admin: 07/30/16 12:28 Dose: 667 mg Docusate Sodium (Colace -) 100 mg PO DAILY [facility] Last Admin: 07/30/16 10:03 Dose: 100 mg Donepezil HCl (Aricept -) 5 mg PO HS [facility] Last Admin: 07/29/16 21:31 Dose: 5 mg Hydralazine HCl (Apresoline -) 25 mg PO BID [facility] Last Admin: 07/30/16 10:03 Dose: 25 mg Insulin Aspart (Novolog Vial Sliding Scale -) 1 vial SQ ACHS [facility] PRN Reason: Protocol Last Admin: 07/30/16 12:26 Dose: 2 units Insulin Detemir (Levemir Vial) 16 units SQ ACBK [facility] Last Admin: 07/30/16 06:28 Dose: 16 units Meclizine HCl (Antivert -) 25 mg PO Q8H PRN PRN Reason: VERTIGO Last Admin: 07/28/16 21:46 Dose: 25 mg Metoprolol Succinate (Toprol Xl -) 12.5 mg PO DAILY [facility] Last Admin: 07/30/16 10:04 Dose: 12.5 mg Multivitamins/Minerals/Vitamin C (Tab-A-Vit -) 1 tab PO DAILY [facility] Last Admin: 07/30/16 10:03 Dose: 1 tab Non-Formulary Medication (Memantine Hcl [Namenda Xr]) 7 mg PO DAILY [facility] Last Admin: 07/30/16 10:03 Dose: 7 mg Pantoprazole Sodium (Protonix -) 40 mg PO DAILY [facility] Last Admin: 07/30/16 10:03 Dose: 40 mg - Objective Vital Signs: Vital Signs Temperature 98.1 F 07/30/16 10:00 Pulse Rate 89 07/30/16 10:00 Respiratory Rate 20 07/30/16 10:00 Blood Pressure 112/51 07/30/16 10:00 O2 Sat by Pulse Oximetry (%) 98 07/30/16 10:00 Constitutional: Yes: Calm Eyes: Yes: Conjunctiva Clear HENT: Yes: Atraumatic Cardiovascular: Yes: S1, S2 Respiratory: Yes: On Nasal O2 Gastrointestinal: Yes: Soft Genitourinary: Yes: Incontinence Musculoskeletal: Yes: Muscle Weakness Edema: No Neurological: Yes: Confusion Labs: CBC, BMP 07/30/16 05:35 07/30/16 05:35 INR, PTT INR 1.04 (0.82-1.09) 07/23/16 21:30 Problem List - Problems (1) Anemia due to chronic kidney disease Code(s): N18.9 - CHRONIC KIDNEY DISEASE, UNSPECIFIED D63.1 - ANEMIA IN CHRONIC KIDNEY DISEASE (2) CHF (congestive heart failure) Code(s): I50.9 - HEART FAILURE, UNSPECIFIED (3) Diabetes mellitus with renal manifestation Code(s): E11.29 - TYPE 2 DIABETES MELLITUS W OTH DIABETIC KIDNEY COMPLICATION (4) ESRD (end stage renal disease) Code(s): N18.6 - END STAGE RENAL DISEASE (5) Failure to thrive in adult Code(s): R62.7 - ADULT FAILURE TO THRIVE (6) Hypertension Code(s): I10 - ESSENTIAL (PRIMARY) HYPERTENSION (7) Pleural effusion Code(s): J90 - PLEURAL EFFUSION, NOT ELSEWHERE CLASSIFIED Assessment/Plan Current Medications Generic Name Dose Route Start Last Admin Trade Name Freq PRN Reason Stop Dose Admin Acetaminophen 650 mg 07/18/16 10:58 07/28/16 21:48 Tylenol - PO 650 mg Q4H PRN Administration FEVER OR PAIN Albuterol/Ipratropium 1 amp 07/22/16 18:17 07/29/16 06:27 Duoneb - NEB 1 amp Q6H PRN Administration SHORT OF BREATH/WHEEZING Amlodipine Besylate 10 mg 07/19/16 10:00 07/30/16 10:04 Norvasc - PO Not Given DAILY [facility] Atorvastatin Calcium 10 mg 07/18/16 22:00 07/29/16 21:31 Lipitor - PO 10 mg HS [facility] Administration Calcium Acetate 667 mg 07/29/16 17:30 07/30/16 12:28 Phoslo - PO 667 mg TIDCM [facility] Administration Docusate Sodium 100 mg 07/19/16 10:00 07/30/16 10:03 Colace - PO 100 mg DAILY [facility] Administration Donepezil HCl 5 mg 07/19/16 22:00 07/29/16 21:31 Aricept - PO 5 mg HS [facility] Administration Hydralazine HCl 25 mg 07/18/16 22:00 07/30/16 10:03 Apresoline - PO 25 mg BID [facility] Administration Insulin Aspart 1 vial 07/22/16 07:00 07/30/16 12:26 Novolog Vial Sliding Scale - SQ 2 units ACHS [facility] Administration Protocol Insulin Detemir 16 units 07/19/16 07:00 07/30/16 06:28 Levemir Vial SQ 16 units ACBK [facility] Administration Meclizine HCl 25 mg 07/18/16 10:58 07/28/16 21:46 Antivert - PO 25 mg Q8H PRN Administration VERTIGO Metoprolol Succinate 12.5 mg 07/22/16 10:15 07/30/16 10:04 Toprol Xl - PO 12.5 mg DAILY [facility] Administration Multivitamins/Minerals/Vitamin C 1 tab 07/19/16 10:00 07/30/16 10:03 Tab-A-Vit - PO 1 tab DAILY [facility] Administration Non-Formulary Medication 7 mg 07/19/16 14:45 07/30/16 10:03 Memantine Hcl [Namenda Xr] PO 7 mg DAILY [facility] Administration Pantoprazole Sodium 40 mg 07/19/16 10:00 07/30/16 10:03 Protonix - PO 40 mg DAILY [facility] Administration Impression 1. ESRD 2. S/P AMS aand now back to baseline 3. HTN 4. PVD 5. hyperlipidemia 6. dementia 7. DM 8. PNA 9. Anemia 10. pleural effusion Plan - pt is s/p thoracocentesis, she had 1200 cc removed, follow up studies, procedure note pending - will schedule HD in am - monitor pulse ox - cont phoslo with meals - monitor blood pressure - will follow Dr Fox
[2016-07-30 12:57] LABS: PLEURAL FLUID LYMPHOCYTES 87 %; PLEURAL FLUID MACROPHAGES 14 %; PLEURAL FLUID NEUTROPHIL 4 %
--- NOTE | 2016-07-30 13:34 | PN ---
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, Physician History of Present Illness: pulmonary drowsy,-resp distress,s/p thoracentesis ,pleural fluid c/w transudate - Current Medication List Current Medications: Active Medications Acetaminophen (Tylenol -) 650 mg PO Q4H PRN PRN Reason: FEVER OR PAIN Last Admin: 07/28/16 21:48 Dose: 650 mg Albumin Human (Albumin Human 25%) 12.5 gm IVPB Q30M [facility] Albuterol/Ipratropium (Duoneb -) 1 amp NEB Q6H PRN PRN Reason: SHORT OF BREATH/WHEEZING Last Admin: 07/29/16 06:27 Dose: 1 amp Amlodipine Besylate (Norvasc -) 10 mg PO DAILY [facility] Last Admin: 07/30/16 10:04 Dose: Not Given Atorvastatin Calcium (Lipitor -) 10 mg PO HS [facility] Last Admin: 07/29/16 21:31 Dose: 10 mg Calcium Acetate (Phoslo -) 667 mg PO TIDCM [facility] Last Admin: 07/30/16 12:28 Dose: 667 mg Docusate Sodium (Colace -) 100 mg PO DAILY [facility] Last Admin: 07/30/16 10:03 Dose: 100 mg Donepezil HCl (Aricept -) 5 mg PO [facility] Last Admin: 07/29/16 21:31 Dose: 5 mg Epoetin Efren (Epogen -) 4,000 units IVPUSH ONCE ONE Stop: 07/31/16 12:54 Hydralazine HCl (Apresoline -) 25 mg PO BID [facility] Last Admin: 07/30/16 10:03 Dose: 25 mg Insulin Aspart (Novolog Vial Sliding Scale -) 1 vial SQ ACHS [facility] PRN Reason: Protocol Last Admin: 07/30/16 12:26 Dose: 2 units Insulin Detemir (Levemir Vial) 16 units SQ ACBK [facility] Last Admin: 07/30/16 06:28 Dose: 16 units Meclizine HCl (Antivert -) 25 mg PO Q8H PRN PRN Reason: VERTIGO Last Admin: 07/28/16 21:46 Dose: 25 mg Metoprolol Succinate (Toprol Xl -) 12.5 mg PO DAILY [facility] Last Admin: 07/30/16 10:04 Dose: 12.5 mg Multivitamins/Minerals/Vitamin C (Tab-A-Vit -) 1 tab PO DAILY [facility] Last Admin: 07/30/16 10:03 Dose: 1 tab Non-Formulary Medication (Memantine Hcl [Namenda Xr]) 7 mg PO DAILY [facility] Last Admin: 07/30/16 10:03 Dose: 7 mg Pantoprazole Sodium (Protonix -) 40 mg PO DAILY [facility] Last Admin: 07/30/16 10:03 Dose: 40 mg - Objective Vital Signs: Vital Signs Temperature 98.1 F 07/30/16 10:00 Pulse Rate 89 07/30/16 10:00 Respiratory Rate 20 07/30/16 10:00 Blood Pressure 112/51 07/30/16 10:00 O2 Sat by Pulse Oximetry (%) 98 07/30/16 10:00 Constitutional: Yes: Calm, Thin Eyes: Yes: WNL HENT: Yes: WNL Neck: Yes: WNL Cardiovascular: Yes: Regular Rate and Rhythm, S1, S2 Respiratory: Yes: Diminished (poor inspiratory effort) Gastrointestinal: Yes: Normal Bowel Sounds, Soft Extremities: Yes: WNL Edema: No Labs: CBC, BMP 07/30/16 05:35 07/30/16 05:35 INR, PTT INR 1.04 (0.82-1.09) 07/23/16 21:30 Laboratory Tests 07/30/16 11:30 Pleural Fluid Source Pleural Pleural Color Yellow Pleural Appearance Clear Pleural WBC 128 Pleural RBC 276 Pleural Neutrophils 4 Pleural Lymphocytes 87 Pleural Monocytes 9 Pleural Macrophages 14 Pleural Chloride 103 Pleural Total Protein 2.387 Pleural Albumin 1 Pleural LDH 85 Pleural Glucose 129.805 Pleural Amylase 32.033 Pleural Cholesterol < 50 Pleural Triglycerides 6 Problem List - Problems (1) Anemia due to chronic kidney disease Code(s): N18.9 - CHRONIC KIDNEY DISEASE, UNSPECIFIED D63.1 - ANEMIA IN CHRONIC KIDNEY DISEASE (2) Chronic progressive renal failure Code(s): N18.9 - CHRONIC KIDNEY DISEASE, UNSPECIFIED Qualifiers: Chronic kidney disease stage: stage 5 Qualified Code(s): N18.5 - Chronic kidney disease, stage 5 (3) ESRD (end stage renal disease) Code(s): N18.6 - END STAGE RENAL DISEASE (4) Hypertension Code(s): I10 - ESSENTIAL (PRIMARY) HYPERTENSION (5) CHF (congestive heart failure) Code(s): I50.9 - HEART FAILURE, UNSPECIFIED (6) Pleural effusion due to CHF (congestive heart failure) Code(s): I50.9 - HEART FAILURE, UNSPECIFIED (7) Diabetes mellitus with renal manifestation Code(s): E11.29 - TYPE 2 DIABETES MELLITUS W OTH DIABETIC KIDNEY COMPLICATION (8) Alzheimer's dementia Code(s): G30.9 - ALZHEIMER'S DISEASE, UNSPECIFIED (9) Dementia Code(s): F03.90 - UNSPECIFIED DEMENTIA WITHOUT BEHAVIORAL DISTURBANCE Qualifiers: Dementia type: unspecified type Dementia behavioral disturbance: without behavioral disturbance Qualified Code(s): F03.90 - Unspecified dementia without behavioral disturbance Assessment/Plan Assessment/Plan Acute on Chronic LV Systolic Heart Failure ESRD on HD Volume Overload Bilateral Pleural Effusions HTN DM Dementia - HD as per renal - monitor CXRs - fluid restriction - O2 to keep SpO2 >90% - aspiration precautions - DVT prophylaxis DR BAXTER
--- NOTE | 2016-07-30 17:51 | PN ---
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, Physician Chief Complaint: Chest pain History of Present Illness: Patient originally came in with cc of Chest pain as per her [employer]. Patient is new zealander speaking, NAD, comfortable in bed. Had HD yesterday, 2L taken out, CXR shows worsening with mild effusion on the right and atelectasis. Spoke IR , Thoracentesis planned for AM. Left message for son to call back for consent. Getting HD today. Looks comfortable in bed. - Current Medication List Current Medications: Active Medications Acetaminophen (Tylenol -) 650 mg PO Q4H PRN PRN Reason: FEVER OR PAIN Last Admin: 07/28/16 21:48 Dose: 650 mg Albumin Human (Albumin Human 25%) 12.5 gm IVPB Q30M [facility] Albuterol/Ipratropium (Duoneb -) 1 amp NEB Q6H PRN PRN Reason: SHORT OF BREATH/WHEEZING Last Admin: 07/29/16 06:27 Dose: 1 amp Amlodipine Besylate (Norvasc -) 10 mg PO DAILY [facility] Last Admin: 07/30/16 10:04 Dose: Not Given Atorvastatin Calcium (Lipitor -) 10 mg PO [facility] Last Admin: 07/29/16 21:31 Dose: 10 mg Calcium Acetate (Phoslo -) 667 mg PO TIDCM [facility] Last Admin: 07/30/16 16:56 Dose: 667 mg Docusate Sodium (Colace -) 100 mg PO DAILY [facility] Last Admin: 07/30/16 10:03 Dose: 100 mg Donepezil HCl (Aricept -) 5 mg PO [facility] Last Admin: 07/29/16 21:31 Dose: 5 mg Epoetin Efren (Epogen -) 4,000 units IVPUSH ONCE ONE Stop: 07/31/16 12:54 Hydralazine HCl (Apresoline -) 25 mg PO BID [facility] Last Admin: 07/30/16 10:03 Dose: 25 mg Insulin Aspart (Novolog Vial Sliding Scale -) 1 vial SQ ACHS [facility] PRN Reason: Protocol Last Admin: 07/30/16 16:55 Dose: Not Given Insulin Detemir (Levemir Vial) 16 units SQ ACBK [facility] Last Admin: 07/30/16 06:28 Dose: 16 units Meclizine HCl (Antivert -) 25 mg PO Q8H PRN PRN Reason: VERTIGO Last Admin: 07/28/16 21:46 Dose: 25 mg Metoprolol Succinate (Toprol Xl -) 12.5 mg PO DAILY [facility] Last Admin: 07/30/16 10:04 Dose: 12.5 mg Multivitamins/Minerals/Vitamin C (Tab-A-Vit -) 1 tab PO DAILY [facility] Last Admin: 07/30/16 10:03 Dose: 1 tab Non-Formulary Medication (Memantine Hcl [Namenda Xr]) 7 mg PO DAILY [facility] Last Admin: 07/30/16 10:03 Dose: 7 mg Pantoprazole Sodium (Protonix -) 40 mg PO DAILY [facility] Last Admin: 07/30/16 10:03 Dose: 40 mg - Objective Vital Signs: Vital Signs Temperature 98.2 F 07/30/16 14:30 Pulse Rate 81 07/30/16 14:30 Respiratory Rate 20 07/30/16 14:30 Blood Pressure 104/51 07/30/16 14:30 O2 Sat by Pulse Oximetry (%) 98 07/30/16 10:00 Constitutional: Yes: Well Nourished, No Distress, Calm Cardiovascular: Yes: Regular Rate and Rhythm Musculoskeletal: Yes: Muscle Weakness Edema: No Peripheral Pulses WNL: No Peripheral Pulses: Left Doralis Pedis: 1+, Right Dorsalis Pedis: 1+ Neurological: Yes: Aphasia, Lethargy Labs: CBC, BMP 07/30/16 05:35 07/30/16 05:35 INR, PTT INR 1.04 (0.82-1.09) 07/23/16 21:30 Problem List - Problems (1) Anemia due to chronic kidney disease Assessment/Plan: Gradually improving, RENAL ON BOARD, IS GETTING HD, RECEIVED EPOGEN. Code(s): N18.9 - CHRONIC KIDNEY DISEASE, UNSPECIFIED D63.1 - ANEMIA IN CHRONIC KIDNEY DISEASE (2) Diabetes mellitus with renal manifestation Assessment/Plan: Controlled at this time. Code(s): E11.29 - TYPE 2 DIABETES MELLITUS W H DIABETIC KIDNEY COMPLICATION (3) ESRD (end stage renal disease) Assessment/Plan: ON HD Code(s): N18.6 - END STAGE RENAL DISEASE (4) Atelectasis of right lung Assessment/Plan: WORSENING OF CXR, THORACENTESIS TODAY Code(s): J98.11 - ATELECTASIS Assessment/Plan THORACENTESIS TODAY
[2016-07-30] MEDS ORDERED: PT OWN MED DRAWER 7, Y5N ONE (20:27)
[2016-07-30] MEDS: DONEPEZIL HCL 5 MG TABLET (FP) PO SCH (22:29)
[2016-07-30] MEDS: ATORVASTATIN CA 10 MG TABLET (FP) PO SCH (22:29)
[2016-07-31] MEDS: INSULIN SLIDING SCALE (NOVOLOG) 1 VIAL SQ SCH ×4 (06:07→22:33)
[2016-07-31] MEDS: INSULIN DETEMIR 100 UNITS/ML MDV SQ SCH (06:23)
[2016-07-31] MEDS ORDERED: EPOETIN ALFA 2,000 UNITS/1 ML VIAL IVPUSH ONE (08:00)
[2016-07-31 08:07] LABS: SERUM IRON 45 ug/dL (27-139); TOTAL IRON BINDING CAPACITY 166 ug/dL (250-450); UIBC 121 ug/dL (118-369)
[2016-07-31] MEDS: CALCIUM ACETATE 667 MG CAPSULE (FP) PO SCH ×3 (08:23→17:25)
[2016-07-31 08:53] LABS: MCH 29.4 pg (25.7-33.7); MCHC 32.2 g/dl (32.0-36.0); MEAN CELL VOLUME 91.6 fl (80-96); PLATELET COUNT 188 K/MM3 (134-434); RDW 18.7 % (11.6-15.6)
[2016-07-31] MEDS: ALBUMIN HUMAN 25% 12.5 GM/50 ML VIAL IVPB SCH ×2 (09:09)
[2016-07-31 09:25] LABS: CALCIUM 8.9 mg/dL (8.5-10.1); COCKROFT - GAULT 11.118; CREATININE 3.6 mg/dL (0.55-1.02); PHOSPHOROUS 2.5 mg/dL (2.5-4.9)
--- NOTE | 2016-07-31 10:54 | PN ---
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, Physician Chief Complaint: THIS IS MY FIRST ENCOUNTER WITH THIS PATIENT ON THIS ADMISSION NOTES AND RECORDS REVIEWED HD IN PROGRESS NAD - Current Medication List Current Medications: Active Medications Acetaminophen (Tylenol -) 650 mg PO Q4H PRN PRN Reason: FEVER OR PAIN Last Admin: 07/28/16 21:48 Dose: 650 mg Albuterol/Ipratropium (Duoneb -) 1 amp NEB Q6H PRN PRN Reason: SHORT OF BREATH/WHEEZING Last Admin: 07/29/16 06:27 Dose: 1 amp Amlodipine Besylate (Norvasc -) 10 mg PO DAILY [facility] Last Admin: 07/30/16 10:04 Dose: Not Given Atorvastatin Calcium (Lipitor -) 10 mg PO HS [facility] Last Admin: 07/30/16 22:29 Dose: 10 mg Calcium Acetate (Phoslo -) 667 mg PO TIDCM [facility] Last Admin: 07/31/16 08:23 Dose: Not Given Docusate Sodium (Colace -) 100 mg PO DAILY [facility] Last Admin: 07/30/16 10:03 Dose: 100 mg Donepezil HCl (Aricept -) 5 mg PO HS [facility] Last Admin: 07/30/16 22:29 Dose: 5 mg Hydralazine HCl (Apresoline -) 25 mg PO BID [facility] Last Admin: 07/30/16 22:29 Dose: 25 mg Insulin Aspart (Novolog Vial Sliding Scale -) 1 vial SQ ACHS [facility] PRN Reason: Protocol Last Admin: 07/31/16 06:07 Dose: Not Given Insulin Detemir (Levemir Vial) 16 units SQ ACBK [facility] Last Admin: 07/31/16 06:23 Dose: Not Given Meclizine HCl (Antivert -) 25 mg PO Q8H PRN PRN Reason: VERTIGO Last Admin: 07/28/16 21:46 Dose: 25 mg Metoprolol Succinate (Toprol Xl -) 12.5 mg PO DAILY [facility] Last Admin: 07/30/16 10:04 Dose: 12.5 mg Multivitamins/Minerals/Vitamin C (Tab-A-Vit -) 1 tab PO DAILY [facility] Last Admin: 07/30/16 10:03 Dose: 1 tab Non-Formulary Medication (Memantine Hcl [Namenda Xr]) 7 mg PO DAILY [facility] Last Admin: 07/30/16 10:03 Dose: 7 mg Pantoprazole Sodium (Protonix -) 40 mg PO DAILY [facility] Last Admin: 07/30/16 10:03 Dose: 40 mg - Objective Vital Signs: Vital Signs Temperature 98.2 F 07/31/16 06:55 Pulse Rate 82 07/31/16 10:26 Respiratory Rate 18 07/31/16 10:26 Blood Pressure 110/41 07/31/16 10:26 O2 Sat by Pulse Oximetry (%) 98 07/30/16 21:10 Constitutional: Yes: No Distress Eyes: Yes: WNL HENT: Yes: WNL Neck: Yes: WNL Cardiovascular: Yes: WNL Respiratory: Yes: On Nasal O2, Poor Air Entry, Rhonchi Gastrointestinal: Yes: WNL Breast(s): Yes: Other Musculoskeletal: Yes: Muscle Weakness Extremities: Yes: Other Edema: No Peripheral Pulses WNL: Yes Integumentary: Yes: Rash, Venous Stasis Changes Wound/Incision: Yes: Dressing Dry and Intact Neurological: Yes: Pre-Existing Deficit, Weakness ...Motor Strength: LLE, RLE Psychiatric: Yes: Other Labs: CBC, BMP 07/31/16 08:50 07/31/16 08:50 INR, PTT INR 1.04 (0.82-1.09) 07/23/16 21:30 Problem List - Problems (1) Anemia due to chronic kidney disease Code(s): N18.9 - CHRONIC KIDNEY DISEASE, UNSPECIFIED D63.1 - ANEMIA IN CHRONIC KIDNEY DISEASE (2) Atelectasis of right lung Code(s): J98.11 - ATELECTASIS (3) CHF (congestive heart failure) Code(s): I50.9 - HEART FAILURE, UNSPECIFIED (4) Change in mental state Code(s): R41.82 - ALTERED MENTAL STATUS, UNSPECIFIED (5) Chest pain Code(s): R07.9 - CHEST PAIN, UNSPECIFIED (6) Chronic progressive renal failure Code(s): N18.9 - CHRONIC KIDNEY DISEASE, UNSPECIFIED Qualifiers: Chronic kidney disease stage: stage 5 Qualified Code(s): N18.5 - Chronic kidney disease, stage 5 (7) DVT prophylaxis Code(s): NTX0338 - (8) Diabetes mellitus with renal manifestation Code(s): E11.29 - TYPE 2 DIABETES MELLITUS W OTH DIABETIC KIDNEY COMPLICATION Assessment/Plan HD PER RENAL/NEPHROLOGY THORACENTESIS FOR PLEURAL EFFUSSION CHECK LABS
[2016-07-31] MEDS: hydrALAZINE HCL 25 MG TABLET (FP) PO SCH ×2 (11:30→22:38)
[2016-07-31] MEDS: PANTOPRAZOLE 40 MG TABLET (FP) PO SCH (11:30)
[2016-07-31] MEDS: MEMANTINE HCL 7 MG PO SCH (11:30)
[2016-07-31] MEDS: MULTIVITAMINS (DAILY MVI) TABLET (FP) PO SCH (11:30)
[2016-07-31] MEDS: DOCUSATE SODIUM 100 MG CAPSULE (FP) PO SCH (11:30)
[2016-07-31] MEDS: amLODIPine BESYLATE 10 MG TABLET (FP) PO SCH (11:30)
[2016-07-31] MEDS: METOPROLOL SUCCINATE 25 MG TAB.SR.24H (FP) PO SCH (11:31)
[2016-07-31] MEDS ORDERED: PT OWN MED DRAWER 7, Y5N ONE (13:29)
--- NOTE | 2016-07-31 13:54 | PN ---
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 (short form) - Note 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: PULMONARY s/p bilateral thoracentesis with improvement in CXR. Last Vital Signs Temp Pulse Resp BP Pulse Ox 98.4 F 82 18 110/41 98 07/31/16 10:00 07/31/16 10:26 07/31/16 10:26 07/31/16 10:26 07/31/16 09:00 Gen: NAD at rest Heart: RRR Lung: decreased breath sounds at the bases Abd: soft, nontender Ext: no edema CBC, BMP 07/31/16 08:50 07/31/16 08:50 Active Medications Acetaminophen (Tylenol -) 650 mg PO Q4H PRN PRN Reason: FEVER OR PAIN Last Admin: 07/28/16 21:48 Dose: 650 mg Albuterol/Ipratropium (Duoneb -) 1 amp NEB Q6H PRN PRN Reason: SHORT OF BREATH/WHEEZING Last Admin: 07/29/16 06:27 Dose: 1 amp Amlodipine Besylate (Norvasc -) 10 mg PO DAILY [facility] Last Admin: 07/31/16 11:30 Dose: 10 mg Atorvastatin Calcium (Lipitor -) 10 mg PO [facility] Last Admin: 07/30/16 22:29 Dose: 10 mg Calcium Acetate (Phoslo -) 667 mg PO TIDCM [facility] Last Admin: 07/31/16 11:30 Dose: 667 mg Docusate Sodium (Colace -) 100 mg PO DAILY [facility] Last Admin: 07/31/16 11:30 Dose: 100 mg Donepezil HCl (Aricept -) 5 mg PO [facility] Last Admin: 07/30/16 22:29 Dose: 5 mg Hydralazine HCl (Apresoline -) 25 mg PO BID [facility] Last Admin: 07/31/16 11:30 Dose: 25 mg Insulin Aspart (Novolog Vial Sliding Scale -) 1 vial SQ ACHS [facility] PRN Reason: Protocol Last Admin: 07/31/16 12:22 Dose: Not Given Insulin Detemir (Levemir Vial) 16 units SQ ACBK [facility] Last Admin: 07/31/16 06:23 Dose: Not Given Meclizine HCl (Antivert -) 25 mg PO Q8H PRN PRN Reason: [facility] Last Admin: 07/28/16 21:46 Dose: 25 mg Metoprolol Succinate (Toprol Xl -) 12.5 mg PO DAILY [facility] Last Admin: 07/31/16 11:31 Dose: 12.5 mg Multivitamins/Minerals/Vitamin C (Tab-A-Vit -) 1 tab PO DAILY [facility] Last Admin: 07/31/16 11:30 Dose: 1 tab Non-Formulary Medication (Memantine Hcl [Namenda Xr]) 7 mg PO DAILY [facility] Last Admin: 07/31/16 11:30 Dose: 7 mg Pantoprazole Sodium (Protonix -) 40 mg PO DAILY [facility] Last Admin: 07/31/16 11:30 Dose: 40 mg A/P Acute on Chronic LV Systolic Heart Failure ESRD on HD Volume Overload Bilateral Pleural Effusions HTN DM Dementia - continue HD per renal with increased ultrafiltration - monitor CXR - fluid restriction - O2 to keep SpO2 >90% - aspiration precautions - DVT prophylaxis
--- NOTE | 2016-07-31 15:35 | PN ---
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, Physician History of Present Illness: Pt seen and examined at bedside. She is awake and appears comfortable. Her son is at the bedside. He says he notices improvement in his mothers physical status since starting dialysis. - Current Medication List Current Medications: Active Medications Acetaminophen (Tylenol -) 650 mg PO Q4H PRN PRN Reason: FEVER OR PAIN Last Admin: 07/28/16 21:48 Dose: 650 mg Albuterol/Ipratropium (Duoneb -) 1 amp NEB Q6H PRN PRN Reason: SHORT OF BREATH/WHEEZING Last Admin: 07/29/16 06:27 Dose: 1 amp Amlodipine Besylate (Norvasc -) 10 mg PO DAILY [facility] Last Admin: 07/31/16 11:30 Dose: 10 mg Atorvastatin Calcium (Lipitor -) 10 mg PO HS [facility] Last Admin: 07/30/16 22:29 Dose: 10 mg Calcium Acetate (Phoslo -) 667 mg PO TIDCM [facility] Last Admin: 07/31/16 11:30 Dose: 667 mg Docusate Sodium (Colace -) 100 mg PO DAILY [facility] Last Admin: 07/31/16 11:30 Dose: 100 mg Donepezil HCl (Aricept -) 5 mg PO HS [facility] Last Admin: 07/30/16 22:29 Dose: 5 mg Hydralazine HCl (Apresoline -) 25 mg PO BID [facility] Last Admin: 07/31/16 11:30 Dose: 25 mg Insulin Aspart (Novolog Vial Sliding Scale -) 1 vial SQ ACHS [facility] PRN Reason: Protocol Last Admin: 07/31/16 12:22 Dose: Not Given Insulin Detemir (Levemir Vial) 16 units SQ ACBK [facility] Last Admin: 07/31/16 06:23 Dose: Not Given Meclizine HCl (Antivert -) 25 mg PO Q8H PRN PRN Reason: VERTIGO Last Admin: 07/28/16 21:46 Dose: 25 mg Metoprolol Succinate (Toprol Xl -) 12.5 mg PO DAILY [facility] Last Admin: 07/31/16 11:31 Dose: 12.5 mg Multivitamins/Minerals/Vitamin C (Tab-A-Vit -) 1 tab PO DAILY [facility] Last Admin: 07/31/16 11:30 Dose: 1 tab Non-Formulary Medication (Memantine Hcl [Namenda Xr]) 7 mg PO DAILY [facility] Last Admin: 07/31/16 11:30 Dose: 7 mg Pantoprazole Sodium (Protonix -) 40 mg PO DAILY [facility] Last Admin: 07/31/16 11:30 Dose: 40 mg - Objective Vital Signs: Vital Signs Temperature 98.4 F 07/31/16 10:00 Pulse Rate 82 07/31/16 10:26 Respiratory Rate 18 07/31/16 10:26 Blood Pressure 110/41 07/31/16 10:26 O2 Sat by Pulse Oximetry (%) 98 07/31/16 09:00 Constitutional: Yes: Calm Eyes: Yes: Conjunctiva Clear HENT: Yes: Atraumatic Cardiovascular: Yes: S1, S2 Respiratory: Yes: Diminished, On Nasal O2 Gastrointestinal: Yes: Soft Genitourinary: Yes: Incontinence Musculoskeletal: Yes: Muscle Weakness Edema: No Neurological: Yes: Confusion Labs: CBC, BMP 07/31/16 08:50 07/31/16 08:50 INR, PTT INR 1.04 (0.82-1.09) 07/23/16 21:30 Problem List - Problems (1) Anemia due to chronic kidney disease Code(s): N18.9 - CHRONIC KIDNEY DISEASE, UNSPECIFIED D63.1 - ANEMIA IN CHRONIC KIDNEY DISEASE (2) CHF (congestive heart failure) Code(s): I50.9 - HEART FAILURE, UNSPECIFIED (3) Diabetes mellitus with renal manifestation Code(s): E11.29 - TYPE 2 DIABETES MELLITUS W OTH DIABETIC KIDNEY COMPLICATION (4) ESRD (end stage renal disease) Code(s): N18.6 - END STAGE RENAL DISEASE (5) Failure to thrive in adult Code(s): R62.7 - ADULT FAILURE TO THRIVE (6) Hypertension Code(s): I10 - ESSENTIAL (PRIMARY) HYPERTENSION (7) Pleural effusion Code(s): J90 - PLEURAL EFFUSION, NOT ELSEWHERE CLASSIFIED Assessment/Plan Current Medications Generic Name Dose Route Start Last Admin Trade Name Freq PRN Reason Stop Dose Admin Acetaminophen 650 mg 07/18/16 10:58 07/28/16 21:48 Tylenol - PO 650 mg Q4H PRN Administration FEVER OR PAIN Albuterol/Ipratropium 1 amp 07/22/16 18:17 07/29/16 06:27 Duoneb - NEB 1 amp Q6H PRN Administration SHORT OF BREATH/WHEEZING Amlodipine Besylate 10 mg 07/19/16 10:00 07/31/16 11:30 Norvasc - PO 10 mg DAILY [facility] Administration Atorvastatin Calcium 10 mg 07/18/16 22:00 07/30/16 22:29 Lipitor - PO 10 mg HS [facility] Administration Calcium Acetate 667 mg 07/29/16 17:30 07/31/16 11:30 Phoslo - PO 667 mg TIDCM [facility] Administration Docusate Sodium 100 mg 07/19/16 10:00 07/31/16 11:30 Colace - PO 100 mg DAILY [facility] Administration Donepezil HCl 5 mg 07/19/16 22:00 07/30/16 22:29 Aricept - PO 5 mg HS [facility] Administration Hydralazine HCl 25 mg 07/18/16 22:00 07/31/16 11:30 Apresoline - PO 25 mg BID [facility] Administration Insulin Aspart 1 vial 07/22/16 07:00 07/31/16 12:22 Novolog Vial Sliding Scale - SQ Not Given ACHS [facility] Protocol Insulin Detemir 16 units 07/19/16 07:00 07/31/16 06:23 Levemir Vial SQ Not Given ACBK [facility] Meclizine HCl 25 mg 07/18/16 10:58 07/28/16 21:46 Antivert - PO 25 mg Q8H PRN Administration [facility]IGO Metoprolol Succinate 12.5 mg 07/22/16 10:15 07/31/16 11:31 Toprol Xl - PO 12.5 mg DAILY [facility] Administration Multivitamins/Minerals/Vitamin C 1 tab 07/19/16 10:00 07/31/16 11:30 Tab-A-Vit - PO 1 tab DAILY [facility] Administration Non-Formulary Medication 7 mg 07/19/16 14:45 07/31/16 11:30 Memantine Hcl [Namenda Xr] PO 7 mg DAILY [facility] Administration Pantoprazole Sodium 40 mg 07/19/16 10:00 07/31/16 11:30 Protonix - PO 40 mg DAILY [facility] Administration Impression 1. ESRD 2. S/P AMS aand now back to baseline 3. HTN 4. PVD 5. hyperlipidemia 6. dementia 7. DM 8. PNA 9. Anemia 10. pleural effusion Plan - pt tolerated HD today - pt had 3 liters of fluids removed on dialysis - s/p thoracocentesis yesterday with 1200 cc removal - monitor pulse ox - cont phoslo with meals - monitor blood pressure - will follow - case discussed with pts son Dr Fox
[2016-07-31] MEDS: ATORVASTATIN CA 10 MG TABLET (FP) PO SCH (22:36)
[2016-07-31] MEDS: DONEPEZIL HCL 5 MG TABLET (FP) PO SCH (22:36)
[2016-07-31] MEDS: ACETAMINOPHEN 325 MG TABLET (FP) PO PRN (23:56)
[2016-08-01] MEDS: INSULIN SLIDING SCALE (NOVOLOG) 1 VIAL SQ SCH ×4 (06:01→21:55)
[2016-08-01] MEDS: INSULIN DETEMIR 100 UNITS/ML MDV SQ SCH (07:11)
[2016-08-01] MEDS: CALCIUM ACETATE 667 MG CAPSULE (FP) PO SCH ×3 (08:44→17:12)
[2016-08-01] MEDS: MEMANTINE HCL 7 MG PO SCH (09:01)
[2016-08-01] MEDS: DOCUSATE SODIUM 100 MG CAPSULE (FP) PO SCH (09:01)
[2016-08-01] MEDS: MULTIVITAMINS (DAILY MVI) TABLET (FP) PO SCH (09:01)
[2016-08-01] MEDS: amLODIPine BESYLATE 10 MG TABLET (FP) PO SCH (09:01)
[2016-08-01] MEDS: PANTOPRAZOLE 40 MG TABLET (FP) PO SCH (09:01)
[2016-08-01] MEDS: hydrALAZINE HCL 25 MG TABLET (FP) PO SCH ×2 (09:02→21:27)
[2016-08-01] MEDS: METOPROLOL SUCCINATE 25 MG TAB.SR.24H (FP) PO SCH (09:02)
--- NOTE | 2016-08-01 10:54 | PN ---
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, Physician Chief Complaint: ASLEEP COMFORTABLE - Current Medication List Current Medications: Active Medications Acetaminophen (Tylenol -) 650 mg PO Q4H PRN PRN Reason: FEVER OR PAIN Last Admin: 07/31/16 23:56 Dose: 650 mg Amlodipine Besylate (Norvasc -) 10 mg PO DAILY [facility] Last Admin: 08/01/16 09:01 Dose: Not Given Atorvastatin Calcium (Lipitor -) 10 mg PO HS [facility] Last Admin: 07/31/16 22:36 Dose: 10 mg Calcium Acetate (Phoslo -) 667 mg PO TIDCM [facility] Last Admin: 08/01/16 08:44 Dose: 667 mg Docusate Sodium (Colace -) 100 mg PO DAILY [facility] Last Admin: 08/01/16 09:01 Dose: 100 mg Donepezil HCl (Aricept -) 5 mg PO HS [facility] Last Admin: 07/31/16 22:36 Dose: 5 mg Hydralazine HCl (Apresoline -) 25 mg PO BID [facility] Last Admin: 08/01/16 09:02 Dose: Not Given Insulin Aspart (Novolog Vial Sliding Scale -) 1 vial SQ ACHS [facility] PRN Reason: Protocol Last Admin: 08/01/16 06:01 Dose: Not Given Insulin Detemir (Levemir Vial) 16 units SQ ACBK [facility] Last Admin: 08/01/16 07:11 Dose: Not Given Meclizine HCl (Antivert -) 25 mg PO Q8H PRN PRN Reason: VERTIGO Last Admin: 07/28/16 21:46 Dose: 25 mg Metoprolol Succinate (Toprol Xl -) 12.5 mg PO DAILY [facility] Last Admin: 08/01/16 09:02 Dose: Not Given Multivitamins/Minerals/Vitamin C (Tab-A-Vit -) 1 tab PO DAILY [facility] Last Admin: 08/01/16 09:01 Dose: 1 tab Non-Formulary Medication (Memantine Hcl [Namenda Xr]) 7 mg PO DAILY [facility] Last Admin: 08/01/16 09:01 Dose: 7 mg Pantoprazole Sodium (Protonix -) 40 mg PO DAILY [facility] Last Admin: 08/01/16 09:01 Dose: 40 mg - Objective Vital Signs: Vital Signs Temperature 97.4 F L 08/01/16 05:23 Pulse Rate 77 08/01/16 05:23 Respiratory Rate 18 08/01/16 05:23 Blood Pressure 109/42 08/01/16 05:23 O2 Sat by Pulse Oximetry (%) 100 07/31/16 23:20 Constitutional: Yes: No Distress Eyes: Yes: WNL HENT: Yes: WNL Neck: Yes: WNL Cardiovascular: Yes: WNL Respiratory: Yes: WNL Gastrointestinal: Yes: WNL Genitourinary: Yes: Incontinence, Other Musculoskeletal: Yes: Muscle Weakness Extremities: Yes: Other Integumentary: Yes: Pressure Ulcer Wound/Incision: Yes: Dressing Dry and Intact Neurological: Yes: Pre-Existing Deficit ...Motor Strength: LLE, RLE Psychiatric: Yes: Other Labs: CBC, BMP 07/31/16 08:50 07/31/16 08:50 INR, PTT INR 1.04 (0.82-1.09) 07/23/16 21:30 Problem List - Problems (1) Anemia due to chronic kidney disease Code(s): N18.9 - CHRONIC KIDNEY DISEASE, UNSPECIFIED D63.1 - ANEMIA IN CHRONIC KIDNEY DISEASE (2) Atelectasis of right lung Code(s): J98.11 - ATELECTASIS (3) CHF (congestive heart failure) Code(s): I50.9 - HEART FAILURE, UNSPECIFIED (4) Change in mental state Code(s): R41.82 - ALTERED MENTAL STATUS, UNSPECIFIED (5) Chest pain Code(s): R07.9 - CHEST PAIN, UNSPECIFIED (6) Chronic progressive renal failure Code(s): N18.9 - CHRONIC KIDNEY DISEASE, UNSPECIFIED Qualifiers: Chronic kidney disease stage: stage 5 Qualified Code(s): N18.5 - Chronic kidney disease, stage 5 (7) DVT prophylaxis Code(s): ANL0760 - (8) Diabetes mellitus with renal manifestation Code(s): E11.29 - TYPE 2 DIABETES MELLITUS W OTH DIABETIC KIDNEY COMPLICATION Assessment/Plan HD PER RENAL/NEPHROLOGY THORACENTESIS FOR PLEURAL EFFUSSION CHECK LABS
--- NOTE | 2016-08-01 14:42 | PN ---
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 (short form) - Note 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: PULMONARY Confused, appears comfortable. Last Vital Signs Temp Pulse Resp BP Pulse Ox 97.7 F 78 18 124/56 99 08/01/16 13:43 08/01/16 13:43 08/01/16 13:43 08/01/16 13:43 08/01/16 09:00 Gen: NAD at rest Heart: RRR Lung: decreased breath sounds at the bases Abd: soft, nontender Ext: no edema CBC, BMP 07/31/16 08:50 07/31/16 08:50 Active Medications Acetaminophen (Tylenol -) 650 mg PO Q4H PRN PRN Reason: FEVER OR PAIN Last Admin: 07/31/16 23:56 Dose: 650 mg Amlodipine Besylate (Norvasc -) 10 mg PO DAILY [facility] Last Admin: 08/01/16 09:01 Dose: Not Given Atorvastatin Calcium (Lipitor -) 10 mg PO HS [facility] Last Admin: 07/31/16 22:36 Dose: 10 mg Calcium Acetate (Phoslo -) 667 mg PO TIDCM [facility] Last Admin: 08/01/16 13:20 Dose: 667 mg Docusate Sodium (Colace -) 100 mg PO DAILY [facility] Last Admin: 08/01/16 09:01 Dose: 100 mg Donepezil HCl (Aricept -) 5 mg PO HS [facility] Last Admin: 07/31/16 22:36 Dose: 5 mg Hydralazine HCl (Apresoline -) 25 mg PO BID [facility] Last Admin: 08/01/16 09:02 Dose: Not Given Insulin Aspart (Novolog Vial Sliding Scale -) 1 vial SQ ACHS [facility] PRN Reason: Protocol Last Admin: 08/01/16 13:20 Dose: 2 units Insulin Detemir (Levemir Vial) 16 units SQ ACBK [facility] Last Admin: 08/01/16 07:11 Dose: Not Given Meclizine HCl (Antivert -) 25 mg PO Q8H PRN PRN Reason: VERTIGO Last Admin: 07/28/16 21:46 Dose: 25 mg Metoprolol Succinate (Toprol Xl -) 12.5 mg PO DAILY [facility] Last Admin: 08/01/16 09:02 Dose: Not Given Multivitamins/Minerals/Vitamin C (Tab-A-Vit -) 1 tab PO DAILY [facility] Last Admin: 08/01/16 09:01 Dose: 1 tab Non-Formulary Medication (Memantine Hcl [Namenda Xr]) 7 mg PO DAILY [facility] Last Admin: 08/01/16 09:01 Dose: 7 mg Pantoprazole Sodium (Protonix -) 40 mg PO DAILY [facility] Last Admin: 08/01/16 09:01 Dose: 40 mg A/P Acute on Chronic LV Systolic Heart Failure ESRD on HD Volume Overload Bilateral Pleural Effusions HTN DM Dementia - continue HD per renal with increased ultrafiltration - monitor CXR - fluid restriction - O2 to keep SpO2 >90% - aspiration precautions - DVT prophylaxis
--- NOTE | 2016-08-01 17:19 | PN ---
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, Physician History of Present Illness: Pt seen and examined at bedside. She is awake and appears comfortable. - Current Medication List Current Medications: Active Medications Acetaminophen (Tylenol -) 650 mg PO Q4H PRN PRN Reason: FEVER OR PAIN Last Admin: 07/31/16 23:56 Dose: 650 mg Amlodipine Besylate (Norvasc -) 10 mg PO DAILY [facility] Last Admin: 08/01/16 09:01 Dose: Not Given Atorvastatin Calcium (Lipitor -) 10 mg PO HS [facility] Last Admin: 07/31/16 22:36 Dose: 10 mg Calcium Acetate (Phoslo -) 667 mg PO TIDCM [facility] Last Admin: 08/01/16 17:12 Dose: 667 mg Docusate Sodium (Colace -) 100 mg PO DAILY [facility] Last Admin: 08/01/16 09:01 Dose: 100 mg Donepezil HCl (Aricept -) 5 mg PO HS [facility] Last Admin: 07/31/16 22:36 Dose: 5 mg Hydralazine HCl (Apresoline -) 25 mg PO BID [facility] Last Admin: 08/01/16 09:02 Dose: Not Given Insulin Aspart (Novolog Vial Sliding Scale -) 1 vial SQ ACHS [facility] PRN Reason: Protocol Last Admin: 08/01/16 16:56 Dose: Not Given Insulin Detemir (Levemir Vial) 16 units SQ ACBK [facility] Last Admin: 08/01/16 07:11 Dose: Not Given Meclizine HCl (Antivert -) 25 mg PO Q8H PRN PRN Reason: VERTIGO Last Admin: 07/28/16 21:46 Dose: 25 mg Metoprolol Succinate (Toprol Xl -) 12.5 mg PO DAILY [facility] Last Admin: 08/01/16 09:02 Dose: Not Given Multivitamins/Minerals/Vitamin C (Tab-A-Vit -) 1 tab PO DAILY [facility] Last Admin: 08/01/16 09:01 Dose: 1 tab Non-Formulary Medication (Memantine Hcl [Namenda Xr]) 7 mg PO DAILY [facility] Last Admin: 08/01/16 09:01 Dose: 7 mg Pantoprazole Sodium (Protonix -) 40 mg PO DAILY [facility] Last Admin: 08/01/16 09:01 Dose: 40 mg - Objective Vital Signs: Vital Signs Temperature 98.2 F 08/01/16 17:05 Pulse Rate 77 08/01/16 17:05 Respiratory Rate 20 08/01/16 17:05 Blood Pressure 120/59 08/01/16 17:05 O2 Sat by Pulse Oximetry (%) 99 08/01/16 09:00 Constitutional: Yes: Calm Eyes: Yes: Conjunctiva Clear HENT: Yes: Atraumatic Neck: Yes: Supple Cardiovascular: Yes: S1, S2 Respiratory: Yes: On Nasal O2 Gastrointestinal: Yes: WNL Genitourinary: Yes: WNL Edema: No Neurological: Yes: Confusion Labs: CBC, BMP 07/31/16 08:50 07/31/16 08:50 INR, PTT INR 1.04 (0.82-1.09) 07/23/16 21:30 Problem List - Problems (1) Anemia due to chronic kidney disease Code(s): N18.9 - CHRONIC KIDNEY DISEASE, UNSPECIFIED D63.1 - ANEMIA IN CHRONIC KIDNEY DISEASE (2) CHF (congestive heart failure) Code(s): I50.9 - HEART FAILURE, UNSPECIFIED (3) Diabetes mellitus with renal manifestation Code(s): E11.29 - TYPE 2 DIABETES MELLITUS W OTH DIABETIC KIDNEY COMPLICATION (4) ESRD (end stage renal disease) Code(s): N18.6 - END STAGE RENAL DISEASE (5) Failure to thrive in adult Code(s): R62.7 - ADULT FAILURE TO THRIVE (6) Hypertension Code(s): I10 - ESSENTIAL (PRIMARY) HYPERTENSION (7) Pleural effusion Code(s): J90 - PLEURAL EFFUSION, NOT ELSEWHERE CLASSIFIED Assessment/Plan Current Medications Generic Name Dose Route Start Last Admin Trade Name Freq PRN Reason Stop Dose Admin Acetaminophen 650 mg 07/18/16 10:58 07/31/16 23:56 Tylenol - PO 650 mg Q4H PRN Administration FEVER OR PAIN Amlodipine Besylate 10 mg 07/19/16 10:00 08/01/16 09:01 Norvasc - PO Not Given DAILY [facility] Atorvastatin Calcium 10 mg 07/18/16 22:00 07/31/16 22:36 Lipitor - PO 10 mg HS [facility] Administration Calcium Acetate 667 mg 07/29/16 17:30 08/01/16 17:12 Phoslo - PO 667 mg TIDCM [facility] Administration Docusate Sodium 100 mg 07/19/16 10:00 08/01/16 09:01 Colace - PO 100 mg DAILY [facility] Administration Donepezil HCl 5 mg 07/19/16 22:00 07/31/16 22:36 Aricept - PO 5 mg HS [facility] Administration Hydralazine HCl 25 mg 07/18/16 22:00 08/01/16 09:02 Apresoline - PO Not Given BID [facility] Insulin Aspart 1 vial 07/22/16 07:00 08/01/16 16:56 Novolog Vial Sliding Scale - SQ Not Given ACHS [facility] Protocol Insulin Detemir 16 units 07/19/16 07:00 08/01/16 07:11 Levemir Vial SQ Not Given ACBK [facility] Meclizine HCl 25 mg 07/18/16 10:58 07/28/16 21:46 Antivert - PO 25 mg Q8H PRN Administration [facility] Metoprolol Succinate 12.5 mg 07/22/16 10:15 08/01/16 09:02 Toprol Xl - PO Not Given DAILY [facility] Multivitamins/Minerals/Vitamin C 1 tab 07/19/16 10:00 08/01/16 09:01 Tab-A-Vit - PO 1 tab DAILY [facility] Administration Non-Formulary Medication 7 mg 07/19/16 14:45 08/01/16 09:01 Memantine Hcl [Namenda Xr] PO 7 mg DAILY [facility] Administration Pantoprazole Sodium 40 mg 07/19/16 10:00 08/01/16 09:01 Protonix - PO 40 mg DAILY [facility] Administration Impression 1. ESRD 2. S/P AMS aand now back to baseline 3. HTN 4. PVD 5. hyperlipidemia 6. dementia 7. DM 8. PNA 9. Anemia 10. pleural effusion Plan - cont current meds - next HD on Tuesday - renal diet - s/p thoracocentesis yesterday with 1200 cc removal - cont phoslo with meals - monitor blood pressure - pulmonary input appreciated Dr Fox
[2016-08-01] MEDS ORDERED: INSULIN (NOVOLOG) ASPART 100 UNITS/ML 10ML VIAL ONE (21:46)
[2016-08-01] MEDS: ATORVASTATIN CA 10 MG TABLET (FP) PO SCH (21:55)
[2016-08-01] MEDS: DONEPEZIL HCL 5 MG TABLET (FP) PO SCH (21:55)
[2016-08-02] MEDS: INSULIN DETEMIR 100 UNITS/ML MDV SQ SCH (06:01)
[2016-08-02] MEDS: INSULIN SLIDING SCALE (NOVOLOG) 1 VIAL SQ SCH ×3 (06:01→17:27)
[2016-08-02] MEDS: METOPROLOL SUCCINATE 25 MG TAB.SR.24H (FP) PO SCH (09:35)
[2016-08-02] MEDS: DOCUSATE SODIUM 100 MG CAPSULE (FP) PO SCH (09:35)
[2016-08-02] MEDS: PANTOPRAZOLE 40 MG TABLET (FP) PO SCH (09:36)
[2016-08-02] MEDS: amLODIPine BESYLATE 10 MG TABLET (FP) PO SCH (09:36)
[2016-08-02] MEDS: CALCIUM ACETATE 667 MG CAPSULE (FP) PO SCH ×3 (09:36→17:30)
[2016-08-02] MEDS: MULTIVITAMINS (DAILY MVI) TABLET (FP) PO SCH (09:36)
[2016-08-02] MEDS: MEMANTINE HCL 7 MG PO SCH (09:37)
[2016-08-02] MEDS: hydrALAZINE HCL 25 MG TABLET (FP) PO SCH (09:37)
--- NOTE | 2016-08-02 11:15 | DS ---
Physical Examination Vital Signs: Vital Signs Temperature 98.7 F 08/02/16 10:00 Pulse Rate 76 08/02/16 10:00 Respiratory Rate 18 08/02/16 10:00 Blood Pressure 130/56 08/02/16 10:00 O2 Sat by Pulse Oximetry (%) 100 08/01/16 20:46 Constitutional: Yes: Calm Neck: Yes: Trachea Midline Cardiovascular: Yes: Regular Rate and Rhythm, S1, S2 Respiratory: Yes: CTA Bilaterally, Diminished (at bases) Gastrointestinal: Yes: Soft Edema: No Neurological: Yes: Other (responds to her name) Labs: CBC, BMP 07/31/16 08:50 07/31/16 08:50 Discharge Summary Reason For Visit: PNEUMONIA ANEMIA CKD Current Active Problems Anemia due to chronic kidney disease (Acute) Atelectasis of right lung (Acute) CHF (congestive heart failure) (Acute) Change in mental state (Acute) Chest pain (Acute) Chronic progressive renal failure (Acute) DVT prophylaxis (Acute) Diabetes mellitus with renal manifestation (Acute) ESRD (end stage renal disease) (Acute) Elevated troponin (Acute) Failure to thrive in adult (Acute) Fall (Acute) Hypertension (Acute) Malnutrition (Acute) Normocytic anemia (Acute) Pleural effusion (Acute) Pleural effusion due to CHF (congestive heart failure) (Acute) Pneumonia (Acute) Weakness (Acute) Hospital Course: - Admission History of Present Illness: 85-year-old female damien presents to the emergency with her home health aide who reports the patient is AMS and was complaining of chest pain yesterday. As per aid, patient was screaming that her chest was hurting her and appears lethargic to her t. She says Felicitas usually does not sleep through the night except this morning. Patient is demented and is a poor historian. Patient denies any headache, chest pain, shortness of breath or abdominal discomfort at this time. 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 History BRIM BLOCKER: Yes: CVA, Dementia Cardiovascular: Yes: HTN, Hyperlipdemia, Other (PVD) Renal/: Yes: Renal Inusuff Heme/Onc: Yes: Anemia Endocrine: Yes: Diabetes Mellitus - Past Surgical History Past Surgical History: Yes: Amputation, Carotid Endarterectomy during the hospital stay she had left facial droop had Carotid doppler.saw neurology on aspirin,statin and plavix pleural effusion had thoracocentesis. ESRD started on HD three time a week had modified barium swallow: silent aspiration on thin liquid, dysphagia ground diet thin liquid crush meds in apple sauce with thin liquids Condition: Stable - Instructions Referrals: Jero Faustin MD [Primary Care Provider] - Disposition: HOME - Home Medications Comprehensive Discharge Medication List: Ambulatory Orders Docusate Sodium 100 mg PO DAILY 11/20/14 Donepezil HCl 5 mg PO DAILY 11/20/14 Meclizine HCl 25 mg PO Q8H PRN 11/20/14 Memantine HCl [Namenda Xr] 7 mg PO DAILY 11/20/14 Pantoprazole Sodium [Protonix] 40 mg PO DAILY 11/20/14 Atorvastatin Ca [Lipitor] 10 mg PO HS 02/14/15 Insulin (Levemir) [Levemir Flexpen -] 16 units SQ DAILY 02/14/15 Insulin Lispro [Humalog] 0 unit SQ BID 04/27/16 Sodium Bicarbonate - 650 mg PO BID #60 tablet 04/30/16 Hydralazine HCl [Apresoline -] 25 mg PO BID #0 tab MDD 2 07/05/16 Acetaminophen [Tylenol .Regular Strength -] 650 mg PO Q4H PRN #0 tablet Amlodipine Besylate [Norvasc -] 10 mg PO DAILY tablet 07/09/16 Aspirin [ASA -] 81 mg PO DAILY tab.chew 07/09/16 Clopidogrel Bisulfate [Plavix -] 75 mg PO DAILY #30 tablet 07/09/16 Insulin Sliding Scale [Novolog Vial Sliding Scale -] 1 vial SQ ACHS units 07/09 Multivitamins [Multivit ([facility] Formulary)] 1 tab PO DAILY tab 07/09/16 Quetiapine Fumarate [Seroquel -] 50 mg PO HS 07/19/16
--- NOTE | 2016-08-02 13:05 | PATH ---
Cytology Non-Gynecological Report Patient Name: JOSEP NASH [facility]. Rec. #: [id number] /Age/Gender: 1930 (Age: 86) / F Account: [id number] Location: [address] [place] [address]/[facility] Taken: 07/30/2016 Received: 07/30/2016 Reported: 08/02/2016 Physicians: Alex Carmona M.D. Specimen(s) Received A: LEFT PLEURAL FLUID IN 50% ALCOHOL B: LEFT PLEURAL FLUID FRESH Clinical History Pleural effusion Final Diagnosis A,B. PLEURAL FLUID, LEFT, THORACENTESIS: SATISFACTORY FOR EVALUATION. NO MALIGNANT CELLS IDENTIFIED. REACTIVE MESOTHELIAL CELLS, HISTIOCYTES AND LYMPHOCYTES. Electronically Signed Italo Beltrán M.D. Gross Description A. Received is a 50 cc of yellow fluid in 50% alcohol. One cytofunnel slide and one cell block are made. B. Received is 2000 cc of yellow fluid fresh. One cytofunnel slide and one cell block are made.
[2016-08-02] MEDS ORDERED: CLOPIDOGREL BISULFATE 75 MG TABLET (FP) PO SCH (13:15)
--- NOTE | 2016-08-02 14:39 | PN ---
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, Physician History of Present Illness: Pt seen and examined at bedside. She appears comfortable. - Current Medication List Current Medications: Active Medications Acetaminophen (Tylenol -) 650 mg PO Q4H PRN PRN Reason: FEVER OR PAIN Last Admin: 07/31/16 23:56 Dose: 650 mg Amlodipine Besylate (Norvasc -) 10 mg PO DAILY [facility] Last Admin: 08/02/16 09:36 Dose: 10 mg Atorvastatin Calcium (Lipitor -) 10 mg PO HS [facility] Last Admin: 08/01/16 21:55 Dose: 10 mg Calcium Acetate (Phoslo -) 667 mg PO TIDCM [facility] Last Admin: 08/02/16 13:46 Dose: 667 mg Clopidogrel Bisulfate (Plavix -) 75 mg PO DAILY [facility] Last Admin: 08/02/16 13:46 Dose: 75 mg Docusate Sodium (Colace -) 100 mg PO DAILY [facility] Last Admin: 08/02/16 09:35 Dose: 100 mg Donepezil HCl (Aricept -) 5 mg PO HS [facility] Last Admin: 08/01/16 21:55 Dose: 5 mg Hydralazine HCl (Apresoline -) 25 mg PO BID [facility] Last Admin: 08/02/16 09:37 Dose: 25 mg Insulin Aspart (Novolog Vial Sliding Scale -) 1 vial SQ ACHS [facility] PRN Reason: Protocol Last Admin: 08/02/16 13:03 Dose: Not Given Insulin Detemir (Levemir Vial) 16 units SQ ACBK [facility] Last Admin: 08/02/16 06:01 Dose: Not Given Meclizine HCl (Antivert -) 25 mg PO Q8H PRN PRN Reason: VERTIGO Last Admin: 07/28/16 21:46 Dose: 25 mg Metoprolol Succinate (Toprol Xl -) 12.5 mg PO DAILY [facility] Last Admin: 08/02/16 09:35 Dose: 12.5 mg Multivitamins/Minerals/Vitamin C (Tab-A-Vit -) 1 tab PO DAILY [facility] Last Admin: 08/02/16 09:36 Dose: 1 tab Non-Formulary Medication (Memantine Hcl [Namenda Xr]) 7 mg PO DAILY [facility] Last Admin: 08/02/16 09:37 Dose: 7 mg Pantoprazole Sodium (Protonix -) 40 mg PO DAILY [facility] Last Admin: 08/02/16 09:36 Dose: 40 mg - Objective Vital Signs: Vital Signs Temperature 98.7 F 08/02/16 10:00 Pulse Rate 76 08/02/16 10:00 Respiratory Rate 18 08/02/16 10:00 Blood Pressure 130/56 08/02/16 10:00 O2 Sat by Pulse Oximetry (%) 100 08/01/16 20:46 Constitutional: Yes: Calm Eyes: Yes: Conjunctiva Clear HENT: Yes: Atraumatic Cardiovascular: Yes: S1, S2 Respiratory: Yes: Diminished Genitourinary: Yes: Incontinence Edema: No Wound/Incision: Yes: Clean/Dry Neurological: Yes: Confusion Labs: CBC, BMP 07/31/16 08:50 07/31/16 08:50 INR, PTT INR 1.04 (0.82-1.09) 07/23/16 21:30 Problem List - Problems (1) Anemia due to chronic kidney disease Code(s): N18.9 - CHRONIC KIDNEY DISEASE, UNSPECIFIED D63.1 - ANEMIA IN CHRONIC KIDNEY DISEASE (2) CHF (congestive heart failure) Code(s): I50.9 - HEART FAILURE, UNSPECIFIED (3) Diabetes mellitus with renal manifestation Code(s): E11.29 - TYPE 2 DIABETES MELLITUS W OTH DIABETIC KIDNEY COMPLICATION (4) ESRD (end stage renal disease) Code(s): N18.6 - END STAGE RENAL DISEASE (5) Failure to thrive in adult Code(s): R62.7 - ADULT FAILURE TO THRIVE (6) Hypertension Code(s): I10 - ESSENTIAL (PRIMARY) HYPERTENSION (7) Pleural effusion Code(s): J90 - PLEURAL EFFUSION, NOT ELSEWHERE CLASSIFIED Assessment/Plan Current Medications Generic Name Dose Route Start Last Admin Trade Name Freq PRN Reason Stop Dose Admin Acetaminophen 650 mg 07/18/16 10:58 07/31/16 23:56 Tylenol - PO 650 mg Q4H PRN Administration FEVER OR PAIN Amlodipine Besylate 10 mg 07/19/16 10:00 08/02/16 09:36 Norvasc - PO 10 mg DAILY [facility] Administration Atorvastatin Calcium 10 mg 07/18/16 22:00 08/01/16 21:55 Lipitor - PO 10 mg HS [facility] Administration Calcium Acetate 667 mg 07/29/16 17:30 08/02/16 13:46 Phoslo - PO 667 mg TIDCM [facility] Administration Clopidogrel Bisulfate 75 mg 08/02/16 13:15 08/02/16 13:46 Plavix - PO 75 mg DAILY [facility] Administration Docusate Sodium 100 mg 07/19/16 10:00 08/02/16 09:35 Colace - PO 100 mg DAILY [facility] Administration Donepezil HCl 5 mg 07/19/16 22:00 08/01/16 21:55 Aricept - PO 5 mg HS [facility] Administration Hydralazine HCl 25 mg 07/18/16 22:00 08/02/16 09:37 Apresoline - PO 25 mg BID [facility] Administration Insulin Aspart 1 vial 07/22/16 07:00 08/02/16 13:03 Novolog Vial Sliding Scale - SQ Not Given ACHS [facility] Protocol Insulin Detemir 16 units 07/19/16 07:00 08/02/16 06:01 Levemir Vial SQ Not Given ACBK [facility] Meclizine HCl 25 mg 07/18/16 10:58 07/28/16 21:46 Antivert - PO 25 mg Q8H PRN Administration VERTIGO Metoprolol Succinate 12.5 mg 07/22/16 10:15 08/02/16 09:35 Toprol Xl - PO 12.5 mg DAILY [facility] Administration Multivitamins/Minerals/Vitamin C 1 tab 07/19/16 10:00 08/02/16 09:36 Tab-A-Vit - PO 1 tab DAILY [facility] Administration Non-Formulary Medication 7 mg 07/19/16 14:45 08/02/16 09:37 Memantine Hcl [Namenda Xr] PO 7 mg DAILY [facility] Administration Pantoprazole Sodium 40 mg 07/19/16 10:00 08/02/16 09:36 Protonix - PO 40 mg DAILY [facility] Administration Impression 1. ESRD 2. S/P AMS aand now back to baseline 3. HTN 4. PVD 5. hyperlipidemia 6. dementia 7. DM 8. PNA 9. Anemia 10. pleural effusion Plan - HD in am - volume status is improving - renal diet - cont phoslo with meals - pulmonary input appreciated Dr Fox
[2016-08-02 14:56] VITALS: BP 120/67; PULSE 81; TEMP 98.4
[2016-08-03] MEDS ORDERED: EPOETIN ALFA 2,000 UNITS/1 ML VIAL IVPUSH ONE (14:39)
== END 2016-08-02 19:00 | disposition home or self-care (01) | DRG 291 ==
LOC: JER 05:06 → JERBED 11:30 → UNDOADMIN 11:53 → JERBED 11:53 → J4S 19:05
PROVIDERS: ADMIT Family Medicine; ATTEND Family Medicine
PROC: 5A1D60Z (ICD-10-PCS; 2016-07-20)
PROC: 0W993ZX Drainage of Right Pleural Cavity, Percutaneous Approach, Diagnostic (ICD-10-PCS; principal; 2016-07-30)
DX: I13.2 Hypertensive heart and chronic kidney disease with heart failure and with stage 5 chronic kidney disease, or end stage renal disease (principal); N18.6 End stage renal disease; I50.23 Acute on chronic systolic (congestive) heart failure; I69.354 Hemiplegia and hemiparesis following cerebral infarction affecting left non-dominant side; N39.0 Urinary tract infection, site not specified; R64 Cachexia; J98.11 Atelectasis; J90 Pleural effusion, not elsewhere classified; K21.9 Gastro-esophageal reflux disease without esophagitis; G30.9 Alzheimer's disease, unspecified; F02.80 Dementia in other diseases classified elsewhere, unspecified severity, without behavioral disturbance, psychotic disturbance, mood disturbance, and anxiety; I73.9 Peripheral vascular disease, unspecified; K29.60 Other gastritis without bleeding; Z79.4 Long term (current) use of insulin; D63.1 Anemia in chronic kidney disease; Z99.2 Dependence on renal dialysis; E11.21 Type 2 diabetes mellitus with diabetic nephropathy; R62.7 Adult failure to thrive; E11.22 Type 2 diabetes mellitus with diabetic chronic kidney disease; R41.82 Altered mental status, unspecified; Z68.20 Body mass index [BMI] 20.0-20.9, adult
CPT/HCPCS: 36415; 36600; 70450-TC; 70551-TC; 71010-TC; 71250-TC; 74230-TC; 76942; 80048; 80053; 81003; 81015; 82042; 82150; 82438; 82550; 82553; 82565; 82728; 82803; 82945; 83540; 83550; 83605; 83615; 83735; 84100; 84157; 84311; 84478; 84484; 84520; 85025; 85027; 85610; 85730; 86850; 86900; 86901; 87040; 87070; 87075; 87102; 87116; 87205; 87206; 87210; 87899; 88108; 88305-TC; 89051; 92611-GN; 93005; 93010; 93306-TC; 93880-TC; 94010; 94640; 97116-GP; 97162-PG; 99284-25; J0885; J1644; P9047

== ENCOUNTER 2017-05-25 15:33 | Inpatient (IN) | payer OTHER ==
--- NOTE | 2017-05-25 16:06 | PDOC ---
Attending Attestation - Resident Resident Name: Say Schmid - ED Attending Attestation I have performed the following: I have examined & evaluated the patient, The case was reviewed & discussed with the resident, I agree w/resident's findings & plan, Exceptions are as noted - Medical Decision Making 05/25/17 16:06 I, Dr. Nani Dover DO, attest that this document has been prepared under my direction and personally reviewed by me in its entirety. I further attest, that it accurately reflects all work, treatment, procedures and medical decision -making performed by me. 05/25/17 17:22 a/p: 86yo demented female presents from HD for eval of lethargy -suspect infection causing lethargy -suspect pna - given recent cough/diminished bs/hypoxia -will obtain labs, cultures, xray -will start broad spectrum abx given hypoxia, hypothermia -PMD is Dr. Faustin -pt will need to be admitted -will obtain head ct -plan discussed with the family at the bedside -saez in place with cloudy urine 05/25/17 20:[address] Mcguire who accepts pt to service pmd is Dr. Faustin covered tonight by [facility] <Nani Dover - Last Filed: 05/25/17 20:13> - HPI HPI: 05/25/17 19:24 The patient is a 86 year old female with pmh of ESRD on dialysis (MWF) who presents to the ED after being noted to be experiencing lethargy earlier today . The patient reports to have been 1.5 hours into her treatment when this feeling came on . The patient is noted to be hypothermic and hypotensive. She reports that she was previously discharged from the hospital on May 18 where she was found to have pneumonia. She also reports that she had a recent cough for which her doctor gave her robitussin. The patient states that she followed up with her PCP (Dr. Saha )yesterday. The patient reports that she has been eating and drinking normally. The patient denies any other complaints. She denies any nausea,vomiting, and diarrhea. She denies any headache or allergies. 05/25/17 19:27 Documentation prepared by Jenelle Rouse, acting as medical policy specialist for Nani Dover DO. - Physicial Exam PE: 05/25/17 19:25 GENERAL: Awake, alert, in no acute distress. HEAD: No signs of trauma EYES: Pupils 2mm. PERRLA, EOMI, sclera anicteric, conjunctiva clear ENT: Auricles normal inspection, hearing grossly normal, nares patent, oropharynx clear without exudates. Moist mucosa NECK: Normal ROM, supple, no lymphadenopathy, JVD, or masses LUNGS: (+) diminished Lung sounds bilaterally (left greater than right ) , clear to auscultation bilaterally. No wheezes, and no crackles HEART: Regular rate and rhythm, normal S1 and S2, no murmurs, rubs or gallops ABDOMEN: Soft, nontender, normoactive bowel sounds. No guarding, no rebound. No masses EXTREMITIES: (+)left av fistula with bruit, thrill, with dressing in place Normal range of motion, no edema. No clubbing or cyanosis. No cords, erythema. NEUROLOGICAL: Gait deferred , moving all extremities. Cranial nerves II through XII grossly intact. SKIN: Warm, Dry, normal turgor, no rashes or lesions noted. <Jenelle Rouse - Last Filed: 05/25/17 20:17> Discharge Disposition - Discharge Dispostion Last Admission D/C Date: 12/23/16 Admit: Yes <Nani Dover - Last Filed: 05/25/17 20:13> <Jenelle Rouse - Last Filed: 05/25/17 20:17> - Diagnosis ESRD (end stage renal disease), Change in mental state, SIRS (systemic inflammatory response syndrome) - Discharge Dispostion Condition at time of disposition: Fair Heart Score/ECG Review - ECG Intrepretation Comment:: 05/25/17 17:24 sinus at 72, 1st degree av block, L axis deviation, no acute st/t wave findings <Nani Dover - Last Filed: 05/25/17 20:13>
--- NOTE | 2017-05-25 16:44 | PDOC ---
History of Present Illness - General Chief Complaint: Lethargy Stated Complaint: LETHARGY Time Seen by Provider: 05/25/17 16:04 History Source: Family Exam Limitations: No Limitations - History of Present Illness Initial Comments: 05/25/17 16:39 The patient is an 86F with a PMH of hypertension, anemia, dementia, CVA (left hemiparesis), IDDM, gastritis, vertigo, and frequent UTIs who presents to the ER from dialysis. The patient was with her daughter who provides some of the history along with EMS. The daughter states that she was with the patient who was at dialysis for 1.5 hours and then became acutely lethargic. The daughter denies any other symptoms besides her lethargy. The patient is not providing any history. Past History - Past Medical History Allergies/Adverse Reactions: Allergies Allergy/AdvReac Type Severity Reaction Status Date / Time No Known Drug Allergies Allergy Verified 05/25/17 17:18 Home Medications: Ambulatory Orders Memantine HCl [Namenda Xr] 7 mg PO DAILY 11/20/14 Pantoprazole Sodium [Protonix] 40 mg PO DAILY 11/20/14 Atorvastatin Ca [Lipitor] 10 mg PO HS 02/14/15 Insulin (Levemir) [Levemir Flexpen -] 30 units SQ ACBK 02/14/15 Amlodipine Besylate [Norvasc -] 10 mg PO DAILY tablet 07/09/16 Aspirin [ASA -] 81 mg PO DAILY tab.chew 07/09/16 Insulin Sliding Scale [Novolog Vial Sliding Scale -] 1 vial SQ ACHS units 07/09 Multivitamins [Multivit ([facility] Formulary)] 1 tab PO DAILY tab 07/09/16 Metoprolol Succinate [Toprol XL -] 12.5 mg PO DAILY #30 tab MDD 1 08/02/16 Docusate Sodium [Colace -] 200 mg PO HS PRN 12/21/16 Levothyroxine [Synthroid -] 25 mcg PO DAILY 12/21/16 Polyethylene Glycol 3350 [Miralax (For Daily Use) -] 17 gm PO DAILY 12/21/16 Quetiapine Fumarate [Seroquel -] 50 mg PO HS 12/21/16 hydrALAZINE HCL [Apresoline -] 10 mg PO BID MDD 2 12/21/16 Acetaminophen [Tylenol .Regular Strength -] 500 mg PO Q4H PRN 05/25/17 Acetaminophen [Tylenol .Regular Strength -] 650 mg PO Q6H PRN tablet 05/27/17 Amlodipine Besylate [Norvasc -] 10 mg PO DAILY tablet 05/27/17 Aspirin Coated [Ecotrin -] 81 mg PO DAILY tablet.ec 05/27/17 Atorvastatin Ca [Lipitor] 10 mg PO HS tablet 05/27/17 Docusate Sodium [Colace -] 100 mg PO BID PRN capsule 05/27/17 Insulin (Novolog) [Novolog Flexpen] See Protocol SQ ACHS #4 pen 05/27/17 Insulin Sliding Scale [Novolog Vial Sliding Scale -] 1 vial SQ ACHS units 05/27 Levothyroxine [Synthroid -] 25 mcg PO DAILY@0700 tablet 05/27/17 Memantine HCl [Namenda -] 5 mg PO BID tab 05/27/17 Metoprolol Succinate [Toprol XL -] 12.5 mg PO DAILY tab.sr.24h 05/27/17 Quetiapine Fumarate [Seroquel -] 50 mg PO HS tablet 05/27/17 hydrALAZINE HCL [Apresoline -] 10 mg PO BID tablet 05/27/17 Anemia: Yes Asthma: No Cancer: No Cardiac Disorders: No CVA: Yes (LEFT SIDED WEAKNESS) COPD: No CHF: No Dementia: Yes Diabetes: Yes Dialysis: No GI Disorders: Yes Disorders: No HTN: Yes Hypercholesterolemia: No Liver Disease: No Psychiatric Problems: Yes Seizures: No Thyroid Disease: Yes - Surgical History Abdominal Surgery: No Appendectomy: No Cardiac Surgery: (CAROTID) Cholecystectomy: No Lung Surgery: No Neurologic Surgery: No Orthopedic Surgery: No - Immunization History Immunization Up to Date: No - Suicide/Smoking/Psychosocial Hx Smoking Status: No Smoking History: Never smoked Have you smoked in the past 12 months: No Number of Cigarettes Smoked Daily: 0 Hx Alcohol Use: No Drug/Substance Use Hx: No Substance Use Type: None Hx Substance Use Treatment: No Review of Systems - Review of Systems Able to Perform ROS?: No (Lethargic) Is the patient limited Albanian proficient: Yes *Physical Exam - Physical Exam Comments: 05/25/17 16:44 GENERAL: Well developed, well nourished. Awake and alert. No acute distress. HEENT: Normocephalic, atraumatic. Hearing grossly normal. Moist mucous membranes. PERRLA, EOMI. No conjunctival pallor. Sclera are non-icteric. NECK: Supple. Full ROM. No JVD. CARDIOVASCULAR: Regular rate and rhythm. Systolic murmur noted. PULMONARY: No evidence of respiratory distress. Decreased lung sounds on the R side. ABDOMINAL: Soft. Non-tender. Non-distended. No rebound or guarding. GENITOURINARY: No CVA tenderness bilaterally. MUSCULOSKELETAL: Normal range of motion at all joints. No bony deformities or tenderness. EXTREMITIES: No cyanosis. No clubbing. No edema. No calf tenderness. SKIN: Warm and dry. Normal capillary refill. No rashes. No jaundice. NEUROLOGICAL: Alert, awake, appropriate. Cranial nerves 2-12 intact. PSYCHIATRIC: Cooperative. Good eye contact. Appropriate mood and affect. ED Treatment Course - LABORATORY CBC & Chemistry Diagram: 05/27/17 08:15 05/27/17 08:15 - RADIOLOGY Radiology Studies Ordered: Category Date Time Status HEAD CT WITHOUT CONTRAST [CT] Stat CT Scan 05/25/17 16:28 Ordered CHEST X-RAY PORTABLE* [RAD] Stat Radiology 05/25/17 16:27 Ordered Medical Decision Making - Medical Decision Making 05/25/17 16:45 The patient is an 86F with an extensive PMH who had an acute episode of lethargy while at dialysis. Incoming vitals significant for hypothermia and hypoxia. Pulse pressure is widened likely 2/2 to . Septic protocol is being followed. Huerta in place with rectal probe and bare huggers. Pending labs/ imaging. 05/25/17 18:50 Pt signed out to Dr. Cuellar, [facility] team. *DC/Admit/Observation/Transfer Diagnosis at time of Disposition: ESRD (end stage renal disease), Change in mental state, SIRS (systemic inflammatory response syndrome) - Discharge Dispostion Disposition: VNS/HOME HEALTH CARE Condition at time of disposition: Fair - Prescriptions - Referrals - Patient Instructions - Post Discharge Activity
[2017-05-25] MEDS ORDERED: VANCOMYCIN 1,000 MG in DEXTROSE 5%-WATER - 250 ML IVPB ONE (16:48)
[2017-05-25] MEDS ORDERED: PIPERACILLIN/TAZOBACTAM 2.25 GM VIAL IVPB ONE (16:49)
[2017-05-25] MEDS ORDERED: PIPERACILLIN/TAZOB 2.25 GM/50 ML PREMIX BAG IVPB ONE (16:49)
[2017-05-25 17:04] LABS: VENOUS PC02 55.4 mmHg (38-52); VENOUS PH 7.26 (7.32-7.42); VENOUS PO2 46.7 mmHg (28-48)
[2017-05-25 17:11] LABS: URINE APPEARANCE CLEAR; URINE BILIRUBIN NEGATIVE (<2.0 mg/dL); URINE COLOR STRAW; URINE GLUCOSE (UA) 2+ (NEGATIVE); URINE KETONE NEGATIVE (NEGATIVE); URINE LEUK ESTERASE TRACE (NEGATIVE); URINE NITRITE NEGATIVE (NEGATIVE); URINE UROBILINOGEN NEGATIVE mg/dL (0.2-1.0)
[2017-05-25 17:13] LABS: BASO % 0.4 % (0-2.0); EOS % 2.7 % (0-4.5); HEMATOCRIT 32.2 % (32.4-45.2); HEMOGLOBIN 10.8 GM/dL (10.7-15.3); LYMPH % 22.6 % (8-40); MCH 30.6 pg (25.7-33.7); MCHC 33.6 g/dl (32.0-36.0); MEAN PLT VOLUME 7.7 fl (7.5-11.1); MONO % 8.3 % (3.8-10.2); PLATELET COUNT 152 K/MM3 (134-434); RBC 3.54 M/mm3 (3.60-5.2); RDW 15.2 % (11.6-15.6); URINE PROTEIN 1+ (NEGATIVE); WHITE BLOOD COUNT 3.6 K/mm3 (4.0-10.0)
[2017-05-25 17:14] LABS: YEAST RARE
[2017-05-25 17:18] VITALS: BMI 16.7
[2017-05-25] MEDS ORDERED: ALBUTEROL SO4 2.5/IPRATROPIUM 0.5 INH SOL 3 ML VIAL.NEB. NEB ONE ×2 (17:23→18:14)
[2017-05-25 17:26] LABS: INR 0.95 (0.82-1.09); PROTHROMBIN TIME (PATIENT) 10.7 SEC (9.98-11.88)
[2017-05-25 17:29] LABS: ARTERIAL BLOOD GAS PCO2 41.2 mmHg (35-45); ARTERIAL BLOOD GAS pH 7.36 (7.35-7.45)
[2017-05-25 17:30] LABS: ARTERIAL BLD GAS O2 SATURATION 98.7 % (90-98.9)
[2017-05-25 17:31] LABS: ALLENS TEST POSITIVE; ARTERIAL BLOOD GAS BASE EXCESS -1.9 meq/l (-2-2)
[2017-05-25 17:34] LABS: ACTIVATED PTT 95.2 SECONDS (26.9-34.4)
[2017-05-25 17:41] LABS: ALBUMIN 3.6 g/dl (3.4-5.0); ANION GAP 10 (8-16); BILIRUBIN,TOTAL 0.2 mg/dL (0.2-1.0); BLOOD UREA NITROGEN 48 mg/dL (7-18); CALCIUM 8.6 mg/dL (8.5-10.1); CHLORIDE 97 mmol/L (98-107); CO2 24 mmol/L (21-32); CREATININE 4.4 mg/dL (0.55-1.02); GLUCOSE,RANDOM 216 mg/dL (74-106); POTASSIUM 4.8 mmol/L (3.5-5.1); SGOT/AST 35 U/L (15-37); SGPT/ALT 40 U/L (12-78); SODIUM 131 mmol/L (136-145); TOT PROT 7.9 g/dl (6.4-8.2)
[2017-05-25 17:42] LABS: ALK PHOS 141 U/L (45-117)
[2017-05-25] MEDS ORDERED: VANCOMYCIN 1 GRAM (PRE-DOCKED) 1,000 MG/250 ML BAG IVPB ONE (18:27)
--- NOTE | 2017-05-25 19:37 | HP ---
CHIEF COMPLAINT: Unresponsive, Hypothermia PCP: Dr. Faustin HISTORY OF PRESENT ILLNESS: This is a 86 y/o woman with a PMH of ESRD (HD- M,W,F), HTN, Anemia, IDDM, CVA, Dementia, Gastritis. Who presents to the ED from the Dialysis center after becoming unresponsive while being dialyzed. Patient was found to be Hypothermic 95.5, Hypoxia 92%. Per ED records: ER course was notable for: (1) (2) (3) Recent Travel: PAST MEDICAL HISTORY: PAST SURGICAL HISTORY: Social History: Smoking: Alcohol: Drugs: Family History: Allergies No Known Drug Allergies Allergy (Verified 05/25/17 17:18) HOME MEDICATIONS: Home Medications Medication Instructions Recorded Memantine HCl [Namenda Xr] 7 mg PO DAILY 11/20/14 Pantoprazole Sodium [Protonix] 40 mg PO DAILY 11/20/14 Atorvastatin Ca [Lipitor] 10 mg PO HS 02/14/15 Insulin (Levemir) [Levemir Flexpen 16 units SQ ACBK 02/14/15 -] Acetaminophen [Tylenol .Regular 650 mg PO Q4H PRN #0 tablet 07/09/16 Strength -] Amlodipine Besylate [Norvasc -] 10 mg PO DAILY tablet 07/09/16 Aspirin [ASA -] 81 mg PO DAILY tab.chew 07/09/16 Clopidogrel Bisulfate [Plavix -] 75 mg PO DAILY #30 tablet 07/09/16 Insulin Sliding Scale [Novolog 1 vial SQ ACHS units 07/09/16 Vial Sliding Scale -] Multivitamins [Multivit ([facility] 1 tab PO DAILY tab 07/09/16 Formulary)] Metoprolol Succinate [Toprol XL -] 12.5 mg PO DAILY #30 tab MDD 1 08/02/16 Docusate Sodium [Colace -] 100 mg PO HS PRN 12/21/16 Levothyroxine [Synthroid -] 25 mcg PO DAILY 12/21/16 Meclizine HCl 12.5 mg PO HS MDD 3 12/21/16 Polyethylene Glycol 3350 [Miralax 17 gm PO DAILY 12/21/16 (For Daily Use) -] Quetiapine Fumarate [Seroquel -] 50 mg PO HS 12/21/16 hydrALAZINE HCL [Apresoline -] 10 mg PO BID MDD 2 12/21/16 Oxycodone HCl/Acetaminophen 1 tab PO Q6H PRN #20 tablet MDD 4 12/22/16 [Percocet 5-325 mg Tablet] REVIEW OF SYSTEMS CONSTITUTIONAL: Absent: fever, chills, diaphoresis, generalized weakness, malaise, loss of appetite, weight change HEENT: Absent: rhinorrhea, nasal congestion, throat pain, throat swelling, difficulty swallowing, mouth swelling, ear pain, eye pain, visual changes CARDIOVASCULAR: Absent: chest pain, syncope, palpitations, irregular heart rate, lightheadedness , peripheral edema RESPIRATORY: Absent: cough, shortness of breath, dyspnea with exertion, orthopnea, wheezing, stridor, hemoptysis GASTROINTESTINAL: Absent: abdominal pain, abdominal distension, nausea, vomiting, diarrhea, constipation, melena, hematochezia GENITOURINARY: Absent: dysuria, frequency, urgency, hesitancy, hematuria, flank pain, genital pain MUSCULOSKELETAL: Absent: myalgia, arthralgia, joint swelling, back pain, neck pain SKIN: Absent: rash, itching, pallor HEMATOLOGIC/IMMUNOLOGIC: Absent: easy bleeding, easy bruising, lymphadenopathy, frequent infections ENDOCRINE: Absent: unexplained weight gain, unexplained weight loss, heat intolerance, cold intolerance NEUROLOGIC: Absent: headache, focal weakness or paresthesias, dizziness, unsteady gait, seizure, mental status changes, bladder or bowel incontinence PSYCHIATRIC: Absent: anxiety, depression, suicidal or homicidal ideation, hallucinations. PHYSICAL EXAMINATION Vital Signs - 24 hr 05/25/17 05/25/17 05/25/17 15:35 16:00 18:20 Temperature 95.5 F L 95.7 F L Pulse Rate 69 69 76 Respiratory 20 Rate Blood Pressure 158/54 O2 Sat by Pulse 92 L 93 L Oximetry (%) GENERAL: Awake, alert, and fully oriented, in no acute distress. HEAD: Normal with no signs of trauma. EYES: Pupils equal, round and reactive to light, extraocular movements intact, sclera anicteric, conjunctiva clear. No lid lag. EARS, NOSE, THROAT: Ears normal, nares patent, oropharynx clear without exudates. Moist mucous membranes. NECK: Normal range of motion, supple without lymphadenopathy, JVD, or masses. LUNGS: Breath sounds equal, clear to auscultation bilaterally. No wheezes, and no crackles. No accessory muscle use. HEART: Regular rate and rhythm, normal S1 and S2 without murmur, rub or gallop. ABDOMEN: Soft, nontender, not distended, normoactive bowel sounds, no guarding, no rebound, no masses. No hepatomegaly or splenomegaly. MUSCULOSKELETAL: Normal range of motion at all joints. No bony deformities or tenderness. No CVA tenderness. UPPER EXTREMITIES: 2+ pulses, warm, well-perfused. No cyanosis. No clubbing. No peripheral edema. LOWER EXTREMITIES: 2+ pulses, warm, well-perfused. No calf tenderness. No peripheral edema. NEUROLOGICAL: Cranial nerves II-XII intact. Normal speech. Normal gait. PSYCHIATRIC: Cooperative. Good eye contact. Appropriate mood and affect. SKIN: Warm, dry, normal turgor, no rashes or lesions noted, normal capillary refill. Laboratory Results - last 24 hr 05/25/17 05/25/17 05/25/17 16:16 16:56 16:56 WBC 3.6 L RBC 3.54 L Hgb 10.8 D Hct 32.2 L MCV 91.0 MCH 30.6 MCHC 33.6 RDW 15.2 Plt Count 152 MPV 7.7 D Neutrophils % 66.0 Lymphocytes % 22.6 Monocytes % 8.3 Eosinophils % 2.7 Basophils % 0.4 PT with INR 10.70 INR 0.95 PTT (Actin FS) 95.2 H D Anticoagulation Therapy Puncture Site ABG pH ABG pCO2 at Pt Temp ABG pO2 at Pt Temp ABG HCO3 ABG O2 Sat (Measured) ABG O2 Content ABG Base Excess Yo Test VBG pH POC VBG pCO2 POC VBG pO2 Mixed VBG HCO3 Methemoglobin O2 Delivery Device Oxygen Flow Rate Vent Mode Vent Rate Mechanical Rate Pressure Support Vent Sodium Potassium Chloride Carbon Dioxide Anion Gap BUN Creatinine Creat Clearance w eGFR Random Glucose Lactic Acid Calcium Total Bilirubin AST ALT Alkaline Phosphatase Troponin I < 0.02 Total Protein Albumin Urine Color Urine Appearance Urine pH Ur Specific [place] Urine Protein Urine Glucose (UA) Urine Ketones Urine Blood Urine Nitrite Urine Bilirubin Urine Urobilinogen Ur Leukocyte Esterase Urine WBC (Auto) Urine RBC (Auto) Urine Yeast 05/25/17 05/25/17 05/25/17 16:56 16:56 16:56 WBC RBC Hgb Hct MCV MCH MCHC RDW Plt Count MPV Neutrophils % Lymphocytes % Monocytes % Eosinophils % Basophils % PT with INR INR PTT (Actin FS) Anticoagulation Therapy Puncture Site ABG pH ABG pCO2 at Pt Temp ABG pO2 at Pt Temp ABG HCO3 ABG O2 Sat (Measured) ABG O2 Content ABG Base Excess Yo Test VBG pH 7.26 L POC VBG pCO2 55.4 H POC VBG pO2 46.7 Mixed VBG HCO3 23.8 Methemoglobin O2 Delivery Device Oxygen Flow Rate Vent Mode Vent Rate Mechanical Rate Pressure Support Vent Sodium 131 L Potassium 4.8 Chloride 97 L Carbon Dioxide 24 Anion Gap 10 BUN 48 H Creatinine 4.4 H Creat Clearance w eGFR 9.56 Random Glucose 216 H Lactic Acid Calcium 8.6 Total Bilirubin 0.2 D AST 35 ALT 40 Alkaline Phosphatase 141 H Troponin I Total Protein 7.9 Albumin 3.6 Urine Color Straw Urine Appearance Clear Urine pH 7.0 Ur Specific [place] 1.009 Urine Protein 1+ H Urine Glucose (UA) 2+ H Urine Ketones Negative Urine Blood 2+ H Urine Nitrite Negative Urine Bilirubin Negative Urine Urobilinogen Negative Ur Leukocyte Esterase Trace Urine WBC (Auto) 7 Urine RBC (Auto) 22 Urine Yeast Rare 05/25/17 05/25/17 16:56 17:20 WBC RBC Hgb Hct MCV MCH MCHC RDW Plt Count MPV Neutrophils % Lymphocytes % Monocytes % Eosinophils % Basophils % PT with INR INR PTT (Actin FS) Anticoagulation Therapy No Result Required. Puncture Site Right brachial ABG pH 7.36 ABG pCO2 at Pt Temp 41.2 ABG pO2 at Pt Temp 381.0 H* D ABG HCO3 22.8 ABG O2 Sat (Measured) 98.7 ABG O2 Content 100.0 H ABG Base Excess -1.9 Yo Test Positive VBG pH POC VBG pCO2 POC VBG pO2 Mixed VBG HCO3 Methemoglobin 2.0 H O2 Delivery Device No Result Required. Oxygen Flow Rate Nonrebreather Vent Mode No Result Required. Vent Rate No Result Required. Mechanical Rate No Result Required. Pressure Support Vent No Result Required. Sodium Potassium Chloride Carbon Dioxide Anion Gap BUN Creatinine Creat Clearance w eGFR Random Glucose Lactic Acid 2.2 H* Calcium Total Bilirubin AST ALT Alkaline Phosphatase Troponin I Total Protein Albumin Urine Color Urine Appearance Urine pH Ur Specific [place] Urine Protein Urine Glucose (UA) Urine Ketones Urine Blood Urine Nitrite Urine Bilirubin Urine Urobilinogen Ur Leukocyte Esterase Urine WBC (Auto) Urine RBC (Auto) Urine Yeast ASSESSMENT/PLAN: Problem List - Problem (1) Sepsis Code(s): A41.9 - SEPSIS, UNSPECIFIED ORGANISM Qualifiers: Sepsis type: sepsis due to unspecified organism (2) SIRS (systemic inflammatory response syndrome) Code(s): R65.10 - SIRS OF NON-INFECTIOUS ORIGIN W/O ACUTE ORGAN DYSFUNCTION (3) Change in mental state Code(s): R41.82 - ALTERED MENTAL STATUS, UNSPECIFIED (4) ESRD (end stage renal disease) Code(s): N18.6 - END STAGE RENAL DISEASE (5) Anemia due to chronic kidney disease Code(s): N18.9 - CHRONIC KIDNEY DISEASE, UNSPECIFIED; D63.1 - ANEMIA IN CHRONIC KIDNEY DISEASE (6) Chronic kidney disease (CKD) Code(s): N18.9 - CHRONIC KIDNEY DISEASE, UNSPECIFIED Qualifiers: Chronic kidney disease stage: unspecified stage Qualified Code(s): N18.9 - Chronic kidney disease, unspecified (7) Dementia Code(s): F03.90 - UNSPECIFIED DEMENTIA WITHOUT BEHAVIORAL DISTURBANCE Qualifiers: Dementia type: unspecified type Dementia behavioral disturbance: without behavioral disturbance Qualified Code(s): F03.90 - Unspecified dementia without behavioral disturbance (8) Diabetes mellitus with renal manifestation Code(s): E11.29 - TYPE 2 DIABETES MELLITUS W OTH DIABETIC KIDNEY COMPLICATION (9) Elevated troponin Code(s): R74.8 - ABNORMAL LEVELS OF OTHER SERUM ENZYMES (10) Hypertension Code(s): I10 - ESSENTIAL (PRIMARY) HYPERTENSION (11) DVT prophylaxis Code(s): IIR6231 - Visit type - Emergency Visit Emergency Visit: Yes ED Registration Date: 05/25/17 Care time: The patient presented to the Emergency Department on the above date and was hospitalized for further evaluation of their emergent condition. - New Patient This patient is new to me today: Yes Date on this admission: 05/25/17 - Critical Care Critical Care patient: No Hospitalist Screening - Colonoscopy Questionnaire Colonoscopy Questionnaire: Colonoscopy Questionnaire - Patient: 50 - 75 years old and never had a screening colonoscopy: Unknown History of colon or rectal polyps, or CA: Unknown History of IBD, Crohn's disease or UC: Unknown History of abdominal radiation therapy as a child: Unknown - Relative: 1 with colon or rectal CA, or polyps at age 60 or younger: Unknown Colon or rectal CA diagnosed at age 45 or younger: Unknown Multiple relatives with colon or rectal CA: Unknown - Outcome: Screening Result: Negative Screen
[2017-05-26 07:10] LABS: BASO % 0.2 % (0-2.0); EOS % 2.6 % (0-4.5); HEMATOCRIT 27.8 % (32.4-45.2); HEMOGLOBIN 9.4 GM/dL (10.7-15.3); LYMPH % 27.4 % (8-40); MCH 30.6 pg (25.7-33.7); MCHC 33.9 g/dl (32.0-36.0); MEAN CELL VOLUME 90.4 fl (80-96); MEAN PLT VOLUME 7.5 fl (7.5-11.1); MONO % 10.8 % (3.8-10.2); PLATELET COUNT 144 K/MM3 (134-434); RBC 3.07 M/mm3 (3.60-5.2); RDW 14.8 % (11.6-15.6); WHITE BLOOD COUNT 3.8 K/mm3 (4.0-10.0)
[2017-05-26 07:59] LABS: CHLORIDE 97 mmol/L (98-107); POTASSIUM 5.2 mmol/L (3.5-5.1); SODIUM 135 mmol/L (136-145)
[2017-05-26 08:08] LABS: ALBUMIN 3.1 g/dl (3.4-5.0); ALK PHOS 117 U/L (45-117); ANION GAP 14 (8-16); BILIRUBIN,TOTAL 0.3 mg/dL (0.2-1.0); BLOOD UREA NITROGEN 53 mg/dL (7-18); CALCIUM 8.3 mg/dL (8.5-10.1); CO2 24 mmol/L (21-32); CREATININE 5.1 mg/dL (0.55-1.02); GLUCOSE,RANDOM 150 mg/dL (74-106); PHOSPHOROUS 5.1 mg/dL (2.5-4.9); SGOT/AST 24 U/L (15-37); SGPT/ALT 29 U/L (12-78); TOT PROT 6.8 g/dl (6.4-8.2)
[2017-05-26] MEDS ORDERED: FLU VACCINE QUAD 60 MCG/0.5 ML (MDV 17-18) IM ONE (11:00)
--- NOTE | 2017-05-26 11:06 | EKG ---
Test Reason : Blood Pressure : / mmHG Vent. Rate : 072 BPM Atrial Rate : 072 BPM P-R Int : 288 ms QRS Dur : 082 ms QT Int : 422 ms P-R-T Axes : 052 -31 065 degrees QTc Int : 462 ms SINUS RHYTHM WITH 1ST DEGREE A-V BLOCK LEFT AXIS DEVIATION MINIMAL VOLTAGE CRITERIA FOR LVH, MAY BE NORMAL VARIANT SEPTAL INFARCT (CITED ON OR BEFORE 27-APR-2016) ABNORMAL ECG WHEN COMPARED WITH ECG OF 26-JUL-2016 09:24, [place] INTERVAL HAS INCREASED SERIAL CHANGES OF SEPTAL INFARCT PRESENT Confirmed by ESPERANZA HENDRICKS MD ([id number]) on 05/26/2017 11:06:15 AM Referred By: Confirmed By:ESPERANZA HENDRICKS MD
--- NOTE | 2017-05-26 11:35 | PN ---
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, Physician Chief Complaint: PATIENT SEEN AND EXAMINED NOTES AND EVENTS REVIEWED AWAKE ALERT C/O HUNGRY History of Present Illness: AWAKE ALERT - Objective Vital Signs: Vital Signs Temperature 98.2 F 05/26/17 08:00 Pulse Rate 90 05/26/17 08:00 Respiratory Rate 18 05/26/17 09:00 Blood Pressure 148/77 05/26/17 08:00 O2 Sat by Pulse Oximetry (%) 100 05/26/17 09:00 Constitutional: Yes: Mild Distress Eyes: Yes: WNL HENT: Yes: WNL Neck: Yes: WNL Cardiovascular: Yes: Murmur Respiratory: Yes: WNL Gastrointestinal: Yes: WNL Genitourinary: Yes: WNL Musculoskeletal: Yes: WNL Extremities: Yes: WNL Edema: No Peripheral Pulses WNL: Yes Integumentary: Yes: WNL Wound/Incision: Yes: Clean/Dry Neurological: Yes: WNL ...Motor Strength: WNL Psychiatric: Yes: WNL Labs: CBC, BMP 05/26/17 05:35 05/26/17 05:35 INR, PTT INR 0.95 (0.82-1.09) 05/25/17 16:56 Problem List - Problems (1) Change in mental state Code(s): R41.82 - ALTERED MENTAL STATUS, UNSPECIFIED (2) ESRD (end stage renal disease) Code(s): N18.6 - END STAGE RENAL DISEASE (3) SIRS (systemic inflammatory response syndrome) Code(s): R65.10 - SIRS OF NON-INFECTIOUS ORIGIN W/O ACUTE ORGAN DYSFUNCTION (4) Acute renal failure Code(s): N17.9 - ACUTE KIDNEY FAILURE, UNSPECIFIED Qualifiers: Acute renal failure type: unspecified Qualified Code(s): N17.9 - Acute kidney failure, unspecified (5) Acute renal failure superimposed on stage 4 chronic kidney disease Code(s): N17.9 - ACUTE KIDNEY FAILURE, UNSPECIFIED; N18.4 - CHRONIC KIDNEY DISEASE, STAGE 4 (SEVERE) (6) Amputated toe of left foot Code(s): Z89.422 - ACQUIRED ABSENCE OF OTHER LEFT TOE(S) (7) Amputated toe of right foot Code(s): Z89.421 - ACQUIRED ABSENCE OF OTHER RIGHT TOE(S) (8) Anemia due to chronic kidney disease Code(s): N18.9 - CHRONIC KIDNEY DISEASE, UNSPECIFIED; D63.1 - ANEMIA IN CHRONIC KIDNEY DISEASE (9) CKD (chronic kidney disease) stage 5, GFR less than 15 ml/min Code(s): N18.5 - CHRONIC KIDNEY DISEASE, STAGE 5 Assessment/Plan WILL RESTART DIET AND MEDICATIONS BGM CHECK FALL PRECAUTIONS PT EVAL SNF SEPSIS WORKUP OOB TO CHAIR
[2017-05-26] MEDS ORDERED: ACETAMINOPHEN 325 MG TABLET (FP) PO PRN (11:40)
[2017-05-26] MEDS ORDERED: DOCUSATE SODIUM 100 MG CAPSULE (FP) PO PRN (11:40)
[2017-05-26] MEDS: metoPROLOL SUCCINATE 25 MG TAB.SR.24H (FP) PO SCH (12:47)
[2017-05-26] MEDS: ASPIRIN COATED 81 MG TABLET.EC PO SCH (12:47)
--- NOTE | 2017-05-26 14:08 | CON.CARD ---
Consult Consult Specialty:: Cardiology Referred by:: Reynaldo Reason for Consultation:: unresponsive episode - History of Present Illness Chief Complaint: unresponsive at HD. History of Present Illness: This is a 86 y/o woman with a PMH of ESRD (HD- M,W,F), HTN, Anemia, IDDM, CVA, Dementia, Gastritis. Who presents to the ED from the Dialysis center after becoming unresponsive while being dialyzed. Patient was found to be Hypothermic 95.5, SAO2 92%. CT chest atalectasis, CTH no acute changes. 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: CVA, Dementia Cardio/Vascular: Yes: HTN, Hyperlipdemia, Other (PVD) Renal/: Yes: Renal Inusuff, Hemodialysis Endocrine: Yes: Diabetes Mellitus - Past Surgical History Past Surgical History: Yes: Amputation, AV Fistula/Graft, Carotid Endarterectomy - Alcohol/Substance Use Hx Alcohol Use: No History of Substance Use: reports: None - Smoking History Smoking history: Never smoked Have you smoked in the past 12 months: No Aproximately how many cigarettes per day: 0 - Social History ADL: Family Assistance History of Recent Travel: No Home Medications - Allergies Allergies/Adverse Reactions: Allergies Allergy/AdvReac Type Severity Reaction Status Date / Time No Known Drug Allergies Allergy Verified 05/25/17 17:18 - Home Medications Home Medications: Ambulatory Orders Memantine HCl [Namenda Xr] 7 mg PO DAILY 11/20/14 Pantoprazole Sodium [Protonix] 40 mg PO DAILY 11/20/14 Atorvastatin Ca [Lipitor] 10 mg PO HS 02/14/15 Insulin (Levemir) [Levemir Flexpen -] 30 units SQ ACBK 02/14/15 Amlodipine Besylate [Norvasc -] 10 mg PO DAILY tablet 07/09/16 Aspirin [ASA -] 81 mg PO DAILY tab.chew 07/09/16 Insulin Sliding Scale [Novolog Vial Sliding Scale -] 1 vial SQ ACHS units 07/09 Multivitamins [Multivit ([facility] Formulary)] 1 tab PO DAILY tab 07/09/16 Metoprolol Succinate [Toprol XL -] 12.5 mg PO DAILY #30 tab MDD 1 08/02/16 Docusate Sodium [Colace -] 200 mg PO HS PRN 12/21/16 Levothyroxine [Synthroid -] 25 mcg PO DAILY 12/21/16 Polyethylene Glycol 3350 [Miralax (For Daily Use) -] 17 gm PO DAILY 12/21/16 Quetiapine Fumarate [Seroquel -] 50 mg PO HS 12/21/16 hydrALAZINE HCL [Apresoline -] 10 mg PO BID MDD 2 12/21/16 Acetaminophen [Tylenol .Regular Strength -] 500 mg PO Q4H PRN 05/25/17 Review of Systems Unable to obtain ROS, reason: dementia - Review of Systems Constitutional: reports: No Symptoms, Chills Vital Signs: Vital Signs Temperature 98.2 F 05/26/17 08:00 Pulse Rate 90 05/26/17 08:00 Respiratory Rate 18 05/26/17 09:00 Blood Pressure 148/77 05/26/17 08:00 O2 Sat by Pulse Oximetry (%) 100 05/26/17 09:00 Constitutional: Yes: No Distress, Calm Eyes: Yes: Conjunctiva Clear, EOM Intact HENT: Yes: Atraumatic, Normocephalic Neck: Yes: Trachea Midline Respiratory: Yes: CTA Bilaterally Gastrointestinal: Yes: Normal Bowel Sounds, Soft JVD: Yes Carotid Bruit: No PMI: Non-Displaced Heart Sounds: Yes: S1, S2 Murmur: Yes: Systolic Murmur, Grade 2 Edema: No Peripheral Pulses WNL: Yes - Other Data Labs, Other Data: CBC, BMP 05/26/17 05:35 05/26/17 05:35 INR, PTT INR 0.95 (0.82-1.09) 05/25/17 16:56 Troponin, BNP 05/25/17 16:16 Troponin I < 0.02 Troponin, BNP 05/25/17 16:16 Troponin I < 0.02 Imaging - Results Chest X-ray: Report Reviewed (hector) Cat Scan: Report Reviewed (cth no acute changes ct chest atalectasis) EKG: Report Reviewed (nsr lvh old septal NM) Problem List - Problems (1) Syncope, near Assessment/Plan: most likely hypoxia or orthostasis, possibly infection. there is no evidence of ACS. Last echo without significant valvular disease. Telemetry neg. Would observe one more day. Acidosis resolved. Code(s): R55 - SYNCOPE AND COLLAPSE
--- NOTE | 2017-05-26 16:51 | CONSULT ---
Consult Consult Specialty:: Nephrology Reason for Consultation:: ESRD - History of Present Illness Chief Complaint: change in mental status History of Present Illness: Pt is an 86 year old female with pmhx of ESRD, pleural effusion, HTN, DM and enemia who presents to the ER from HD after an episode of change in mental status. I was called to evaluate her as she is on HD. She was last dialyzed yesterday. She is now awake and alert. She is able to move all her limbs. She knows that she is in the hospital. She denies chest pain or shortness of breath. She denies fevers or chills. 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: CVA, Dementia Cardio/Vascular: Yes: HTN, Hyperlipdemia, Other (PVD) Renal/: Yes: Renal Inusuff, Hemodialysis Endocrine: Yes: Diabetes Mellitus - Past Surgical History Past Surgical History: Yes: Amputation, AV Fistula/Graft, Carotid Endarterectomy - Alcohol/Substance Use Hx Alcohol Use: No History of Substance Use: reports: None - Smoking History Smoking history: Never smoked Have you smoked in the past 12 months: No Aproximately how many cigarettes per day: 0 - Social History ADL: Family Assistance History of Recent Travel: No Home Medications - Allergies Allergies/Adverse Reactions: Allergies Allergy/AdvReac Type Severity Reaction Status Date / Time No Known Drug Allergies Allergy Verified 05/25/17 17:18 - Home Medications Home Medications: Ambulatory Orders Memantine HCl [Namenda Xr] 7 mg PO DAILY 11/20/14 Pantoprazole Sodium [Protonix] 40 mg PO DAILY 11/20/14 Atorvastatin Ca [Lipitor] 10 mg PO HS 02/14/15 Insulin (Levemir) [Levemir Flexpen -] 30 units SQ ACBK 02/14/15 Amlodipine Besylate [Norvasc -] 10 mg PO DAILY tablet 07/09/16 Aspirin [ASA -] 81 mg PO DAILY tab.chew 07/09/16 Insulin Sliding Scale [Novolog Vial Sliding Scale -] 1 vial SQ ACHS units 07/09 Multivitamins [Multivit ([facility] Formulary)] 1 tab PO DAILY tab 07/09/16 Metoprolol Succinate [Toprol XL -] 12.5 mg PO DAILY #30 tab MDD 1 08/02/16 Docusate Sodium [Colace -] 200 mg PO HS PRN 12/21/16 Levothyroxine [Synthroid -] 25 mcg PO DAILY 12/21/16 Polyethylene Glycol 3350 [Miralax (For Daily Use) -] 17 gm PO DAILY 12/21/16 Quetiapine Fumarate [Seroquel -] 50 mg PO HS 12/21/16 hydrALAZINE HCL [Apresoline -] 10 mg PO BID MDD 2 12/21/16 Acetaminophen [Tylenol .Regular Strength -] 500 mg PO Q4H PRN 05/25/17 Family Disease History - Family Disease History Family History: Denies Review of Systems - Review of Systems Constitutional: reports: No Symptoms Eyes: reports: No Symptoms HENT: reports: No Symptoms Neck: reports: No Symptoms Cardiovascular: reports: No Symptoms Respiratory: reports: No Symptoms Gastrointestinal: reports: No Symptoms Genitourinary: reports: No Symptoms Musculoskeletal: reports: No Symptoms Integumentary: reports: No Symptoms Neurological: reports: No Symptoms Endocrine: reports: No Symptoms Hematology/Lymphatic: reports: No Symptoms Psychiatric: reports: No Symptoms Physical Exam Vital Signs: Vital Signs Temperature 98.2 F 05/26/17 08:00 Pulse Rate 90 05/26/17 11:44 Respiratory Rate 18 05/26/17 09:00 Blood Pressure 152/63 05/26/17 11:44 O2 Sat by Pulse Oximetry (%) 100 05/26/17 09:00 Constitutional: Yes: Calm Eyes: Yes: Conjunctiva Clear HENT: Yes: Atraumatic Neck: Yes: Supple Cardiovascular: Yes: S1, S2 Respiratory: Yes: CTA Bilaterally Gastrointestinal: Yes: Soft Renal/: Yes: Incontinence Musculoskeletal: Yes: WNL Edema: No Neurological: Yes: Oriented Psychiatric: Yes: Oriented Labs: CBC, BMP 05/26/17 05:35 05/26/17 05:35 Laboratory Tests 05/25/17 05/25/17 05/26/17 16:56 16:56 05:35 Sodium 131 L 135 L Potassium 4.8 5.2 H BUN 48 H 53 H Creatinine 4.4 H 5.1 H Lactic Acid 2.2 H* Calcium 8.3 L Imaging - Results Chest X-ray: Report Reviewed Cat Scan: Report Reviewed Problem List - Problems (1) Change in mental state Code(s): R41.82 - ALTERED MENTAL STATUS, UNSPECIFIED (2) ESRD (end stage renal disease) Code(s): N18.6 - END STAGE RENAL DISEASE (3) Anemia Code(s): D64.9 - ANEMIA, UNSPECIFIED Qualifiers: Anemia type: unspecified type Qualified Code(s): D64.9 - Anemia, unspecified Assessment/Plan Current Medications Generic Name Dose Route Start Last Admin Trade Name Freq PRN Reason Stop Dose Admin Acetaminophen 650 mg 05/26/17 11:40 Tylenol - PO Q6H PRN PAIN OR FEVER Amlodipine Besylate 10 mg 05/27/17 10:00 Norvasc - PO DAILY [facility] Aspirin 81 mg 05/26/17 11:45 05/26/17 12:47 Ecotrin - PO 81 mg DAILY [facility] Administration Atorvastatin Calcium 10 mg 05/26/17 22:00 Lipitor - PO HS [facility] Docusate Sodium 100 mg 05/26/17 11:40 Colace - PO BID PRN CONSTIPATION Hydralazine HCl 10 mg 05/26/17 22:00 Apresoline - PO BID [facility] Insulin Aspart 1 vial 05/26/17 16:30 Novolog Vial Sliding Scale - SQ ACHS [facility] Protocol Levothyroxine Sodium 25 mcg 05/27/17 07:00 Synthroid - PO DAILY@0700 [facility] Memantine 5 mg 05/26/17 22:00 Namenda - PO BID [facility] Metoprolol Succinate 12.5 mg 05/26/17 11:45 05/26/17 12:47 Toprol Xl - PO 12.5 mg DAILY [facility] Administration Quetiapine Fumarate 50 mg 05/26/17 22:00 Seroquel - PO HS [facility] Impression 1. ESRD 2. S/P AMS 3. HTN 4. PVD 5. hyperlipidemia 6. dementia 7. DM 8. PNA 9. Anemia 10. pleural effusion Plan - will arrange for HD in the am - renal diet - neuro eval - cardio input appreciated - mental status appears improved - will follow Dr Fox
[2017-05-26] MEDS: INSULIN SLIDING SCALE (NOVOLOG) 1 VIAL SQ SCH ×2 (17:42→21:43)
--- NOTE | 2017-05-26 20:56 | CONSULT ---
Consult - text type - Consultation Consultation Note: NEUROLOGY CONSULTATION is greatly appreciated: Events reviewed. Pt examined with her at the bedside. This 86 yo RH woman is a retired [employer] with h/o HTN, DM, Hypothyroidism, anemia , vertigo, ESRD on HD, CVA and dementia. 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 On memantine XR (7 mg); pantoprazole; atorvastatin; insulins; amlodipine; clopidogrel; metoprolol; L-Thyroxin; meclizine; hydralazine and quetiapine. Admitted after becoming confused with possible obscuration of consciousness/ syncope on dialysis. Now, "back to normal" according to her . I can find no documentation from HD to support hypotension or hypogycemia. No mention of seizure actilvity Pt lives with her and Home health aide (13/09) and has been non- ambulatory for about 3-4 years. Pureed diet at home. CT of head (reviewed): Marked and diffuse cerebral atrophy, ex vacuo hydrocephalus and diffuse microvascular changes. HUMBERTO: Thin, s/p Left CEA. Left carotid bruit. No evidence of external head trauma HD fistual in left arm/ swollen. NEURO: Awake, alert, friendly, cooperative. Palestinian only. Ox [place]. June. No year. Dysarthric speech CN II-XII normal without nystagmus. Motor: Mild left drift and sl decreased left grasp. Areflexic in legs. Plantars silent. Decreased vibration in feet. IMP: 1. Moderately severe, B/L cerebral; dysfunction (OMS, Chronic). 2. Mild right cerebral accentuation, s/p CVA 3. Diabetic/uremic peripheral neuropathy 4. Possible syncope- etiology uncertain. SUGGEST: check orthostatic BP's if possible Carotid duplex dopplers. Agree with Rx for possible infection and telemetry for arhythmia. Check BP's and glucose before and after HD. May be necessary to stagger BP Meds, especially hydralazine and give after HD or on Non-HD days only. D/C Memantine, meclizine. Thank you very much, Brady Burt MD
[2017-05-26] MEDS: hydrALAZINE HCL 10 MG TABLET PO SCH (21:43)
[2017-05-26] MEDS: MEMANTINE HCL 5 MG TABLET (UD) PO SCH (21:43)
[2017-05-26] MEDS ORDERED: ATORVASTATIN CA 10 MG TABLET (FP) PO SCH (22:00)
[2017-05-26] MEDS ORDERED: QUEtiapine FUMARATE 50 MG TABLET PO SCH (22:00)
[2017-05-27] MEDS: INSULIN SLIDING SCALE (NOVOLOG) 1 VIAL SQ SCH ×2 (06:02→13:59)
[2017-05-27] MEDS ORDERED: LEVOTHYROXINE NA 25 MCG TABLET (FP) PO SCH (07:00)
[2017-05-27] MEDS ORDERED: SODIUM CHLORIDE 250 ML IV PRN (08:00)
[2017-05-27 09:26] LABS: HEMATOCRIT 24.7 % (32.4-45.2); HEMOGLOBIN 8.3 GM/dL (10.7-15.3); MCH 30.3 pg (25.7-33.7); MCHC 33.4 g/dl (32.0-36.0); MEAN CELL VOLUME 90.8 fl (80-96); MEAN PLT VOLUME 7.2 fl (7.5-11.1); PLATELET COUNT 141 K/MM3 (134-434); RBC 2.73 M/mm3 (3.60-5.2); RDW 15.2 % (11.6-15.6); WHITE BLOOD COUNT 2.8 K/mm3 (4.0-10.0)
[2017-05-27 09:37] LABS: ANION GAP 11 (8-16); BLOOD UREA NITROGEN 55 mg/dL (7-18); CALCIUM 8.1 mg/dL (8.5-10.1); CHLORIDE 103 mmol/L (98-107); CO2 24 mmol/L (21-32); CREATININE 5.4 mg/dL (0.55-1.02); GLUCOSE,RANDOM 108 mg/dL (74-106); POTASSIUM 4.5 mmol/L (3.5-5.1); SODIUM 138 mmol/L (136-145)
[2017-05-27] MEDS ORDERED: amLODIPine BESYLATE 10 MG TABLET (FP) PO SCH (10:00)
[2017-05-27 10:07] VITALS: TEMP 98.1
[2017-05-27] MEDS: hydrALAZINE HCL 10 MG TABLET PO SCH (10:57)
[2017-05-27] MEDS: MEMANTINE HCL 5 MG TABLET (UD) PO SCH (10:58)
[2017-05-27] MEDS: ASPIRIN COATED 81 MG TABLET.EC PO SCH (10:58)
--- NOTE | 2017-05-27 11:23 | DS ---
Physical Examination Vital Signs: Vital Signs Temperature 98.1 F 05/27/17 09:00 Pulse Rate 79 05/27/17 09:45 Respiratory Rate 18 05/27/17 09:45 Blood Pressure 152/54 05/27/17 09:45 O2 Sat by Pulse Oximetry (%) 100 05/27/17 09:00 Findings/Remarks: HAVING HD BEDSIDE, NAD Constitutional: Yes: No Distress Eyes: Yes: WNL HENT: Yes: WNL Neck: Yes: WNL Cardiovascular: Yes: WNL Respiratory: Yes: WNL Gastrointestinal: Yes: WNL Renal/: Yes: Other Musculoskeletal: Yes: WNL Extremities: Yes: WNL Edema: No Peripheral Pulses WNL: Yes Integumentary: Yes: WNL Wound/Incision: Yes: Clean/Dry Neurological: Yes: Pre-Existing Deficit ...Motor Strength: LLE, RLE Psychiatric: Yes: Other Labs: CBC, BMP 05/27/17 08:15 05/27/17 08:15 Discharge Summary Reason For Visit: ALTERED MENTAL STATUS Current Active Problems Change in mental state (Acute) ESRD (end stage renal disease) (Acute) SIRS (systemic inflammatory response syndrome) (Acute) Procedures: Principal: HEAD CT Hospital Course: WORKED UP FOR SYNCOPE, HEAD CT, ECHO, TELEMETRY NO ACUTE CHANGES HD DONE, DC WITH [facility] Condition: Fair - Instructions Diet, Activity, Other Instructions: SEE YOUR PRIMARY DOCTOR IN 1 WEEK CHECK CBC FOR ANEMIA, AND HD RENAL DIET Referrals: Jero Faustin MD [Primary Care Provider] - Disposition: [facility]NS/HOME HEALTH CARE - Home Medications Comprehensive Discharge Medication List: Ambulatory Orders Memantine HCl [Namenda Xr] 7 mg PO DAILY 11/20/14 Pantoprazole Sodium [Protonix] 40 mg PO DAILY 11/20/14 Atorvastatin Ca [Lipitor] 10 mg PO HS 02/14/15 Insulin (Levemir) [Levemir Flexpen -] 30 units SQ ACBK 02/14/15 Amlodipine Besylate [Norvasc -] 10 mg PO DAILY tablet 07/09/16 Aspirin [ASA -] 81 mg PO DAILY tab.chew 07/09/16 Insulin Sliding Scale [Novolog Vial Sliding Scale -] 1 vial SQ ACHS units 07/09 Multivitamins [Multivit ([facility])] 1 tab PO DAILY tab 07/09/16 Metoprolol Succinate [Toprol XL -] 12.5 mg PO DAILY #30 tab MDD 1 08/02/16 Docusate Sodium [Colace -] 200 mg PO HS PRN 12/21/16 Levothyroxine [Synthroid -] 25 mcg PO DAILY 12/21/16 Polyethylene Glycol 3350 [Miralax (For Daily Use) -] 17 gm PO DAILY 12/21/16 Quetiapine Fumarate [Seroquel -] 50 mg PO HS 12/21/16 hydrALAZINE HCL [Apresoline -] 10 mg PO BID MDD 2 12/21/16 Acetaminophen [Tylenol .Regular Strength -] 500 mg PO Q4H PRN 05/25/17 Acetaminophen [Tylenol .Regular Strength -] 650 mg PO Q6H PRN tablet 05/27/17 Amlodipine Besylate [Norvasc -] 10 mg PO DAILY tablet 05/27/17 Aspirin Coated [Ecotrin -] 81 mg PO DAILY tablet.ec 05/27/17 Atorvastatin Ca [Lipitor] 10 mg PO HS tablet 05/27/17 Docusate Sodium [Colace -] 100 mg PO BID PRN capsule 05/27/17 Insulin Sliding Scale [Novolog Vial Sliding Scale -] 1 vial SQ ACHS units 05/27 Levothyroxine [Synthroid -] 25 mcg PO DAILY@0700 tablet 05/27/17 Memantine HCl [Namenda -] 5 mg PO BID tab 05/27/17 Metoprolol Succinate [Toprol XL -] 12.5 mg PO DAILY tab.sr.24h 05/27/17 Quetiapine Fumarate [Seroquel -] 50 mg PO HS tablet 05/27/17 hydrALAZINE HCL [Apresoline -] 10 mg PO BID tablet 05/27/17
[2017-05-27] MEDS: metoPROLOL SUCCINATE 25 MG TAB.SR.24H (FP) PO SCH (13:59)
--- NOTE | 2017-05-27 14:45 | PN ---
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, Physician Chief Complaint: comfortable, going home later today tele neg History of Present Illness: This is a 86 y/o woman with a PMH of ESRD (HD- M,W,F), HTN, Anemia, IDDM, CVA, Dementia, Gastritis. Who presents to the ED from the Dialysis center after becoming unresponsive while being dialyzed. Patient was found to be Hypothermic 95.5, SAO2 92%. CT chest atalectasis, CTH no acute changes. Echo 07/20/16 EF 45% mod MR/TR/phtn pap50 - Current Medication List Current Medications: Active Medications Acetaminophen (Tylenol -) 650 mg PO Q6H PRN PRN Reason: PAIN OR FEVER Amlodipine Besylate (Norvasc -) 10 mg PO DAILY [facility] Last Admin: 05/27/17 10:58 Dose: Not Given Aspirin (Ecotrin -) 81 mg PO DAILY [facility] Last Admin: 05/27/17 10:58 Dose: Not Given Atorvastatin Calcium (Lipitor -) 10 mg PO HS [facility] Last Admin: 05/26/17 21:43 Dose: 10 mg Docusate Sodium (Colace -) 100 mg PO BID PRN PRN Reason: CONSTIPATION Hydralazine HCl (Apresoline -) 10 mg PO BID [facility] Last Admin: 05/27/17 10:57 Dose: Not Given Insulin Aspart (Novolog Vial Sliding Scale -) 1 vial SQ ACHS [facility] PRN Reason: Protocol Last Admin: 05/27/17 13:59 Dose: 4 units Levothyroxine Sodium (Synthroid -) 25 mcg PO DAILY@0700 [facility] Last Admin: 05/27/17 06:02 Dose: 25 mcg Memantine (Namenda -) 5 mg PO BID [facility] Last Admin: 05/27/17 10:58 Dose: Not Given Metoprolol Succinate (Toprol Xl -) 12.5 mg PO DAILY [facility] Last Admin: 05/27/17 13:59 Dose: Not Given Quetiapine Fumarate (Seroquel -) 50 mg PO HS [facility] Last Admin: 05/26/17 21:43 Dose: 50 mg - Objective Vital Signs: Vital Signs Temperature 98.1 F 05/27/17 09:00 Pulse Rate 90 05/27/17 11:53 Respiratory Rate 18 05/27/17 11:53 Blood Pressure 134/52 05/27/17 11:53 O2 Sat by Pulse Oximetry (%) 100 05/27/17 09:00 Constitutional: Yes: Well Nourished, No Distress Eyes: Yes: Conjunctiva Clear, EOM Intact HENT: Yes: Normocephalic Neck: Yes: Trachea Midline Cardiovascular: Yes: Regular Rate and Rhythm Respiratory: Yes: CTA Bilaterally Gastrointestinal: Yes: Normal Bowel Sounds, Soft Musculoskeletal: Yes: WNL Extremities: Yes: WNL Edema: No Peripheral Pulses WNL: Yes Labs: CBC, BMP 05/27/17 08:15 05/27/17 08:15 INR, PTT INR 0.95 (0.82-1.09) 05/25/17 16:56 Problem List - Problems (1) Syncope, near Assessment/Plan: most likely hypoxia or orthostasis, possibly infection. there is no evidence of ACS. Last echo without significant valvular disease. Telemetry neg. Acidosis resolved. will see as needed. Code(s): R55 - SYNCOPE AND COLLAPSE
--- NOTE | 2017-05-27 15:03 | PN ---
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, Physician History of Present Illness: Pt seen and examined at bedside. She is awake and alert. She tolerated HD today. - Current Medication List Current Medications: Active Medications Acetaminophen (Tylenol -) 650 mg PO Q6H PRN PRN Reason: PAIN OR FEVER Amlodipine Besylate (Norvasc -) 10 mg PO DAILY [facility] Last Admin: 05/27/17 10:58 Dose: Not Given Aspirin (Ecotrin -) 81 mg PO DAILY [facility] Last Admin: 05/27/17 10:58 Dose: Not Given Atorvastatin Calcium (Lipitor -) 10 mg PO [facility] Last Admin: 05/26/17 21:43 Dose: 10 mg Docusate Sodium (Colace -) 100 mg PO BID PRN PRN Reason: CONSTIPATION Hydralazine HCl (Apresoline -) 10 mg PO BID [facility] Last Admin: 05/27/17 10:57 Dose: Not Given Insulin Aspart (Novolog Vial Sliding Scale -) 1 vial SQ ACHS [facility] PRN Reason: Protocol Last Admin: 05/27/17 13:59 Dose: 4 units Levothyroxine Sodium (Synthroid -) 25 mcg PO DAILY@0700 [facility] Last Admin: 05/27/17 06:02 Dose: 25 mcg Memantine (Namenda -) 5 mg PO BID [facility] Last Admin: 05/27/17 10:58 Dose: Not Given Metoprolol Succinate (Toprol Xl -) 12.5 mg PO DAILY [facility] Last Admin: 05/27/17 13:59 Dose: Not Given Quetiapine Fumarate (Seroquel -) 50 mg PO [facility] Last Admin: 05/26/17 21:43 Dose: 50 mg - Objective Vital Signs: Vital Signs Temperature 98.1 F 05/27/17 09:00 Pulse Rate 90 05/27/17 11:53 Respiratory Rate 18 05/27/17 11:53 Blood Pressure 134/52 05/27/17 11:53 O2 Sat by Pulse Oximetry (%) 100 05/27/17 09:00 Constitutional: Yes: Calm Eyes: Yes: Conjunctiva Clear HENT: Yes: Atraumatic Cardiovascular: Yes: S1, S2 Respiratory: Yes: CTA Bilaterally Gastrointestinal: Yes: Soft Genitourinary: Yes: WNL Musculoskeletal: Yes: WNL Edema: No Neurological: Yes: Oriented, Pre-Existing Deficit Labs: CBC, BMP 05/27/17 08:15 05/27/17 08:15 INR, PTT INR 0.95 (0.82-1.09) 05/25/17 16:56 Problem List - Problems (1) Change in mental state Code(s): R41.82 - ALTERED MENTAL STATUS, UNSPECIFIED (2) ESRD (end stage renal disease) Code(s): N18.6 - END STAGE RENAL DISEASE (3) Anemia Code(s): D64.9 - ANEMIA, UNSPECIFIED Qualifiers: Anemia type: unspecified type Qualified Code(s): D64.9 - Anemia, unspecified Assessment/Plan Current Medications Generic Name Dose Route Start Last Admin Trade Name Freq PRN Reason Stop Dose Admin Acetaminophen 650 mg 05/26/17 11:40 Tylenol - PO Q6H PRN PAIN OR FEVER Amlodipine Besylate 10 mg 05/27/17 10:00 05/27/17 10:58 Norvasc - PO Not Given DAILY [facility] Aspirin 81 mg 05/26/17 11:45 05/27/17 10:58 Ecotrin - PO Not Given DAILY [facility] Atorvastatin Calcium 10 mg 05/26/17 22:00 05/26/17 21:43 Lipitor - PO 10 mg HS [facility] Administration Docusate Sodium 100 mg 05/26/17 11:40 Colace - PO BID PRN CONSTIPATION Hydralazine HCl 10 mg 05/26/17 22:00 05/27/17 10:57 Apresoline - PO Not Given BID [facility] Insulin Aspart 1 vial 05/26/17 16:30 05/27/17 13:59 Novolog Vial Sliding Scale - SQ 4 units ACHS [facility] Administration Protocol Levothyroxine Sodium 25 mcg 05/27/17 07:00 05/27/17 06:02 Synthroid - PO 25 mcg DAILY@0700 [facility] Administration Memantine 5 mg 05/26/17 22:00 05/27/17 10:58 Namenda - PO Not Given BID [facility] Metoprolol Succinate 12.5 mg 05/26/17 11:45 05/27/17 13:59 Toprol Xl - PO Not Given DAILY [facility] Quetiapine Fumarate 50 mg 05/26/17 22:00 05/26/17 21:43 Seroquel - PO 50 mg HS [facility] Administration Impression 1. ESRD 2. S/P AMS 3. HTN 4. PVD 5. hyperlipidemia 6. dementia 7. DM 8. PNA 9. Anemia 10. pleural effusion Plan - pt tolerated HD - she has HD set up as outpt - pt being evaluate by pt/rehab - will follow - mental status appears improved Dr Fox
[2017-05-27 15:33] VITALS: BP 138/54; PULSE 96
[2017-05-29 06:39] LABS: HBSAG SCREEN Negative (Negative); HEP A AB, IGM Negative (Negative); HEP B CORE AB, TOT Positive (Negative)
== END 2017-05-27 17:26 | disposition home health service (06) | DRG 312 ==
LOC: JER 15:33 → JERBED 19:12 → J4W 22:49
PROVIDERS: ADMIT Internal Medicine; ATTEND Family Medicine
DX: R55 Syncope and collapse (principal); N18.6 End stage renal disease; I12.0 Hypertensive chronic kidney disease with stage 5 chronic kidney disease or end stage renal disease; J98.11 Atelectasis; I69.354 Hemiplegia and hemiparesis following cerebral infarction affecting left non-dominant side; J90 Pleural effusion, not elsewhere classified; E87.2 Acidosis; R68.0 Hypothermia, not associated with low environmental temperature; E03.9 Hypothyroidism, unspecified; E11.22 Type 2 diabetes mellitus with diabetic chronic kidney disease; F03.90 Unspecified dementia, unspecified severity, without behavioral disturbance, psychotic disturbance, mood disturbance, and anxiety; K29.70 Gastritis, unspecified, without bleeding; R09.02 Hypoxemia; D63.1 Anemia in chronic kidney disease; E78.5 Hyperlipidemia, unspecified; E11.51 Type 2 diabetes mellitus with diabetic peripheral angiopathy without gangrene; Z89.421 Acquired absence of other right toe(s); Z89.422 Acquired absence of other left toe(s); Z79.4 Long term (current) use of insulin
CPT/HCPCS: 36415; 36600; 70450-TC; 71045-TC-FY; 71250-TC; 80048; 80053; 81003; 81015; 82140; 82375; 82803; 82962; 83050; 83605; 83735; 84100; 84484; 85025; 85027; 85610; 85730; 86704; 86706; 86708; 87040; 87086; 87340; 90688; 93005; 93010; 93306-TC; 93880-TC; 97116-GP; 97162-GP; 99285-25; G0008; J7620